=== PATIENT | female | born 1935 | race Caucasian/White ===

== ENCOUNTER 2017-12-17 18:57 | Emergency (ER) | payer MEDICARE, OTHER ==
[2017-12-17] MEDS ORDERED: SODIUM CHLORIDE 0.9% 1,000 ML IV STA (19:18)
--- NOTE | 2017-12-17 19:20 | ED ---
General Adult HPI - General Chief complaint: Syncope Stated complaint: Syncope Time Seen by Provider: 12/17/17 19:09 Source: patient Mode of arrival: EMS Limitations: no limitations - History of Present Illness Initial comments: Delicia is an 82-year-old female is brought to the ED today via EMS for evaluation of syncopal episode. Delicia reports that she was in her usual state of health throughout the day today, this evening she was sitting on air-conditioned trailer for a while and then decided to go out to the picnic table eat dinner. She reports that she was sitting in the table in the shade and she ate her dinner, she then began to feel very lightheaded and her witnesses she passed out. She did not fall from her seat. She leaned forward onto the table. Witnesses report that she was passed out for approximately 1-2 minutes. 911 was called. Delicia woke up, she was awake alert oriented. She reports that she has had episodes of dizziness in the past but doesn't know that she has ever passed out. She denies any chest pain, palpitations, shortness of breath, nausea, vomiting. She reports a prior to this event she was feeling well and after being woken up by EMS she has been feeling fine. - Related Data Allergies Allergy/AdvReac Type Severity Reaction Status Date / Time No Known Allergies Allergy Verified 12/17/17 19:03 Review of Systems ROS Statement: Those systems with pertinent positive or pertinent negative responses have been documented in the HPI. ROS Other: All systems not noted in ROS Statement are negative. Past Medical History Past Medical History: Diabetes Mellitus, Hyperlipidemia, Hypertension Additional Past Medical History / Comment(s): malignant melanoma History of Any Multi-Drug Resistant Organisms: None Reported Past Surgical History: Breast Surgery Additional Past Surgical History / Comment(s): bilateral knee replacement Past Psychological History: No Psychological Hx Reported Smoking Status: Never smoker Past Alcohol Use History: None Reported Past Drug Use History: None Reported General Exam Limitations: no limitations Course Vital Signs 12/17/17 12/17/17 12/17/17 18:59 20:12 20:44 Temperature 98.4 F Pulse Rate 86 98 76 Respiratory 18 20 18 Rate Blood Pressure 218/85 204/79 161/69 O2 Sat by Pulse 98 99 100 Oximetry 12/17/17 21:47 Temperature 98.3 F Pulse Rate 80 Respiratory 20 Rate Blood Pressure 169/77 O2 Sat by Pulse 98 Oximetry Medical Decision Making - Medical Decision Making Patient was seen and evaluated, history was obtained from the patient and then further history obtained from her Had been sitting outside in the heat eating dinner, she a large dinner stood up and felt lightheaded sat back down and may have had syncope, reports that she leaned forward onto the table and seemed to be asleep but immediately woke and was arousable. EMS was called and patient was transferred to the ER for evaluation of syncope. Patient ever experience any chest pain, palpitations, nausea or vomiting. She had no seizure-like activity or postictal period. A cardiac workup was ordered Patient is noted to be hypertensive upon arrival, we'll monitor Current workup was negative for acute findings, CT of the head was negative for any acute findings, patient's hypertension improved after IV fluids and relaxation. Patient resting comfortably throughout her entire ER stay without any episodes of lightheadedness, palpitations or syncope Patient was reevaluated after fluids, lab and CT findings were discussed with the patient and her at bedside. Patient reports that she is feeling great and would like to be discharged home. All questions pertaining to care were answered best of my ability patient was advised to call 911 or return to Hospital immediately for any recurrence of symptoms or development of any new or concerning symptoms. Discussed with the patient as well as her . Questions pertaining care were answered the best my ability patient was discharged home in stable condition. - Lab Data Result diagrams: 12/17/17 19:12 12/17/17 19:12 Lab Results 12/17/17 12/17/17 12/17/17 Range/Units 19:12 19:12 19:12 WBC 9.7 (3.8-10.6) k/uL RBC 4.59 (3.80-5.40) m/uL Hgb 14.2 (11.4-16.0) gm/dL Hct 44.9 (34.0-46.0) % MCV 97.9 (80.0-100.0) fL MCH 30.9 (25.0-35.0) pg MCHC 31.6 (31.0-37.0) g/dL RDW 13.6 (11.5-15.5) % Plt Count 267 (150-450) k/uL Neutrophils % 64 % Lymphocytes % 18 % Monocytes % 6 % Eosinophils % 9 % Basophils % 1 % Neutrophils # 6.2 (1.3-7.7) k/uL Lymphocytes # 1.8 (1.0-4.8) k/uL Monocytes # 0.6 (0-1.0) k/uL Eosinophils # 0.8 H (0-0.7) k/uL Basophils # 0.1 (0-0.2) k/uL PT (9.0-12.0) sec INR (<1.2) APTT (22.0-30.0) sec Sodium 139 (137-145) mmol/L Potassium 4.9 (3.5-5.1) mmol/L Chloride 106 (98-107) mmol/L Carbon Dioxide 23 (22-30) mmol/L Anion Gap 10 mmol/L BUN 17 (7-17) mg/dL Creatinine 0.85 (0.52-1.04) mg/dL Est GFR (CKD-EPI)AfAm 74 (>60 ml/min/1.73 sqM) Est GFR (CKD-EPI)NonAf 64 (>60 ml/min/1.73 sqM) Glucose 109 H (74-99) mg/dL Calcium 9.8 (8.4-10.2) mg/dL Magnesium 1.8 (1.6-2.3) mg/dL Total Bilirubin 0.6 (0.2-1.3) mg/dL AST 30 (14-36) U/L ALT 26 (9-52) U/L Alkaline Phosphatase 39 (38-126) U/L Total Creatine Kinase 28 L (30-135) U/L CK-MB (CK-2) 0.6 (0.0-2.4) ng/mL CK-MB (CK-2) Rel Index 2.1 Troponin I <0.012 (0.000-0.034) ng/mL Total Protein 6.6 (6.3-8.2) g/dL Albumin 4.2 (3.5-5.0) g/dL Urine Color Urine Appearance (Clear) Urine pH (5.0-8.0) Ur Specific [place] (1.001-1.035) Urine Protein (Negative) Urine Glucose (UA) (Negative) Urine Ketones (Negative) Urine Blood (Negative) Urine Nitrite (Negative) Urine Bilirubin (Negative) Urine Urobilinogen (<2.0) mg/dL Ur Leukocyte Esterase (Negative) Urine RBC (0-5) /hpf Urine WBC (0-5) /hpf Urine WBC Clumps (None) /hpf Ur Squamous Epith Cells (0-4) /hpf Hyaline Casts (0-2) /lpf Urine Mucus (None) /hpf 12/17/17 12/17/17 Range/Units 19:12 20:00 WBC (3.8-10.6) k/uL RBC (3.80-5.40) m/uL Hgb (11.4-16.0) gm/dL Hct (34.0-46.0) % MCV (80.0-100.0) fL MCH (25.0-35.0) pg MCHC (31.0-37.0) g/dL RDW (11.5-15.5) % Plt Count (150-450) k/uL Neutrophils % % Lymphocytes % % Monocytes % % Eosinophils % % Basophils % % Neutrophils # (1.3-7.7) k/uL Lymphocytes # (1.0-4.8) k/uL Monocytes # (0-1.0) k/uL Eosinophils # (0-0.7) k/uL Basophils # (0-0.2) k/uL PT 10.4 (9.0-12.0) sec INR 1.1 (<1.2) APTT 23.7 (22.0-30.0) sec Sodium (137-145) mmol/L Potassium (3.5-5.1) mmol/L Chloride (98-107) mmol/L Carbon Dioxide (22-30) mmol/L Anion Gap mmol/L BUN (7-17) mg/dL Creatinine (0.52-1.04) mg/dL Est GFR (CKD-EPI)AfAm (>60 ml/min/1.73 sqM) Est GFR (CKD-EPI)NonAf (>60 ml/min/1.73 sqM) Glucose (74-99) mg/dL Calcium (8.4-10.2) mg/dL Magnesium (1.6-2.3) mg/dL Total Bilirubin (0.2-1.3) mg/dL AST (14-36) U/L ALT (9-52) U/L Alkaline Phosphatase (38-126) U/L Total Creatine Kinase (30-135) U/L CK-MB (CK-2) (0.0-2.4) ng/mL CK-MB (CK-2) Rel Index Troponin I (0.000-0.034) ng/mL Total Protein (6.3-8.2) g/dL Albumin (3.5-5.0) g/dL Urine Color Yellow Urine Appearance Cloudy H (Clear) Urine pH 6.0 (5.0-8.0) Ur Specific [place] 1.014 (1.001-1.035) Urine Protein Trace H (Negative) Urine Glucose (UA) Negative (Negative) Urine Ketones Negative (Negative) Urine Blood Negative (Negative) Urine Nitrite Negative (Negative) Urine Bilirubin Negative (Negative) Urine Urobilinogen <2.0 (<2.0) mg/dL Ur Leukocyte Esterase Large H (Negative) Urine RBC 1 (0-5) /hpf Urine WBC 83 H (0-5) /hpf Urine WBC Clumps Many H (None) /hpf Ur Squamous Epith Cells 1 (0-4) /hpf Hyaline Casts 15 H (0-2) /lpf Urine Mucus Rare H (None) /hpf Disposition Clinical Impression: Syncope Disposition: HOME SELF-CARE Condition: Stable Instructions: Syncope (ED) Is patient prescribed a controlled substance at d/c from ED?: No Referrals: Raul Diaz MD [Primary Care Provider] - 1-2 days Time of Disposition: 21:33
[2017-12-17 19:34] LABS: Basophils # (A) 0.1 k/uL (0-0.2); Basophils % (A) 1 %; Eosinophils # (A) 0.8 k/uL (0-0.7); Eosinophils % (A) 9 %; HCT 44.9 % (34.0-46.0); HGB 14.2 gm/dL (11.4-16.0); Lymphocytes # (A) 1.8 k/uL (1.0-4.8); Lymphocytes % (A) 18 %; MCH 30.9 pg (25.0-35.0); MCHC 31.6 g/dL (31.0-37.0); MCV 97.9 fL (80.0-100.0); Mean Platelet Volume 6.8; Monocytes # (A) 0.6 k/uL (0-1.0); Monocytes % (A) 6 %; Neutrophils # (A) 6.2 k/uL (1.3-7.7); Neutrophils % (A) 64 %; Platelet Count 267 k/uL (150-450); RBC 4.59 m/uL (3.80-5.40); RDW 13.6 % (11.5-15.5); WBC 9.7 k/uL (3.8-10.6)
[2017-12-17 19:44] LABS: Albumin 4.2 g/dL (3.5-5.0); Calcium 9.8 mg/dL (8.4-10.2); Magnesium 1.8 mg/dL (1.6-2.3); Potassium 4.9 mmol/L (3.5-5.1); Total Bilirubin 0.6 mg/dL (0.2-1.3); Total Protein 6.6 g/dL (6.3-8.2)
[2017-12-17 19:46] LABS: Creatine Kinase 28 U/L (30-135)
[2017-12-17 19:50] LABS: INR 1.1 (<1.2); Partial Thromboplastin Time 23.7 sec (22.0-30.0); Prothrombin Time 10.4 sec (9.0-12.0)
[2017-12-17 19:59] LABS: Troponin I <0.012 ng/mL (0.000-0.034)
[2017-12-17 20:04] LABS: Creatine Kinase MB 0.6 ng/mL (0.0-2.4)
--- NOTE | 2017-12-17 20:11 | CT ---
EXAMINATION TYPE: CT brain wo con DATE OF EXAM: 12/17/2017 COMPARISON: None HISTORY: Syncopal episode today. CT DLP: 1025.2 mGycm Automated exposure control for dose reduction was used. FINDINGS: There is some cerebral cortical atrophy. There is no mass effect nor midline shift. There is no sign of intracranial hemorrhage. The calvarium is intact. IMPRESSION: CEREBRAL ATROPHY. NO ACUTE INTRACRANIAL ABNORMALITY. There is pansinusitis noted.
--- NOTE | 2017-12-17 20:13 | XR ---
EXAMINATION TYPE: XR chest 2V DATE OF EXAM: 12/17/2017 COMPARISON: NONE HISTORY: Syncope TECHNIQUE: Frontal and lateral views of the chest are obtained. FINDINGS: Heart and mediastinum are normal. Lungs are clear. Diaphragm is normal. There are chest le ads. Bony thorax appears normal. IMPRESSION: Normal chest
[2017-12-17 20:44] LABS: Appearance,Urine Cloudy (Clear); Bilirubin,Urine Negative (Negative); Blood,Urine Negative (Negative); Color,Urine Yellow; Glucose,Urine (UA) Negative (Negative); Hyaline Casts,Urine 15 /lpf (0-2); Ketones,Urine Negative (Negative); Leukocyte Esterase,Urine Large (Negative); Mucus,Urine Rare /hpf; Nitrite,Urine Negative (Negative); Protein,Urine Trace (Negative); RBC,Urine 1 /hpf (0-5); Specific Gravity,Urine 1.014 (1.001-1.035); Squamous Epithelial Cell,Urine 1 /hpf (0-4); Urobilinogen,Urine <2.0 mg/dL (<2.0); WBC,Urine 83 /hpf (0-5)
[2017-12-17 21:48] VITALS: BP 169/77; PULSE 80; RESP 20; TEMP 98.3
== END 2017-12-17 21:48 | disposition home or self-care (01) ==
LOC: EC 18:57
DX: R55 Syncope and collapse (principal); R42 Dizziness and giddiness; E11.9 Type 2 diabetes mellitus without complications; I10 Essential (primary) hypertension; Z85.820 Personal history of malignant melanoma of skin; Z96.653 Presence of artificial knee joint, bilateral
CPT/HCPCS: 36415; 70450; 71046; 80053; 81001; 82550; 82553; 83735; 84484; 85025; 85610; 85730; 93005; 96360; 96361; 99285

== ENCOUNTER → 2019-09-10 | Outpatient (CLI) | payer MEDICARE, OTHER ==
[2019-09-10 13:04] LABS: Basophils % (A) 1 %; Eosinophils # (A) 0.2 k/uL (0-0.7); Eosinophils % (A) 4 %; HGB 14.1 gm/dL (11.4-16.0); Lymphocytes # (A) 1.7 k/uL (1.0-4.8); Lymphocytes % (A) 27 %; MCH 31.7 pg (25.0-35.0); MCHC 32.9 g/dL (31.0-37.0); MCV 96.4 fL (80.0-100.0); Mean Platelet Volume 7.3; Monocytes # (A) 0.3 k/uL (0-1.0); Monocytes % (A) 5 %; Neutrophils # (A) 3.7 k/uL (1.3-7.7); Neutrophils % (A) 61 %; Platelet Count 288 k/uL (150-450); RBC 4.46 m/uL (3.80-5.40); RDW 13.6 % (11.5-15.5); WBC 6.1 k/uL (3.8-10.6)
[2019-09-10 13:55] LABS: Erythrocyte Sedimentation Rate 8 mm/hr (0-20)
[2019-09-10 19:52] LABS: ALT 27 U/L (8-44); AST 37 U/L (13-35); African American GFR (CKD) 53.8 (60.0-200.0); Albumin/Globulin Ratio 2.39 (1.60-3.17); Alkaline Phosphatase 57 U/L (41-126); BUN/Creat Ratio 18.18 Ratio (12.00-20.00); Calcium 9.7 mg/dL (8.7-10.3); Carbon Dioxide 22.3 mmol/L (21.6-31.8); Chloride 105 mmol/L (96-109); Globulin 1.8 g/dL (1.6-3.3); Glucose 191 mg/dL (70-110); Non-African American GFR(CKD) 46.4 (60.0-200.0); Sodium 137 mmol/L (135-145); Total Bilirubin 0.6 mg/dL (0.3-1.2); Total Protein 6.1 g/dL (6.2-8.2)
[2019-09-10 20:08] LABS: Folate, Serum >24.0 ng/mL
[2019-09-14 08:33] LABS: Arsenic Whole Blood <3 mcg/L (< 23); Mercury Whole Blood <2 mcg/L (< 11)
== END | disposition home or self-care (01) ==
LOC: LABWHC1 11:41
PROVIDERS: ATTEND Internal Medicine
DX: G62.9 Polyneuropathy, unspecified (principal)
CPT/HCPCS: 36415; 80053; 82175; 82570; 82607; 82746; 83655; 83825; 85025; 85652

== ENCOUNTER → 2020-07-06 | Outpatient (CLI) | payer MEDICARE, OTHER ==
[~2020-07-06] MED LIST: SODIUM CHLORIDE 0.9% 500 ML 500 ML in EMPTY BAG 1 BAG IV PRN
[2020-07-06 08:01] VITALS: RESP 18
[2020-07-06 08:50] LABS: Basophils # (A) 0.1 k/uL (0-0.2); Basophils % (A) 1 %; Eosinophils # (A) 0.3 k/uL (0-0.7); Eosinophils % (A) 4 %; HCT 41.7 % (34.0-46.0); HGB 14.2 gm/dL (11.4-16.0); Lymphocytes # (A) 1.4 k/uL (1.0-4.8); Lymphocytes % (A) 23 %; MCH 32.9 pg (25.0-35.0); MCHC 34.1 g/dL (31.0-37.0); MCV 96.5 fL (80.0-100.0); Mean Platelet Volume 7.4; Monocytes # (A) 0.4 k/uL (0-1.0); Monocytes % (A) 7 %; Neutrophils # (A) 3.6 k/uL (1.3-7.7); Neutrophils % (A) 62 %; Platelet Count 309 k/uL (150-450); RBC 4.32 m/uL (3.80-5.40); WBC 5.9 k/uL (3.8-10.6)
[2020-07-06 09:06] LABS: Albumin 3.8 g/dL (3.5-5.0); Calcium 9.6 mg/dL (8.4-10.2); Potassium 4.9 mmol/L (3.5-5.1); Total Bilirubin 0.7 mg/dL (0.2-1.3); Total Protein 6.4 g/dL (6.3-8.2)
[2020-07-06] MEDS: SODIUM CHLORIDE 0.9% 1,000 ML IV NR ×2 (09:28→10:02)
[2020-07-07 00:26] LABS: Folate, Serum 19.5 ng/mL
== END ==
LOC: PROCWHC3 07:38
PROVIDERS: ATTEND Family Medicine
DX: R10.9 Unspecified abdominal pain (principal)
CPT/HCPCS: 36415; 80053; 82607; 82746; 83605; 83690; 84443; 85025; 96360; 96361

== ENCOUNTER 2023-09-13 08:12 | Inpatient (IN) | payer MEDICARE, OTHER ==
--- NOTE | 2023-09-13 08:26 | ED ---
General Adult HPI - General Stated complaint: AMS Time Seen by Provider: 09/13/23 08:13 Source: patient, EMS, RN notes reviewed Mode of arrival: EMS Limitations: altered mental status - History of Present Illness Initial comments: Patient is an 87-year-old female present to the emergency department with concerns for change in mental status. Onset of symptoms was today. Patient seems more confused. This was noticed by nursing staff at the halfway. Patient is unable to express any concerns. Patient is extremely hard of hearing - Related Data Home Medications Medication Instructions Recorded Confirmed Aspirin 81 mg PO W/SUPPER 07/06/20 09/13/23 Levothyroxine Sodium [Synthroid] 75 mg PO HS 07/06/20 09/13/23 Losartan [Cozaar] 50 mg PO BID-W/MEALS 07/06/20 09/13/23 Pantoprazole [Protonix] 40 mg PO AC-BRKFST 07/06/20 09/13/23 Pitavastatin Calcium [Livalo] 2 mg PO AC-BRKFST 07/06/20 09/13/23 Topiramate [Topamax] 25 mg PO W/SUPPER 07/06/20 09/13/23 B-Complex with Vitamin C [Vitamin 1 cap PO W/BRKFST 09/13/23 09/13/23 B-Complex with Vit C] Furosemide [Lasix] 20 mg PO W/SUPPER 09/13/23 09/13/23 Pioglitazone [Actos] 45 mg PO W/BRKFST 09/13/23 09/13/23 glipiZIDE XL [Glucotrol Xl] 10 mg PO W/BRKFST 09/13/23 09/13/23 metFORMIN HCL 500 mg PO BID-W/MEALS 09/13/23 09/13/23 Allergies Allergy/AdvReac Type Severity Reaction Status Date / Time No Known Allergies Allergy Verified 12/17/17 19:03 Review of Systems ROS Statement: Those systems with pertinent positive or pertinent negative responses have been documented in the HPI. ROS Other: All systems not noted in ROS Statement are negative. Limitations: ROS unobtainable due to patients medical condition Past Medical History Past Medical History: Diabetes Mellitus, Hyperlipidemia, Hypertension Additional Past Medical History / Comment(s): malignant melanoma History of Any Multi-Drug Resistant Organisms: None Reported Past Surgical History: Breast Surgery Additional Past Surgical History / Comment(s): bilateral knee replacement Past Psychological History: No Psychological Hx Reported Smoking Status: Never smoker Past Alcohol Use History: None Reported Past Drug Use History: None Reported General Exam Limitations: altered mental status General appearance: alert, in no apparent distress Head exam: Present: atraumatic Eye exam: Present: normal appearance ENT exam: Present: mucous membranes dry Neck exam: Present: normal inspection. Absent: tenderness, meningismus Respiratory exam: Present: normal lung sounds bilaterally Cardiovascular Exam: Present: tachycardia GI/Abdominal exam: Present: soft. Absent: tenderness Extremities exam: Present: normal inspection. Absent: pedal edema, calf tenderness Neurological exam: Present: alert, altered, other (Does not follow commands, difficult exam. No weakness noted.) Expanded Neurological exam: Present: protecting the airway Patient oriented to: Present: person. Absent: place, time Motor strength exam: RUE: 5, LUE: 5, RLE: 5, LLE: 5 Eye Response: (4) open spontaneously Motor Response: (4) withdraws to pain Verbal Response: (3) inappropriate words Psychiatric exam: Present: flat affect Skin exam: Present: normal color Course Vital Signs 09/13/23 09/13/23 09/13/23 08:15 10:04 11:06 Temperature 100.1 F H 101.2 F H Pulse Rate 106 H 96 Respiratory 18 20 19 Rate Blood Pressure 154/84 151/58 O2 Sat by Pulse 98 95 Oximetry EKG Findings - EKG Results: EKG: interpreted by ERMD (Bundle branch block), sinus rhythm, normal axis, normal ST/T Medical Decision Making - Medical Decision Making Was pt. sent in by a medical professional or institution (, PA, GAS TURBINE MECHANIC, urgent care, hospital, or halfway...) When possible be specific @ -Patient was sent from nursing facility Did you speak to anyone other than the patient for history (EMS, parent, family, police, friend...)? What history was obtained from this source @ -No Did you review nursing and triage notes (agree or disagree)? Why? @ -I reviewed and agree with nursing and triage notes Were old charts reviewed (outside hosp., previous admission, EMS record, old EKG, old radiological studies, urgent care reports/EKG's, halfway records)? Report findings @ -half-way chart reviewed Differential Diagnosis (chest pain, altered mental status, abdominal pain women, abdominal pain men, vaginal bleeding, weakness, fever, dyspnea, syncope, headache, dizziness, GI bleed, back pain, seizure, CVA, palpatations, mental health, musculoskeletal)? @ -MDM differential altered mental status differential Altered Mental Status: Hypoglycemia, DKA, hypercapnia, ETOH, overdose, CO poisoning, trauma, myxedema coma, HTN encephalopathy, infection, encephalitis, psychosis, intercranial hemorrhage, hepatic encephalopathy, meningitis, CVA, this is not meant to be an all-inclusive list EKG interpreted by me (3pts min.). @ -As above X-rays interpreted by me (1pt min.). @ -Chest x-ray shows no acute process CT interpreted by me (1pt min.). @ -CT scan of the brain without acute abnormality or atrophy. U/S interpreted by me (1pt. min.). @ -None done What testing was considered but not performed or refused? (CT, X-rays, U/S, labs)? Why? @ -None What meds were considered but not given or refused? Why? @ -None Did you discuss the management of the patient with other professionals (professionals i.e. DrClif, PA, G[employer] T[employer]INE MECHANIC, lab, RT, psych nurse, geriatric social worker, stallion manager, teacher, forest fire management officer, case management director)? Give summary @ -Case discussed with Dr. Cheung who will admit covering Dr. Aleman Was smoking cessation discussed for >3mins.? @ -No Was critical care preformed (if so, how long)? @ -31 minutes critical care Were there social determinants of health that impacted care today? How? (Homelessness, low income, unemployed, alcoholism, drug addiction, transportation, low edu. Level, literacy, decrease access to med. care, assisted, rehab)? @ -No Was there de-escalation of care discussed even if they declined (Discuss DNR or withdrawal of care, Hospice)? DNR status @ -No What co-morbidities impacted this encounter? (DM, HTN, Smoking, COPD, CAD, Cancer, CVA, ARF, Chemo, Hep., AIDS, mental health diagnosis, sleep apnea, morbid obesity)? @ -None Was patient admitted / discharged? Hospital course, mention meds given and route, prescriptions, significant lab abnormalities, going to OR and other pertinent info. @ -Patient presents with altered mental status. Patient is a poor historian. Patient has fever however no obvious infection. Viral studies have been ordered. Patient does have elevated troponin and will be admitted with heparin and cardiology consult and echo. Undiagnosed new problem with uncertain prognosis? @ -Etiology of altered mental status and fever uncertain. Uncertain prognosis. Drug Therapy requiring intensive monitoring for toxicity (Heparin, Nitro, Insulin, Cardizem)? @ -No Were any procedures done? @ -No Diagnosis/symptom? @ -Fever, altered mental status, non-ST elevation ID Acute, or Chronic, or Acute on Chronic? @ -Acute, acute, acute Uncomplicated (without systemic symptoms) or Complicated (systemic symptoms)? @ -Default Side effects of treatment? @ -No Exacerbation, Progression, or Severe Exacerbation? @ -No Poses a threat to life or bodily function? How? (Chest pain, USA, ID, pneumonia, PE, COPD, DKA, ARF, appy, cholecystitis, CVA, Diverticulitis, Homicidal, Suicidal, threat to staff... and all critical care pts) @ -Threat to organ and cardiac dysfunction - Lab Data Result diagrams: 09/13/23 08:31 09/13/23 08:31 Lab Results 09/13/23 09/13/23 09/13/23 Range/Units 08:31 08:31 08:31 WBC 9.8 (3.8-10.6) k/uL RBC 3.95 (3.80-5.40) m/uL Hgb 12.4 (11.4-16.0) gm/dL Hct 36.6 (34.0-46.0) % MCV 92.8 (80.0-100.0) fL MCH 31.5 (25.0-35.0) pg MCHC 33.9 (31.0-37.0) g/dL RDW 14.5 (11.5-15.5) % Plt Count 295 (150-450) k/uL MPV 7.4 Neutrophils % 84 % Lymphocytes % 8 % Monocytes % 6 % Eosinophils % 0 % Basophils % 0 % Neutrophils # 8.3 H (1.3-7.7) k/uL Lymphocytes # 0.8 L (1.0-4.8) k/uL Monocytes # 0.6 (0-1.0) k/uL Eosinophils # 0.0 (0-0.7) k/uL Basophils # 0.0 (0-0.2) k/uL PT 11.3 (10.0-12.5) sec INR 1.0 (<1.2) APTT 26.4 (22.0-30.0) sec Sodium (137-145) mmol/L Potassium (3.5-5.1) mmol/L Chloride (98-107) mmol/L Carbon Dioxide (22-30) mmol/L Anion Gap mmol/L BUN (7-17) mg/dL Creatinine (0.52-1.04) mg/dL Est GFR (CKD-EPI)AfAm (>60 ml/min/1.73 sqM) Est GFR (CKD-EPI)NonAf (>60 ml/min/1.73 sqM) Glucose (74-99) mg/dL Plasma Lactic Acid [place] (0.7-2.0) mmol/L Calcium (8.4-10.2) mg/dL Magnesium (1.6-2.3) mg/dL Total Bilirubin (0.2-1.3) mg/dL AST (14-36) U/L ALT (4-34) U/L Alkaline Phosphatase (38-126) U/L Troponin I (0.000-0.034) ng/mL Total Protein (6.3-8.2) g/dL Albumin (3.5-5.0) g/dL Urine Color Colorless Urine Appearance Cloudy H (Clear) Urine pH 7.5 (5.0-8.0) Ur Specific [place] 1.012 (1.001-1.035) Urine Protein 1+ H (Negative) Urine Glucose (UA) 2+ H (Negative) Urine Ketones 1+ H (Negative) Urine Blood Negative (Negative) Urine Nitrite Negative (Negative) Urine Bilirubin Negative (Negative) Urine Urobilinogen <2.0 (<2.0) mg/dL Ur Leukocyte Esterase Negative (Negative) Urine WBC 3 (0-5) /hpf Ur Squamous Epith Cells 2 (0-4) /hpf Urine Bacteria Few H (None) /hpf Hyaline Casts 3 H (0-2) /lpf Urine Mucus Rare H (None) /hpf 09/13/23 09/13/23 09/13/23 Range/Units 08:31 08:31 08:31 WBC (3.8-10.6) k/uL RBC (3.80-5.40) m/uL Hgb (11.4-16.0) gm/dL Hct (34.0-46.0) % MCV (80.0-100.0) fL MCH (25.0-35.0) pg MCHC (31.0-37.0) g/dL RDW (11.5-15.5) % Plt Count (150-450) k/uL MPV Neutrophils % % Lymphocytes % % Monocytes % % Eosinophils % % Basophils % % Neutrophils # (1.3-7.7) k/uL Lymphocytes # (1.0-4.8) k/uL Monocytes # (0-1.0) k/uL Eosinophils # (0-0.7) k/uL Basophils # (0-0.2) k/uL PT (10.0-12.5) sec INR (<1.2) APTT (22.0-30.0) sec Sodium 134 L (137-145) mmol/L Potassium 4.5 (3.5-5.1) mmol/L Chloride 103 (98-107) mmol/L Carbon Dioxide 25 (22-30) mmol/L Anion Gap 6 mmol/L BUN 16 (7-17) mg/dL Creatinine 0.98 (0.52-1.04) mg/dL Est GFR (CKD-EPI)AfAm 60 (>60 ml/min/1.73 sqM) Est GFR (CKD-EPI)NonAf 52 (>60 ml/min/1.73 sqM) Glucose 226 H (74-99) mg/dL Plasma Lactic Acid [place] 1.3 (0.7-2.0) mmol/L Calcium 9.0 (8.4-10.2) mg/dL Magnesium 1.5 L (1.6-2.3) mg/dL Total Bilirubin 0.9 (0.2-1.3) mg/dL AST 46 H (14-36) U/L ALT 26 (4-34) U/L Alkaline Phosphatase 132 H (38-126) U/L Troponin I 3.270 H* (0.000-0.034) ng/mL Total Protein 6.2 L (6.3-8.2) g/dL Albumin 3.7 (3.5-5.0) g/dL Urine Color Urine Appearance (Clear) Urine pH (5.0-8.0) Ur Specific [place] (1.001-1.035) Urine Protein (Negative) Urine Glucose (UA) (Negative) Urine Ketones (Negative) Urine Blood (Negative) Urine Nitrite (Negative) Urine Bilirubin (Negative) Urine Urobilinogen (<2.0) mg/dL Ur Leukocyte Esterase (Negative) Urine WBC (0-5) /hpf Ur Squamous Epith Cells (0-4) /hpf Urine Bacteria (None) /hpf Hyaline Casts (0-2) /lpf Urine Mucus (None) /hpf Disposition Clinical Impression: Altered mental status, Fever, NSTEMI (non-ST elevated myocardial infarction) Disposition: ADMITTED IP TO [facility] Condition: Serious Is patient prescribed a controlled substance at d/c from ED?: No Referrals: Son Nava DO [Primary Care Provider] - 1-2 days Time of Disposition: 12:14
[2023-09-13 08:56] LABS: Basophils % (A) 0 %; Eosinophils % (A) 0 %; HCT 36.6 % (34.0-46.0); HGB 12.4 gm/dL (11.4-16.0); Lymphocytes # (A) 0.8 k/uL (1.0-4.8); Lymphocytes % (A) 8 %; MCH 31.5 pg (25.0-35.0); MCHC 33.9 g/dL (31.0-37.0); MCV 92.8 fL (80.0-100.0); Mean Platelet Volume 7.4; Monocytes # (A) 0.6 k/uL (0-1.0); Monocytes % (A) 6 %; Neutrophils # (A) 8.3 k/uL (1.3-7.7); Neutrophils % (A) 84 %; Platelet Count 295 k/uL (150-450); RBC 3.95 m/uL (3.80-5.40); RDW 14.5 % (11.5-15.5); WBC 9.8 k/uL (3.8-10.6)
[2023-09-13 09:07] LABS: ALT 26 U/L (4-34); AST 46 U/L (14-36); African American GFR (CKD) 60 (>60 ml/min/1.73 sqM); Albumin 3.7 g/dL (3.5-5.0); Alkaline Phosphatase 132 U/L (38-126); Anion Gap 6 mmol/L; Blood Urea Nitrogen 16 mg/dL (7-17); Carbon Dioxide 25 mmol/L (22-30); Chloride 103 mmol/L (98-107); Glucose 226 mg/dL (74-99); Magnesium 1.5 mg/dL (1.6-2.3); Non-African American GFR(CKD) 52 (>60 ml/min/1.73 sqM); Potassium 4.5 mmol/L (3.5-5.1); Sodium 134 mmol/L (137-145); Total Bilirubin 0.9 mg/dL (0.2-1.3); Total Protein 6.2 g/dL (6.3-8.2)
[2023-09-13] MEDS: SODIUM CHLORIDE 0.9% 1,000 ML IV STA (09:08)
[2023-09-13] MEDS: ACETAMINOPHEN TAB 500 MG TAB PO STA (09:11)
[2023-09-13 09:13] LABS: Partial Thromboplastin Time 26.4 sec (22.0-30.0); Prothrombin Time 11.3 sec (10.0-12.5)
[2023-09-13 09:21] LABS: Appearance,Urine Cloudy (Clear); Bacteria,Urine Few /hpf; Bilirubin,Urine Negative (Negative); Blood,Urine Negative (Negative); Color,Urine Colorless; Glucose,Urine (UA) 2+ (Negative); Hyaline Casts,Urine 3 /lpf (0-2); Ketones,Urine 1+ (Negative); Leukocyte Esterase,Urine Negative (Negative); Mucus,Urine Rare /hpf; Nitrite,Urine Negative (Negative); PH, Urine 7.5 (5.0-8.0); Protein,Urine 1+ (Negative); Specific Gravity,Urine 1.012 (1.001-1.035); Squamous Epithelial Cell,Urine 2 /hpf (0-4); Urobilinogen,Urine <2.0 mg/dL (<2.0); WBC,Urine 3 /hpf (0-5)
[2023-09-13] MEDS: ACETAMINOPHEN IV (For NPO) 1,000 MG in EMPTY BAG 1 BAG IVPB STA (10:03)
--- NOTE | 2023-09-13 10:16 | CT ---
EXAMINATION TYPE: CT brain wo con DATE OF EXAM: 09/13/2023 COMPARISON: 12/17/2017 HISTORY: mental status change CT DLP: 1330.[address] of the brain was performed. The ventricles, basal cisterns and sulci overlying the cerebral convexities demonstrate mild enlargem ent. There is no evidence for intracranial hemorrhage or sulcal effacement. There is decreased attenuation about the periventricular white matter and deep white matter of both c erebral hemispheres, compatible with chronic small vessel ischemia. Differential diagnosis does inclu de demyelination. No mass effects are seen.No midline shift. Osseous calvarium is intact. If symptoms persist consider MRI. IMPRESSION: 1. Age related atrophic and chronic small vessel ischemic change without acute intracranial process s een at this time.
--- NOTE | 2023-09-13 11:16 | XR ---
EXAMINATION TYPE: XR chest 2V DATE OF EXAM: 09/13/2023 COMPARISON: 12/17/2017 TECHNIQUE: PA and lateral views submitted. HISTORY: Weakness FINDINGS: The lungs are clear and there is no pneumothorax, pleural effusion, or focal pneumonia. Heart size normal and no overt failure. Osseous structures demonstrate hypertrophic and degenerative changes of the spine. Correlate for diffuse neoplastic skeletal hyperostosis. Osteopenia with AC joint arthropat hy. IMPRESSION: 1. No acute process.
[2023-09-13] MEDS: LORazepam 1 MG TAB PO STA (13:16)
[2023-09-13] MEDS: ASPIRIN 81 MG PO STA (13:18)
[2023-09-13] MEDS: MAGNESIUM OXIDE 400 MG TAB PO STA (13:19)
[2023-09-13] MEDS: HEPARIN SODIUM 1,000 UN/ML (10ML VL) IV ONE (13:24)
[2023-09-13] MEDS ORDERED: DEXTROSE 50% SYRINGE 50 ML IVP PRN ×2 (13:24)
[2023-09-13] MEDS: HEPARIN SOD,PORK IN 0.45% NACL 25,000 UNIT in 0.45% NACL 1 250ML.BAG IV SCH (13:28)
--- NOTE | 2023-09-13 14:16 | P.CRDCN ---
History of Present Illness History of present illness: HISTORY OF PRESENT ILLNESS: This is a 87 year year female with a past medical history significant for hypertension, diabetes, and GERD. 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 We have been asked to see the patient in consultation for elevated troponins. Patient examined at the bedside in the ER. Patient is usually A/O x3. She lives in an independant living facility. She does have a nurse that comes in the morning to help get her dressed. The patient was noted to be very confused which is not her baseline. She was brought to the ER for further evaluation. Patient also was found to have a fever. WBC normal. Patient was also found to have elevated troponins and started on IV heparin. Patient has had no complaints of chest pain or pressure. No complaints of shortness of breath. Vital signs are stable. Bedside telemetry reveals sinus mechanism. She is tachycardic at the time of examination with a heart rate in the 120s. DIAGNOSTICS: - EKG reveals sinus mechanism with no signs of acute ischemia. Right BBB. - Chest xray negative for acute process - Laboratory data: WBC 9.8. Hemoglobin 12.4. Platelet count 295. Sodium 134. Potassium 4.5. BUN 16. Creatinine 0.98. Lactic acid 1.3. Troponin 3.270. 8.280. - Current home cardiac medications include losartan 50 mg twice a day, Lasix 20 mg daily, aspirin 81 mg daily. REVIEW OF SYSTEMS: At the time of my exam: Unable to obtain thorough review of systems secondary to altered mental status PHYSICAL EXAM: VITAL SIGNS: Reviewed. GENERAL: Well-developed in no acute distress. HEENT: Head is normocephalic. Pupils are equal, round. Sclerae anicteric. Mucous membranes of the mouth are moist. Neck supple. No JVD or thyromegaly LUNGS: Respirations even and unlabored. Lungs essentially clear to auscultation bilaterally. HEART: Regular rate and rhythm. S1 and S2 heard. 4/6 systolic murmur ABDOMEN: Soft. Nondistended. Nontender. EXTREMITIES: Normal range of motion. No clubbing or cyanosis. Peripheral pulses intact. No lower extremity edema NEUROLOGIC: Confused. Agitated during examination. 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 Additionally she is tachycardic at the time of examination. Suspect elevated troponins are due to type II MT. Await findings of echocardiogram. Pending echocardiogram, more recommendations will be provided regarding need for cardiac catheterization We will continue with conservative management at this time. Patient's daughter at the bedside and updated on plan of care. All questions answered. Further recommendations pending patient course Nurse practitioner note has been reviewed by physician. Signing provider agrees with the documented findings, assessment, and plan of care documented by [facility] as a scribe. Past Medical History Past Medical History: Diabetes Mellitus, Hyperlipidemia, Hypertension Additional Past Medical History / Comment(s): malignant melanoma History of Any Multi-Drug Resistant Organisms: None Reported Past Surgical History: Breast Surgery Additional Past Surgical History / Comment(s): bilateral knee replacement Past Psychological History: No Psychological Hx Reported Smoking Status: Never smoker Past Alcohol Use History: None Reported Past Drug Use History: None Reported Medications and Allergies Home Medications Medication Instructions Recorded Confirmed Type Aspirin 81 mg PO W/SUPPER 07/06/20 09/13/23 History Levothyroxine Sodium [Synthroid] 75 mg PO HS 07/06/20 09/13/23 History Losartan [Cozaar] 50 mg PO BID-W/MEALS 07/06/20 09/13/23 History Pantoprazole [Protonix] 40 mg PO AC-BRKFST 07/06/20 09/13/23 History Pitavastatin Calcium [Livalo] 2 mg PO AC-BRKFST 07/06/20 09/13/23 History Topiramate [Topamax] 25 mg PO W/SUPPER 07/06/20 09/13/23 History B-Complex with Vitamin C [Vitamin 1 cap PO W/BRKFST 09/13/23 09/13/23 History B-Complex with Vit C] Furosemide [Lasix] 20 mg PO W/SUPPER 09/13/23 09/13/23 History Pioglitazone [Actos] 45 mg PO W/BRKFST 09/13/23 09/13/23 History glipiZIDE XL [Glucotrol Xl] 10 mg PO W/BRKFST 09/13/23 09/13/23 History metFORMIN HCL 500 mg PO BID-W/MEALS 09/13/23 09/13/23 History Allergies Allergy/AdvReac Type Severity Reaction Status Date / Time No Known Allergies Allergy Verified 12/17/17 19:03 Physical Exam Vitals: Vital Signs Temp Pulse Resp BP Pulse Ox 09/13/23 13:31 100.9 F H 112 H 20 98 09/13/23 11:06 101.2 F H 19 09/13/23 10:04 96 20 151/58 95 09/13/23 08:15 100.1 F H 106 H 18 154/84 98 Intake and Output 09/12/23 09/13/23 09/13/23 22:59 06:59 14:59 Other: Weight 99.79 kg Results 09/13/23 08:31 09/13/23 08:31 Cardiac Enzymes 09/13/23 09/13/23 09/13/23 Range/Units 08:31 08:31 12:25 AST 46 H (14-36) U/L Troponin I 3.270 H* 8.280 H* (0.000-0.034) ng/mL Coagulation 09/13/23 Range/Units 08:31 PT 11.3 (10.0-12.5) sec APTT 26.4 (22.0-30.0) sec CBC 09/13/23 Range/Units 08:31 WBC 9.8 (3.8-10.6) k/uL RBC 3.95 (3.80-5.40) m/uL Hgb 12.4 (11.4-16.0) gm/dL Hct 36.6 (34.0-46.0) % Plt Count 295 (150-450) k/uL Comprehensive Metabolic Panel 09/13/23 Range/Units 08:31 Sodium 134 L (137-145) mmol/L Potassium 4.5 (3.5-5.1) mmol/L Chloride 103 (98-107) mmol/L Carbon Dioxide 25 (22-30) mmol/L BUN 16 (7-17) mg/dL Creatinine 0.98 (0.52-1.04) mg/dL Glucose 226 H (74-99) mg/dL Calcium 9.0 (8.4-10.2) mg/dL AST 46 H (14-36) U/L ALT 26 (4-34) U/L Alkaline Phosphatase 132 H (38-126) U/L Total Protein 6.2 L (6.3-8.2) g/dL Albumin 3.7 (3.5-5.0) g/dL Current Medications Generic Name Dose Route Start Last Admin Trade Name Danish PRN Reason Stop Dose Admin Aspirin 325 mg 09/14/23 09:00 Aspirin 325 Mg Tab PO DAILY TY Dextrose/Water 25 ml 09/13/23 13:24 Dextrose 50% Syringe 50 Ml IVP PER PROTOCOL PRN Hypoglycemia Protocol Dextrose/Water 50 ml 09/13/23 13:24 Dextrose 50% Syringe 50 Ml IVP PER PROTOCOL PRN Hypoglycemia Protocol Sodium Chloride 1,000 mls @ 75 mls/hr 09/13/23 08:23 09/13/23 09:08 Saline 0.9% IV 09/13/23 21:42 75 mls/hr .[id number] STA Administration Heparin Sodium/Sodium Chloride 250 mls @ 10 mls/hr 09/13/23 12:15 09/13/23 13:28 25,000 unit/ Sodium Chloride IV 10.021 units/kg/hr .Q24H TY 10 mls/hr Administration Protocol 10.021 UNITS/KG/HR Magnesium Sulfate/Dextrose 1 100 mls @ 100 mls/hr 09/13/23 13:30 gm/ IV Solution IVPB 09/13/23 15:29 Q1H TY Insulin Aspart 0 unit 09/13/23 17:30 Insulin Aspart (Novolog) 100 Unit/Ml Vial SQ ACHS TY Protocol Levothyroxine Sodium 75 mcg 09/13/23 21:00 Levothyroxine 75 Mcg Tab PO HS TY Pantoprazole Sodium 40 mg 09/14/23 07:30 Pantoprazole 40 Mg Tablet PO AC-BRKFST TY Topiramate 25 mg 09/13/23 17:30 Topiramate 25 Mg Tab PO W/SUPPER TY Intake and Output 09/12/23 09/13/23 09/13/23 22:59 06:59 14:59 Other: Weight 99.79 kg Patient Weight 09/14/23 06:59 Weight 99.79 kg 09/13/23 08:31 09/13/23 08:31
[2023-09-13] MEDS: AZITHROMYCIN 500 MG TAB PO SCH (15:39)
[2023-09-13] MEDS: METOPROLOL SUCCINATE (ER) 25 MG TAB.ER.24H PO SCH (15:45)
[2023-09-13] MEDS: MAGNESIUM SULFATE-D5W PMX 1 GM in DEXTROSE/WATER 1 100ML.BAG IVPB SCH (15:51)
--- NOTE | 2023-09-13 16:31 | P.CONS ---
History of Present Illness - Reason for Consult Consult date: 09/13/23 Fever Requesting physician: Jeromy Urban - Chief Complaint Mental status changes and weakness x 1 day - History of Present Illness Patient is a 87-year-old female with a past medical history significant for diabetes mellitus hypertension hyperlipidemia malignant melanoma osteoarthritis status post bilateral knee replacement patient has been brought into the hospital concerning for mental status changes onset of symptom has been the day of presentation to the hospital the patient was noted to be more confused by the nursing staff at the [facility] history obtained mostly from the daughter at the bedside patient did have URI symptoms few days before presen tation to the hospital patient did have a cough mild to moderate intensity not bring up any sputum no nausea vomiting did have some diarrhea and no urinary symptoms on presentation to the hospital patient did have a fever of 101.2 F patient was tachycardic not hypotensive or hypoxic and no need for supplemental oxygen patient did have a white count of 9.8 creatinine 0.98 electrolytes are normal liver isms are normal troponins are elevated urine to be cloudy however negative for leukocyte Estrace and WBC and influenza RSV COVID testing was negative patient did have a CT of the brain that was negative for any bleed chest x-ray reported negative for acute process infectious disease was consulted because of the fever and need for antibiotic therapy Review of Systems Positive point and negatives has been mentioned in the HPI, complete review of systems was performed and all other systems are negative Past Medical History Past Medical History: Diabetes Mellitus, Hyperlipidemia, Hypertension Additional Past Medical History / Comment(s): malignant melanoma History of Any Multi-Drug Resistant Organisms: None Reported Past Surgical History: Breast Surgery Additional Past Surgical History / Comment(s): bilateral knee replacement Past Psychological History: No Psychological Hx Reported Smoking Status: Never smoker Past Alcohol Use History: None Reported Past Drug Use History: None Reported Medications and Allergies Home Medications Medication Instructions Recorded Confirmed Type Aspirin 81 mg PO W/SUPPER 07/06/20 09/13/23 History Levothyroxine Sodium [Synthroid] 75 mg PO HS 07/06/20 09/13/23 History Pantoprazole [Protonix] 40 mg PO AC-BRKFST 07/06/20 09/13/23 History Topiramate [Topamax] 25 mg PO W/SUPPER 07/06/20 09/13/23 History B-Complex with Vitamin C [Vitamin 1 cap PO W/BRKFST 09/13/23 09/13/23 History B-Complex with Vit C] metFORMIN HCL 500 mg PO BID-W/MEALS 09/13/23 09/13/23 History Acetaminophen Tab [Tylenol] 650 mg PO Q4HR PRN tab 09/18/23 Rx Atorvastatin [Lipitor] 40 mg PO HS tab 09/18/23 Rx INSULIN ASPART (NovoLOG) [NovoLOG 0 unit SQ ACHS each 09/18/23 Rx (formulary)] cefUROXime axetiL [Ceftin] 500 mg PO BID 7 Days #14 tab 09/18/23 Rx Apixaban [Eliquis] 5 mg PO BID tab 09/21/23 Rx Furosemide [Lasix] 20 mg PO BID@0900,1600 tab 09/21/23 Rx Insulin Detemir (Levemir) [Levemir] 20 unit SQ BID each 09/21/23 Rx Metoprolol Succinate (ER) [Toprol 50 mg PO BID tab 09/21/23 Rx XL] Allergies Allergy/AdvReac Type Severity Reaction Status Date / Time No Known Allergies Allergy Verified 12/17/17 19:03 Physical Exam Vitals: Vital Signs Temp Pulse Resp BP Pulse Ox 09/13/23 11:06 101.2 F H 19 09/13/23 10:04 96 20 151/58 95 09/13/23 08:15 100.1 F H 106 H 18 154/84 98 Intake and Output 09/12/23 09/13/23 09/13/23 22:59 06:59 14:59 Other: Weight 99.79 kg GENERAL DESCRIPTION: Elderly female lying in bed, no distress. No tachypnea or accessory muscle of respiration use. HEENT: Shows Pallor , no scleral icterus. Oral mucous membrane is dry. No pharyngeal erythema or thrush NECK: Trachea central, no thyromegaly. LUNGS: Unlabored breathing. Clear to auscultation anteriorly. No wheeze or crackle. HEART: S1, S2, regular rate and rhythm. No loud murmur ABDOMEN: Soft, no tenderness , guarding or rigidity, no organomegaly EXTREMITIES: No edema of feet. SKIN: No rash, no masses palpable. NEUROLOGICAL: The patient is awake,, mood and affect normal. Results CBC & Chem 7: 09/20/23 07:43 09/20/23 07:43 Labs: Abnormal Lab Results - Last 24 Hours (Table) 09/13/23 09/13/23 09/13/23 Range/Units 08:31 08:31 08:31 Neutrophils # 8.3 H (1.3-7.7) k/uL Lymphocytes # 0.8 L (1.0-4.8) k/uL Sodium 134 L (137-145) mmol/L Glucose 226 H (74-99) mg/dL Magnesium 1.5 L (1.6-2.3) mg/dL AST 46 H (14-36) U/L Alkaline Phosphatase 132 H (38-126) U/L Troponin I (0.000-0.034) ng/mL Total Protein 6.2 L (6.3-8.2) g/dL Urine Appearance Cloudy H (Clear) Urine Protein 1+ H (Negative) Urine Glucose (UA) 2+ H (Negative) Urine Ketones 1+ H (Negative) Urine Bacteria Few H (None) /hpf Hyaline Casts 3 H (0-2) /lpf Urine Mucus Rare H (None) /hpf 09/13/23 Range/Units 08:31 Neutrophils # (1.3-7.7) k/uL Lymphocytes # (1.0-4.8) k/uL Sodium (137-145) mmol/L Glucose (74-99) mg/dL Magnesium (1.6-2.3) mg/dL AST (14-36) U/L Alkaline Phosphatase (38-126) U/L Troponin I 3.270 H* (0.000-0.034) ng/mL Total Protein (6.3-8.2) g/dL Urine Appearance (Clear) Urine Protein (Negative) Urine Glucose (UA) (Negative) Urine Ketones (Negative) Urine Bacteria (None) /hpf Hyaline Casts (0-2) /lpf Urine Mucus (None) /hpf Assessment and Plan (1) Fever Status: Acute Code(s): R50.9 - FEVER, UNSPECIFIED SNOMED Code(s): 024731507 (2) Leukocytosis Status: Acute Code(s): D72.829 - ELEVATED WHITE BLOOD CELL COUNT, UNSPECIFIED SNOMED Code(s): 441739946 (3) SIRS (systemic inflammatory response syndrome) Status: Acute Code(s): R65.10 - SIRS OF NON-INFECTIOUS ORIGIN W/O ACUTE ORGAN DYSFUNCTION SNOMED Code(s): 967437441 (4) UTI (urinary tract infection) Status: Acute Code(s): N39.0 - URINARY TRACT INFECTION, SITE NOT SPECIFIED SNOMED Code(s): 90000495 Plan: 1patient presented to hospital with fever and this patient who do have symptoms of SIRS with fever elevated white count tachycardia source likely pneumonia in this patient who did have a URI symptoms prior to developing the symptoms concerning for possible post viral bacterial pneumonia that has not been shown upon initial chest x-ray, patient currently do not have any abdominal tenderness no evidence of any cellulitis or neck rigidity. 2we will obtain sputum for Gram stain culture check a CRP procalcitonin level and follow-up on the cultures 3will empirically add Rocephin and Zithromax while waiting for the workup to be completed We will follow on clinical condition and cultures to further adjust medication if needed Thank you for this consultation we will follow the patient along with you Dictation was produced using [employer] dictation software. please excuse any grammatical, word or spelling errors.
[2023-09-13 17:56] LABS: Glucose,Whole Blood 257 mg/dL (70-110)
[2023-09-13] MEDS: ACETAMINOPHEN TAB 325 MG TAB PO PRN (18:02)
[2023-09-13] MEDS: TOPIRAMATE 25 MG TAB PO SCH (18:02)
[2023-09-13] MEDS: INSULIN ASPART (NovoLOG) 100 UNIT/ML VIAL SQ SCH (18:03)
[2023-09-13 20:24] LABS: Glucose,Whole Blood 251 mg/dL (70-110)
[2023-09-13] MEDS: LEVOTHYROXINE 75 MCG TAB PO SCH (20:47)
[2023-09-13] MEDS: ATORVASTATIN 40 MG TAB PO SCH (20:47)
--- NOTE | 2023-09-13 22:18 | P.HPIM ---
History of Present Illness H&P Date: 09/13/23 Chief Complaint: Altered mental status Patient is a 87-year-old female with a past medical history of hypertension, hyperlipidemia, diabetes type 2 [id number], hypothyroidism, history of malignant melanoma and osteoarthritis who is currently living at [facility] was brought to the hospital due to altered mental status. According to her daughter patient has been her normal state yesterday evening. She was found to be confused this morning and has been hallucinating. Patient also developed a fever. She was for febrile with Tmax of 101.2 on admission. Otherwise patient cannot provide any history at this time. According to her daughter patient has been having cold-like symptoms last week. Patient is also tachycardic on admission. EKG showed sinus rhythm with sinus arrhythmia. CT head showed age-related atrophic and chronic small vessel ischemic changes without acute intracranial process seen at this time. Chest x-ray showed no acute process. Laboratory data showed WBC 9.8 hemoglobin 12.4 and platelets 295 lymphocytes 0.8 sodium 134 potassium 4.5 chloride 103 bicarb is 25 BUN 16 and creatinine 0.98 and blood sugar 226. A1c 7.1 lactic acid 1.3 magnesium 1.5 alk phos 132 total bili 0.9 Troponin 3.27, 8.28 and 11.5 Albumin 3.7 urinalysis showed cloudy with 1+ protein 2+ glucose 1+ ketones and nitrite negative and leukocyte esterase negative. WBCs 3 and squamous epithelial cells 2. Influenza A B RSV and COVID-19 PCR not detected. Review of Systems ROS unobtainable: due to mental status Past Medical History Past Medical History: Diabetes Mellitus, Hyperlipidemia, Hypertension Additional Past Medical History / Comment(s): malignant melanoma History of Any Multi-Drug Resistant Organisms: None Reported Past Surgical History: Breast Surgery Additional Past Surgical History / Comment(s): bilateral knee replacement Past Psychological History: No Psychological Hx Reported Smoking Status: Never smoker Past Alcohol Use History: None Reported Past Drug Use History: None Reported Medications and Allergies Home Medications Medication Instructions Recorded Confirmed Type Aspirin 81 mg PO W/SUPPER 07/06/20 09/13/23 History Levothyroxine Sodium [Synthroid] 75 mg PO HS 07/06/20 09/13/23 History Losartan [Cozaar] 50 mg PO BID-W/MEALS 07/06/20 09/13/23 History Pantoprazole [Protonix] 40 mg PO AC-BRKFST 07/06/20 09/13/23 History Pitavastatin Calcium [Livalo] 2 mg PO AC-BRKFST 07/06/20 09/13/23 History Topiramate [Topamax] 25 mg PO W/SUPPER 07/06/20 09/13/23 History B-Complex with Vitamin C [Vitamin 1 cap PO W/BRKFST 09/13/23 09/13/23 History B-Complex with Vit C] Furosemide [Lasix] 20 mg PO W/SUPPER 09/13/23 09/13/23 History Pioglitazone [Actos] 45 mg PO W/BRKFST 09/13/23 09/13/23 History glipiZIDE XL [Glucotrol Xl] 10 mg PO W/BRKFST 09/13/23 09/13/23 History metFORMIN HCL 500 mg PO BID-W/MEALS 09/13/23 09/13/23 History Allergies Allergy/AdvReac Type Severity Reaction Status Date / Time No Known Allergies Allergy Verified 12/17/17 19:03 Physical Exam Vitals: Vital Signs Temp Pulse Resp BP Pulse Ox 09/13/23 11:06 101.2 F H 19 09/13/23 10:04 96 20 151/58 95 09/13/23 08:15 100.1 F H 106 H 18 154/84 98 Intake and Output 09/12/23 09/13/23 09/13/23 22:59 06:59 14:59 Other: Weight 99.79 kg PHYSICAL EXAMINATION: Patient is lying in the bed. Mild acute distress, awake alert but not oriented. Trying to get out of bed.. HEENT: Normocephalic. Neck is supple. Pupils reactive. Nostrils clear. Oral cavity is moist. Neck reveals no JVD, carotid bruits, or thyromegaly. CHEST EXAMINATION: Trachea is central. Symmetrical expansion. No wheezing or rhonchi. Bibasilar diminished sounds.. CARDIAC: Normal S1, S2 with no gallops. Systolic murmur present ABDOMEN: Soft. Bowel sounds present. No organomegaly. No abdominal bruits. Extremities: reveal no edema. No clubbing or cyanosis Neurologically awake, alert but confused and disoriented. No gross focal deficits noted Skin: No rash or skin lesions. Psychiatric: Noncooperative. Musculoskeletal: No joint swelling or deformity. Results CBC & Chem 7: 09/13/23 08:31 09/13/23 08:31 Labs: Abnormal Lab Results - Last 24 Hours (Table) 09/13/23 09/13/23 09/13/23 Range/Units 08:31 08:31 08:31 Neutrophils # 8.3 H (1.3-7.7) k/uL Lymphocytes # 0.8 L (1.0-4.8) k/uL Sodium 134 L (137-145) mmol/L Glucose 226 H (74-99) mg/dL Magnesium 1.5 L (1.6-2.3) mg/dL AST 46 H (14-36) U/L Alkaline Phosphatase 132 H (38-126) U/L Troponin I (0.000-0.034) ng/mL Total Protein 6.2 L (6.3-8.2) g/dL Urine Appearance Cloudy H (Clear) Urine Protein 1+ H (Negative) Urine Glucose (UA) 2+ H (Negative) Urine Ketones 1+ H (Negative) Urine Bacteria Few H (None) /hpf Hyaline Casts 3 H (0-2) /lpf Urine Mucus Rare H (None) /hpf 09/13/23 Range/Units 08:31 Neutrophils # (1.3-7.7) k/uL Lymphocytes # (1.0-4.8) k/uL Sodium (137-145) mmol/L Glucose (74-99) mg/dL Magnesium (1.6-2.3) mg/dL AST (14-36) U/L Alkaline Phosphatase (38-126) U/L Troponin I 3.270 H* (0.000-0.034) ng/mL Total Protein (6.3-8.2) g/dL Urine Appearance (Clear) Urine Protein (Negative) Urine Glucose (UA) (Negative) Urine Ketones (Negative) Urine Bacteria (None) /hpf Hyaline Casts (0-2) /lpf Urine Mucus (None) /hpf Thrombosis Risk Factor Assmnt - DVT/VTE Prophylaxis DVT/VTE Prophylaxis: Pharmacologic Prophylaxis ordered Assessment and Plan Assessment: Altered mental status with metabolic encephalopathy due to infection Sepsis. Patient was febrile and tachycardic with possible pneumonia. Patient has recent cold-like symptoms. Elevated troponin level likely due to type II OH and possible myocarditis cannot be excluded. Hyperglycemia is uncontrolled diabetes type 2, A1c 7.1 Hypomagnesemia Diabetes type 2 [id number] Hypertension Hyperlipidemia History of malignant melanoma Osteoarthritis and prior history of bilateral knee replacement Obesity with a BMI 35.5 DVT prophylaxis patient is already on heparin drip Plan: Patient will be continued on telemonitoring. IV hydration with normal saline. Patient was started on heparin drip due to elevated troponin level. Started on antibiotics ceftriaxone and azithromycin as per ID recommendations. Follow-up blood cultures and urine culture. Procalcitonin level was ordered. Cardiology was consulted for evaluation. Current with home medications. Insulin sliding scale for better blood sugar control. Follow-up closely. Discussed with her daughter at bedside in detail. Prognosis is guarded. Time with Patient: Greater than 30
[2023-09-13] MEDS: SODIUM CHLORIDE 0.9% 1,000 ML IV SCH (23:11)
[2023-09-14 07:50] LABS: Glucose,Whole Blood 203 mg/dL (70-110)
--- NOTE | 2023-09-14 07:52 | US ---
EXAMINATION TYPE: US liver DATE OF EXAM: 09/14/2023 COMPARISON: NONE CLINICAL INDICATION: Female, 87 years old with history of eleveted LFts; LFTs TECHNIQUE: Multiple sonographic images of the right upper quadrant are obtained. FINDINGS: EXAM MEASUREMENTS: Liver Length: 16.5 cm Gallbladder Wall: Surgically absent CBD: obscured by bowel Right Kidney: width = 5.6 cm, height = 6.0 cm, unable to obtain accurate length due to inferior half of kidney being obscured by bowel gas PAYROLL REPRESENTATIVE NOTES: Pancreas: Tail obscured by overlying bowel gas Liver: enlarged, increased attenuation Gallbladder: Surgically absent Evidence for sonographic Jessica's sign: No CBD: Obscured by overlying bowel gas Right Kidney: cystic area superior pole: 1.8x2.4x2.7cm, inferior pole obscured by bowel gas exam limited by bowel gas, body habitus, and patient cooperation IMPRESSION: 1. Hepatomegaly with increased attenuation correlate for underlying hepatic steatosis or hepatocellul ar disease. 2. Indeterminate upper pole right renal lesion. Consider follow-up CT scan.
[2023-09-14] MEDS ORDERED: ASPIRIN 325 MG TAB PO SCH (09:00)
[2023-09-14 09:11] LABS: ALT 41 U/L (4-34); AST 70 U/L (14-36); African American GFR (CKD) 71 (>60 ml/min/1.73 sqM); Albumin 2.9 g/dL (3.5-5.0); Alkaline Phosphatase 111 U/L (38-126); Anion Gap 4 mmol/L; Blood Urea Nitrogen 16 mg/dL (7-17); Calcium 8.3 mg/dL (8.4-10.2); Carbon Dioxide 21 mmol/L (22-30); Chloride 106 mmol/L (98-107); Glucose 178 mg/dL (74-99); Non-African American GFR(CKD) 61 (>60 ml/min/1.73 sqM); Potassium 3.8 mmol/L (3.5-5.1); Sodium 131 mmol/L (137-145); Total Bilirubin 0.6 mg/dL (0.2-1.3); Total Protein 5.2 g/dL (6.3-8.2)
[2023-09-14 09:24] LABS: Basophils # (A) 0.1 k/uL (0-0.2); Basophils % (A) 1 %; Eosinophils # (A) 0.1 k/uL (0-0.7); Eosinophils % (A) 1 %; HCT 35.1 % (34.0-46.0); HGB 11.4 gm/dL (11.4-16.0); Lymphocytes # (A) 1.4 k/uL (1.0-4.8); Lymphocytes % (A) 14 %; MCH 31.6 pg (25.0-35.0); MCHC 32.5 g/dL (31.0-37.0); MCV 97.3 fL (80.0-100.0); Mean Platelet Volume 8.7; Monocytes # (A) 0.5 k/uL (0-1.0); Monocytes % (A) 6 %; Neutrophils # (A) 7.1 k/uL (1.3-7.7); Neutrophils % (A) 75 %; Platelet Count 275 k/uL (150-450); RBC 3.61 m/uL (3.80-5.40); RDW 14.2 % (11.5-15.5); WBC 9.5 k/uL (3.8-10.6)
[2023-09-14] MEDS: ASPIRIN 81 MG PO SCH (09:26)
[2023-09-14] MEDS: PANTOPRAZOLE 40 MG TABLET PO SCH (09:26)
[2023-09-14 12:47] LABS: Glucose,Whole Blood 148 mg/dL (70-110)
[2023-09-14 15:51] LABS: Chol/HDL Ratio 4.98 Ratio; LDL Cholesterol,Calculated 129.4 mg/dL (0.0-131.0)
--- NOTE | 2023-09-14 16:35 | CA ---
Transthoracic Echo Report Name: Delicia Dhillon Age: 87 Gender: F : 1935 Exam Date: 09/14/2023 13:37 Exam Location: [facility] Ht (in): 66 Wt (lb): 220 Ordering Physician: Jeromy Urban DO Attending/Referring Phys: [employer] Wheel Operator Audrey De RDCS Procedure CPT: Indications: nstemi Cardiac Hx: Technical Quality: Technically difficult study Contrast 1: Definity Total Dose (mL): 2 Contrast 2: Total Dose (mL): MEASUREMENTS (Male / Female) Normal Values 2D ECHO LV Diastolic Diameter PLAX 4.4 cm 4.2 - 5.9 / 3.9 - 5.3 cm LV Systolic Diameter PLAX 2.9 cm IVS Diastolic Thickness 1.0 cm 0.6 - 1.0 / 0.6 - 0.9 cm LVPW Diastolic Thickness 0.9 cm 0.6 - 1.0 / 0.6 - 0.9 cm LV Relative Wall Thickness 0.5 LVOT Diameter 2.0 cm LA Volume 54.0 cm??? 18 - 58 / 22 - 52 cm??? LA Volume Index 24.6 cm???/m??? 16 - 28 cm???/m??? M-MODE Aortic Root Diameter MM 1.9 cm LA Systolic Diameter MM 4.5 cm LA Ao Ratio MM 2.3 DOPPLER AV Peak Velocity 375.7 cm/s AV Peak Gradient 56.5 mmHg AV Mean Gradient 33.6 mmHg AV Velocity Time Integral 94.8 cm LVOT Peak Velocity 71.5 cm/s LVOT Peak Gradient 2.0 mmHg LVOT Velocity Time Integral 18.5 cm LVOT Stroke Volume 58.2 cm??? LVOT Stroke Volume Index 28.0 ml/m??? LVOT Cardiac Index 2014.4 cm???/min???m??? AV Area Cont Eq vti 0.6 cm??? AV Area Cont Eq pk 0.6 cm??? MV Peak Velocity 103.0 cm/s MV Peak Gradient 4.2 mmHg MV Mean Velocity 66.9 cm/s MV Mean Gradient 2.1 mmHg MV Velocity Time Integral 16.8 cm Mitral E Point Velocity 106.3 cm/s Mitral A Point Velocity 119.7 cm/s Mitral E to A Ratio 0.9 MV Deceleration Time 310.5 ms TR Peak Velocity 277.1 cm/s TR Peak Gradient 30.7 mmHg FINDINGS Left Ventricle Mildly increased left ventricular wall thickness. Left ventricular cavity size normal. Normal left ventricular systolic function with no obvious regional wall motion abnormalities. Left ventricular ejection fraction is estimated at 55-60 %. Grade 1 diastolic dysfunction. Right Ventricle Right ventricle not well visualized. Right Atrium Normal right atrial size. Left Atrium Mildly increased left atrial volume. Mitral Valve Structurally normal mitral valve. Mitral valve thickened. Moderate mitral annular calcification. Nemu-yx-trmjhnsc mitral regurgitation. Aortic Valve Rvdxohgg-tu-uubwjq aortic stenosis with a peak gradient of 57 mmHg and a mean gradient of 34 mmHg.no aortic regurgitation. Tricuspid Valve Structurally normal tricuspid valve. Nudl-wl-vzdwijkv tricuspid regurgitation. Pulmonic Valve Structurally normal pulmonic valve. Trace pulmonic regurgitation. Pericardium No pericardial effusion. Aorta Normal size aortic root and proximal ascending aorta. CONCLUSIONS Normal LV size and function Previewed by: Dr. Fortunato Nieto MD (Electronically Signed) Final Date: 14 September 2023 16:34
--- NOTE | 2023-09-14 16:46 | P.PN ---
Subjective Progress Note Date: 09/14/23 HISTORY OF PRESENT ILLNESS: This is a 87 year year female with a past medical history significant for hy pertension, diabetes, and GERD. 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 We have been asked to see the patient in consultation for elevated troponins. Patient examined at the bedside in the ER. Patient is usually A/O x3. She lives in an independant living facility. She does have a nurse that comes in the morning to help get her dressed. The patient was noted to be very confused which is not her baseline. She was brought to the ER for further evaluation. Patient also was found to have a fever. WBC normal. Patient was also found to have elevated troponins and started on IV heparin. Patient has had no complaints of chest pain or pressure. No complaints of shortness of breath. Vital signs are stable. Bedside telemetry reveals sinus mechanism. She is tachycardic at the time of examination with a heart rate in the 120s. DIAGNOSTICS: - EKG reveals sinus mechanism with no signs of acute ischemia. Right BBB. - Chest xray negative for acute process - Laboratory data: WBC 9.8. Hemoglobin 12.4. Platelet count 295. Sodium 134. Potassium 4.5. BUN 16. Creatinine 0.98. Lactic acid 1.3. Troponin 3.270. 8.280. - Current home cardiac medications include losartan 50 mg twice a day, Lasix 20 mg daily, aspirin 81 mg daily. Progress note September 14, 2023 Patient is much more alert and oriented today. She is able to follow commands and answer appropriately. Her echocardiogram did not show any significant wall motion abnormality with preserved LV systolic function with mild to moderate concentric LVH. She does have evidence of calcification of mitral and aortic valve with moderate mitral annular calcification. She also has moderate to severe aortic stenosis with mean gradient reaching up to 37 mmHg. PHYSICAL EXAM: VITAL SIGNS: Reviewed. GENERAL: Well-developed in no acute distress. HEENT: Head is normocephalic. Pupils are equal, round. Sclerae anicteric. Mucous membranes of the mouth are moist. Neck supple. No JVD or thyromegaly LUNGS: Respirations even and unlabored. Lungs essentially clear to auscultation bilaterally. HEART: Regular rate and rhythm. S1 and S2 heard. 4/6 systolic murmur ABDOMEN: Soft. Nondistended. Nontender. EXTREMITIES: Normal range of motion. No clubbing or cyanosis. Peripheral pulses intact. No lower extremity edema NEUROLOGIC: Confused. Agitated during examination. ASSESSMENT: Altered mental status Fever of unknown etiology; possible sepsis Elevated troponins: possible myocarditis; suspect type II [place] NSTEMI Systolic murmur suggestive of aortic stenosis Hypertension Diabetes GERD Her echocardiogram did not show any significant wall motion abnormality with preserved LV systolic function with mild to moderate concentric LVH. She does have evidence of calcification of mitral and aortic valve with moderate mitral annular calcification. She also has moderate to severe aortic stenosis with mean gradient reaching up to 37 mmHg. PLAN: Continue IV heparin for 24 more hours. Aspirin 81 mg daily, Lipitor 40 mg at night, and metoprolol succinate 25 mg daily Patient will eventually need ischemic evaluation and further evaluation for aortic stenosis. Will make a decision about heart catheterization during this admission or on outpatient basis after talking to the patient's daughter. Primary team to manage other comorbidities including possible UTI , fever and sepsis Objective - Vital Signs Vital signs: Vital Signs Temp 97.6 F 09/14/23 12:53 Pulse 67 09/14/23 15:20 Resp 16 09/14/23 15:20 BP 154/80 09/14/23 15:20 Pulse Ox 99 09/14/23 15:20 FiO2 Intake & Output 09/13/23 09/14/23 09/14/23 18:59 06:59 18:59 Intake Total 131 81.107 Output Total 450 200 Balance -319 -118.893 Weight 99.79 kg Intake: Intake, IV Titration 131 81.107 Amount Heparin Sod,Pork in 0.45% 131 81.107 NaCl 25,000 unit In 0.45 % NaCl 1 250ml.bag @ 10. 021 UNITS/KG/HR 10 mls/hr IV .Q24H [facility] Rx#: [id number] Output: Urine 450 200 Uretheral (Mckeon) 450 Other: Voiding Method Indwelling Catheter - Labs CBC & Chem 7: 09/14/23 08:04 09/14/23 08:04 Labs: Abnormal Lab Results - Last 24 Hours (Table) 09/13/23 09/13/23 09/13/23 Range/Units 08:31 15:58 15:58 RBC (3.80-5.40) m/uL APTT (22.0-30.0) sec Sodium (137-145) mmol/L Carbon Dioxide (22-30) mmol/L Glucose (74-99) mg/dL POC Glucose (mg/dL) (70-110) mg/dL Hemoglobin A1c 7.1 H (<=6.0) % Calcium (8.4-10.2) mg/dL AST (14-36) U/L ALT (4-34) U/L Troponin I 11.500 H* (0.000-0.034) ng/mL Total Protein (6.3-8.2) g/dL Albumin (3.5-5.0) g/dL Triglycerides (0.00-149.00) mg/dL Procalcitonin 0.11 H (0.02-0.09) ng/mL 09/13/23 09/13/23 09/13/23 Range/Units 17:54 19:21 20:22 RBC (3.80-5.40) m/uL APTT 70.2 H (22.0-30.0) sec Sodium (137-145) mmol/L Carbon Dioxide (22-30) mmol/L Glucose (74-99) mg/dL POC Glucose (mg/dL) 257 H 251 H (70-110) mg/dL Hemoglobin A1c (<=6.0) % Calcium (8.4-10.2) mg/dL AST (14-36) U/L ALT (4-34) U/L Troponin I (0.000-0.034) ng/mL Total Protein (6.3-8.2) g/dL Albumin (3.5-5.0) g/dL Triglycerides (0.00-149.00) mg/dL Procalcitonin (0.02-0.09) ng/mL 09/13/23 09/14/23 09/14/23 Range/Units 23:27 07:48 08:04 RBC 3.61 L (3.80-5.40) m/uL APTT 70.9 H (22.0-30.0) sec Sodium (137-145) mmol/L Carbon Dioxide (22-30) mmol/L Glucose (74-99) mg/dL POC Glucose (mg/dL) 203 H (70-110) mg/dL Hemoglobin A1c (<=6.0) % Calcium (8.4-10.2) mg/dL AST (14-36) U/L ALT (4-34) U/L Troponin I (0.000-0.034) ng/mL Total Protein (6.3-8.2) g/dL Albumin (3.5-5.0) g/dL Triglycerides (0.00-149.00) mg/dL Procalcitonin (0.02-0.09) ng/mL 09/14/23 09/14/23 09/14/23 Range/Units 08:04 08:04 12:46 RBC (3.80-5.40) m/uL APTT 47.8 H (22.0-30.0) sec Sodium 131 L (137-145) mmol/L Carbon Dioxide 21 L (22-30) mmol/L Glucose 178 H (74-99) mg/dL POC Glucose (mg/dL) 148 H (70-110) mg/dL Hemoglobin A1c (<=6.0) % Calcium 8.3 L (8.4-10.2) mg/dL AST 70 H (14-36) U/L ALT 41 H (4-34) U/L Troponin I (0.000-0.034) ng/mL Total Protein 5.2 L (6.3-8.2) g/dL Albumin 2.9 L (3.5-5.0) g/dL Triglycerides 152.00 H (0.00-149.00) mg/dL Procalcitonin (0.02-0.09) ng/mL
[2023-09-14 17:57] LABS: Glucose,Whole Blood 148 mg/dL (70-110)
[2023-09-14 20:28] LABS: Glucose,Whole Blood 233 mg/dL (70-110)
[2023-09-15 06:02] LABS: Glucose,Whole Blood 172 mg/dL (70-110)
[2023-09-15 10:40] LABS: African American GFR (CKD) 53 (>60 ml/min/1.73 sqM); Anion Gap 5 mmol/L; Blood Urea Nitrogen 17 mg/dL (7-17); Calcium 8.2 mg/dL (8.4-10.2); Carbon Dioxide 22 mmol/L (22-30); Chloride 104 mmol/L (98-107); Glucose 182 mg/dL (74-99); Non-African American GFR(CKD) 46 (>60 ml/min/1.73 sqM); Potassium 4.1 mmol/L (3.5-5.1); Sodium 131 mmol/L (137-145)
[2023-09-15 10:46] LABS: Basophils # (A) 0.1 k/uL (0-0.2); Basophils % (A) 1 %; Eosinophils # (A) 0.2 k/uL (0-0.7); Eosinophils % (A) 2 %; HCT 39.1 % (34.0-46.0); HGB 12.5 gm/dL (11.4-16.0); Lymphocytes # (A) 1.7 k/uL (1.0-4.8); Lymphocytes % (A) 16 %; MCH 30.6 pg (25.0-35.0); MCHC 31.8 g/dL (31.0-37.0); MCV 96.1 fL (80.0-100.0); Mean Platelet Volume 10.6; Monocytes # (A) 0.7 k/uL (0-1.0); Monocytes % (A) 6 %; Neutrophils # (A) 7.7 k/uL (1.3-7.7); Neutrophils % (A) 72 %; Platelet Count 279 k/uL (150-450); RBC 4.07 m/uL (3.80-5.40); RDW 14.5 % (11.5-15.5); WBC 10.7 k/uL (3.8-10.6)
[2023-09-15] MEDS: CLOPIDOGREL 75 MG TAB PO SCH (10:58)
[2023-09-15 11:54] LABS: Glucose,Whole Blood 205 mg/dL (70-110)
[2023-09-15 16:49] LABS: Glucose,Whole Blood 283 mg/dL (70-110)
--- NOTE | 2023-09-15 18:25 | P.PN ---
Subjective Progress Note Date: 09/15/23 HISTORY OF PRESENT ILLNESS: This is a 87 year year female with a past medical history significant for hy pertension, diabetes, and GERD. 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 We have been asked to see the patient in consultation for elevated troponins. Patient examined at the bedside in the ER. Patient is usually A/O x3. She lives in an independant living facility. She does have a nurse that comes in the morning to help get her dressed. The patient was noted to be very confused which is not her baseline. She was brought to the ER for further evaluation. Patient also was found to have a fever. WBC normal. Patient was also found to have elevated troponins and started on IV heparin. Patient has had no complaints of chest pain or pressure. No complaints of shortness of breath. Vital signs are stable. Bedside telemetry reveals sinus mechanism. She is tachycardic at the time of examination with a heart rate in the 120s. DIAGNOSTICS: - EKG reveals sinus mechanism with no signs of acute ischemia. Right BBB. - Chest xray negative for acute process - Laboratory data: WBC 9.8. Hemoglobin 12.4. Platelet count 295. Sodium 134. Potassium 4.5. BUN 16. Creatinine 0.98. Lactic acid 1.3. Troponin 3.270. 8.280. - Current home cardiac medications include losartan 50 mg twice a day, Lasix 20 mg daily, aspirin 81 mg daily. Progress note September 14, 2023 Patient is much more alert and oriented today. She is able to follow commands and answer appropriately. Her echocardiogram did not show any significant wall motion abnormality with preserved LV systolic function with mild to moderate concentric LVH. She does have evidence of calcification of mitral and aortic valve with moderate mitral annular calcification. She also has moderate to severe aortic stenosis with mean gradient reaching up to 37 mmHg. PHYSICAL EXAM: VITAL SIGNS: Reviewed. GENERAL: Well-developed in no acute distress. HEENT: Head is normocephalic. Pupils are equal, round. Sclerae anicteric. Mucous membranes of the mouth are moist. Neck supple. No JVD or thyromegaly LUNGS: Respirations even and unlabored. Lungs essentially clear to auscultation bilaterally. HEART: Regular rate and rhythm. S1 and S2 heard. 4/6 systolic murmur ABDOMEN: Soft. Nondistended. Nontender. EXTREMITIES: Normal range of motion. No clubbing or cyanosis. Peripheral pulses intact. No lower extremity edema NEUROLOGIC: Confused. Agitated during examination. ASSESSMENT: Altered mental status Fever of unknown etiology; possible sepsis Type II NSTEMI Moderate to severe aortic stenosis Hypertension Diabetes GERD Her echocardiogram did not show any significant wall motion abnormality with preserved LV systolic function with mild to moderate concentric LVH. She does have evidence of calcification of mitral and aortic valve with moderate mitral annular calcification. She also has moderate to severe aortic stenosis with mean gradient reaching up to 37 mmHg. PLAN: Discontinue IV heparin drip Start Plavix 75 mg daily. Aspirin 81 mg daily, Lipitor 40 mg at night, and metoprolol succinate 25 mg daily. Will continue dual antiplatelet therapy with aspirin and Plavix for neck 6 months for recent NSTEMI. I had a detailed discussion with patient and patient's daughter about moderate to severe aortic stenosis. We talked about TAVR, procedural steps involved and pre-TAVR plan including cardiac catheterization and CTA. At this time patient is DO NOT RESUSCITATE. Patient would like to follow-up in cardiology clinic to evaluate if they would be open to the idea of TAVR or not. I have explained that if not performed and if patient's aortic valve is severe, that she would have hide modality in next 3 to 5 years. Primary team to manage other comorbidities including possible UTI , fever and sepsis Outpatient follow-up with Dr. Carreno Cardiology team will sign off at this time. Objective - Vital Signs Vital signs: Vital Signs Temp 98.1 F 09/15/23 15:43 Pulse 65 09/15/23 15:43 Resp 17 09/15/23 15:43 BP 120/70 09/15/23 15:43 Pulse Ox 97 09/15/23 15:43 FiO2 Intake & Output 09/14/23 09/15/23 09/15/23 18:59 06:59 18:59 Intake Total 81.107 1580 594 Output Total 200 400 225 Balance -602.969 8723 369 Weight 112 kg Intake: Intake, IV Titration 81.107 1100 Amount Heparin Sod,Pork in 0.45% 81.107 NaCl 25,000 unit In 0.45 % NaCl 1 250ml.bag @ 10. 021 UNITS/KG/HR 10 mls/hr IV .Q24H [facility] Rx#: [id number] Sodium Chloride 0.9% 1, 1000 000 ml @ 75 mls/hr IV . [id number] Rx#:[id number] cefTRIAXone 1 gm In 100 Sodium Chloride 0.9% 50 ml @ 100 mls/hr IVPB Q24HR [facility] Rx#:[id number] Oral 480 594 Output: Urine 200 400 225 Other: Voiding Method Indwelling Catheter Indwelling Catheter Indwelling Catheter - Labs CBC & Chem 7: 09/15/23 09:12 09/15/23 09:12 Labs: Abnormal Lab Results - Last 24 Hours (Table) 09/14/23 09/15/23 09/15/23 Range/Units 20:27 05:57 09:12 WBC 10.7 H (3.8-10.6) k/uL Sodium (137-145) mmol/L Creatinine (0.52-1.04) mg/dL Glucose (74-99) mg/dL POC Glucose (mg/dL) 233 H 172 H (70-110) mg/dL Calcium (8.4-10.2) mg/dL 09/15/23 09/15/23 09/15/23 Range/Units 09:12 11:53 16:46 WBC (3.8-10.6) k/uL Sodium 131 L (137-145) mmol/L Creatinine 1.09 H (0.52-1.04) mg/dL Glucose 182 H (74-99) mg/dL POC Glucose (mg/dL) 205 H 283 H (70-110) mg/dL Calcium 8.2 L (8.4-10.2) mg/dL Microbiology - Last 24 Hours (Table) 09/13/23 08:31 Urine Culture - Preliminary Urine,Voided Gram Neg Bacilli 09/13/23 08:45 Blood Culture - Preliminary Blood 09/13/23 08:31 Blood Culture - Preliminary Blood
[2023-09-15 20:58] LABS: Glucose,Whole Blood 269 mg/dL (70-110)
[2023-09-15] MEDS: INSULIN DETEMIR (LEVEMIR) 100 UNIT/ML SYR SQ SCH (22:59)
[2023-09-16 06:18] LABS: Glucose,Whole Blood 208 mg/dL (70-110)
--- NOTE | 2023-09-16 11:13 | P.PN ---
Subjective Progress Note Date: 09/14/23 Patient is a 87-year-old female with a past medical history of hypertension, hyperlipidemia, diabetes type 2 udw-zozbpes-ewjftnxpv, hypothyroidism, history of malignant melanoma and osteoarthritis who is currently living at long-term facility was brought to the hospital due to altered mental status. According to her daughter patient has been her normal state yesterday evening. She was found to be confused this morning and has been hallucinating. Patient also developed a fever. She was for febrile with Tmax of 101.2 on admission. Otherwise patient cannot provide any history at this time. According to her daughter patient has been having cold-like symptoms last week. Patient is also tachycardic on admission. EKG showed sinus rhythm with sinus arrhythmia. CT head showed age-related atrophic and chronic small vessel ischemic changes without acute intracranial process seen at this time. Chest x-ray showed no acute process. Laboratory data showed WBC 9.8 hemoglobin 12.4 and platelets 295 lymphocytes 0.8 sodium 134 potassium 4.5 chloride 103 bicarb is 25 BUN 16 and creatinine 0.98 and blood sugar 226. A1c 7.1 lactic acid 1.3 magnesium 1.5 alk phos 132 total bili 0.9 Troponin 3.27, 8.28 and 11.5 Albumin 3.7 urinalysis showed cloudy with 1+ protein 2+ glucose 1+ ketones and nitrite negative and leukocyte esterase negative. WBCs 3 and squamous epithelial cells 2. Influenza A B RSV and COVID-19 PCR not detected. 09/14/2023 Patient is awake alert oriented x 3. Mental status is much improved. No complaints of chest pain or shortness of breath. No nausea or vomiting. Tolerating oral diet. Blood sugar slightly elevated. Patient is maintained on heparin drip due to NSTEMI. 2D echocardiogram showed preserved EF and mild to moderate concentric left ventricular hypertrophy and aortic valve moderate to severe stenosis with mean gradient raising up to 37 history. Patient remains on antibiotics from ceftriaxone and azithromycin for pneumonia Patient is maintained on aspirin statins and metoprolol. Cardiology is on board. Current medications reviewed. Objective - Vital Signs Vital signs: Vital Signs Temp 98.2 F 09/14/23 08:00 Pulse 73 09/14/23 08:00 Resp 17 09/14/23 08:00 BP 146/71 09/14/23 08:00 Pulse Ox 99 09/14/23 08:00 FiO2 Intake & Output 09/13/23 09/14/23 09/14/23 18:59 06:59 18:59 Intake Total 131 Output Total 450 Balance -319 Weight 99.79 kg Intake: Intake, IV Titration 131 Amount Heparin Sod,Pork in 0.45% 131 NaCl 25,000 unit In 0.45 % NaCl 1 250ml.bag @ 10. 021 UNITS/KG/HR 10 mls/hr IV .Q24H [facility] Rx#: [id number] Output: Urine 450 Uretheral (Mckeon) 450 Other: Voiding Method Indwelling Catheter - Exam PHYSICAL EXAMINATION: Patient is lying in the bed comfortably, no acute distress, awake alert and kamar ented.. HEENT: Normocephalic. Neck is supple. Pupils reactive. Nostrils clear. Oral cavity is moist. Neck reveals no JVD, carotid bruits, or thyromegaly. CHEST EXAMINATION: Trachea is central. Symmetrical expansion. Lung reich clear to auscultation and percussion. CARDIAC: Normal S1, S2 with no gallops. No murmurs ABDOMEN: Soft. Bowel sounds normal. No organomegaly. No abdominal bruits. Extremities: reveal no edema. No clubbing or cyanosis Neurologically awake, alert, oriented x3 with well-coordinated movements. No focal deficits noted Skin: No rash or skin lesions. Psychiatric: Coperative. Nonsuicidal Musculoskeletal: No joint swelling or deformity. Normal range of motion. - Labs CBC & Chem 7: 09/15/23 09:12 09/15/23 09:12 Labs: Abnormal Lab Results - Last 24 Hours (Table) 09/13/23 09/13/23 09/13/23 Range/Units 08:31 12:25 15:58 RBC (3.80-5.40) m/uL APTT (22.0-30.0) sec Sodium (137-145) mmol/L Carbon Dioxide (22-30) mmol/L Glucose (74-99) mg/dL POC Glucose (mg/dL) (70-110) mg/dL Hemoglobin A1c 7.1 H (<=6.0) % Calcium (8.4-10.2) mg/dL AST (14-36) U/L ALT (4-34) U/L Troponin I 8.280 H* 11.500 H* (0.000-0.034) ng/mL Total Protein (6.3-8.2) g/dL Albumin (3.5-5.0) g/dL Procalcitonin (0.02-0.09) ng/mL 09/13/23 09/13/23 09/13/23 Range/Units 15:58 17:54 19:21 RBC (3.80-5.40) m/uL APTT 70.2 H (22.0-30.0) sec Sodium (137-145) mmol/L Carbon Dioxide (22-30) mmol/L Glucose (74-99) mg/dL POC Glucose (mg/dL) 257 H (70-110) mg/dL Hemoglobin A1c (<=6.0) % Calcium (8.4-10.2) mg/dL AST (14-36) U/L ALT (4-34) U/L Troponin I (0.000-0.034) ng/mL Total Protein (6.3-8.2) g/dL Albumin (3.5-5.0) g/dL Procalcitonin 0.11 H (0.02-0.09) ng/mL 09/13/23 09/13/23 09/14/23 Range/Units 20:22 23:27 07:48 RBC (3.80-5.40) m/uL APTT 70.9 H (22.0-30.0) sec Sodium (137-145) mmol/L Carbon Dioxide (22-30) mmol/L Glucose (74-99) mg/dL POC Glucose (mg/dL) 251 H 203 H (70-110) mg/dL Hemoglobin A1c (<=6.0) % Calcium (8.4-10.2) mg/dL AST (14-36) U/L ALT (4-34) U/L Troponin I (0.000-0.034) ng/mL Total Protein (6.3-8.2) g/dL Albumin (3.5-5.0) g/dL Procalcitonin (0.02-0.09) ng/mL 09/14/23 09/14/23 09/14/23 Range/Units 08:04 08:04 08:04 RBC 3.61 L (3.80-5.40) m/uL APTT 47.8 H (22.0-30.0) sec Sodium 131 L (137-145) mmol/L Carbon Dioxide 21 L (22-30) mmol/L Glucose 178 H (74-99) mg/dL POC Glucose (mg/dL) (70-110) mg/dL Hemoglobin A1c (<=6.0) % Calcium 8.3 L (8.4-10.2) mg/dL AST 70 H (14-36) U/L ALT 41 H (4-34) U/L Troponin I (0.000-0.034) ng/mL Total Protein 5.2 L (6.3-8.2) g/dL Albumin 2.9 L (3.5-5.0) g/dL Procalcitonin (0.02-0.09) ng/mL Assessment and Plan Assessment: Altered mental status with metabolic encephalopathy due to infection Sepsis. Patient was febrile and tachycardic with possible pneumonia. Patient has recent cold-like symptoms. Elevated troponin level likely due to type II SD Moderate to severe aortic stenosis Hyperglycemia is uncontrolled diabetes type 2, A1c 7.1 Hypomagnesemia Diabetes type 2 yil-indnpxz-ibpjqmycb Hypertension Hyperlipidemia History of malignant melanoma Osteoarthritis and prior history of bilateral knee replacement Obesity with a BMI 35.5 DVT prophylaxis patient is already on heparin drip Plan: Patient will be continued on telemonitoring. Patient is being continued on IV heparin. Continue with aspirin and statins and metoprolol. Started on antibiotics ceftriaxone and azithromycin as per ID recommendations. Follow-up blood cultures and urine culture. Procalcitonin level 0.11. Cardiology and ID is on board. Current with home medications. Insulin sliding scale for better blood sugar con trol. Follow-up closely. Discussed with her daughter at bedside in detail. Prognosis is guarded. Time with Patient: Greater than 30
--- NOTE | 2023-09-16 11:17 | P.PN ---
Subjective Progress Note Date: 09/15/23 Patient is a 87-year-old female with a past medical history of hypertension, hyperlipidemia, diabetes type 2 tax-fumqeaz-mdwpkadmf, hypothyroidism, history of malignant melanoma and osteoarthritis who is currently living at custodial facility was brought to the hospital due to altered mental status. According to her daughter patient has been her normal state yesterday evening. She was found to be confused this morning and has been hallucinating. Patient also developed a fever. She was for febrile with Tmax of 101.2 on admission. Otherwise patient cannot provide any history at this time. According to her daughter patient has been having cold-like symptoms last week. Patient is also tachycardic on admission. EKG showed sinus rhythm with sinus arrhythmia. CT head showed age-related atrophic and chronic small vessel ischemic changes without acute intracranial process seen at this time. Chest x-ray showed no acute process. Laboratory data showed WBC 9.8 hemoglobin 12.4 and platelets 295 lymphocytes 0.8 sodium 134 potassium 4.5 chloride 103 bicarb is 25 BUN 16 and creatinine 0.98 and blood sugar 226. A1c 7.1 lactic acid 1.3 magnesium 1.5 alk phos 132 total bili 0.9 Troponin 3.27, 8.28 and 11.5 Albumin 3.7 urinalysis showed cloudy with 1+ protein 2+ glucose 1+ ketones and nitrite negative and leukocyte esterase negative. WBCs 3 and squamous epithelial cells 2. Influenza A B RSV and COVID-19 PCR not detected. 09/14/2023 Patient is awake alert oriented x 3. Mental status is much improved. No complaints of chest pain or shortness of breath. No nausea or vomiting. Tolerating oral diet. Blood sugar slightly elevated. Patient is maintained on heparin drip due to NSTEMI. 2D echocardiogram showed preserved EF and mild to moderate concentric left ventricular hypertrophy and aortic valve moderate to severe stenosis with mean gradient raising up to 37 history. Patient remains on antibiotics from ceftriaxone and azithromycin for pneumonia Patient is maintained on aspirin statins and metoprolol. Cardiology is on board. 09/15/2023 Patient is currently lying in the bed. Awake alert and oriented x 3. No complaints of chest pain or shortness of breath. Mentation is at baseline. No headache or dizziness or lightheadedness. Denies any cough or sputum production. Patient is able to tolerate oral diet Patient is on IV antibiotics ceftriaxone and azithromycin. Heparin drip has been discontinued with cardiology recommends aspirin and Plavix for 6 months. Outpatient follow-up with cardiology regarding aortic stenosis and possible TAVR. Laboratory data WBC 10.7 hemoglobin 12.5 and platelets 279 sodium 131 potassium 4.1 chloride 104 bicarb is 22 BUN 17 and creatinine 1.09 blood sugar 182 and calcium 8.2 Current medications reviewed. Objective - Vital Signs Vital signs: Vital Signs Temp 98.8 F 09/15/23 19:29 Pulse 69 09/15/23 19:29 Resp 16 09/15/23 19:29 BP 122/62 09/15/23 19:29 Pulse Ox 97 09/15/23 19:29 FiO2 Intake & Output 09/15/23 09/15/23 09/16/23 06:59 18:59 06:59 Intake Total 1580 594 Output Total 400 225 Balance 1180 369 Weight 112 kg Intake: Intake, IV Titration 1100 Amount Sodium Chloride 0.9% 1, 1000 000 ml @ 75 mls/hr IV . [id number] [facility] Rx#:[id number] cefTRIAXone 1 gm In 100 Sodium Chloride 0.9% 50 ml @ 100 mls/hr IVPB Q24HR [facility] Rx#:[id number] Oral 480 594 Output: Urine 400 225 Other: Voiding Method Indwelling Catheter Indwelling Catheter - Exam PHYSICAL EXAMINATION: Patient is lying in the bed comfortably, no acute distress, awake alert and oriented.. HEENT: Normocephalic. Neck is supple. Pupils reactive. Nostrils clear. Oral cavity is moist. Neck reveals no JVD, carotid bruits, or thyromegaly. CHEST EXAMINATION: Trachea is central. Symmetrical expansion. Lung reich clear to auscultation and percussion. CARDIAC: Normal S1, S2 with no gallops. No murmurs ABDOMEN: Soft. Bowel sounds normal. No organomegaly. No abdominal bruits. Extremities: reveal no edema. No clubbing or cyanosis Neurologically awake, alert, oriented x3 with well-coordinated movements. No focal deficits noted Skin: No rash or skin lesions. Psychiatric: Coperative. Nonsuicidal Musculoskeletal: No joint swelling or deformity. Normal range of motion. - Labs CBC & Chem 7: 09/15/23 09:12 09/15/23 09:12 Labs: Abnormal Lab Results - Last 24 Hours (Table) 09/15/23 09/15/2324 Range/Units 05:57 09:12 09:12 WBC 10.7 H (3.8-10.6) k/uL Sodium 131 L (137-145) mmol/L Creatinine 1.09 H (0.52-1.04) mg/dL Glucose 182 H (74-99) mg/dL POC Glucose (mg/dL) 172 H (70-110) mg/dL Calcium 8.2 L (8.4-10.2) mg/dL 09/15/23 09/15/23 09/15/23 Range/Units 11:53 16:46 20:57 WBC (3.8-10.6) k/uL Sodium (137-145) mmol/L Creatinine (0.52-1.04) mg/dL Glucose (74-99) mg/dL POC Glucose (mg/dL) 205 H 283 H 269 H (70-110) mg/dL Calcium (8.4-10.2) mg/dL Microbiology - Last 24 Hours (Table) 09/13/23 08:45 Blood Culture - Preliminary Blood 09/13/23 08:31 Blood Culture - Preliminary Blood 09/13/23 08:31 Urine Culture - Preliminary Urine,Voided Gram Neg Bacilli Assessment and Plan Assessment: Altered mental status with metabolic encephalopathy due to infection Sepsis. Patient was febrile and tachycardic with possible pneumonia. Patient has recent cold-like symptoms E. coli urinary tract infection Elevated troponin level likely due to type II IA Moderate to severe aortic stenosis Hyperglycemia is uncontrolled diabetes type 2, A1c 7.1 Hypomagnesemia Diabetes type 2 [id number]-huvtcnpwy Hypertension Hyperlipidemia History of malignant melanoma Osteoarthritis and prior history of bilateral knee replacement Obesity with a BMI 35.5 DVT prophylaxis patient is already on heparin drip Plan: Patient will be continued on telemonitoring. Heparin drip has been discontinued. Plavix was added.Continue with aspirin and statins and metoprolol. Continue with dual anticoagulation for 6 months. Outpatient follow-up with cardiology for further workup regarding aortic stenosis and possible TAVR. Started on antibiotics ceftriaxone and azithromycin as per ID recommendations. Urine culture showed E. coli. Procalcitonin level 0.11. Cardiology and ID is on board. Current with home medications. Insulin sliding scale for better blood sugar control. Lantus 10 units was added due to elevated blood sugars. Follow-up closely. Anticipate discharge in the next 24 hours. Time with Patient: Greater than 30
[2023-09-16 11:38] LABS: Basophils % (A) 0 %; Eosinophils % (A) 0 %; HCT 35.6 % (34.0-46.0); HGB 11.5 gm/dL (11.4-16.0); Lymphocytes # (A) 0.9 k/uL (1.0-4.8); Lymphocytes % (A) 6 %; MCH 31.2 pg (25.0-35.0); MCHC 32.4 g/dL (31.0-37.0); MCV 96.2 fL (80.0-100.0); Mean Platelet Volume 9.5; Monocytes # (A) 1.4 k/uL (0-1.0); Monocytes % (A) 10 %; Neutrophils # (A) 10.9 k/uL (1.3-7.7); Neutrophils % (A) 81 %; Platelet Count 273 k/uL (150-450); RBC 3.71 m/uL (3.80-5.40); RDW 14.5 % (11.5-15.5); WBC 13.6 k/uL (3.8-10.6)
[2023-09-16 11:42] LABS: Glucose,Whole Blood 285 mg/dL (70-110)
[2023-09-16 11:51] LABS: African American GFR (CKD) 57 (>60 ml/min/1.73 sqM); Anion Gap 7 mmol/L; Blood Urea Nitrogen 20 mg/dL (7-17); Calcium 8.4 mg/dL (8.4-10.2); Carbon Dioxide 20 mmol/L (22-30); Chloride 104 mmol/L (98-107); Glucose 293 mg/dL (74-99); Non-African American GFR(CKD) 50 (>60 ml/min/1.73 sqM); Potassium 4.5 mmol/L (3.5-5.1); Sodium 131 mmol/L (137-145)
--- NOTE | 2023-09-16 14:17 | US ---
EXAMINATION TYPE: US venous doppler duplex LE RT DATE OF EXAM: 09/16/2023 2:03 PM COMPARISON: NONE CLINICAL INDICATION: Female, 87 years old with history of right foot numbness; Pain SIDE PERFORMED: Right TECHNIQUE: The lower extremity deep venous system is examined utilizing real time linear array sonog jose with graded compression, doppler sonography and color-flow sonography. VESSELS IMAGED: Common Femoral Vein Deep Femoral Vein Greater Saphenous Vein * Femoral Vein Popliteal Vein Small Saphenous Vein * Proximal Calf Veins (* superficial vessels) Right Leg: Negative for DVT IMPRESSION: 1. No diagnostic evidence of DVT
--- NOTE | 2023-09-16 14:31 | P.PN ---
Subjective Progress Note Date: 09/15/23 Principal diagnosis: Reason for follow-up is UTI and question of pneumonia Patient is a 87-year-old female with a past medical history significant for diabetes mellitus hypertension hyperlipidemia malignant melanoma osteoarthritis status post bilateral knee replacement patient has been brought into the hospital concerning for mental status changes, patient did have some URI symptoms and cough with initial concern for possible pneumonia however also have a cloudy urine concerning for UTI as well. On today's evaluation that is 09/15/2023, Patient is afebrile this morning and denies any chills, patient mention breathing comfortably and is currently on room air, patient denies any chest pain occasional cough patient denies any abdominal pain no diarrhea no nausea no vomiting Patient white count is 10.7, creatinine 1.09 Objective - Vital Signs Vital signs: Vital Signs Temp 98.8 F 09/15/23 19:29 Pulse 69 09/15/23 19:29 Resp 16 09/15/23 19:29 BP 122/62 09/15/23 19:29 Pulse Ox 97 09/15/23 19:29 FiO2 Intake & Output 09/15/23 09/15/23 09/16/23 06:59 18:59 06:59 Intake Total 1580 594 Output Total 400 225 Balance 1180 369 Weight 112 kg Intake: Intake, IV Titration 1100 Amount Sodium Chloride 0.9% 1, 1000 000 ml @ 75 mls/hr IV . [id number] [facility] Rx#:[id number] cefTRIAXone 1 gm In 100 Sodium Chloride 0.9% 50 ml @ 100 mls/hr IVPB Q24HR [facility] Rx#:[id number] Oral 480 594 Output: Urine 400 225 Other: Voiding Method Indwelling Catheter Indwelling Catheter - Labs CBC & Chem 7: 09/16/23 10:40 09/16/23 10:40 Labs: Abnormal Lab Results - Last 24 Hours (Table) 09/15/23 09/15/23 09/15/23 Range/Units 05:57 09:12 09:12 WBC 10.7 H (3.8-10.6) k/uL Sodium 131 L (137-145) mmol/L Creatinine 1.09 H (0.52-1.04) mg/dL Glucose 182 H (74-99) mg/dL POC Glucose (mg/dL) 172 H (70-110) mg/dL Calcium 8.2 L (8.4-10.2) mg/dL 09/15/23 09/15/23 09/15/23 Range/Units 11:53 16:46 20:57 WBC (3.8-10.6) k/uL Sodium (137-145) mmol/L Creatinine (0.52-1.04) mg/dL Glucose (74-99) mg/dL POC Glucose (mg/dL) 205 H 283 H 269 H (70-110) mg/dL Calcium (8.4-10.2) mg/dL Microbiology - Last 24 Hours (Table) 09/13/23 08:45 Blood Culture - Preliminary Blood 09/13/23 08:31 Blood Culture - Preliminary Blood 09/13/23 08:31 Urine Culture - Preliminary Urine,Voided Gram Neg Bacilli Assessment and Plan (1) SIRS (systemic inflammatory response syndrome) Current Visit: Yes Status: Acute Code(s): R65.10 - SIRS OF NON-INFECTIOUS ORIGIN W/O ACUTE ORGAN DYSFUNCTION SNOMED Code(s): 645883124 (2) UTI (urinary tract infection) Current Visit: Yes Status: Acute Code(s): N39.0 - URINARY TRACT INFECTION, SITE NOT SPECIFIED SNOMED Code(s): 72033126 Plan: This is a telehealth visit 1patient presented to hospital with fever and this patient who do have symptoms of SIRS with fever elevated white count tachycardia source likely pneumonia in this patient who did have a URI symptoms prior to developing the symptoms concerning for possible post viral bacterial pneumonia that has not been shown upon initial chest x-ray, patient currently do not have any abdominal tenderness no evidence of any cellulitis or neck rigidity. 2patient did have a procalcitonin 0.11 urine is cloudy possibly concerning for urinary tract infection 3patient did have some clinical improvement continue with Rocephin while waiting for the culture to finalize Dictation was produced using [employer] dictation software. please excuse any grammatical, word or spelling errors. Time with Patient: Less than 30
--- NOTE | 2023-09-16 14:31 | P.PN ---
Subjective Progress Note Date: 09/14/23 Principal diagnosis: Reason for follow-up is UTI and question of pneumonia Patient is a 87-year-old female with a past medical history significant for diabetes mellitus hypertension hyperlipidemia malignant melanoma osteoarthritis status post bilateral knee replacement patient has been brought into the hospital concerning for mental status changes, patient did have some URI symptoms and cough with initial concern for possible pneumonia however also have a cloudy urine concerning for UTI as well. On today's evaluation that is 09/14/2023, patient did have resolution of her fever and has been afebrile, patient is breathing comfortably and is currently on room air, patient is more awake alert denies any chest pain or worsening cough vomiting or diarrhea has been reported Patient white count is 9.5, creatinine 0.86 Objective - Vital Signs Vital signs: Vital Signs Temp 98.9 F 09/13/23 23:12 Pulse 81 09/14/23 06:16 Resp 18 09/14/23 06:16 BP 143/65 09/14/23 06:16 Pulse Ox 96 09/14/23 06:16 FiO2 Intake & Output 09/13/23 09/14/23 09/14/23 18:59 06:59 18:59 Intake Total 131 Output Total 450 Balance -319 Weight 99.79 kg Intake: Intake, IV Titration 131 Amount Heparin Sod,Pork in 0.45% 131 NaCl 25,000 unit In 0.45 % NaCl 1 250ml.bag @ 10. 021 UNITS/KG/HR 10 mls/hr IV .Q24H [facility] Rx#: [id number] Output: Urine 450 Uretheral (Mckeon) 450 - Exam GENERAL DESCRIPTION: An elderly female lying in bed in no distress RESPIRATORY SYSTEM: Unlabored breathing , decreased breath sounds at bases HEART: S1 S2 regular rate and rhythm , ABDOMEN: Soft , no tenderness EXTREMITIES: No edema feet exam completed with help of ENDO TECH - Labs CBC & Chem 7: 09/16/23 10:40 09/16/23 10:40 Labs: Abnormal Lab Results - Last 24 Hours (Table) 09/13/23 09/13/23 09/13/23 Range/Units 08:31 08:31 08:31 APTT (22.0-30.0) sec Sodium 134 L (137-145) mmol/L Glucose 226 H (74-99) mg/dL POC Glucose (mg/dL) (70-110) mg/dL Hemoglobin A1c (<=6.0) % Magnesium 1.5 L (1.6-2.3) mg/dL AST 46 H (14-36) U/L Alkaline Phosphatase 132 H (38-126) U/L Troponin I 3.270 H* (0.000-0.034) ng/mL Total Protein 6.2 L (6.3-8.2) g/dL Procalcitonin (0.02-0.09) ng/mL Urine Appearance Cloudy H (Clear) Urine Protein 1+ H (Negative) Urine Glucose (UA) 2+ H (Negative) Urine Ketones 1+ H (Negative) Urine Bacteria Few H (None) /hpf Hyaline Casts 3 H (0-2) /lpf Urine Mucus Rare H (None) /hpf 09/13/23 09/13/23 09/13/23 Range/Units 08:31 12:25 15:58 APTT (22.0-30.0) sec Sodium (137-145) mmol/L Glucose (74-99) mg/dL POC Glucose (mg/dL) (70-110) mg/dL Hemoglobin A1c 7.1 H (<=6.0) % Magnesium (1.6-2.3) mg/dL AST (14-36) U/L Alkaline Phosphatase (38-126) U/L Troponin I 8.280 H* 11.500 H* (0.000-0.034) ng/mL Total Protein (6.3-8.2) g/dL Procalcitonin (0.02-0.09) ng/mL Urine Appearance (Clear) Urine Protein (Negative) Urine Glucose (UA) (Negative) Urine Ketones (Negative) Urine Bacteria (None) /hpf Hyaline Casts (0-2) /lpf Urine Mucus (None) /hpf 09/13/23 09/13/23 09/13/23 Range/Units 15:58 17:54 19:21 APTT 70.2 H (22.0-30.0) sec Sodium (137-145) mmol/L Glucose (74-99) mg/dL POC Glucose (mg/dL) 257 H (70-110) mg/dL Hemoglobin A1c (<=6.0) % Magnesium (1.6-2.3) mg/dL AST (14-36) U/L Alkaline Phosphatase (38-126) U/L Troponin I (0.000-0.034) ng/mL Total Protein (6.3-8.2) g/dL Procalcitonin 0.11 H (0.02-0.09) ng/mL Urine Appearance (Clear) Urine Protein (Negative) Urine Glucose (UA) (Negative) Urine Ketones (Negative) Urine Bacteria (None) /hpf Hyaline Casts (0-2) /lpf Urine Mucus (None) /hpf 09/13/23 09/13/23 09/14/23 Range/Units 20:22 23:27 07:48 APTT 70.9 H (22.0-30.0) sec Sodium (137-145) mmol/L Glucose (74-99) mg/dL POC Glucose (mg/dL) 251 H 203 H (70-110) mg/dL Hemoglobin A1c (<=6.0) % Magnesium (1.6-2.3) mg/dL AST (14-36) U/L Alkaline Phosphatase (38-126) U/L Troponin I (0.000-0.034) ng/mL Total Protein (6.3-8.2) g/dL Procalcitonin (0.02-0.09) ng/mL Urine Appearance (Clear) Urine Protein (Negative) Urine Glucose (UA) (Negative) Urine Ketones (Negative) Urine Bacteria (None) /hpf Hyaline Casts (0-2) /lpf Urine Mucus (None) /hpf 09/14/23 Range/Units 08:04 APTT 47.8 H (22.0-30.0) sec Sodium (137-145) mmol/L Glucose (74-99) mg/dL POC Glucose (mg/dL) (70-110) mg/dL Hemoglobin A1c (<=6.0) % Magnesium (1.6-2.3) mg/dL AST (14-36) U/L Alkaline Phosphatase (38-126) U/L Troponin I (0.000-0.034) ng/mL Total Protein (6.3-8.2) g/dL Procalcitonin (0.02-0.09) ng/mL Urine Appearance (Clear) Urine Protein (Negative) Urine Glucose (UA) (Negative) Urine Ketones (Negative) Urine Bacteria (None) /hpf Hyaline Casts (0-2) /lpf Urine Mucus (None) /hpf Assessment and Plan (1) UTI (urinary tract infection) Current Visit: Yes Status: Acute Code(s): N39.0 - URINARY TRACT INFECTION, SITE NOT SPECIFIED SNOMED Code(s): 42743069 (2) Altered mental status Current Visit: Yes Status: Acute Code(s): R41.82 - ALTERED MENTAL STATUS, UNSPECIFIED SNOMED Code(s): 596741471 Plan: This is a telehealth visit 1patient presented to hospital with fever and this patient who do have symptoms of SIRS with fever elevated white count tachycardia source likely pneumonia in this patient who did have a URI symptoms prior to developing the symptoms concerning for possible post viral bacterial pneumonia that has not been shown upon initial chest x-ray, patient currently do not have any abdominal tenderness no evidence of any cellulitis or neck rigidity. 2patient did have a procalcitonin 0.11 urine is cloudy possibly concerning for ureteric infection 3patient to continue with Rocephin while waiting for the culture to finalize Dictation was produced using [facility] dictation software. please excuse any grammatical, word or spelling errors. Time with Patient: Less than 30
--- NOTE | 2023-09-16 14:33 | P.PN ---
Subjective Progress Note Date: 09/16/23 Principal diagnosis: Reason for follow-up is UTI and question of pneumonia Patient is a 87-year-old female with a past medical history significant for diabetes mellitus hypertension hyperlipidemia malignant melanoma osteoarthritis status post bilateral knee replacement patient has been brought into the hospital concerning for mental status changes, patient did have some URI symptoms and cough with initial concern for possible pneumonia however also have a cloudy urine concerning for UTI as well. On today's evaluation that is 09/16/2023,the patient denies any fever or any chills, patient is breathing comfortably on room air, the patient denies chest pain shortness of breath and no significant cough, patient denies abdominal pain, no nausea vomiting or diarrhea. Patient mention feeling better. Patient white count is up to 13.6, creatinine 1.02 urine is growing E. coli that is a sensitive pathogen Objective - Vital Signs Vital signs: Vital Signs Temp 98.0 F 09/16/23 08:45 Pulse 79 09/16/23 11:03 Resp 16 09/16/23 11:03 BP 142/78 09/16/23 11:03 Pulse Ox 97 09/16/23 11:03 FiO2 Intake & Output 09/15/23 09/16/23 09/16/23 18:59 06:59 18:59 Intake Total 594 118 Output Total 225 400 Balance 369 -282 Weight 110.5 kg Intake: Oral 594 118 Output: Urine 225 400 Other: Voiding Method Indwelling Catheter Indwelling Catheter Indwelling Catheter - Exam GENERAL DESCRIPTION: An elderly female lying in bed in no distress RESPIRATORY SYSTEM: Unlabored breathing , decreased breath sounds at bases HEART: S1 S2 regular rate and rhythm , ABDOMEN: Soft , no tenderness EXTREMITIES: No edema feet - Labs CBC & Chem 7: 09/16/23 10:40 09/16/23 10:40 Labs: Abnormal Lab Results - Last 24 Hours (Table) 09/15/23 09/15/23 09/16/23 Range/Units 16:46 20:57 06:17 WBC (3.8-10.6) k/uL RBC (3.80-5.40) m/uL Neutrophils # (1.3-7.7) k/uL Lymphocytes # (1.0-4.8) k/uL Monocytes # (0-1.0) k/uL Sodium (137-145) mmol/L Carbon Dioxide (22-30) mmol/L BUN (7-17) mg/dL Glucose (74-99) mg/dL POC Glucose (mg/dL) 283 H 269 H 208 H (70-110) mg/dL 09/16/23 09/16/23 09/16/23 Range/Units 10:40 10:40 11:38 WBC 13.6 H (3.8-10.6) k/uL RBC 3.71 L (3.80-5.40) m/uL Neutrophils # 10.9 H (1.3-7.7) k/uL Lymphocytes # 0.9 L (1.0-4.8) k/uL Monocytes # 1.4 H (0-1.0) k/uL Sodium 131 L (137-145) mmol/L Carbon Dioxide 20 L (22-30) mmol/L BUN 20 H (7-17) mg/dL Glucose 293 H (74-99) mg/dL POC Glucose (mg/dL) 285 H (70-110) mg/dL Microbiology - Last 24 Hours (Table) 09/13/23 08:31 Urine Culture - Final Urine,Voided Escherichia coli 09/13/23 08:45 Blood Culture - Preliminary Blood 09/13/23 08:31 Blood Culture - Preliminary Blood Assessment and Plan (1) Leukocytosis Current Visit: Yes Status: Acute Code(s): D72.829 - ELEVATED WHITE BLOOD CELL COUNT, UNSPECIFIED SNOMED Code(s): 368403011 (2) UTI (urinary tract infection) Current Visit: Yes Status: Acute Code(s): N39.0 - URINARY TRACT INFECTION, SITE NOT SPECIFIED SNOMED Code(s): 93790783 Plan: 1patient presented to hospital with fever and this patient who do have symptoms of SIRS with fever elevated white count tachycardia source likely pneumonia in this patient who did have a URI symptoms prior to developing the symptoms concerning for possible post viral bacterial pneumonia that has not been shown upon initial chest x-ray, patient currently do not have any abdominal tenderness no evidence of any cellulitis or neck rigidity. 2patient did have a procalcitonin 0.11 urine is cloudy possibly concerning for urinary tract infection with urine culture have been finalized with E. coli there is a sensitive pathogen 3patient did have some clinical improvement and covered with Rocephin to which the organism is sensitive however noticed to have slight worsening of the white count that we will monitored closely repeat CBC with a.m. lab Daughter at the bedside questions were answered Dictation was produced using [employer] software. please excuse any grammatical, word or spelling errors. Time with Patient: Less than 30
[2023-09-16] MEDS: HEPARIN SODIUM,PORCINE 5,000 UNIT/ML 1 ML VIAL SQ SCH (15:16)
[2023-09-16 16:52] LABS: Glucose,Whole Blood 360 mg/dL (70-110)
[2023-09-16 20:10] LABS: Glucose,Whole Blood 361 mg/dL (70-110)
[2023-09-17 06:12] LABS: Glucose,Whole Blood 206 mg/dL (70-110)
[2023-09-17 06:58] LABS: Basophils % (A) 0 %; Eosinophils # (A) 0.2 k/uL (0-0.7); Eosinophils % (A) 1 %; HCT 34.5 % (34.0-46.0); Lymphocytes # (A) 1.6 k/uL (1.0-4.8); Lymphocytes % (A) 14 %; MCH 30.7 pg (25.0-35.0); MCHC 32.1 g/dL (31.0-37.0); MCV 95.7 fL (80.0-100.0); Mean Platelet Volume 8.7; Monocytes # (A) 1.1 k/uL (0-1.0); Monocytes % (A) 10 %; Neutrophils # (A) 8.3 k/uL (1.3-7.7); Neutrophils % (A) 71 %; Platelet Count 264 k/uL (150-450); RDW 14.6 % (11.5-15.5); WBC 11.6 k/uL (3.8-10.6)
[2023-09-17 07:23] LABS: African American GFR (CKD) 57 (>60 ml/min/1.73 sqM); Anion Gap 4 mmol/L; Blood Urea Nitrogen 18 mg/dL (7-17); Calcium 8.3 mg/dL (8.4-10.2); Carbon Dioxide 22 mmol/L (22-30); Chloride 103 mmol/L (98-107); Glucose 192 mg/dL (74-99); Non-African American GFR(CKD) 50 (>60 ml/min/1.73 sqM); Potassium 4.2 mmol/L (3.5-5.1); Sodium 129 mmol/L (137-145)
[2023-09-17 11:40] LABS: Glucose,Whole Blood 280 mg/dL (70-110)
--- NOTE | 2023-09-17 13:26 | P.PN ---
Subjective Progress Note Date: 09/17/23 Principal diagnosis: Reason for follow-up is UTI and question of pneumonia Patient is a 87-year-old female with a past medical history significant for diabetes mellitus hypertension hyperlipidemia malignant melanoma osteoarthritis status post bilateral knee replacement patient has been brought into the hospital concerning for mental status changes, patient did have some URI symptoms and cough with initial concern for possible pneumonia however also have a cloudy urine concerning for UTI as well. On today's evaluation that is 09/17/2023,the patient remains to be afebrile, patient is on room air not requiring supplemental oxygen and denies any shortness of breath no chest pain or cough.Patient denies having any nausea or vomiting, no abdominal pain and no diarrhea has been reported, mention feeling better. Patient white count is down to 11.6 creatinine 1.02 urine culture E. coli sensitive pathogen blood culture negative Objective - Vital Signs Vital signs: Vital Signs Temp 98.1 F 09/17/23 08:00 Pulse 68 09/17/23 12:00 Resp 16 09/17/23 12:00 BP 148/58 09/17/23 12:00 Pulse Ox 99 09/17/23 12:00 FiO2 Intake & Output 09/16/23 09/17/23 09/17/23 18:59 06:59 18:59 Intake Total 591 354 Output Total 700 400 Balance -109 -400 354 Weight 110.5 kg Intake: Oral 591 354 Output: Urine 700 400 Other: Voiding Method Indwelling Catheter Indwelling Catheter Indwelling Catheter - Exam GENERAL DESCRIPTION: An elderly female lying in bed in no distress RESPIRATORY SYSTEM: Unlabored breathing , decreased breath sounds at bases HEART: S1 S2 regular rate and rhythm , ABDOMEN: Soft , no tenderness EXTREMITIES: No edema feet - Labs CBC & Chem 7: 09/17/23 06:28 09/17/23 06:28 Labs: Abnormal Lab Results - Last 24 Hours (Table) 09/16/23 09/16/23 09/17/23 Range/Units 16:51 20:09 06:08 WBC (3.8-10.6) k/uL RBC (3.80-5.40) m/uL Hgb (11.4-16.0) gm/dL Neutrophils # (1.3-7.7) k/uL Monocytes # (0-1.0) k/uL Sodium (137-145) mmol/L BUN (7-17) mg/dL Glucose (74-99) mg/dL POC Glucose (mg/dL) 360 H 361 H 206 H (70-110) mg/dL Calcium (8.4-10.2) mg/dL 09/17/23 09/17/23 09/17/23 Range/Units 06:28 06:28 11:38 WBC 11.6 H (3.8-10.6) k/uL RBC 3.60 L (3.80-5.40) m/uL Hgb 11.0 L (11.4-16.0) gm/dL Neutrophils # 8.3 H (1.3-7.7) k/uL Monocytes # 1.1 H (0-1.0) k/uL Sodium 129 L (137-145) mmol/L BUN 18 H (7-17) mg/dL Glucose 192 H (74-99) mg/dL POC Glucose (mg/dL) 280 H (70-110) mg/dL Calcium 8.3 L (8.4-10.2) mg/dL Microbiology - Last 24 Hours (Table) 09/13/23 08:45 Blood Culture - Preliminary Blood 09/13/23 08:31 Blood Culture - Preliminary Blood Assessment and Plan (1) Leukocytosis Current Visit: Yes Status: Acute Code(s): D72.829 - ELEVATED WHITE BLOOD CELL COUNT, UNSPECIFIED SNOMED Code(s): 241763192 (2) UTI (urinary tract infection) Current Visit: Yes Status: Acute Code(s): N39.0 - URINARY TRACT INFECTION, SITE NOT SPECIFIED SNOMED Code(s): 87006193 Plan: 1patient presented to hospital with fever and this patient who do have symptoms of SIRS with fever elevated white count tachycardia source likely pneumonia in this patient who did have a URI symptoms prior to developing the symptoms concerning for possible post viral bacterial pneumonia that has not been shown upon initial chest x-ray, patient currently do not have any abdominal tenderness no evidence of any cellulitis or neck rigidity. 2patient did have a procalcitonin 0.11 urine is cloudy possibly concerning for urinary tract infection with urine culture have been finalized with E. coli there is a sensitive pathogen 3patient did have some clinical improvement and white count is trending down we will continue with Rocephin inpatient finishing therapy with Ceftin Daughter at the bedside questions were answered Dictation was produced using [employer] dictation software. please excuse any grammatical, word or spelling errors. Time with Patient: Less than 30
[2023-09-17 16:22] LABS: Glucose,Whole Blood 250 mg/dL (70-110)
[2023-09-17 20:04] LABS: Glucose,Whole Blood 359 mg/dL (70-110)
--- NOTE | 2023-09-17 23:07 | P.PN ---
Subjective Progress Note Date: 09/16/23 Patient is a 87-year-old female with a past medical history of hypertension, hyperlipidemia, diabetes type 2 [id number], hypothyroidism, history of malignant melanoma and osteoarthritis who is currently living at [facility] facility was brought to the hospital due to altered mental status. According to her daughter patient has been her normal state yesterday evening. She was found to be confused this morning and has been hallucinating. Patient also developed a fever. She was for febrile with Tmax of 101.2 on admission. Otherwise patient cannot provide any history at this time. According to her daughter patient has been having cold-like symptoms last week. Patient is also tachycardic on admission. EKG showed sinus rhythm with sinus arrhythmia. CT head showed age-related atrophic and chronic small vessel ischemic changes without acute intracranial process seen at this time. Chest x-ray showed no acute process. Laboratory data showed WBC 9.8 hemoglobin 12.4 and platelets 295 lymphocytes 0.8 sodium 134 potassium 4.5 chloride 103 bicarb is 25 BUN 16 and creatinine 0.98 and blood sugar 226. A1c 7.1 lactic acid 1.3 magnesium 1.5 alk phos 132 total bili 0.9 Troponin 3.27, 8.28 and 11.5 Albumin 3.7 urinalysis showed cloudy with 1+ protein 2+ glucose 1+ ketones and nitrite negative and leukocyte esterase negative. WBCs 3 and squamous epithelial cells 2. Influenza A B RSV and COVID-19 PCR not detected. 09/14/2023 Patient is awake alert oriented x 3. Mental status is much improved. No complaints of chest pain or shortness of breath. No nausea or vomiting. Tolerating oral diet. Blood sugar slightly elevated. Patient is maintained on heparin drip due to NSTEMI. 2D echocardiogram showed preserved EF and mild to moderate concentric left ventricular hypertrophy and aortic valve moderate to severe stenosis with mean gradient raising up to 37 history. Patient remains on antibiotics from ceftriaxone and azithromycin for pneumonia Patient is maintained on aspirin statins and metoprolol. Cardiology is on board. 09/15/2023 Patient is currently lying in the bed. Awake alert and oriented x 3. No complaints of chest pain or shortness of breath. Mentation is at baseline. No headache or dizziness or lightheadedness. Denies any cough or sputum production. Patient is able to tolerate oral diet Patient is on IV antibiotics ceftriaxone and azithromycin. Heparin drip has been discontinued with cardiology recommends aspirin and Plavix for 6 months. Outpatient follow-up with cardiology regarding aortic stenosis and possible TAVR. Laboratory data WBC 10.7 hemoglobin 12.5 and platelets 279 sodium 131 potassium 4.1 chloride 104 bicarb is 22 BUN 17 and creatinine 1.09 blood sugar 182 and calcium 8.2 09/16/2023 Patient is resting in bed. Awake alert and oriented. Mentation is at baseline as per her daughter at bedside. No complaints of chest pain or shortness of breath. No nausea vomiting abdominal pain or diarrhea. Patient has been continued on ceftriaxone for E. coli urinary tract infection. Otherwise patient is being followed with PT OT and possible discharge to rehab on Monday. Laboratory data showed WBC 13.6 hemoglobin 11.5 and platelets 273 sodium 131 potassium 4.5 chloride 104 bicarb is 20 BUN 28 creatinine 1.02 and blood sugar 293. ID is on board. Current medications reviewed. Objective - Vital Signs Vital signs: Vital Signs Temp 99.2 F 09/16/23 19:24 Pulse 79 09/16/23 15:14 Resp 17 09/16/23 15:14 BP 163/81 09/16/23 15:14 Pulse Ox 99 09/16/23 15:14 FiO2 Intake & Output 09/16/23 09/16/23 09/17/23 06:59 18:59 06:59 Intake Total 591 Output Total 700 Balance -109 Weight 110.5 kg 110.5 kg Intake: Oral 591 Output: Urine 700 Other: Voiding Method Indwelling Catheter Indwelling Catheter - Exam PHYSICAL EXAMINATION: Patient is lying in the bed comfortably, no acute distress, awake alert and oriented.. HEENT: Normocephalic. Neck is supple. Pupils reactive. Nostrils clear. Oral cavity is moist. Neck reveals no JVD, carotid bruits, or thyromegaly. CHEST EXAMINATION: Trachea is central. Symmetrical expansion. Lung reich clear to auscultation and percussion. CARDIAC: Normal S1, S2 with no gallops. No murmurs ABDOMEN: Soft. Bowel sounds normal. No organomegaly. No abdominal bruits. Extremities: reveal no edema. No clubbing or cyanosis Neurologically awake, alert, oriented x3 with well-coordinated movements. No focal deficits noted Skin: No rash or skin lesions. Psychiatric: Coperative. Nonsuicidal Musculoskeletal: No joint swelling or deformity. Normal range of motion. - Labs CBC & Chem 7: 09/17/23 06:28 09/17/23 06:28 Labs: Abnormal Lab Results - Last 24 Hours (Table) 09/16/23 09/16/23 09/16/23 Range/Units 06:17 10:40 10:40 WBC 13.6 H (3.8-10.6) k/uL RBC 3.71 L (3.80-5.40) m/uL Neutrophils # 10.9 H (1.3-7.7) k/uL Lymphocytes # 0.9 L (1.0-4.8) k/uL Monocytes # 1.4 H (0-1.0) k/uL Sodium 131 L (137-145) mmol/L Carbon Dioxide 20 L (22-30) mmol/L BUN 20 H (7-17) mg/dL Glucose 293 H (74-99) mg/dL POC Glucose (mg/dL) 208 H (70-110) mg/dL 09/16/23 09/16/23 09/16/23 Range/Units 11:38 16:51 20:09 WBC (3.8-10.6) k/uL RBC (3.80-5.40) m/uL Neutrophils # (1.3-7.7) k/uL Lymphocytes # (1.0-4.8) k/uL Monocytes # (0-1.0) k/uL Sodium (137-145) mmol/L Carbon Dioxide (22-30) mmol/L BUN (7-17) mg/dL Glucose (74-99) mg/dL POC Glucose (mg/dL) 285 H 360 H 361 H (70-110) mg/dL Microbiology - Last 24 Hours (Table) 09/13/23 08:45 Blood Culture - Preliminary Blood 09/13/23 08:31 Blood Culture - Preliminary Blood 09/13/23 08:31 Urine Culture - Final Urine,Voided Escherichia coli Assessment and Plan Assessment: Altered mental status with metabolic encephalopathy due to infection Sepsis. Patient was febrile and tachycardic E. coli urinary tract infection possible pneumonia. Less likely. Pro-Harshad 0.11 Elevated troponin level likely due to type II NE Moderate to severe aortic stenosis Hyperglycemia is uncontrolled diabetes type 2, A1c 7.1 Hypomagnesemia Diabetes type 2 [id number] Hypertension Hyperlipidemia History of malignant melanoma Osteoarthritis and prior history of bilateral knee replacement Obesity with a BMI 35.5 DVT prophylaxis patient is already on heparin drip Plan: Patient will be continued on telemonitoring. Heparin drip has been discontinued. Plavix was added. Continue with aspirin and statins and metoprolol. Continue with dual anticoagulation for 6 months. Outpatient follow-up with cardiology for further workup regarding aortic stenosis and possible TAVR. Started on antibiotics ceftriaxone and azithromycin as per ID recommendations. Urine culture showed E. coli. Less likely pneumonia. Procalcitonin level 0.11. Continue with ceftriaxone. Cardiology and ID is on board. Current with home medications. Insulin sliding scale for better blood sugar control. Lantus 10 units was added due to elevated blood sugars. Titrate dose as needed. Will be started back on metformin. Follow-up closely. Anticipate discharge in the next 24 hours. Time with Patient: Greater than 30
--- NOTE | 2023-09-17 23:16 | P.PN ---
Subjective Progress Note Date: 09/17/23 Patient is a 87-year-old female with a past medical history of hypertension, hyperlipidemia, diabetes type 2 [id number], hypothyroidism, history of malignant melanoma and osteoarthritis who is currently living at [facility] facility was brought to the hospital due to altered mental status. According to her daughter patient has been her normal state yesterday evening. She was found to be confused this morning and has been hallucinating. Patient also developed a fever. She was for febrile with Tmax of 101.2 on admission. Otherwise patient cannot provide any history at this time. According to her daughter patient has been having cold-like symptoms last week. Patient is also tachycardic on admission. EKG showed sinus rhythm with sinus arrhythmia. CT head showed age-related atrophic and chronic small vessel ischemic changes without acute intracranial process seen at this time. Chest x-ray showed no acute process. Laboratory data showed WBC 9.8 hemoglobin 12.4 and platelets 295 lymphocytes 0.8 sodium 134 potassium 4.5 chloride 103 bicarb is 25 BUN 16 and creatinine 0.98 and blood sugar 226. A1c 7.1 lactic acid 1.3 magnesium 1.5 alk phos 132 total bili 0.9 Troponin 3.27, 8.28 and 11.5 Albumin 3.7 urinalysis showed cloudy with 1+ protein 2+ glucose 1+ ketones and nitrite negative and leukocyte esterase negative. WBCs 3 and squamous epithelial cells 2. Influenza A B RSV and COVID-19 PCR not detected. 09/14/2023 Patient is awake alert oriented x 3. Mental status is much improved. No complaints of chest pain or shortness of breath. No nausea or vomiting. Tolerating oral diet. Blood sugar slightly elevated. Patient is maintained on heparin drip due to NSTEMI. 2D echocardiogram showed preserved EF and mild to moderate concentric left ventricular hypertrophy and aortic valve moderate to severe stenosis with mean gradient raising up to 37 history. Patient remains on antibiotics from ceftriaxone and azithromycin for pneumonia Patient is maintained on aspirin statins and metoprolol. Cardiology is on board. 09/15/2023 Patient is currently lying in the bed. Awake alert and oriented x 3. No complaints of chest pain or shortness of breath. Mentation is at baseline. No headache or dizziness or lightheadedness. Denies any cough or sputum production. Patient is able to tolerate oral diet Patient is on IV antibiotics ceftriaxone and azithromycin. Heparin drip has been discontinued with cardiology recommends aspirin and Plavix for 6 months. Outpatient follow-up with cardiology regarding aortic stenosis and possible TAVR. Laboratory data WBC 10.7 hemoglobin 12.5 and platelets 279 sodium 131 potassium 4.1 chloride 104 bicarb is 22 BUN 17 and creatinine 1.09 blood sugar 182 and calcium 8.2 09/16/2023 Patient is resting in bed. Awake alert and oriented. Mentation is at baseline as per her daughter at bedside. No complaints of chest pain or shortness of breath. No nausea vomiting abdominal pain or diarrhea. Patient has been continued on ceftriaxone for E. coli urinary tract infection. Otherwise patient is being followed with PT OT and possible discharge to rehab on Monday. Laboratory data showed WBC 13.6 hemoglobin 11.5 and platelets 273 sodium 131 potassium 4.5 chloride 104 bicarb is 20 BUN 28 creatinine 1.02 and blood sugar 293. ID is on board. 09/17/2023 Patient is currently resting in the bed. Awake alert and mentation baseline. Currently on room air. No nausea or vomiting abdominal pain. Patient is tolerating oral diet. His blood sugar is elevated. Patient will be started on extra dose of insulin and start back on metformin. Laboratory data showed WBC trending down to 11.6 hemoglobin 11.0 and platelets 264, sodium 129 potassium 4.2 chloride 103 bicarb is 22 BUN 18 and creatinine 1.02 and blood sugar 192. Calcium 8.3. Patient has been current on ceftriaxone for E. coli urinary tract infection. Anticipate discharge to rehab tomorrow. Current medications reviewed. Objective - Vital Signs Vital signs: Vital Signs Temp 98.1 F 09/17/23 08:00 Pulse 74 09/17/23 08:00 Resp 16 09/17/23 08:00 BP 138/83 09/17/23 08:00 Pulse Ox 98 09/17/23 04:00 FiO2 Intake & Output 09/16/23 09/17/23 09/17/23 18:59 06:59 18:59 Intake Total 591 236 Output Total 700 400 Balance -109 -400 236 Weight 110.5 kg Intake: Oral 591 236 Output: Urine 700 400 Other: Voiding Method Indwelling Catheter Indwelling Catheter Indwelling Catheter - Exam PHYSICAL EXAMINATION: Patient is lying in the bed comfortably, no acute distress, awake alert and oriented.. HEENT: Normocephalic. Neck is supple. Pupils reactive. Nostrils clear. Oral cavity is moist. Neck reveals no JVD, carotid bruits, or thyromegaly. CHEST EXAMINATION: Trachea is central. Symmetrical expansion. Lung reich clear to auscultation and percussion. CARDIAC: Normal S1, S2 with no gallops. No murmurs ABDOMEN: Soft. Bowel sounds normal. No organomegaly. No abdominal bruits. Extremities: reveal no edema. No clubbing or cyanosis Neurologically awake, alert, oriented x3 with well-coordinated movements. No focal deficits noted Skin: No rash or skin lesions. Psychiatric: Coperative. Nonsuicidal Musculoskeletal: No joint swelling or deformity. Normal range of motion. - Labs CBC & Chem 7: 09/17/23 06:28 09/17/23 06:28 Labs: Abnormal Lab Results - Last 24 Hours (Table) 09/16/23 09/16/23 09/16/23 Range/Units 10:40 10:40 11:38 WBC 13.6 H (3.8-10.6) k/uL RBC 3.71 L (3.80-5.40) m/uL Hgb (11.4-16.0) gm/dL Neutrophils # 10.9 H (1.3-7.7) k/uL Lymphocytes # 0.9 L (1.0-4.8) k/uL Monocytes # 1.4 H (0-1.0) k/uL Sodium 131 L (137-145) mmol/L Carbon Dioxide 20 L (22-30) mmol/L BUN 20 H (7-17) mg/dL Glucose 293 H (74-99) mg/dL POC Glucose (mg/dL) 285 H (70-110) mg/dL Calcium (8.4-10.2) mg/dL 09/16/23 09/16/23 09/17/23 Range/Units 16:51 20:09 06:08 WBC (3.8-10.6) k/uL RBC (3.80-5.40) m/uL Hgb (11.4-16.0) gm/dL Neutrophils # (1.3-7.7) k/uL Lymphocytes # (1.0-4.8) k/uL Monocytes # (0-1.0) k/uL Sodium (137-145) mmol/L Carbon Dioxide (22-30) mmol/L BUN (7-17) mg/dL Glucose (74-99) mg/dL POC Glucose (mg/dL) 360 H 361 H 206 H (70-110) mg/dL Calcium (8.4-10.2) mg/dL 09/17/23 09/17/23 Range/Units 06:28 06:28 WBC 11.6 H (3.8-10.6) k/uL RBC 3.60 L (3.80-5.40) m/uL Hgb 11.0 L (11.4-16.0) gm/dL Neutrophils # 8.3 H (1.3-7.7) k/uL Lymphocytes # (1.0-4.8) k/uL Monocytes # 1.1 H (0-1.0) k/uL Sodium 129 L (137-145) mmol/L Carbon Dioxide (22-30) mmol/L BUN 18 H (7-17) mg/dL Glucose 192 H (74-99) mg/dL POC Glucose (mg/dL) (70-110) mg/dL Calcium 8.3 L (8.4-10.2) mg/dL Microbiology - Last 24 Hours (Table) 09/13/23 08:45 Blood Culture - Preliminary Blood 09/13/23 08:31 Blood Culture - Preliminary Blood Assessment and Plan Assessment: Altered mental status with metabolic encephalopathy due to infection Sepsis. Patient was febrile and tachycardic E. coli urinary tract infection possible pneumonia. Less likely. Pro-Harshad 0.11 Elevated troponin level likely due to type II [place] Moderate to severe aortic stenosis Hyperglycemia is uncontrolled diabetes type 2, A1c 7.1 Hypomagnesemia Diabetes type 2 [id number]-idzetqsbx Hypertension Hyperlipidemia History of malignant melanoma Osteoarthritis and prior history of bilateral knee replacement Obesity with a BMI 35.5 DVT prophylaxis patient is already on heparin drip Plan: Patient will be continued on telemonitoring. Heparin drip has been discontinued. Plavix was added. Continue with aspirin and statins and metoprolol. Continue with dual anticoagulation for 6 months. Outpatient follow-up with cardiology for further workup regarding aortic stenosis and possible TAVR. Started on antibiotics ceftriaxone and azithromycin as per ID recommendations. Urine culture showed E. coli. Less likely pneumonia. Procalcitonin level 0.11. Continue with ceftriaxone. Cardiology and ID is on board. Current with home medications. Insulin sliding scale for better blood sugar control. Lantus increased to 21 units at bedtime along with insulin sliding scale.. Titrate dose as needed. Started back on metformin. Patient also takes glipizide at home. Follow-up closely. Anticipate discharge in the next 24 hours. Time with Patient: Greater than 30
[2023-09-17 23:34] LABS: Glucose,Whole Blood 300 mg/dL (70-110)
[2023-09-17] MEDS: metFORMIN 500 MG TAB PO SCH (23:55)
[2023-09-18] MEDS: INSULIN DETEMIR (LEVEMIR) 100 UNIT/ML SYR SQ ONE (00:35)
[2023-09-18 06:12] LABS: Glucose,Whole Blood 281 mg/dL (70-110)
[2023-09-18 11:31] LABS: Glucose,Whole Blood 274 mg/dL (70-110)
[2023-09-18 13:39] LABS: African American GFR (CKD) 56 (>60 ml/min/1.73 sqM); Anion Gap 7 mmol/L; Blood Urea Nitrogen 26 mg/dL (7-17); Calcium 8.3 mg/dL (8.4-10.2); Carbon Dioxide 18 mmol/L (22-30); Chloride 102 mmol/L (98-107); Glucose 290 mg/dL (74-99); Non-African American GFR(CKD) 49 (>60 ml/min/1.73 sqM); Potassium 4.6 mmol/L (3.5-5.1); Sodium 127 mmol/L (137-145)
[2023-09-18 14:47] VITALS: BMI 39.3
--- NOTE | 2023-09-18 15:19 | P.PN ---
Subjective Progress Note Date: 09/18/23 Patient is a 87-year-old female with a past medical history of hypertension, hyperlipidemia, diabetes type 2 [id number], hypothyroidism, history of malignant melanoma and osteoarthritis who is currently living at [facility] facility was brought to the hospital due to altered mental status. According to her daughter patient has been her normal state yesterday evening. She was found to be confused this morning and has been hallucinating. Patient also developed a fever. She was for febrile with Tmax of 101.2 on admission. Otherwise patient cannot provide any history at this time. According to her daughter patient has been having cold-like symptoms last week. Patient is also tachycardic on admission. EKG showed sinus rhythm with sinus arrhythmia. CT head showed age-related atrophic and chronic small vessel ischemic changes without acute intracranial process seen at this time. Chest x-ray showed no acute process. Laboratory data showed WBC 9.8 hemoglobin 12.4 and platelets 295 lymphocytes 0.8 sodium 134 potassium 4.5 chloride 103 bicarb is 25 BUN 16 and creatinine 0.98 a nd blood sugar 226. A1c 7.1 lactic acid 1.3 magnesium 1.5 alk phos 132 total bili 0.9 Troponin 3.27, 8.28 and 11.5 Albumin 3.7 urinalysis showed cloudy with 1+ protein 2+ glucose 1+ ketones and nitrite negative and leukocyte esterase negative. WBCs 3 and squamous epithelial cells 2. Influenza A B RSV and COVID-19 PCR not detected. 09/14/2023 Patient is awake alert oriented x 3. Mental status is much improved. No complaints of chest pain or shortness of breath. No nausea or vomiting. Tolerating oral diet. Blood sugar slightly elevated. Patient is maintained on heparin drip due to NSTEMI. 2D echocardiogram showed preserved EF and mild to moderate concentric left ventricular hypertrophy and aortic valve moderate to severe stenosis with mean gradient raising up to 37 history. Patient remains on antibiotics from ceftriaxone and azithromycin for pneumonia Patient is maintained on aspirin statins and metoprolol. Cardiology is on board. 09/15/2023 Patient is currently lying in the bed. Awake alert and oriented x 3. No complaints of chest pain or shortness of breath. Mentation is at baseline. No headache or dizziness or lightheadedness. Denies any cough or sputum production. Patient is able to tolerate oral diet Patient is on IV antibiotics ceftriaxone and azithromycin. Heparin drip has been discontinued with cardiology recommends aspirin and Plavix for 6 months. Outpatient follow-up with cardiology regarding aortic stenosis and possible TAVR. Laboratory data WBC 10.7 hemoglobin 12.5 and platelets 279 sodium 131 potassium 4.1 chloride 104 bicarb is 22 BUN 17 and creatinine 1.09 blood sugar 182 and calcium 8.2 09/16/2023 Patient is resting in bed. Awake alert and oriented. Mentation is at baseline as per her daughter at bedside. No complaints of chest pain or shortness of breath. No nausea vomiting abdominal pain or diarrhea. Patient has been continued on ceftriaxone for E. coli urinary tract infection. Otherwise patient is being followed with PT OT and possible discharge to rehab on Monday. Laboratory data showed WBC 13.6 hemoglobin 11.5 and platelets 273 sodium 131 potassium 4.5 chloride 104 bicarb is 20 BUN 28 creatinine 1.02 and blood sugar 293. ID is on board. 09/17/2023 Patient is currently resting in the bed. Awake alert and mentation baseline. Currently on room air. No nausea or vomiting abdominal pain. Patient is tolerating oral diet. His blood sugar is elevated. Patient will be started on extra dose of insulin and start back on metformin. Laboratory data showed WBC trending down to 11.6 hemoglobin 11.0 and platelets 264, sodium 129 potassium 4.2 chloride 103 bicarb is 22 BUN 18 and creatinine 1.02 and blood sugar 192. Calcium 8.3. Patient has been current on ceftriaxone for E. coli urinary tract infection. Anticipate discharge to rehab tomorrow. Current medications reviewed. 09/18/2023 Patient is seen in follow-up today maintained on IV ceftriaxone with infectious disease following. Urine cultures finalized with E. coli with sensitivities and blood cultures remain negative. Patient does continue with indwelling Mckeon catheter for retention and will continue with possible trial void outpatient once more ambulatory. Patient sodium significantly dropping and will give a dose of Lasix and follow-up with repeat labs in the a.m. Patient with significant left upper extremity swelling noted with concerns of her left ring finger being significantly swollen and ring is still on. Family and patient report if it is a health issue okay to cut off. Nursing attempting to remove the ring at this time. Encouraged the patient to continue elevating left lower extremity on multiple pills and will give a dose of IV Lasix and follow-up with repeat labs tomorrow. Continue with fluid restrictions as well. Review of systems: Constitutional: No reports of fatigue, fever, or chills Cardiovascular: No reports of chest pain or palpitations Respiratory: No reports of shortness of breath or cough GI: No reports of nausea, vomiting, or diarrhea : No reports of dysuria or retention Neurovascular: reports of generalized weakness and difficulty with ambulating, reports lower extremity swelling and left upper extremity swelling All medications have been reviewed Physical exam: Patient is sitting up in the chair, no acute distress, awake alert and oriented.. Well-developed, elderly appearing, obese HEENT: Normocephalic. Neck is supple. Pupils reactive. Nostrils clear. Oral cavity is moist. Neck reveals no JVD, carotid bruits, or thyromegaly. CHEST EXAMINATION: Trachea is central. Symmetrical expansion. Lung reich clear to auscultation and percussion. CARDIAC: Normal S1, S2 with no gallops. No murmurs ABDOMEN: Soft. Bowel sounds normal. No organomegaly. No abdominal bruits. Extremities: reveal no edema. No clubbing or cyanosis significant left upper extremity swelling including hand with right ring finger ring still on and stuck due to swelling Neurologically awake, alert, oriented x3 with well-coordinated movements. No focal deficits noted Skin: No rash or skin lesions. Multiple bruises and significant swelling of the left upper extremity noted Psychiatric: Coperative. Nonsuicidal Musculoskeletal: No joint swelling or deformity. Normal range of motion. Assessment: Altered mental status with metabolic encephalopathy due to acute urinary tract infection, present on admission Sepsis. Patient was febrile and tachycardic, present on admission secondary to E. coli urinary tract infection E. coli urinary tract infection, present on admission possible pneumonia. Ruled out Pro-Harshad 0.11 Elevated troponin level likely due to type II LA Moderate to severe aortic stenosis Hyperglycemia is uncontrolled diabetes type 2, A1c 7.1 Hypomagnesemia, replaced Diabetes type 2 [id number] Hypertension Hyperlipidemia History of malignant melanoma Osteoarthritis and prior history of bilateral knee replacement Obesity with a BMI 35.5 DVT prophylaxis GI prophylaxis Full code Plan: Patient will be continued on Plavix along with aspirin and statin therapy. Patient with some overload including left upper extremity with significant hand swelling and right fourth digit ring is stuck. Discussed with nursing staff about removing and/or cutting off if necessary Will give a dose of Lasix as sodium has been steady going down and recommend fluid restrictions. Follow-up on repeat labs to monitor kidney functions and electrolytes and will give another dose of Lasix tomorrow Continue with IV antibiotics in the form of ceftriaxone for now and will transition to Ceftin on discharge with infectious disease following Continue with dual anticoagulation for 6 months. Outpatient follow-up with cardiology for further workup regarding aortic stenosis and possible TAVR. Cardiology following recommending outpatient follow-up Blood sugars are uncontrolled and hyperglycemic will adjust medications and recommend to monitor Accu-Cheks ACHS and titrate accordingly Encouraged oral intake and continue with fluid restrictions along with heart healthy diabetic diet Patient will be going to ECF on discharge, likely [facility] with case management following. Will monitor overnight with probable discharge planning in the next 24 hours The impression and plan of care has been dictated by Patricia Davila, Nurse Practitioner as directed. Dr. Kerry MD I have performed a history and examination and MDM of this patient, discussed the same with the dictator, and agree with the dictator's assessment and plan as written ,documented as a scribe. Based on total visit time, I have performed more than 50% of the visit. Objective - Vital Signs Vital signs: Vital Signs Temp 97.4 F L 09/18/23 12:00 Pulse 70 09/18/23 12:00 Resp 16 09/18/23 12:00 BP 155/67 09/18/23 12:00 Pulse Ox 98 09/18/23 12:00 FiO2 Intake & Output 09/17/23 09/18/23 09/18/23 18:59 06:59 18:59 Intake Total 472 236 Output Total 350 100 200 Balance 122 -100 36 Weight 110.5 kg Intake: Oral 472 236 Output: Urine 350 100 200 Other: Voiding Method Indwelling Catheter Indwelling Catheter Indwelling Catheter - Labs CBC & Chem 7: 09/17/23 06:28 09/18/23 13:15 Labs: Abnormal Lab Results - Last 24 Hours (Table) 09/17/23 09/17/23 09/17/23 Range/Units 16:18 20:02 23:31 Sodium (137-145) mmol/L Carbon Dioxide (22-30) mmol/L BUN (7-17) mg/dL Glucose (74-99) mg/dL POC Glucose (mg/dL) 250 H 359 H 300 H (70-110) mg/dL Calcium (8.4-10.2) mg/dL 09/18/23 09/18/23 09/18/23 Range/Units 06:10 11:29 13:15 Sodium 127 L (137-145) mmol/L Carbon Dioxide 18 L (22-30) mmol/L BUN 26 H (7-17) mg/dL Glucose 290 H (74-99) mg/dL POC Glucose (mg/dL) 281 H 274 H (70-110) mg/dL Calcium 8.3 L (8.4-10.2) mg/dL
[2023-09-18 16:39] LABS: Glucose,Whole Blood 293 mg/dL (70-110)
[2023-09-18] MEDS: FUROSEMIDE 10 MG/ML 4 ML VIAL IV STA (17:08)
[2023-09-18 20:09] LABS: Glucose,Whole Blood 390 mg/dL (70-110)
[2023-09-18] MEDS: INSULIN DETEMIR (LEVEMIR) 100 UNIT/ML SYR SQ SCH (20:19)
[2023-09-18] MEDS ORDERED: INSULIN DETEMIR (LEVEMIR) 100 UNIT/ML SYR SQ SCH (21:00)
[2023-09-19 05:57] LABS: Glucose,Whole Blood 278 mg/dL (70-110)
[2023-09-19] MEDS: METOPROLOL SUCCINATE (ER) 25 MG TAB.ER.24H PO STA (07:04)
[2023-09-19] MEDS: FUROSEMIDE 10 MG/ML 2 ML VIAL IV SCH ×2 (07:56→21:02)
--- NOTE | 2023-09-19 08:51 | P.PN ---
Subjective Progress Note Date: 09/18/23 Principal diagnosis: Reason for follow-up is UTI and question of pneumonia Patient is a 87-year-old female with a past medical history significant for diabetes mellitus hypertension hyperlipidemia malignant melanoma osteoarthritis status post bilateral knee replacement patient has been brought into the hospital concerning for mental status changes, patient did have some URI symptoms and cough with initial concern for possible pneumonia however also have a cloudy urine concerning for UTI as well. On today's evaluation that is 09/18/2023, the patient continues to be afebrile, the patient is on room air and breathing comfortably, the Pt denies having any chest pain or cough, the patient denies having any abdominal pain no vomiting or any diarrhea, mention feeling better. Patient did have a creatinine 1.04 blood culture has been negative Objective - Vital Signs Vital signs: Vital Signs Temp 97.4 F L 09/18/23 12:00 Pulse 70 09/18/23 12:00 Resp 16 09/18/23 12:00 BP 155/67 09/18/23 12:00 Pulse Ox 98 09/18/23 12:00 FiO2 Intake & Output 09/17/23 09/18/23 09/18/23 18:59 06:59 18:59 Intake Total 472 118 Output Total 350 100 200 Balance 122 -100 -82 Intake: Oral 472 118 Output: Urine 350 100 200 Other: Voiding Method Indwelling Catheter Indwelling Catheter Indwelling Catheter - Exam GENERAL DESCRIPTION: An elderly female lying in bed in no distress RESPIRATORY SYSTEM: Unlabored breathing , decreased breath sounds at bases HEART: S1 S2 regular rate and rhythm , ABDOMEN: Soft , no tenderness EXTREMITIES: No edema feet - Labs CBC & Chem 7: 09/17/23 06:28 09/18/23 13:15 Labs: Abnormal Lab Results - Last 24 Hours (Table) 09/17/23 09/17/23 09/17/23 Range/Units 16:18 20:02 23:31 POC Glucose (mg/dL) 250 H 359 H 300 H (70-110) mg/dL 09/18/23 09/18/23 Range/Units 06:10 11:29 POC Glucose (mg/dL) 281 H 274 H (70-110) mg/dL Assessment and Plan (1) Leukocytosis Current Visit: Yes Status: Acute Code(s): D72.829 - ELEVATED WHITE BLOOD CELL COUNT, UNSPECIFIED SNOMED Code(s): 013821066 (2) UTI (urinary tract infection) Current Visit: Yes Status: Acute Code(s): N39.0 - URINARY TRACT INFECTION, SITE NOT SPECIFIED SNOMED Code(s): 96956083 Plan: 1patient presented to hospital with fever and this patient who do have symptoms of SIRS with fever elevated white count tachycardia source likely pneumonia in this patient who did have a URI symptoms prior to developing the symptoms concerning for possible post viral bacterial pneumonia that has not been shown upon initial chest x-ray, patient currently do not have any abdominal tenderness no evidence of any cellulitis or neck rigidity. 2patient did have a procalcitonin 0.11 urine is cloudy possibly concerning for urinary tract infection with urine culture have been finalized with E. coli there is a sensitive pathogen 3patient slowly clinically improving blood culture has been negative continue with Rocephin while inpatient and monitor clinical course closely Dictation was produced using [employer] dictation software. please excuse any grammatical, word or spelling errors. Time with Patient: Less than 30
[2023-09-19 11:19] LABS: Glucose,Whole Blood 219 mg/dL (70-110)
[2023-09-19] MEDS: APIXABAN 5 MG TAB PO SCH (11:23)
[2023-09-19 11:59] LABS: Basophils # (A) 0.1 k/uL (0-0.2); Basophils % (A) 0 %; Eosinophils # (A) 0.2 k/uL (0-0.7); Eosinophils % (A) 1 %; HCT 35.7 % (34.0-46.0); HGB 11.6 gm/dL (11.4-16.0); Lymphocytes # (A) 1.6 k/uL (1.0-4.8); Lymphocytes % (A) 14 %; MCH 30.9 pg (25.0-35.0); MCHC 32.5 g/dL (31.0-37.0); MCV 95.1 fL (80.0-100.0); Monocytes % (A) 9 %; Neutrophils # (A) 8.2 k/uL (1.3-7.7); Neutrophils % (A) 72 %; Platelet Count 383 k/uL (150-450); RBC 3.75 m/uL (3.80-5.40); RDW 14.4 % (11.5-15.5); WBC 11.3 k/uL (3.8-10.6)
[2023-09-19 12:23] LABS: African American GFR (CKD) 56 (>60 ml/min/1.73 sqM); Anion Gap 7 mmol/L; Blood Urea Nitrogen 27 mg/dL (7-17); Calcium 8.1 mg/dL (8.4-10.2); Carbon Dioxide 21 mmol/L (22-30); Chloride 101 mmol/L (98-107); Glucose 221 mg/dL (74-99); Magnesium 1.6 mg/dL (1.6-2.3); Non-African American GFR(CKD) 49 (>60 ml/min/1.73 sqM); Potassium 4.2 mmol/L (3.5-5.1); Sodium 129 mmol/L (137-145)
--- NOTE | 2023-09-19 12:29 | P.PN ---
Subjective Progress Note Date: 09/19/23 HISTORY OF PRESENT ILLNESS: This is a 87 year year female with a past medical history significant for hy pertension, diabetes, and GERD. 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 We have been asked to see the patient in consultation for elevated troponins. Patient examined at the bedside in the ER. Patient is usually A/O x3. She lives in an independant living facility. She does have a nurse that comes in the morning to help get her dressed. The patient was noted to be very confused which is not her baseline. She was brought to the ER for further evaluation. Patient also was found to have a fever. WBC normal. Patient was also found to have elevated troponins and started on IV heparin. Patient has had no complaints of chest pain or pressure. No complaints of shortness of breath. Vital signs are stable. Bedside telemetry reveals sinus mechanism. She is tachycardic at the time of examination with a heart rate in the 120s. DIAGNOSTICS: - EKG reveals sinus mechanism with no signs of acute ischemia. Right BBB. - Chest xray negative for acute process - Laboratory data: WBC 9.8. Hemoglobin 12.4. Platelet count 295. Sodium 134. Potassium 4.5. BUN 16. Creatinine 0.98. Lactic acid 1.3. Troponin 3.270. 8.280. - Current home cardiac medications include losartan 50 mg twice a day, Lasix 20 mg daily, aspirin 81 mg daily. September 14, 2023 Patient is much more alert and oriented today. She is able to follow commands and answer appropriately. Her echocardiogram did not show any significant wall motion abnormality with preserved LV systolic function with mild to moderate concentric LVH. She does have evidence of calcification of mitral and aortic valve with moderate mitral annular calcification. She also has moderate to severe aortic stenosis with mean gradient reaching up to 37 mmHg. Her echocardiogram did not show any significant wall motion abnormality with preserved LV systolic function with mild to moderate concentric LVH. She does have evidence of calcification of mitral and aortic valve with moderate mitral annular calcification. She also has moderate to severe aortic stenosis with mean gradient reaching up to 37 mmHg. 09/18 Cardiology had previously signed off this case but we have been asked to see patient for new onset A fib with RVR. Patient denies having any chest pain or chest pressure. She denies having any palpitations. Patient noted to be a poor historian. She does state that she is feeling better since she presented to the hospital. Patient was on Toprol-XL 25 mg daily which was increased to 50 mg this morning by attending. Patient is also on IV Lasix 20 mg daily. PHYSICAL EXAM: VITAL SIGNS: Reviewed. GENERAL: Well-developed in no acute distress. HEENT: Head is normocephalic. Pupils are equal, round. Sclerae anicteric. Mucous membranes of the mouth are moist. Neck supple. No JVD or thyromegaly LUNGS: Respirations even and unlabored. Lungs essentially clear to auscultation bilaterally. HEART: Irregular rate and rhythm. S1 and S2 heard. 3/6 systolic murmur ABDOMEN: Soft. Nondistended. Nontender. EXTREMITIES: Peripheral pulses intact. 1+ lower extremity edema NEUROLOGIC: Confused, cooperative. ASSESSMENT: Metabolic encephalopathy Sepsis secondary to pneumonia, possible urinary tract infection, followed by ID Type II NSTEMI New onset paroxysmal atrial fibrillation with RVR, currently rate fairly well controlled Moderate to severe aortic stenosis Hypertension Diabetes GERD PLAN: Discontinue Plavix Start patient on Eliquis 5 mg twice daily Continue aspirin 81 mg daily, atorvastatin Increase frequency of Lasix 20 mg IV to twice daily Increase frequency of Toprol XL 50 mg to twice daily Monitor MARKELL, daily weights, electrolytes and renal function Obtain TSH Continue telemetry monitoring Further recommendations as patient progresses. Nurse practitioner note has been reviewed, I agree with documented findings and plan of care. Patient was seen and examined. Objective - Vital Signs Vital signs: Vital Signs Temp 98.4 F 09/19/23 07:49 Pulse 116 H 09/19/23 07:49 Resp 20 09/19/23 07:49 BP 137/77 09/19/23 07:49 Pulse Ox 97 09/19/23 07:49 FiO2 Intake & Output 09/18/23 09/19/23 09/19/23 18:59 06:59 18:59 Intake Total 576 118 Output Total 950 1800 Balance -374 -1800 118 Weight 110.5 kg 107 kg Intake: Oral 576 118 Output: Urine 950 1800 Other: Voiding Method Indwelling Catheter Indwelling Catheter Indwelling Catheter - Labs CBC & Chem 7: 09/19/23 11:13 09/18/23 13:15 Labs: Abnormal Lab Results - Last 24 Hours (Table) 09/18/23 09/18/23 09/18/23 Range/Units 11:29 13:15 16:37 Sodium 127 L (137-145) mmol/L Carbon Dioxide 18 L (22-30) mmol/L BUN 26 H (7-17) mg/dL Glucose 290 H (74-99) mg/dL POC Glucose (mg/dL) 274 H 293 H (70-110) mg/dL Calcium 8.3 L (8.4-10.2) mg/dL 09/18/23 09/19/23 Range/Units 20:05 05:55 Sodium (137-145) mmol/L Carbon Dioxide (22-30) mmol/L BUN (7-17) mg/dL Glucose (74-99) mg/dL POC Glucose (mg/dL) 390 H 278 H (70-110) mg/dL Calcium (8.4-10.2) mg/dL Microbiology - Last 24 Hours (Table) 09/13/23 08:45 Blood Culture - Final Blood 09/13/23 08:31 Blood Culture - Final Blood
[2023-09-19 16:28] LABS: Glucose,Whole Blood 219 mg/dL (70-110)
[2023-09-19 20:12] LABS: Glucose,Whole Blood 326 mg/dL (70-110)
[2023-09-19] MEDS: METOPROLOL SUCCINATE (ER) 50 MG TAB.ER.24H PO SCH (21:03)
--- NOTE | 2023-09-19 23:15 | P.PN ---
Subjective Progress Note Date: 09/19/23 Patient is a 87-year-old female with a past medical history of hypertension, hyperlipidemia, diabetes type 2 [id number], hypothyroidism, history of malignant melanoma and osteoarthritis who is [facility] was brought to the hospital due to altered mental status. According to her daughter patient has been her normal state yesterday evening. She was found to be confused this morning and has been hallucinating. Patient also developed a fever. She was for febrile with Tmax of 101.2 on admission. Otherwise patient cannot provide any history at this time. According to her daughter patient has been having cold-like symptoms last week. Patient is also tachycardic on admission. EKG showed sinus rhythm with sinus arrhythmia. CT head showed age-related atrophic and chronic small vessel ischemic changes without acute intracranial process seen at this time. Chest x-ray showed no acute process. Laboratory data showed WBC 9.8 hemoglobin 12.4 and platelets 295 lymphocytes 0.8 sodium 134 potassium 4.5 chloride 103 bicarb is 25 BUN 16 and creatinine 0.98 a nd blood sugar 226. A1c 7.1 lactic acid 1.3 magnesium 1.5 alk phos 132 total bili 0.9 Troponin 3.27, 8.28 and 11.5 Albumin 3.7 urinalysis showed cloudy with 1+ protein 2+ glucose 1+ ketones and nitrite negative and leukocyte esterase negative. WBCs 3 and squamous epithelial cells 2. Influenza A B RSV and COVID-19 PCR not detected. 09/14/2023 Patient is awake alert oriented x 3. Mental status is much improved. No complaints of chest pain or shortness of breath. No nausea or vomiting. Tolerating oral diet. Blood sugar slightly elevated. Patient is maintained on heparin drip due to NSTEMI. 2D echocardiogram showed preserved EF and mild to moderate concentric left ventricular hypertrophy and aortic valve moderate to severe stenosis with mean gradient raising up to 37 history. Patient remains on antibiotics from ceftriaxone and azithromycin for pneumonia Patient is maintained on aspirin statins and metoprolol. Cardiology is on board. 09/15/2023 Patient is currently lying in the bed. Awake alert and oriented x 3. No complaints of chest pain or shortness of breath. Mentation is at baseline. No headache or dizziness or lightheadedness. Denies any cough or sputum production. Patient is able to tolerate oral diet Patient is on IV antibiotics ceftriaxone and azithromycin. Heparin drip has been discontinued with cardiology recommends aspirin and Plavix for 6 months. Outpatient follow-up with cardiology regarding aortic stenosis and possible TAVR. Laboratory data WBC 10.7 hemoglobin 12.5 and platelets 279 sodium 131 potassium 4.1 chloride 104 bicarb is 22 BUN 17 and creatinine 1.09 blood sugar 182 and calcium 8.2 09/16/2023 Patient is resting in bed. Awake alert and oriented. Mentation is at baseline as per her daughter at bedside. No complaints of chest pain or shortness of breath. No nausea vomiting abdominal pain or diarrhea. Patient has been continued on ceftriaxone for E. coli urinary tract infection. Otherwise patient is being followed with PT OT and possible discharge to rehab on Monday. Laboratory data showed WBC 13.6 hemoglobin 11.5 and platelets 273 sodium 131 potassium 4.5 chloride 104 bicarb is 20 BUN 28 creatinine 1.02 and blood sugar 293. ID is on board. 09/17/2023 Patient is currently resting in the bed. Awake alert and mentation baseline. Currently on room air. No nausea or vomiting abdominal pain. Patient is tolerating oral diet. His blood sugar is elevated. Patient will be started on extra dose of insulin and start back on metformin. Laboratory data showed WBC trending down to 11.6 hemoglobin 11.0 and platelets 264, sodium 129 potassium 4.2 chloride 103 bicarb is 22 BUN 18 and creatinine 1.02 and blood sugar 192. Calcium 8.3. Patient has been current on ceftriaxone for E. coli urinary tract infection. Anticipate discharge to rehab tomorrow. Current medications reviewed. 09/18/2023 Patient is seen in follow-up today maintained on IV ceftriaxone with infectious disease following. Urine cultures finalized with E. coli with sensitivities and blood cultures remain negative. Patient does continue with indwelling Mckeon catheter for retention and will continue with possible trial void outpatient once more ambulatory. Patient sodium significantly dropping and will give a dose of Lasix and follow-up with repeat labs in the a.m. Patient with significant left upper extremity swelling noted with concerns of her left ring finger being significantly swollen and ring is still on. Family and patient report if it is a health issue okay to cut off. Nursing attempting to remove the ring at this time. Encouraged the patient to continue elevating left lower extremity on multiple pills and will give a dose of IV Lasix and follow-up with repeat labs tomorrow. Continue with fluid restrictions as well. 09/19/2023 Patient seen in follow-up today continues on IV antibiotics with urine cultures finalizing E. coli and sensitivities. Patient will continue oral Ceftin on discharge. Sodium was mildly low yesterday at 127 and given a dose of Lasix and improved at 129 today with some mild overload noted and will continue with IV Lasix twice daily. Apparently early this morning patient was noted to have heart rates into the 130s/140s with concerns for new onset atrial fibrillation with RVR. Cardiology had evaluated the patient initially on admission and signed off. Cardiology reevaluated with adjustments to medications and patient has been taken off Plavix and is being started on Eliquis. Will follow-up with repeat labs and continue on telemetry monitoring. Plan is for ECF on discharge. Patient does require insurance authorization which is pending. Review of systems: Constitutional: No reports of fatigue, fever, or chills Cardiovascular: No reports of chest pain or palpitations Respiratory: No reports of shortness of breath or cough GI: No reports of nausea, vomiting, or diarrhea, not much of an appetite but reports to tolerating diet : No reports of dysuria or retention Neurovascular: reports of generalized weakness and difficulty with ambulating, reports lower extremity swelling and left upper extremity swelling All medications have been reviewed Physical exam: Patient is sitting up in the bed, no acute distress, awake alert and oriented.. Well-developed, elderly appearing, obese HEENT: Normocephalic. Neck is supple. Pupils reactive. Nostrils clear. Oral cavity is moist. Neck reveals no JVD, carotid bruits, or thyromegaly. CHEST EXAMINATION: Trachea is central. Symmetrical expansion. Lung reich clear to auscultation and percussion. CARDIAC: Normal S1, S2 with no gallops. No murmurs ABDOMEN: Soft. Obese. Bowel sounds normal. No organomegaly. No abdominal bruits. Extremities: reveal no edema. No clubbing or cyanosis significant left upper extremity swelling including hand, slightly improving Neurologically awake, alert, oriented x3 with well-coordinated movements. No focal deficits noted, diffusely weak Skin: No rash or skin lesions. Multiple bruises and significant swelling of the left upper extremity noted Psychiatric: Cooperative. Non-suicidal Musculoskeletal: No joint swelling or deformity. Normal range of motion. Assessment: Altered mental status with metabolic encephalopathy due to acute urinary tract infection, present on admission Sepsis. Patient was febrile and tachycardic, present on admission secondary to E. coli urinary tract infection E. coli urinary tract infection, present on admission possible pneumonia. Ruled out Pro-Harshad 0.11 Elevated troponin level likely due to type II [place] New onset atrial fibrillation with RVR Moderate to severe aortic stenosis Hyperglycemia is uncontrolled diabetes type 2, A1c 7.1 Hypomagnesemia, replaced Diabetes type 2 [id number] Hypertension Hyperlipidemia History of malignant melanoma Osteoarthritis and prior history of bilateral knee replacement Obesity with a BMI 38.1 DVT prophylaxis GI prophylaxis Full code Plan: Patient will be continued on IV antibiotics in the form of ceftriaxone with infectious disease following. Urine cultures finalized showing E. coli with sensitivities and will transition to oral Ceftin on discharge Patient to continue with aspirin and statin therapy and was noted to have new onset atrial fibrillation with RVR. Cardiology reevaluating making adjustments to metoprolol and patient has been started on Eliquis and Plavix discontinued Patient also noted with volume overload in the upper and lower extremities and low sodium and will continue on IV Lasix low-dose twice daily with follow-up labs Patient continues to have some swelling noted in the left upper extremity although slightly improved and encouraged patient along with nursing staff to continue to elevate on pillows. Nursing staff did cut the ring off of the ring finger yesterday due to significant swelling Continue fluid restrictions Continue with dual anticoagulation for 6 months. Outpatient follow-up with cardiology for further workup regarding aortic stenosis and possible TAVR. Blood sugars are uncontrolled and hyperglycemic and will adjust medications again including increasing long-acting to twice daily and a higher dose. Recommend to monitor Accu-Cheks ACHS and titrate accordingly Encouraged oral intake and continue with fluid restrictions along with heart healthy diabetic diet [facility] with case management following. Patient will require insurance authorization which is pending at this time Will monitor overnight with probable discharge planning in the next 24-48 hours The impression and plan of care has been dictated by Patricia Davila, Nurse Practitioner as directed. Dr. Kerry MD I have performed a history and examination and MDM of this patient, discussed the same with the dictator, and agree with the dictator's assessment and plan as written ,documented as a scribe. Based on total visit time, I have performed more than 50% of the visit. Objective - Vital Signs Vital signs: Vital Signs Temp 98.4 F 09/19/23 07:49 Pulse 116 H 09/19/23 07:49 Resp 20 09/19/23 07:49 BP 137/77 09/19/23 07:49 Pulse Ox 97 09/19/23 07:49 FiO2 Intake & Output 09/18/23 09/19/23 09/19/23 18:59 06:59 18:59 Intake Total 576 Output Total 950 1800 Balance -374 -1800 Weight 110.5 kg 107 kg Intake: Oral 576 Output: Urine 950 1800 Other: Voiding Method Indwelling Catheter Indwelling Catheter Indwelling Catheter - Labs CBC & Chem 7: 09/19/23 11:13 09/19/23 11:13 Labs: Abnormal Lab Results - Last 24 Hours (Table) 09/18/23 09/18/23 09/18/23 Range/Units 11:29 13:15 16:37 Sodium 127 L (137-145) mmol/L Carbon Dioxide 18 L (22-30) mmol/L BUN 26 H (7-17) mg/dL Glucose 290 H (74-99) mg/dL POC Glucose (mg/dL) 274 H 293 H (70-110) mg/dL Calcium 8.3 L (8.4-10.2) mg/dL 09/18/23 09/19/23 Range/Units 20:05 05:55 Sodium (137-145) mmol/L Carbon Dioxide (22-30) mmol/L BUN (7-17) mg/dL Glucose (74-99) mg/dL POC Glucose (mg/dL) 390 H 278 H (70-110) mg/dL Calcium (8.4-10.2) mg/dL Microbiology - Last 24 Hours (Table) 09/13/23 08:45 Blood Culture - Final Blood 09/13/23 08:31 Blood Culture - Final Blood
[2023-09-19] MEDS: INSULIN DETEMIR (LEVEMIR) 100 UNIT/ML SYR SQ SCH (23:27)
[2023-09-20 06:10] LABS: Glucose,Whole Blood 200 mg/dL (70-110)
[2023-09-20 08:14] LABS: Basophils % (A) 0 %; Eosinophils # (A) 0.3 k/uL (0-0.7); Eosinophils % (A) 3 %; HGB 11.3 gm/dL (11.4-16.0); Lymphocytes # (A) 1.7 k/uL (1.0-4.8); Lymphocytes % (A) 17 %; MCH 30.8 pg (25.0-35.0); MCHC 32.3 g/dL (31.0-37.0); MCV 95.3 fL (80.0-100.0); Mean Platelet Volume 7.9; Monocytes # (A) 0.8 k/uL (0-1.0); Monocytes % (A) 8 %; Neutrophils % (A) 70 %; Platelet Count 420 k/uL (150-450); RBC 3.67 m/uL (3.80-5.40); RDW 14.1 % (11.5-15.5)
[2023-09-20 08:24] LABS: African American GFR (CKD) 56 (>60 ml/min/1.73 sqM); Anion Gap 5 mmol/L; Blood Urea Nitrogen 29 mg/dL (7-17); Calcium 8.4 mg/dL (8.4-10.2); Carbon Dioxide 23 mmol/L (22-30); Chloride 101 mmol/L (98-107); Glucose 180 mg/dL (74-99); Magnesium 1.7 mg/dL (1.6-2.3); Non-African American GFR(CKD) 49 (>60 ml/min/1.73 sqM); Potassium 4.2 mmol/L (3.5-5.1); Sodium 129 mmol/L (137-145)
[2023-09-20 08:31] LABS: NT-Pro-B-Type Natriuretic Pept 8610 pg/mL
[2023-09-20] MEDS ORDERED: METOPROLOL SUCCINATE (ER) 50 MG TAB.ER.24H PO SCH (09:00)
--- NOTE | 2023-09-20 11:17 | P.PN ---
Subjective Progress Note Date: 09/20/23 HISTORY OF PRESENT ILLNESS: This is a 87 year year female with a past medical history significant for hy pertension, diabetes, and GERD. 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 We have been asked to see the patient in consultation for elevated troponins. Patient examined at the bedside in the ER. Patient is usually A/O x3. She lives in an independant living facility. She does have a nurse that comes in the morning to help get her dressed. The patient was noted to be very confused which is not her baseline. She was brought to the ER for further evaluation. Patient also was found to have a fever. WBC normal. Patient was also found to have elevated troponins and started on IV heparin. Patient has had no complaints of chest pain or pressure. No complaints of shortness of breath. Vital signs are stable. Bedside telemetry reveals sinus mechanism. She is tachycardic at the time of examination with a heart rate in the 120s. DIAGNOSTICS: - EKG reveals sinus mechanism with no signs of acute ischemia. Right BBB. - Chest xray negative for acute process - Laboratory data: WBC 9.8. Hemoglobin 12.4. Platelet count 295. Sodium 134. Potassium 4.5. BUN 16. Creatinine 0.98. Lactic acid 1.3. Troponin 3.270. 8.280. - Current home cardiac medications include losartan 50 mg twice a day, Lasix 20 mg daily, aspirin 81 mg daily. September 14, 2023 Patient is much more alert and oriented today. She is able to follow commands and answer appropriately. Her echocardiogram did not show any significant wall motion abnormality with preserved LV systolic function with mild to moderate concentric LVH. She does have evidence of calcification of mitral and aortic valve with moderate mitral annular calcification. She also has moderate to severe aortic stenosis with mean gradient reaching up to 37 mmHg. Her echocardiogram did not show any significant wall motion abnormality with preserved LV systolic function with mild to moderate concentric LVH. She does have evidence of calcification of mitral and aortic valve with moderate mitral annular calcification. She also has moderate to severe aortic stenosis with mean gradient reaching up to 37 mmHg. 09/18 Cardiology had previously signed off this case but we have been asked to see patient for new onset A fib with RVR. Patient denies having any chest pain or chest pressure. She denies having any palpitations. Patient noted to be a poor historian. She does state that she is feeling better since she presented to the hospital. Patient was on Toprol-XL 25 mg daily which was increased to 50 mg this morning by attending. Patient is also on IV Lasix 20 mg daily. 09/19 Patient has converted to sinus rhythm, rate controlled. She has been on IV Lasix 20 mg twice daily. Patient has a negative fluid balance. Yesterday, Lopressor was increased in dose and increase frequency to twice daily. Blood pressure 150/70, heart rate 72, pulse ox 99% on room air. Repeat blood work reveals BUN 29 creatinine 1.05 and potassium 4.2. Sodium 129. TSH 4. PHYSICAL EXAM: VITAL SIGNS: Reviewed. GENERAL: Well-developed in no acute distress. HEENT: Head is normocephalic. Pupils are equal, round. Sclerae anicteric. Mucous membranes of the mouth are moist. Neck supple. No JVD or thyromegaly LUNGS: Respirations even and unlabored. Lungs essentially clear to auscultation bilaterally. HEART: Irregular rate and rhythm. S1 and S2 heard. 3/6 systolic murmur ABDOMEN: Soft. Nondistended. Nontender. EXTREMITIES: Peripheral pulses intact. 1+ lower extremity edema NEUROLOGIC: Confused, cooperative. ASSESSMENT: Metabolic encephalopathy Sepsis secondary to pneumonia, possible urinary tract infection, followed by ID Type II NSTEMI New onset paroxysmal atrial fibrillation with RVR, currently rate fairly well controlled Moderate to severe aortic stenosis Hypertension Diabetes GERD Hyponatremia PLAN: Continue patient on Eliquis 5 mg twice daily, aspirin 81 mg daily, atorvastatin Transition IV Lasix to oral 20 mg twice daily Continue Toprol XL 50 mg twice daily Monitor MARKELL, daily weights, electrolytes and renal function Further recommendations as patient progresses. Nurse practitioner note has been reviewed, I agree with documented findings and plan of care. Patient was seen and examined. Objective - Vital Signs Vital signs: Vital Signs Temp 98.1 F 09/20/23 08:00 Pulse 72 09/20/23 08:00 Resp 18 09/20/23 08:00 BP 150/70 09/20/23 08:00 Pulse Ox 99 09/20/23 08:00 FiO2 Intake & Output 09/19/23 09/20/23 09/20/23 18:59 06:59 18:59 Intake Total 358 118 Output Total 1050 700 0 Balance -692 -700 118 Weight 107 kg Intake: Oral 358 118 Output: Urine 1050 700 0 Other: Voiding Method Indwelling Catheter Indwelling Catheter - Labs CBC & Chem 7: 09/20/23 07:43 09/20/23 07:43 Labs: Abnormal Lab Results - Last 24 Hours (Table) 09/19/23 09/19/23 09/19/23 Range/Units 11:13 11:13 11:17 WBC 11.3 H (3.8-10.6) k/uL RBC 3.75 L (3.80-5.40) m/uL Hgb (11.4-16.0) gm/dL Neutrophils # 8.2 H (1.3-7.7) k/uL Sodium 129 L (137-145) mmol/L Carbon Dioxide 21 L (22-30) mmol/L BUN 27 H (7-17) mg/dL Glucose 221 H (74-99) mg/dL POC Glucose (mg/dL) 219 H (70-110) mg/dL Calcium 8.1 L (8.4-10.2) mg/dL 09/19/23 09/19/23 09/20/23 Range/Units 16:26 20:10 06:08 WBC (3.8-10.6) k/uL RBC (3.80-5.40) m/uL Hgb (11.4-16.0) gm/dL Neutrophils # (1.3-7.7) k/uL Sodium (137-145) mmol/L Carbon Dioxide (22-30) mmol/L BUN (7-17) mg/dL Glucose (74-99) mg/dL POC Glucose (mg/dL) 219 H 326 H 200 H (70-110) mg/dL Calcium (8.4-10.2) mg/dL 09/20/23 09/20/23 Range/Units 07:43 07:43 WBC (3.8-10.6) k/uL RBC 3.67 L (3.80-5.40) m/uL Hgb 11.3 L (11.4-16.0) gm/dL Neutrophils # (1.3-7.7) k/uL Sodium 129 L (137-145) mmol/L Carbon Dioxide (22-30) mmol/L BUN 29 H (7-17) mg/dL Glucose 180 H (74-99) mg/dL POC Glucose (mg/dL) (70-110) mg/dL Calcium (8.4-10.2) mg/dL
[2023-09-20 11:49] LABS: Glucose,Whole Blood 275 mg/dL (70-110)
--- NOTE | 2023-09-20 12:23 | P.PN ---
Subjective Progress Note Date: 09/19/23 Principal diagnosis: Reason for follow-up is UTI and question of pneumonia Patient is a 87-year-old female with a past medical history significant for diabetes mellitus hypertension hyperlipidemia malignant melanoma osteoarthritis status post bilateral knee replacement patient has been brought into the hospital concerning for mental status changes, patient did have some URI symptoms and cough with initial concern for possible pneumonia however also have a cloudy urine concerning for UTI as well. On today's evaluation that is 09/19/2023, Patient is afebrile patient is currently on room air and denies having any shortness of breath, the patient denies any chest pain or cough, the patient denies any nausea vomiting did not have any abdominal pain and no diarrhea, no new symptoms. Patient white count is down to 11.3 creatinine is 1.04 Objective - Vital Signs Vital signs: Vital Signs Temp 98.4 F 09/19/23 07:49 Pulse 77 09/19/23 13:23 Resp 20 09/19/23 11:19 BP 153/80 09/19/23 11:19 Pulse Ox 97 09/19/23 11:19 FiO2 Intake & Output 09/18/23 09/19/23 09/19/23 18:59 06:59 18:59 Intake Total 576 118 Output Total 950 1800 750 Balance -694 -5103 -528 Weight 110.5 kg 107 kg Intake: Oral 576 118 Output: Urine 950 1800 750 Other: Voiding Method Indwelling Catheter Indwelling Catheter Indwelling Catheter - Exam GENERAL DESCRIPTION: An elderly female lying in bed in no distress RESPIRATORY SYSTEM: Unlabored breathing , decreased breath sounds at bases HEART: S1 S2 regular rate and rhythm , ABDOMEN: Soft , no tenderness EXTREMITIES: No edema feet - Labs CBC & Chem 7: 09/20/23 07:43 09/20/23 07:43 Labs: Abnormal Lab Results - Last 24 Hours (Table) 09/18/23 09/18/23 09/18/23 Range/Units 13:15 16:37 20:05 WBC (3.8-10.6) k/uL RBC (3.80-5.40) m/uL Neutrophils # (1.3-7.7) k/uL Sodium 127 L (137-145) mmol/L Carbon Dioxide 18 L (22-30) mmol/L BUN 26 H (7-17) mg/dL Glucose 290 H (74-99) mg/dL POC Glucose (mg/dL) 293 H 390 H (70-110) mg/dL Calcium 8.3 L (8.4-10.2) mg/dL 09/19/23 09/19/23 09/19/23 Range/Units 05:55 11:13 11:13 WBC 11.3 H (3.8-10.6) k/uL RBC 3.75 L (3.80-5.40) m/uL Neutrophils # 8.2 H (1.3-7.7) k/uL Sodium 129 L (137-145) mmol/L Carbon Dioxide 21 L (22-30) mmol/L BUN 27 H (7-17) mg/dL Glucose 221 H (74-99) mg/dL POC Glucose (mg/dL) 278 H (70-110) mg/dL Calcium 8.1 L (8.4-10.2) mg/dL 09/19/23 Range/Units 11:17 WBC (3.8-10.6) k/uL RBC (3.80-5.40) m/uL Neutrophils # (1.3-7.7) k/uL Sodium (137-145) mmol/L Carbon Dioxide (22-30) mmol/L BUN (7-17) mg/dL Glucose (74-99) mg/dL POC Glucose (mg/dL) 219 H (70-110) mg/dL Calcium (8.4-10.2) mg/dL Microbiology - Last 24 Hours (Table) 09/13/23 08:45 Blood Culture - Final Blood 09/13/23 08:31 Blood Culture - Final Blood Assessment and Plan (1) Leukocytosis Current Visit: Yes Status: Acute Code(s): D72.829 - ELEVATED WHITE BLOOD CELL COUNT, UNSPECIFIED SNOMED Code(s): 853933268 (2) UTI (urinary tract infection) Current Visit: Yes Status: Acute Code(s): N39.0 - URINARY TRACT INFECTION, SITE NOT SPECIFIED SNOMED Code(s): 63943884 Plan: 1patient presented to hospital with fever and this patient who do have symptoms of SIRS with fever elevated white count tachycardia source likely pneumonia in this patient who did have a URI symptoms prior to developing the symptoms concerning for possible post viral bacterial pneumonia that has not been shown upon initial chest x-ray, patient currently do not have any abdominal tenderness no evidence of any cellulitis or neck rigidity. 2patient did have a procalcitonin 0.11 urine is cloudy possibly concerning for urinary tract infection with urine culture have been finalized with E. coli there is a sensitive pathogen 3patient slowly clinically improving blood culture has been negative white count still elevated though trending down to continue with Rocephin and monitor clinical course closely Dictation was produced using [employer] dictation software. please excuse any grammatical, word or spelling errors. Time with Patient: Less than 30
--- NOTE | 2023-09-20 12:24 | P.PN ---
Subjective Progress Note Date: 09/20/23 Principal diagnosis: Reason for follow-up is UTI and question of pneumonia Patient is a 87-year-old female with a past medical history significant for diabetes mellitus hypertension hyperlipidemia malignant melanoma osteoarthritis status post bilateral knee replacement patient has been brought into the hospital concerning for mental status changes, patient did have some URI symptoms and cough with initial concern for possible pneumonia however also have a cloudy urine concerning for UTI as well. On today's evaluation that is 09/20/2023, patient has been afebrile, patient is breathing comfortably and is currently on room air, patient denies having any significant cough no chest pain shortness of breath, patient denies nausea vomiting or diarrhea and no abdominal pain, patient mention feeling better. White normalized to 10.0 creatinine 1.04 Objective - Vital Signs Vital signs: Vital Signs Temp 98.1 F 09/20/23 08:00 Pulse 72 09/20/23 08:00 Resp 18 09/20/23 08:00 BP 150/70 09/20/23 08:00 Pulse Ox 99 09/20/23 08:00 FiO2 Intake & Output 09/19/23 09/20/23 09/20/23 18:59 06:59 18:59 Intake Total 358 118 Output Total 1050 700 0 Balance -692 -700 118 Weight 107 kg Intake: Oral 358 118 Output: Urine 1050 700 0 Other: Voiding Method Indwelling Catheter Indwelling Catheter - Exam GENERAL DESCRIPTION: An elderly female lying in bed in no distress RESPIRATORY SYSTEM: Unlabored breathing , decreased breath sounds at bases HEART: S1 S2 regular rate and rhythm , ABDOMEN: Soft , no tenderness EXTREMITIES: No edema feet - Labs CBC & Chem 7: 09/20/23 07:43 09/20/23 07:43 Labs: Abnormal Lab Results - Last 24 Hours (Table) 09/19/23 09/19/23 09/19/23 Range/Units 11:13 16:26 20:10 RBC (3.80-5.40) m/uL Hgb (11.4-16.0) gm/dL Sodium 129 L (137-145) mmol/L Carbon Dioxide 21 L (22-30) mmol/L BUN 27 H (7-17) mg/dL Glucose 221 H (74-99) mg/dL POC Glucose (mg/dL) 219 H 326 H (70-110) mg/dL Calcium 8.1 L (8.4-10.2) mg/dL 09/20/23 09/20/23 09/20/23 Range/Units 06:08 07:43 07:43 RBC 3.67 L (3.80-5.40) m/uL Hgb 11.3 L (11.4-16.0) gm/dL Sodium 129 L (137-145) mmol/L Carbon Dioxide (22-30) mmol/L BUN 29 H (7-17) mg/dL Glucose 180 H (74-99) mg/dL POC Glucose (mg/dL) 200 H (70-110) mg/dL Calcium (8.4-10.2) mg/dL 09/20/23 Range/Units 11:44 RBC (3.80-5.40) m/uL Hgb (11.4-16.0) gm/dL Sodium (137-145) mmol/L Carbon Dioxide (22-30) mmol/L BUN (7-17) mg/dL Glucose (74-99) mg/dL POC Glucose (mg/dL) 275 H (70-110) mg/dL Calcium (8.4-10.2) mg/dL Assessment and Plan (1) Leukocytosis Current Visit: Yes Status: Acute Code(s): D72.829 - ELEVATED WHITE BLOOD CELL COUNT, UNSPECIFIED SNOMED Code(s): 323310931 (2) UTI (urinary tract infection) Current Visit: Yes Status: Acute Code(s): N39.0 - URINARY TRACT INFECTION, SITE NOT SPECIFIED SNOMED Code(s): 62306710 Plan: 1patient presented to hospital with fever and this patient who do have symptoms of SIRS with fever elevated white count tachycardia source likely pneumonia in this patient who did have a URI symptoms prior to developing the symptoms concerning for possible post viral bacterial pneumonia that has not been shown upon initial chest x-ray, patient currently do not have any abdominal tenderness no evidence of any cellulitis or neck rigidity. 2patient did have a procalcitonin 0.11 urine is cloudy possibly concerning for urinary tract infection with urine culture have been finalized with E. coli there is a sensitive pathogen 3patient slowly clinically improving blood culture has been negative white count has normalized currently being treated with Rocephin which can be dis continued on discharge Daughter at the bedside question answered Dictation was produced using [employer]ation software. please excuse any grammatical, word or spelling errors. Time with Patient: Less than 30
--- NOTE | 2023-09-20 15:57 | P.PN ---
Subjective Progress Note Date: 09/20/23 Patient is a 87-year-old female with a past medical history of hypertension, hyperlipidemia, diabetes type 2 [id number], hypothyroidism, history of malignant melanoma and osteoarthritis who [facility] was brought to the hospital due to altered mental status. According to her daughter patient has been her normal state yesterday evening. She was found to be confused this morning and has been hallucinating. Patient also developed a fever. She was for febrile with Tmax of 101.2 on admission. Otherwise patient cannot provide any history at this time. According to her daughter patient has been having cold-like symptoms last week. Patient is also tachycardic on admission. EKG showed sinus rhythm with sinus arrhythmia. CT head showed age-related atrophic and chronic small vessel ischemic changes without acute intracranial process seen at this time. Chest x-ray showed no acute process. Laboratory data showed WBC 9.8 hemoglobin 12.4 and platelets 295 lymphocytes 0.8 sodium 134 potassium 4.5 chloride 103 bicarb is 25 BUN 16 and creatinine 0.98 a nd blood sugar 226. A1c 7.1 lactic acid 1.3 magnesium 1.5 alk phos 132 total bili 0.9 Troponin 3.27, 8.28 and 11.5 Albumin 3.7 urinalysis showed cloudy with 1+ protein 2+ glucose 1+ ketones and nitrite negative and leukocyte esterase negative. WBCs 3 and squamous epithelial cells 2. Influenza A B RSV and COVID-19 PCR not detected. 09/14/2023 Patient is awake alert oriented x 3. Mental status is much improved. No complaints of chest pain or shortness of breath. No nausea or vomiting. Tolerating oral diet. Blood sugar slightly elevated. Patient is maintained on heparin drip due to NSTEMI. 2D echocardiogram showed preserved EF and mild to moderate concentric left ventricular hypertrophy and aortic valve moderate to severe stenosis with mean gradient raising up to 37 history. Patient remains on antibiotics from ceftriaxone and azithromycin for pneumonia Patient is maintained on aspirin statins and metoprolol. Cardiology is on board. 09/15/2023 Patient is currently lying in the bed. Awake alert and oriented x 3. No complaints of chest pain or shortness of breath. Mentation is at baseline. No headache or dizziness or lightheadedness. Denies any cough or sputum production. Patient is able to tolerate oral diet Patient is on IV antibiotics ceftriaxone and azithromycin. Heparin drip has been discontinued with cardiology recommends aspirin and Plavix for 6 months. Outpatient follow-up with cardiology regarding aortic stenosis and possible TAVR. Laboratory data WBC 10.7 hemoglobin 12.5 and platelets 279 sodium 131 potassium 4.1 chloride 104 bicarb is 22 BUN 17 and creatinine 1.09 blood sugar 182 and calcium 8.2 09/16/2023 Patient is resting in bed. Awake alert and oriented. Mentation is at baseline as per her daughter at bedside. No complaints of chest pain or shortness of breath. No nausea vomiting abdominal pain or diarrhea. Patient has been continued on ceftriaxone for E. coli urinary tract infection. Otherwise patient is being followed with PT OT and possible discharge to rehab on Monday. Laboratory data showed WBC 13.6 hemoglobin 11.5 and platelets 273 sodium 131 potassium 4.5 chloride 104 bicarb is 20 BUN 28 creatinine 1.02 and blood sugar 293. ID is on board. 09/17/2023 Patient is currently resting in the bed. Awake alert and mentation baseline. Currently on room air. No nausea or vomiting abdominal pain. Patient is tolerating oral diet. His blood sugar is elevated. Patient will be started on extra dose of insulin and start back on metformin. Laboratory data showed WBC trending down to 11.6 hemoglobin 11.0 and platelets 264, sodium 129 potassium 4.2 chloride 103 bicarb is 22 BUN 18 and creatinine 1.02 and blood sugar 192. Calcium 8.3. Patient has been current on ceftriaxone for E. coli urinary tract infection. Anticipate discharge to rehab tomorrow. Current medications reviewed. 09/18/2023 Patient is seen in follow-up today maintained on IV ceftriaxone with infectious disease following. Urine cultures finalized with E. coli with sensitivities and blood cultures remain negative. Patient does continue with indwelling Mckeon catheter for retention and will continue with possible trial void outpatient once more ambulatory. Patient sodium significantly dropping and will give a dose of Lasix and follow-up with repeat labs in the a.m. Patient with significant left upper extremity swelling noted with concerns of her left ring finger being significantly swollen and ring is still on. Family and patient report if it is a health issue okay to cut off. Nursing attempting to remove the ring at this time. Encouraged the patient to continue elevating left lower extremity on multiple pills and will give a dose of IV Lasix and follow-up with repeat labs tomorrow. Continue with fluid restrictions as well. 09/19/2023 Patient seen in follow-up today continues on IV antibiotics with urine cultures finalizing E. coli and sensitivities. Patient will continue oral Ceftin on discharge. Sodium was mildly low yesterday at 127 and given a dose of Lasix and improved at 129 today with some mild overload noted and will continue with IV Lasix twice daily. Apparently early this morning patient was noted to have heart rates into the 130s/140s with concerns for new onset atrial fibrillation with RVR. Cardiology had evaluated the patient initially on admission and signed off. Cardiology reevaluated with adjustments to medications and patient has been taken off Plavix and is being started on Eliquis. Will follow-up with repeat labs and continue on telemetry monitoring. Plan is for ECF on discharge. Patient does require insurance authorization which is pending. 09/20/2023 Patient is seen in follow-up today being monitored by cardiology as patient was noted to have new onset atrial fibrillation. Patient has been transition to Eliquis and is continued on metoprolol with medications adjusted. Recommend tel emetry monitoring for another 24 hours with possible discharge planning to ECF. Patient requires insurance authorization and currently submitted and pending at this time. Patient will continue on IV antibiotics for E. coli UTI with infectious disease following and will transition to oral Ceftin for short course on discharge. Patient with overall generalized edema noted to upper and lower extremities recommend continuing low-dose Lasix and will transition to oral Lasix on discharge. Patient is afebrile with no reports of chest pain or shortness of breath. Patient's mentation is baseline. Patient continues with significant weakness and would benefit from ECF. Patient normally resides at a senior independent living facility. Daughter at the bedside with questions and concerns that were answered to the best of our ability. Review of systems: Constitutional: No reports of fatigue, fever, or chills Cardiovascular: No reports of chest pain or palpitations Respiratory: No reports of shortness of breath or cough GI: No reports of nausea, vomiting, or diarrhea, not much of an appetite but reports to tolerating diet : No reports of dysuria or retention Neurovascular: reports of generalized weakness and difficulty with ambulating, reports lower extremity swelling and left upper extremity swelling All medications have been reviewed Physical exam: Patient is sitting up in the bed, no acute distress, awake alert and oriented x 2, baseline.. Well-developed, elderly appearing, obese HEENT: Normocephalic. Neck is supple. Pupils reactive. Nostrils clear. Oral cavity is moist. Neck reveals no JVD, carotid bruits, or thyromegaly. CHEST EXAMINATION: Trachea is central. Symmetrical expansion. Lung reich clear to auscultation and percussion. CARDIAC: Normal S1, S2 with no gallops. No murmurs ABDOMEN: Soft. Obese. Bowel sounds normal. No organomegaly. No abdominal bruits. Extremities: reveal no edema. No clubbing or cyanosis significant left upper extremity swelling including hand, slightly improving Neurologically awake, alert, oriented x3 with well-coordinated movements. No focal deficits noted, diffusely weak Skin: No rash or skin lesions. Multiple bruises and significant swelling of the left upper extremity noted Psychiatric: Cooperative. Non-suicidal Musculoskeletal: No joint swelling or deformity. Normal range of motion. Assessment: Altered mental status with metabolic encephalopathy due to acute urinary tract infection, present on admission Sepsis. Patient was febrile and tachycardic, present on admission secondary to E. coli urinary tract infection E. coli urinary tract infection, present on admission possible pneumonia. Ruled out Pro-Harshad 0.11 Elevated troponin level likely due to type II [place] New onset atrial fibrillation with RVR, currently rate controlled Moderate to severe aortic stenosis Hyperglycemia is uncontrolled diabetes type 2, A1c 7.1 Hypomagnesemia, replaced Diabetes type 2 [id number] Hypertension Hyperlipidemia History of malignant melanoma Osteoarthritis and prior history of bilateral knee replacement Obesity with a BMI 38.1 DVT prophylaxis, maintained on Eliquis GI prophylaxis Full code Plan: Patient will be continued on IV antibiotics in the form of ceftriaxone with infectious disease following. Urine cultures finalized showing E. coli with sensitivities and will transition to oral Ceftin on discharge Patient to continue with aspirin and statin therapy and was noted to have new onset atrial fibrillation with RVR. Cardiology reevaluating making adjustments to metoprolol and patient has been started on Eliquis and Plavix discontinued. Cardiology recommends to continue on IV Lasix and close telemetry monitoring overnight with possible discharge planning to ECF in the next 24 hours. Patient also noted with volume overload in the upper and lower extremities and low sodium and will continue on IV Lasix low-dose twice daily with follow-up labs Patient continues to have some swelling noted in the left upper extremity although slightly improved and encouraged patient along with nursing staff to continue to elevate on pillows. Nursing staff did cut the ring off of the ring finger due to significant swelling Continue fluid restrictions Continue with dual anticoagulation for 6 months. Outpatient follow-up with cardiology for further workup regarding aortic stenosis and possible TAVR. Blood sugars are uncontrolled and hyperglycemic and will adjust medications again including increasing long-acting to twice daily and a higher dose. Recommend to monitor Accu-Cheks ACHS and titrate accordingly Encouraged oral intake and continue with fluid restrictions along with heart healthy diabetic diet Patient will be going to ECF on discharge, [facility] with case management following. Patient will require insurance authorization which is pending at this time Will monitor overnight with probable discharge planning in the next 24-48 hours The impression and plan of care has been dictated by Patricia Davila, Nurse Practitioner as directed. Dr. Kerry MD I have performed a history and examination and MDM of this patient, discussed the same with the dictator, and agree with the dictator's assessment and plan as written ,documented as a scribe. Based on total visit time, I have performed more than 50% of the visit. Objective - Vital Signs Vital signs: Vital Signs Temp 98.7 F 09/19/23 20:00 Pulse 75 09/19/23 20:00 Resp 18 09/19/23 20:00 BP 153/72 09/19/23 20:00 Pulse Ox 99 09/19/23 20:00 FiO2 Intake & Output 09/19/23 09/19/23 09/20/23 06:59 18:59 06:59 Intake Total 358 Output Total 1800 1050 Balance -1800 -692 Weight 107 kg Intake: Oral 358 Output: Urine 1800 1050 Other: Voiding Method Indwelling Catheter Indwelling Catheter - Labs CBC & Chem 7: 09/20/23 07:43 09/20/23 07:43 Labs: Abnormal Lab Results - Last 24 Hours (Table) 09/19/23 09/19/23 09/19/23 Range/Units 05:55 11:13 11:13 WBC 11.3 H (3.8-10.6) k/uL RBC 3.75 L (3.80-5.40) m/uL Neutrophils # 8.2 H (1.3-7.7) k/uL Sodium 129 L (137-145) mmol/L Carbon Dioxide 21 L (22-30) mmol/L BUN 27 H (7-17) mg/dL Glucose 221 H (74-99) mg/dL POC Glucose (mg/dL) 278 H (70-110) mg/dL Calcium 8.1 L (8.4-10.2) mg/dL 09/19/23 09/19/23 09/19/23 Range/Units 11:17 16:26 20:10 WBC (3.8-10.6) k/uL RBC (3.80-5.40) m/uL Neutrophils # (1.3-7.7) k/uL Sodium (137-145) mmol/L Carbon Dioxide (22-30) mmol/L BUN (7-17) mg/dL Glucose (74-99) mg/dL POC Glucose (mg/dL) 219 H 219 H 326 H (70-110) mg/dL Calcium (8.4-10.2) mg/dL Microbiology - Last 24 Hours (Table) 09/13/23 08:45 Blood Culture - Final Blood 09/13/23 08:31 Blood Culture - Final Blood
[2023-09-20 17:08] LABS: Glucose,Whole Blood 166 mg/dL (70-110)
[2023-09-20] MEDS: FUROSEMIDE 20 MG TAB PO SCH (17:44)
[2023-09-20 20:10] LABS: Glucose,Whole Blood 222 mg/dL (70-110)
[2023-09-21 02:47] VITALS: RESP 18
[2023-09-21 06:02] LABS: Glucose,Whole Blood 137 mg/dL (70-110)
[2023-09-21 07:18] VITALS: TEMP 97.3
--- NOTE | 2023-09-21 10:41 | P.PN ---
Subjective HISTORY OF PRESENT ILLNESS: Patient examined this morning at bedside. Patient currently denies chest pain or pressure. She denies shortness of breath. Vital signs are stable. She remains in sinus mechanism with heart rate around 60. PHYSICAL EXAM: VITAL SIGNS: Reviewed. GENERAL: Well-developed in no acute distress. NECK: Supple. No JVD or thyromegaly LUNGS: Respirations even and unlabored. Lungs essentially clear to auscultation bilaterally. HEART: Regular rate and rhythm. S1 and S2 heard. Systolic murmur EXTREMITIES: Normal range of motion. No clubbing or cyanosis. Peripheral pulses intact. No lower extremity edema ASSESSMENT: Sepsis secondary to urinary tract infection Elevated troponin secondary to type II ID secondary to oxygen supply and demand mismatch secondary to infectious process/urinary tract infection New onset paroxysmal atrial fibrillation with RVR, currently maintaining sinus mechanism Moderate to severe aortic stenosis Hypertension Diabetes GERD Hyponatremia PLAN: Continue current cardiac medications Patient is currently stable from a cardiac standpoint with no further inpatient recommendations We will sign off. Please reconsult if needed. Nurse practitioner note has been reviewed by physician. Signing provider agrees with the documented findings, assessment, and plan of care documented by PROOF TESTER as a scribe. Objective - Vital Signs Vital signs: Vital Signs Temp 97.3 F L 09/21/23 07:17 Pulse 66 09/21/23 07:17 Resp 18 09/21/23 07:17 BP 154/76 09/21/23 07:17 Pulse Ox 98 09/21/23 07:17 FiO2 Intake & Output 09/20/23 09/21/23 09/21/23 18:59 06:59 18:59 Intake Total 118 1020 Output Total 1200 850 Balance -1082 170 Weight 107.5 kg Intake: Oral 118 1020 Output: Urine 1200 850 Other: Voiding Method Indwelling Catheter Indwelling Catheter - Labs CBC & Chem 7: 09/20/23 07:43 09/20/23 07:43 Labs: Abnormal Lab Results - Last 24 Hours (Table) 09/20/23 09/20/23 09/20/23 Range/Units 11:44 17:06 20:08 POC Glucose (mg/dL) 275 H 166 H 222 H (70-110) mg/dL 09/21/23 Range/Units 06:00 POC Glucose (mg/dL) 137 H (70-110) mg/dL
[2023-09-21 10:44] LABS: Glucose,Whole Blood 198 mg/dL (70-110)
--- NOTE | 2023-09-21 14:04 | P.DS ---
Providers Date of admission: 09/13/23 12:16 Expected date of discharge: 09/21/23 Attending physician: Giuliano Cheung Consults: 09/13/23 12:14 Consult Physician Urgent Consulting Provider: Armando Biswas Consult Reason/Comments: fever Do you want consulting provider notified?: Yes 09/19/23 08:19 Consult Physician Urgent Consulting Provider: Jermaine Carreno Consult Reason/Comments: NOS Afib Do you want consulting provider notified?: Yes Primary care physician: Son Nava Hospital Course: Final diagnosis Altered mental status with metabolic encephalopathy due to acute urinary tract infection, present on admission Sepsis. Patient was febrile and tachycardic, present on admission secondary to E. coli urinary tract infection E. coli urinary tract infection, present on admission possible pneumonia. Ruled out Pro-Harshad 0.11 Elevated troponin level likely due to type II OR New onset atrial fibrillation with RVR, currently rate controlled Moderate to severe aortic stenosis Hyperglycemia is uncontrolled diabetes type 2, A1c 7.1 Hypomagnesemia, replaced Diabetes type 2 [id number]-toceiqgzi Hypertension Hyperlipidemia History of malignant melanoma Osteoarthritis and prior history of bilateral knee replacement Obesity with a BMI 38.1 DVT prophylaxis, maintained on Eliquis GI prophylaxis Full code Discharge disposition Patient is being discharged in a stable condition with guarded prognosis to [facility] . Patient will follow-up with Dr. Nava in the outpatient setting upon discharge. Patient is to continue with oral Ceftin twice daily for 1 week, close outpatient follow-up with cardiology as scheduled. Total time taken is greater than 35 minutes. Hospital course This is a 88-year-old female who was recently admitted with altered mental status with metabolic encephalopathy secondary to acute urinary tract infection with E. coli with sensitivities. Patient also with sepsis, present on admission secondary to the UTI. Patient did have an elevation in troponin likely type II per cardiology due to the UTI with sepsis. Patient also developed new onset atrial fibrillation with RVR while inpatient and initially started on heparin and Cardizem. Adjustments to medications for rate control per cardiology and also has been transition to oral Eliquis. Patient was continued on IV antibiotics with ID following and will transition to Ceftin on discharge. Patient with generalized weakness evaluated by physical therapy recommending rehab and patient and family are agreeable. Patient has been accepted at [facility] and will be discharged to [facility] today. Please refer to other consultation notes for further HPI. Currently no reports of chest pain, shortness of breath, or palpitations. Patient is afebrile. No reports of nausea or vomiting and patient is tolerating diet. Patient will be going to [facility] on the [place] today. Overall guarded prognosis given comorbidities Physical exam: Gen: This is a 88-year-old female who is awake, alert and oriented x 2-3, well- developed, elderly appearing, obese HEENT: Head is atraumatic, normocephalic. Pupils equal, round. Sclerae is anicteric. NECK: Supple. No JVD. No lymphadenopathy. No thyromegaly. LUNGS: Diminished breath sounds bilaterally otherwise clear to auscultation. No wheezes or rhonchi. No intercostal retractions. HEART: S1, S2 are muffled, irregular, rate controlled ABDOMEN: Soft. Obese bowel sounds are present. No masses. No tenderness. EXTREMITIES: No pedal edema. No calf tenderness. Mild lower extremity edema noted NEUROLOGICAL: Patient is awake, alert and oriented x 2-3. Cranial nerves 2 through 12 are grossly intact. Diffusely weak Please refer to medication reconciliation sheet for a list of medications. The impression and plan of care has been dictated by Patricia Davila, Nurse Practitioner as directed. Dr. Jonatan MD I have performed a history and examination and MDM of this patient, discussed the same with the dictator, and agree with the dictator's assessment and plan as written ,documented as a scribe. Based on total visit time, I have performed more than 50% of the visit. Patient Condition at Discharge: Stable Plan - Discharge Summary Discharge Rx Participant: Yes New Discharge Prescriptions: New cefUROXime axetiL [Ceftin] 500 mg PO BID 7 Days #14 tab Atorvastatin [Lipitor] 40 mg PO HS tab INSULIN ASPART (NovoLOG) [NovoLOG (formulary)] 0 unit SQ ACHS each Acetaminophen Tab [Tylenol] 650 mg PO Q4HR PRN tab PRN Reason: Fever and/ or Mild Pain Apixaban [Eliquis] 5 mg PO BID tab Furosemide [Lasix] 20 mg PO BID@0900,1600 tab Metoprolol Succinate (ER) [Toprol XL] 50 mg PO BID tab Insulin Detemir (Levemir) [Levemir] 20 unit SQ BID each Continue Aspirin 81 mg PO W/SUPPER Pantoprazole [Protonix] 40 mg PO AC-BRKFST B-Complex with Vitamin C [Vitamin B-Complex with Vit C] 1 cap PO W/BRKFST Levothyroxine Sodium [Synthroid] 75 mg PO HS Topiramate [Topamax] 25 mg PO W/SUPPER metFORMIN HCL 500 mg PO BID-W/MEALS Discontinued Losartan [Cozaar] 50 mg PO BID-W/MEALS Pioglitazone [Actos] 45 mg PO W/BRKFST Furosemide [Lasix] 20 mg PO W/SUPPER Pitavastatin Calcium [Livalo] 2 mg PO AC-BRKFST glipiZIDE XL [Glucotrol Xl] 10 mg PO W/BRKFST Discharge Medication List Aspirin 81 mg PO W/SUPPER 07/06/20 [History] Levothyroxine Sodium [Synthroid] 75 mg PO HS 07/06/20 [History] Pantoprazole [Protonix] 40 mg PO AC-BRKFST 07/06/20 [History] Topiramate [Topamax] 25 mg PO W/SUPPER 07/06/20 [History] B-Complex with Vitamin C [Vitamin B-Complex with Vit C] 1 cap PO W/BRKFST [History] metFORMIN HCL 500 mg PO BID-W/MEALS 09/13/23 [History] Acetaminophen Tab [Tylenol] 650 mg PO Q4HR PRN tab 09/18/23 [Rx] Atorvastatin [Lipitor] 40 mg PO HS tab 09/18/23 [Rx] INSULIN ASPART (NovoLOG) [NovoLOG (formulary)] 0 unit SQ ACHS each 09/18/23 [Rx] cefUROXime axetiL [Ceftin] 500 mg PO BID 7 Days #14 tab 09/18/23 [Rx] Apixaban [Eliquis] 5 mg PO BID tab 09/21/23 [Rx] Furosemide [Lasix] 20 mg PO BID@0900,1600 tab 09/21/23 [Rx] Insulin Detemir (Levemir) [Levemir] 20 unit SQ BID each 09/21/23 [Rx] Metoprolol Succinate (ER) [Toprol XL] 50 mg PO BID tab 09/21/23 [Rx] Follow up Appointment(s)/Referral(s): Jermaine Carreno MD [Medical Doctor] - 1 Week Son Nava DO [Primary Care Provider] - 1-2 days Onesimo ramesh the [place], [NON-STAFF] - As Needed Activity/Diet/Wound Care/Special Instructions: activity as tolerated patient is going to patient to continue ceftin twice daily for 7 days Discharge Disposition: TRANSFER TO SNF/ECF
[2023-09-21 14:30] VITALS: BP 145/76; PULSE 67
--- NOTE | 2023-09-21 16:50 | P.PN ---
Subjective Progress Note Date: 09/21/23 Principal diagnosis: Reason for follow-up is UTI and question of pneumonia Patient is a 87-year-old female with a past medical history significant for diabetes mellitus hypertension hyperlipidemia malignant melanoma osteoarthritis status post bilateral knee replacement patient has been brought into the hospital concerning for mental status changes, patient did have some URI symptoms and cough with initial concern for possible pneumonia however also have a cloudy urine concerning for UTI as well. On today's evaluation that is 09/21/2023, Patient is afebrile this morning and denies any chills, patient mention breathing comfortably and is currently on room air, patient denies any chest pain occasional cough patient denies any abdominal pain no diarrhea no nausea no vomiting, overall feeling better no new symptoms. No new labs has been repeated today Objective - Vital Signs Vital signs: Vital Signs Temp 97.3 F L 09/21/23 07:17 Pulse 66 09/21/23 07:17 Resp 18 09/21/23 07:17 BP 154/76 09/21/23 07:17 Pulse Ox 98 09/21/23 07:17 FiO2 Intake & Output 09/20/23 09/21/23 09/21/23 18:59 06:59 18:59 Intake Total 118 1020 Output Total 1200 850 Balance -1082 170 Weight 107.5 kg Intake: Oral 118 1020 Output: Urine 1200 850 Other: Voiding Method Indwelling Catheter Indwelling Catheter Indwelling Catheter - Exam GENERAL DESCRIPTION: An elderly female lying in bed in no distress RESPIRATORY SYSTEM: Unlabored breathing , decreased breath sounds at bases HEART: S1 S2 regular rate and rhythm , ABDOMEN: Soft , no tenderness EXTREMITIES: No edema feet - Labs CBC & Chem 7: 09/20/23 07:43 09/20/23 07:43 Labs: Abnormal Lab Results - Last 24 Hours (Table) 09/20/23 09/20/23 09/21/23 Range/Units 17:06 20:08 06:00 POC Glucose (mg/dL) 166 H 222 H 137 H (70-110) mg/dL 09/21/23 Range/Units 10:43 POC Glucose (mg/dL) 198 H (70-110) mg/dL Assessment and Plan (1) Leukocytosis Status: Acute Code(s): D72.829 - ELEVATED WHITE BLOOD CELL COUNT, UNSPECIFIED SNOMED Code(s): 237759686 (2) UTI (urinary tract infection) Status: Acute Code(s): N39.0 - URINARY TRACT INFECTION, SITE NOT SPECIFIED SNOMED Code(s): 58626704 Plan: 1patient presented to hospital with fever and this patient who do have symptoms of SIRS with fever elevated white count tachycardia source likely pneumonia in this patient who did have a URI symptoms prior to developing the symptoms concerning for possible post viral bacterial pneumonia that has not been shown upon initial chest x-ray, patient currently do not have any abdominal tenderness no evidence of any cellulitis or neck rigidity. 2patient did have a procalcitonin 0.11 urine is cloudy possibly concerning for urinary tract infection with urine culture have been finalized with E. coli there is a sensitive pathogen 3patient has shown clinical improvement and has received adequate IV Rocephin for her UTI will monitor the patient closely off antibiotic therapy Daughter at the bedside questions answered Dictation was produced using [employer] dictation software. please excuse any grammatical, word or spelling errors. Time with Patient: Less than 30
== END 2023-09-21 16:40 | DRG 871 ==
LOC: EC 08:12 → 3SCARD 12:16 → 4SSUR 09-20 15:41
PROVIDERS: ADMIT Internal Medicine; ATTEND Internal Medicine
DX: A41.51 Sepsis due to Escherichia coli [E. coli] (principal); G93.41 Metabolic encephalopathy; I21.A1 Myocardial infarction type 2; J18.9 Pneumonia, unspecified organism; E87.1 Hypo-osmolality and hyponatremia; N39.0 Urinary tract infection, site not specified; E11.65 Type 2 diabetes mellitus with hyperglycemia; I48.0 Paroxysmal atrial fibrillation; Z79.4 Long term (current) use of insulin; Z68.38 Body mass index [BMI] 38.0-38.9, adult; I08.0 Rheumatic disorders of both mitral and aortic valves; E03.9 Hypothyroidism, unspecified; I10 Essential (primary) hypertension; E66.9 Obesity, unspecified; B96.20 Unspecified Escherichia coli [E. coli] as the cause of diseases classified elsewhere; E78.5 Hyperlipidemia, unspecified; H91.90 Unspecified hearing loss, unspecified ear; K21.9 Gastro-esophageal reflux disease without esophagitis; I45.10 Unspecified right bundle-branch block; E83.42 Hypomagnesemia; Z96.653 Presence of artificial knee joint, bilateral; Z85.820 Personal history of malignant melanoma of skin; Z79.84 Long term (current) use of oral hypoglycemic drugs; Z79.82 Long term (current) use of aspirin; Z79.899 Other long term (current) drug therapy; Z11.52 Encounter for screening for COVID-19
CPT/HCPCS: 36415; 70450; 71046; 76705; 80048; 80053; 80061; 81001; 83036; 83605; 83735; 83880; 84145; 84443; 84484; 85025; 85610; 85730; 86140; 87040; 87077; 87086; 87186; 87636; 93005; 93306; 96361; 96365; 96366; 96367; 96375; 96376; 99291

== ENCOUNTER 2024-02-04 01:08 | Inpatient (IN) | payer MEDICARE, OTHER ==
--- NOTE | 2024-02-04 01:53 | ED ---
Fall HPI - General Source: patient, family, EMS, RN notes reviewed Mode of arrival: EMS <Niru Gonzalez - Last Filed: 02/04/24 17:37> <Hayde - Last Filed: 02/10/24 19:20> - General Chief Complaint: Fall Stated Complaint: Fall, weakness Time Seen by Provider: 02/04/24 01:30 EST - History of Present Illness Initial Comments: This is an 88-year-old female who is presenting to the emergency department via EMS like [facility] for chief complaint of multiple falls and weakness. She reports that yesterday she fell due to weakness in her legs and landed on her knees. Today while patient was ambulating she had a another "fall "when she was walking and was assisted onto the ground. Patient denies hitting her head or loss of consciousness at times of injuries. Currently she is denying chest pain, shortness of breath, difficulty breathing, abdominal pain, headaches, urinary or bowel symptoms. Patient's daughter is at bedside and further explains that patient has been been increasingly weak over the past week. Is on daily Eliquis. (Niru Gonzalez) - Related Data Home Medications Medication Instructions Recorded Confirmed Aspirin 81 mg PO W/SUPPER 07/06/20 02/04/24 Levothyroxine Sodium [Synthroid] 75 mg PO HS 07/06/20 02/04/24 Pantoprazole [Protonix] 40 mg PO AC-BRKFST 07/06/20 02/04/24 Topiramate [Topamax] 25 mg PO W/SUPPER 07/06/20 02/04/24 metFORMIN HCL 500 mg PO BID-W/MEALS 09/13/23 02/04/24 Apixaban [Eliquis] 5 mg PO BID-W/MEALS 02/04/24 02/04/24 Clobetasol Propionate [Temovate 1 applic TOPICAL BID 02/04/24 02/04/24 0.05% Cream] Furosemide [Lasix] 20 mg PO W/SUPPER 02/04/24 02/04/24 Losartan [Cozaar] 25 mg PO W/BRKFST 02/04/24 02/04/24 Metoprolol Succinate (ER) [Toprol 50 mg PO BID-W/MEALS 02/04/24 02/04/24 Xl] Pioglitazone [Actos] 45 mg PO W/BRKFST 02/04/24 02/04/24 Pitavastatin Calcium [Livalo] 2 mg PO DIRECTED 02/04/24 02/04/24 Vitamin B Complex 1 cap PO W/BRKFST 02/04/24 02/04/24 glipiZIDE [glipiZIDE ER] 10 mg PO W/BRKFST 02/04/24 02/04/24 Allergies Allergy/AdvReac Type Severity Reaction Status Date / Time No Known Allergies Allergy Verified 02/04/24 12:37 Review of Systems ROS Other: All systems not noted in ROS Statement are negative. <Niru Gonzalez - Last Filed: 02/04/24 17:37> ROS Other: All systems not noted in ROS Statement are negative. <Hayde Schwartz - Last Filed: 02/10/24 19:20> ROS Statement: Those systems with pertinent positive or pertinent negative responses have been documented in the HPI. Past Medical History Past Medical History: Diabetes Mellitus, Hyperlipidemia, Hypertension, Thyroid Disorder Additional Past Medical History / Comment(s): malignant melanoma History of Any Multi-Drug Resistant Organisms: None Reported Past Surgical History: Breast Surgery, Cholecystectomy Additional Past Surgical History / Comment(s): bilateral knee replacement Past Anesthesia/Blood Transfusion Reactions: No Reported Reaction Past Psychological History: No Psychological Hx Reported Smoking Status: Never smoker Past Alcohol Use History: None Reported Past Drug Use History: None Reported - Past Family History Father Family Medical History: Coronary Artery Disease (CAD) Mother Family Medical History: Cancer <Niru Gonzalez - Last Filed: 02/04/24 17:37> General Exam Limitations: no limitations General appearance: alert, in no apparent distress Eye exam: Present: normal appearance, PERRL, EOMI. Absent: scleral icterus, conjunctival injection, periorbital swelling Neck exam: Present: normal inspection. Absent: tenderness, meningismus, lymphadenopathy Respiratory exam: Present: normal lung sounds bilaterally. Absent: respiratory distress, wheezes, rales, rhonchi, stridor Cardiovascular Exam: Present: regular rate, normal rhythm, normal heart sounds. Absent: systolic murmur, diastolic murmur, rubs, gallop, clicks GI/Abdominal exam: Present: soft, normal bowel sounds. Absent: distended, tenderness, guarding, rebound, rigid Extremities exam: Present: other (bilateral knee edema, no overlying ecchymosis or abrasions or lacerations) Right Upper Arm exam: Present: tenderness, other (skin tear with ecchymosis over the lateral forearm, mild active bleeding) Back exam: Present: normal inspection Neurological exam: Present: alert, oriented X3, CN II-XII intact Skin exam: Present: warm, dry, intact, pallor. Absent: rash <Niru Gonzalez - Last Filed: 02/04/24 17:37> Course Vital Signs 02/04/24 02/04/24 02/04/24 01:13 EST 03:23 05:18 Temperature 97.6 F 98.4 F Pulse Rate 60 64 61 Respiratory 18 19 15 Rate Blood Pressure 135/55 138/72 131/57 O2 Sat by Pulse 98 100 96 Oximetry 02/04/24 02/04/24 02/04/24 06:03 06:55 08:26 Temperature 97.9 F Pulse Rate 55 L 68 59 L Respiratory 19 20 15 Rate Blood Pressure 101/54 148/65 155/64 O2 Sat by Pulse 97 98 99 Oximetry 02/04/24 12:04 Temperature Pulse Rate 57 L Respiratory 16 Rate Blood Pressure 131/66 O2 Sat by Pulse 100 Oximetry Medical Decision Making - Lab Data Result diagrams: 02/04/24 01:35 EST 02/04/24 01:35 EST <Niru Gonzalez - Last Filed: 02/04/24 17:37> - Lab Data Result diagrams: 02/10/24 03:50 02/10/24 03:50 <Hayde Schwartz - Last Filed: 02/10/24 19:20> - Medical Decision Making Was pt. sent in by a medical professional or institution (, PA, HOUSE OFFICER, urgent care, hospital, or assisted...) When possible be specific @ -Was sent in by nursing facility with concerns for frequent falls and weakness Did you speak to anyone other than the patient for history (EMS, parent, family, police, friend...)? What history was obtained from this source @ -Spoke to the patient's daughter at bedside who states that the patient has been having multiple falls over the past week and has been complaining of bilateral knee pain and back pain. Did you review nursing and triage notes (agree or disagree)? Why? @ -I reviewed and agree with nursing and triage notes Were old charts reviewed (outside hosp., previous admission, EMS record, old EKG, old radiological studies, urgent care reports/EKG's, assisted records)? Report findings @ -No old charts were reviewed Differential Diagnosis (chest pain, altered mental status, abdominal pain women, abdominal pain men, vaginal bleeding, weakness, fever, dyspnea, syncope, headache, dizziness, GI bleed, back pain, seizure, CVA, palpatations, mental health, musculoskeletal)? @ -Differential Weakness: Hypoglycemia, shock, sepsis, hyponatremia, anemia, infection, AZ, ETOH, adverse medicine reaction, overdose, stroke, this is not meant to be an all-inclusive list. EKG interpreted by me (3pts min.). @ -EKG completed at 126 sinus bradycardia with a ventricular rate of 58, OK interval 189, QRS 157, QTc 455. No acute signs of ischemia. X-rays interpreted by me (1pt min.). @ -XR bilateral knees reveals no acute fracture or dislocation of either knee with metallic hardware from arthroplasty present and position is satisfactory is moderate sided left joint effusion CT interpreted by me (1pt min.). @ -None done U/S interpreted by me (1pt. min.). @ -None done What testing was considered but not performed or refused? (CT, X-rays, U/S, labs)? Why? @ -None What meds were considered but not given or refused? Why? @ -None Did you discuss the management of the patient with other professionals (prof prado i.e. , PA, HOUSE OFFICER, lab, RT, psych nurse, manager social work, vacuum technician, teacher, infantry officer, assistant case manager)? Give summary @ -internal medicine for admission, accepted. Was smoking cessation discussed for >3mins.? @ -No Was critical care preformed (if so, how long)? @ -No Were there social determinants of health that impacted care today? How? (Homelessness, low income, unemployed, alcoholism, drug addiction, transportation, low edu. Level, literacy, decrease access to med. care, senior care, rehab)? @ -No Was there de-escalation of care discussed even if they declined (Discuss DNR or withdrawal of care, Hospice)? DNR status @ -No What co-morbidities impacted this encounter? (DM, HTN, Smoking, COPD, CAD, Cancer, CVA, ARF, Chemo, Hep., AIDS, mental health diagnosis, sleep apnea, morbid obesity)? @ -Hypertension, diabetes Was patient admitted / discharged? Hospital course, mention meds given and route, prescriptions, significant lab abnormalities, going to OR and other pertinent info. @ -Admitted. 88-year-old female with weakness and multiple falls. On my evaluation the patient she is noted to be resting comfortably no signs acute distress. Her vital signs are within acceptable limits. She is noted to have mild edema of bilateral knees, no evidence of lower extremity peripheral edema, pedal pulse 1+. Patient, patient has a moderate-sized skin tear to the right forearm. Patient is provided with the pain medication will be evaluated for weakness in addition to x-ray of bilateral knees. Patient and family agree with this plan. X-ray remarkable for moderate sided left knee joint effusion with no acute process or fracture or dislocation. Patient labs are remarkable for hyponatremia of 129, elevated creatinine 1.33 and hyperglycemia of 165. Patient is provided with 500 mL fluid bolus. Patient's urinalysis remarkable for infection including positive nitrates, small leukocyte esterase, white blood cells and white blood cell clumps. Patient is started on antibiotics and admitted to internal medicine for further evaluation of weakness and treatment for urinary tract infection. Concern for patient's weakness she will be admitted to internal medicine with physical therapy on consult for further evaluation. Case discussed my attending Dr. Schwartz Undiagnosed new problem with uncertain prognosis? @ -No Drug Therapy requiring intensive monitoring for toxicity (Heparin, Nitro, Insulin, Cardizem)? @ -No Were any procedures done? @ -No Diagnosis/symptom? @ -weakness, UTI Acute, or Chronic, or Acute on Chronic? @ -acute Uncomplicated (without systemic symptoms) or Complicated (systemic symptoms)? @ -complicated Side effects of treatment? @ -No Exacerbation, Progression, or Severe Exacerbation? @ -No Poses a threat to life or bodily function? How? (Chest pain, [place], AZ, pneumonia, PE, COPD, DKA, ARF, appy, cholecystitis, CVA, Diverticulitis, Homicidal, Suicidal, threat to staff... and all critical care pts) @ -No (Lisa,Niru) Signout received from outgoing PA. This is an 88-year-old female presenting for generalized weakness and multiple falls recently. No head trauma. Pending UA. anticipate admission. UA with signs of infection. Ordered Rocephin. Discussed case with [facility], who kindly accepted patient for admission. Patient admitted in stable condition. Home meds ordered. Undiagnosed new problem with uncertain prognosis? @ -No Drug Therapy requiring intensive monitoring for toxicity (Heparin, Nitro, Insulin, Cardizem)? @ -No Were any procedures done? @ -No Diagnosis/symptom? @ -Urinary tract infection, multiple falls, generalized weakness Acute, or Chronic, or Acute on Chronic? @Acute Uncomplicated (without systemic symptoms) or Complicated (systemic symptoms)? @Complicated Side effects of treatment? @ -No Exacerbation, Progression, or Severe Exacerbation? @ -No Poses a threat to life or bodily function? How? (Chest pain, USA, AZ, pneumonia, PE, COPD, DKA, ARF, appy, cholecystitis, CVA, Diverticulitis, Homicidal, Suicidal, threat to staff... and all critical care pts) @ -No (Hayde Schwartz) - Lab Data Lab Results 02/04/24 02/04/24 02/04/24 Range/Units 01:35 EST 01:35 EST 01:35 EST WBC 7.9 (3.8-10.6) k/uL RBC 3.63 L (3.80-5.40) m/uL Hgb 11.3 L (11.4-16.0) gm/dL Hct 34.2 (34.0-46.0) % MCV 94.0 (80.0-100.0) fL MCH 31.0 (25.0-35.0) pg MCHC 33.0 (31.0-37.0) g/dL RDW 14.1 (11.5-15.5) % Plt Count 360 (150-450) k/uL MPV 7.3 Immature Gran % (Auto) % Absolute Nucleated RBC % Neutrophils % 73 % Lymphocytes % 16 % Monocytes % 5 % Eosinophils % 2 % Basophils % 1 % Immature Gran # (0.00-0.04) X 10*3/uL Neutrophils # 5.8 (1.3-7.7) k/uL Lymphocytes # 1.2 (1.0-4.8) k/uL Monocytes # 0.4 (0-1.0) k/uL Eosinophils # 0.2 (0-0.7) k/uL Basophils # 0.0 (0-0.2) k/uL NRBC/100 WBC Diff (0.00-0.01) X 10*3/uL PT 12.3 (10.0-12.5) sec INR 1.2 H (<1.2) APTT 32.5 H (22.0-30.0) sec Sodium 129 L (137-145) mmol/L Potassium 4.5 (3.5-5.1) mmol/L Chloride 98 (98-107) mmol/L Carbon Dioxide 26 (22-30) mmol/L Anion Gap 5 mmol/L BUN 17 (7-17) mg/dL Creatinine 1.33 H (0.52-1.04) mg/dL Est GFR (CKD-EPI) (>=60) Est GFR (CKD-EPI)AfAm 41 (>60 ml/min/1.73 sqM) Est GFR (CKD-EPI)NonAf 36 (>60 ml/min/1.73 sqM) BUN/Creatinine Ratio (12.00-20.00) Ratio Glucose 165 H (74-99) mg/dL POC Glucose (mg/dL) (70-110) mg/dL POC Glu Postpartum Nurse ID Calcium 8.6 (8.4-10.2) mg/dL Magnesium 1.7 (1.6-2.3) mg/dL Total Bilirubin 0.5 (0.2-1.3) mg/dL AST 26 (14-36) U/L ALT 15 (4-34) U/L Alkaline Phosphatase 104 (38-126) U/L Troponin I (0.000-0.034) ng/mL Total Protein 5.7 L (6.3-8.2) g/dL Albumin 3.2 L (3.5-5.0) g/dL TSH (0.465-4.680) mIU/L Free T4 (0.78-2.19) ng/dL Free (T4) Reflex I Urine Color Urine Appearance (Clear) Urine pH (5.0-8.0) Ur Specific Tr[place]ble (1.001-1.035) Urine Protein (Negative) Urine Glucose (UA) (Negative) Urine Ketones (Negative) Urine Blood (Negative) Urine Nitrite (Negative) Urine Bilirubin (Negative) Urine Urobilinogen (<2.0) mg/dL Ur Leukocyte Esterase (Negative) Urine RBC (0-5) /hpf Urine WBC (0-5) /hpf Urine WBC Clumps (None) /hpf Urine Bacteria (None) /hpf Hyaline Casts (0-2) /lpf Urine Mucus (None) /hpf 02/04/24 02/04/24 02/04/24 Range/Units 01:35 EST 04:10 07:03 WBC (3.8-10.6) k/uL RBC (3.80-5.40) m/uL Hgb (11.4-16.0) gm/dL Hct (34.0-46.0) % MCV (80.0-100.0) fL MCH (25.0-35.0) pg MCHC (31.0-37.0) g/dL RDW (11.5-15.5) % Plt Count (150-450) k/uL MPV Immature Gran % (Auto) % Absolute Nucleated RBC % Neutrophils % % Lymphocytes % % Monocytes % % Eosinophils % % Basophils % % Immature Gran # (0.00-0.04) X 10*3/uL Neutrophils # (1.3-7.7) k/uL Lymphocytes # (1.0-4.8) k/uL Monocytes # (0-1.0) k/uL Eosinophils # (0-0.7) k/uL Basophils # (0-0.2) k/uL NRBC/100 WBC Diff (0.00-0.01) X 10*3/uL PT (10.0-12.5) sec INR (<1.2) APTT (22.0-30.0) sec Sodium (137-145) mmol/L Potassium (3.5-5.1) mmol/L Chloride (98-107) mmol/L Carbon Dioxide (22-30) mmol/L Anion Gap mmol/L BUN (7-17) mg/dL Creatinine (0.52-1.04) mg/dL Est GFR (CKD-EPI) (>=60) Est GFR (CKD-EPI)AfAm (>60 ml/min/1.73 sqM) Est GFR (CKD-EPI)NonAf (>60 ml/min/1.73 sqM) BUN/Creatinine Ratio (12.00-20.00) Ratio Glucose (74-99) mg/dL POC Glucose (mg/dL) 146 H (70-110) mg/dL POC Glu Postpartum Nurse ID Leila Ceja Calcium (8.4-10.2) mg/dL Magnesium (1.6-2.3) mg/dL Total Bilirubin (0.2-1.3) mg/dL AST (14-36) U/L ALT (4-34) U/L Alkaline Phosphatase (38-126) U/L Troponin I <0.012 (0.000-0.034) ng/mL Total Protein (6.3-8.2) g/dL Albumin (3.5-5.0) g/dL TSH (0.465-4.680) mIU/L Free T4 (0.78-2.19) ng/dL Free (T4) Reflex I Urine Color Light Yellow Urine Appearance Clear (Clear) Urine pH 5.5 (5.0-8.0) Ur Specific [place] 1.009 (1.001-1.035) Urine Protein Negative (Negative) Urine Glucose (UA) Negative (Negative) Urine Ketones Negative (Negative) Urine Blood Small H (Negative) Urine Nitrite Positive H (Negative) Urine Bilirubin Negative (Negative) Urine Urobilinogen <2.0 (<2.0) mg/dL Ur Leukocyte Esterase Small H (Negative) Urine RBC 26 H (0-5) /hpf Urine WBC 30 H (0-5) /hpf Urine WBC Clumps Rare H (None) /hpf Urine Bacteria Many H (None) /hpf Hyaline Casts 13 H (0-2) /lpf Urine Mucus Rare H (None) /hpf 02/04/24 02/04/24 02/04/24 Range/Units 08:25 11:48 16:45 WBC (3.8-10.6) k/uL RBC (3.80-5.40) m/uL Hgb (11.4-16.0) gm/dL Hct (34.0-46.0) % MCV (80.0-100.0) fL MCH (25.0-35.0) pg MCHC (31.0-37.0) g/dL RDW (11.5-15.5) % Plt Count (150-450) k/uL MPV Immature Gran % (Auto) % Absolute Nucleated RBC % Neutrophils % % Lymphocytes % % Monocytes % % Eosinophils % % Basophils % % Immature Gran # (0.00-0.04) X 10*3/uL Neutrophils # (1.3-7.7) k/uL Lymphocytes # (1.0-4.8) k/uL Monocytes # (0-1.0) k/uL Eosinophils # (0-0.7) k/uL Basophils # (0-0.2) k/uL NRBC/100 WBC Diff (0.00-0.01) X 10*3/uL PT (10.0-12.5) sec INR (<1.2) APTT (22.0-30.0) sec Sodium (137-145) mmol/L Potassium (3.5-5.1) mmol/L Chloride (98-107) mmol/L Carbon Dioxide (22-30) mmol/L Anion Gap mmol/L BUN (7-17) mg/dL Creatinine (0.52-1.04) mg/dL Est GFR (CKD-EPI) (>=60) Est GFR (CKD-EPI)AfAm (>60 ml/min/1.73 sqM) Est GFR (CKD-EPI)NonAf (>60 ml/min/1.73 sqM) BUN/Creatinine Ratio (12.00-20.00) Ratio Glucose (74-99) mg/dL POC Glucose (mg/dL) 135 H 121 H 77 (70-110) mg/dL POC Glu Postpartum Nurse ID Dez GUZMAN AELEXYS Calcium (8.4-10.2) mg/dL Magnesium (1.6-2.3) mg/dL Total Bilirubin (0.2-1.3) mg/dL AST (14-36) U/L ALT (4-34) U/L Alkaline Phosphatase (38-126) U/L Troponin I (0.000-0.034) ng/mL Total Protein (6.3-8.2) g/dL Albumin (3.5-5.0) g/dL TSH (0.465-4.680) mIU/L Free T4 (0.78-2.19) ng/dL Free (T4) Reflex I Urine Color Urine Appearance (Clear) Urine pH (5.0-8.0) Ur Specific [place] (1.001-1.035) Urine Protein (Negative) Urine Glucose (UA) (Negative) Urine Ketones (Negative) Urine Blood (Negative) Urine Nitrite (Negative) Urine Bilirubin (Negative) Urine Urobilinogen (<2.0) mg/dL Ur Leukocyte Esterase (Negative) Urine RBC (0-5) /hpf Urine WBC (0-5) /hpf Urine WBC Clumps (None) /hpf Urine Bacteria (None) /hpf Hyaline Casts (0-2) /lpf Urine Mucus (None) /hpf 02/04/24 02/05/24 02/05/24 Range/Units 20:49 03:16 06:49 WBC (3.8-10.6) k/uL RBC (3.80-5.40) m/uL Hgb (11.4-16.0) gm/dL Hct (34.0-46.0) % MCV (80.0-100.0) fL MCH (25.0-35.0) pg MCHC (31.0-37.0) g/dL RDW (11.5-15.5) % Plt Count (150-450) k/uL MPV Immature Gran % (Auto) % Absolute Nucleated RBC % Neutrophils % % Lymphocytes % % Monocytes % % Eosinophils % % Basophils % % Immature Gran # (0.00-0.04) X 10*3/uL Neutrophils # (1.3-7.7) k/uL Lymphocytes # (1.0-4.8) k/uL Monocytes # (0-1.0) k/uL Eosinophils # (0-0.7) k/uL Basophils # (0-0.2) k/uL NRBC/100 WBC Diff (0.00-0.01) X 10*3/uL PT (10.0-12.5) sec INR (<1.2) APTT (22.0-30.0) sec Sodium (137-145) mmol/L Potassium (3.5-5.1) mmol/L Chloride (98-107) mmol/L Carbon Dioxide (22-30) mmol/L Anion Gap mmol/L BUN (7-17) mg/dL Creatinine (0.52-1.04) mg/dL Est GFR (CKD-EPI) (>=60) Est GFR (CKD-EPI)AfAm (>60 ml/min/1.73 sqM) Est GFR (CKD-EPI)NonAf (>60 ml/min/1.73 sqM) BUN/Creatinine Ratio (12.00-20.00) Ratio Glucose (74-99) mg/dL POC Glucose (mg/dL) 99 88 (70-110) mg/dL POC Glu Postpartum Nurse ID Schwartz Columba Efren Waterman Calcium (8.4-10.2) mg/dL Magnesium (1.6-2.3) mg/dL Total Bilirubin (0.2-1.3) mg/dL AST (14-36) U/L ALT (4-34) U/L Alkaline Phosphatase (38-126) U/L Troponin I (0.000-0.034) ng/mL Total Protein (6.3-8.2) g/dL Albumin (3.5-5.0) g/dL TSH 16.800 H (0.465-4.680) mIU/L Free T4 1.39 (0.78-2.19) ng/dL Free (T4) Reflex I 1.39 Urine Color Urine Appearance (Clear) Urine pH (5.0-8.0) Ur Specific [place] (1.001-1.035) Urine Protein (Negative) Urine Glucose (UA) (Negative) Urine Ketones (Negative) Urine Blood (Negative) Urine Nitrite (Negative) Urine Bilirubin (Negative) Urine Urobilinogen (<2.0) mg/dL Ur Leukocyte Esterase (Negative) Urine RBC (0-5) /hpf Urine WBC (0-5) /hpf Urine WBC Clumps (None) /hpf Urine Bacteria (None) /hpf Hyaline Casts (0-2) /lpf Urine Mucus (None) /hpf 02/05/24 02/05/24 02/05/24 Range/Units 11:43 15:58 16:19 WBC (3.8-10.6) k/uL RBC (3.80-5.40) m/uL Hgb (11.4-16.0) gm/dL Hct (34.0-46.0) % MCV (80.0-100.0) fL MCH (25.0-35.0) pg MCHC (31.0-37.0) g/dL RDW (11.5-15.5) % Plt Count (150-450) k/uL MPV Immature Gran % (Auto) % Absolute Nucleated RBC % Neutrophils % % Lymphocytes % % Monocytes % % Eosinophils % % Basophils % % Immature Gran # (0.00-0.04) X 10*3/uL Neutrophils # (1.3-7.7) k/uL Lymphocytes # (1.0-4.8) k/uL Monocytes # (0-1.0) k/uL Eosinophils # (0-0.7) k/uL Basophils # (0-0.2) k/uL NRBC/100 WBC Diff (0.00-0.01) X 10*3/uL PT (10.0-12.5) sec INR (<1.2) APTT (22.0-30.0) sec Sodium 130 L (137-145) mmol/L Potassium 4.6 (3.5-5.1) mmol/L Chloride 103 (98-107) mmol/L Carbon Dioxide 24 (22-30) mmol/L Anion Gap 3 mmol/L BUN 16 (7-17) mg/dL Creatinine 1.16 H (0.52-1.04) mg/dL Est GFR (CKD-EPI) (>=60) Est GFR (CKD-EPI)AfAm 49 (>60 ml/min/1.73 sqM) Est GFR (CKD-EPI)NonAf 42 (>60 ml/min/1.73 sqM) BUN/Creatinine Ratio (12.00-20.00) Ratio Glucose 184 H (74-99) mg/dL POC Glucose (mg/dL) 190 H 206 H (70-110) mg/dL POC Glu Postpartum Nurse ID Frederick Cormier Calcium 8.1 L (8.4-10.2) mg/dL Magnesium (1.6-2.3) mg/dL Total Bilirubin (0.2-1.3) mg/dL AST (14-36) U/L ALT (4-34) U/L Alkaline Phosphatase (38-126) U/L Troponin I (0.000-0.034) ng/mL Total Protein (6.3-8.2) g/dL Albumin (3.5-5.0) g/dL TSH (0.465-4.680) mIU/L Free T4 (0.78-2.19) ng/dL Free (T4) Reflex I Urine Color Urine Appearance (Clear) Urine pH (5.0-8.0) Ur Specific [place] (1.001-1.035) Urine Protein (Negative) Urine Glucose (UA) (Negative) Urine Ketones (Negative) Urine Blood (Negative) Urine Nitrite (Negative) Urine Bilirubin (Negative) Urine Urobilinogen (<2.0) mg/dL Ur Leukocyte Esterase (Negative) Urine RBC (0-5) /hpf Urine WBC (0-5) /hpf Urine WBC Clumps (None) /hpf Urine Bacteria (None) /hpf Hyaline Casts (0-2) /lpf Urine Mucus (None) /hpf 02/05/24 02/06/24 02/06/24 Range/Units 20:41 04:03 04:03 WBC 8.89 (3.8-10.6) k/uL RBC 3.27 L (3.80-5.40) m/uL Hgb 10.2 L (11.4-16.0) gm/dL Hct 30.8 L (34.0-46.0) % MCV 94.2 (80.0-100.0) fL MCH 31.2 (25.0-35.0) pg MCHC 33.1 (31.0-37.0) g/dL RDW 14.8 H (11.5-15.5) % Plt Count 337 (150-450) k/uL MPV 9.6 Immature Gran % (Auto) 1.70 % Absolute Nucleated RBC 0 % Neutrophils % 71.7 % Lymphocytes % 14.3 % Monocytes % 8.2 % Eosinophils % 3.4 % Basophils % 0.7 % Immature Gran # 0.15 H (0.00-0.04) X 10*3/uL Neutrophils # 6.38 (1.3-7.7) k/uL Lymphocytes # 1.27 (1.0-4.8) k/uL Monocytes # 0.73 (0-1.0) k/uL Eosinophils # 0.30 (0-0.7) k/uL Basophils # 0.06 (0-0.2) k/uL NRBC/100 WBC Diff 0 (0.00-0.01) X 10*3/uL PT (10.0-12.5) sec INR (<1.2) APTT (22.0-30.0) sec Sodium 131 L (137-145) mmol/L Potassium 4.3 (3.5-5.1) mmol/L Chloride 100 (98-107) mmol/L Carbon Dioxide 20.9 L (22-30) mmol/L Anion Gap 10.10 mmol/L BUN 15.5 (7-17) mg/dL Creatinine 1.1 (0.52-1.04) mg/dL Est GFR (CKD-EPI) 48 L (>=60) Est GFR (CKD-EPI)AfAm (>60 ml/min/1.73 sqM) Est GFR (CKD-EPI)NonAf (>60 ml/min/1.73 sqM) BUN/Creatinine Ratio 14.09 (12.00-20.00) Ratio Glucose 169 H (74-99) mg/dL POC Glucose (mg/dL) 204 H (70-110) mg/dL POC Glu Postpartum Nurse ID Rl Perry Calcium 8.2 L (8.4-10.2) mg/dL Magnesium (1.6-2.3) mg/dL Total Bilirubin (0.2-1.3) mg/dL AST (14-36) U/L ALT (4-34) U/L Alkaline Phosphatase (38-126) U/L Troponin I (0.000-0.034) ng/mL Total Protein (6.3-8.2) g/dL Albumin (3.5-5.0) g/dL TSH (0.465-4.680) mIU/L Free T4 (0.78-2.19) ng/dL Free (T4) Reflex I Urine Color Urine Appearance (Clear) Urine pH (5.0-8.0) Ur Specific [place] (1.001-1.035) Urine Protein (Negative) Urine Glucose (UA) (Negative) Urine Ketones (Negative) Urine Blood (Negative) Urine Nitrite (Negative) Urine Bilirubin (Negative) Urine Urobilinogen (<2.0) mg/dL Ur Leukocyte Esterase (Negative) Urine RBC (0-5) /hpf Urine WBC (0-5) /hpf Urine WBC Clumps (None) /hpf Urine Bacteria (None) /hpf Hyaline Casts (0-2) /lpf Urine Mucus (None) /hpf 02/06/24 Range/Units 06:32 WBC (3.8-10.6) k/uL RBC (3.80-5.40) m/uL Hgb (11.4-16.0) gm/dL Hct (34.0-46.0) % MCV (80.0-100.0) fL MCH (25.0-35.0) pg MCHC (31.0-37.0) g/dL RDW (11.5-15.5) % Plt Count (150-450) k/uL MPV Immature Gran % (Auto) % Absolute Nucleated RBC % Neutrophils % % Lymphocytes % % Monocytes % % Eosinophils % % Basophils % % Immature Gran # (0.00-0.04) X 10*3/uL Neutrophils # (1.3-7.7) k/uL Lymphocytes # (1.0-4.8) k/uL Monocytes # (0-1.0) k/uL Eosinophils # (0-0.7) k/uL Basophils # (0-0.2) k/uL NRBC/100 WBC Diff (0.00-0.01) X 10*3/uL PT (10.0-12.5) sec INR (<1.2) APTT (22.0-30.0) sec Sodium (137-145) mmol/L Potassium (3.5-5.1) mmol/L Chloride (98-107) mmol/L Carbon Dioxide (22-30) mmol/L Anion Gap mmol/L BUN (7-17) mg/dL Creatinine (0.52-1.04) mg/dL Est GFR (CKD-EPI) (>=60) Est GFR (CKD-EPI)AfAm (>60 ml/min/1.73 sqM) Est GFR (CKD-EPI)NonAf (>60 ml/min/1.73 sqM) BUN/Creatinine Ratio (12.00-20.00) Ratio Glucose (74-99) mg/dL POC Glucose (mg/dL) 166 H (70-110) mg/dL POC Glu Postpartum Nurse ID Solgot Cindy Calcium (8.4-10.2) mg/dL Magnesium (1.6-2.3) mg/dL Total Bilirubin (0.2-1.3) mg/dL AST (14-36) U/L ALT (4-34) U/L Alkaline Phosphatase (38-126) U/L Troponin I (0.000-0.034) ng/mL Total Protein (6.3-8.2) g/dL Albumin (3.5-5.0) g/dL TSH (0.465-4.680) mIU/L Free T4 (0.78-2.19) ng/dL Free (T4) Reflex I Urine Color Urine Appearance (Clear) Urine pH (5.0-8.0) Ur Specific [place] (1.001-1.035) Urine Protein (Negative) Urine Glucose (UA) (Negative) Urine Ketones (Negative) Urine Blood (Negative) Urine Nitrite (Negative) Urine Bilirubin (Negative) Urine Urobilinogen (<2.0) mg/dL Ur Leukocyte Esterase (Negative) Urine RBC (0-5) /hpf Urine WBC (0-5) /hpf Urine WBC Clumps (None) /hpf Urine Bacteria (None) /hpf Hyaline Casts (0-2) /lpf Urine Mucus (None) /hpf Disposition <Niru Gonzalez - Last Filed: 02/04/24 17:37> <Hayde Schwartz - Last Filed: 02/10/24 19:20> Clinical Impression: Fall, Weakness, UTI (urinary tract infection) Disposition: ADMITTED IP TO THIS HOSP Condition: Good
[2024-02-04 02:13] LABS: Basophils % (A) 1 %; Eosinophils # (A) 0.2 k/uL (0-0.7); Eosinophils % (A) 2 %; HCT 34.2 % (34.0-46.0); HGB 11.3 gm/dL (11.4-16.0); Lymphocytes # (A) 1.2 k/uL (1.0-4.8); Lymphocytes % (A) 16 %; Mean Platelet Volume 7.3; Monocytes # (A) 0.4 k/uL (0-1.0); Monocytes % (A) 5 %; Neutrophils # (A) 5.8 k/uL (1.3-7.7); Neutrophils % (A) 73 %; Platelet Count 360 k/uL (150-450); RBC 3.63 m/uL (3.80-5.40); RDW 14.1 % (11.5-15.5); WBC 7.9 k/uL (3.8-10.6)
--- NOTE | 2024-02-04 02:15 | XR ---
EXAMINATION TYPE: XR knee complete bilateral DATE OF EXAM: 02/04/2024 CLINICAL HISTORY: Recent fall with pain TECHNIQUE: Three views of the bilateral knees are obtained. COMPARISON: None. FINDINGS: There is no acute fracture/dislocation evident in either knee. Metallic hardware from tota l knee arthroplasty is present bilaterally. Position is satisfactory in both knees. Mild diffuse subc utaneous edema is noted. There is possible moderate sized left-sided joint effusion. IMPRESSION: There is no acute fracture or dislocation in either knee. [facility], , 02/04/2024 2:13 AM
[2024-02-04 02:24] LABS: INR 1.2 (<1.2); Partial Thromboplastin Time 32.5 sec (22.0-30.0); Prothrombin Time 12.3 sec (10.0-12.5)
[2024-02-04 02:54] LABS: ALT 15 U/L (4-34); AST 26 U/L (14-36); African American GFR (CKD) 41 (>60 ml/min/1.73 sqM); Albumin 3.2 g/dL (3.5-5.0); Alkaline Phosphatase 104 U/L (38-126); Anion Gap 5 mmol/L; Blood Urea Nitrogen 17 mg/dL (7-17); Calcium 8.6 mg/dL (8.4-10.2); Carbon Dioxide 26 mmol/L (22-30); Chloride 98 mmol/L (98-107); Glucose 165 mg/dL (74-99); Magnesium 1.7 mg/dL (1.6-2.3); Non-African American GFR(CKD) 36 (>60 ml/min/1.73 sqM); Potassium 4.5 mmol/L (3.5-5.1); Sodium 129 mmol/L (137-145); Total Bilirubin 0.5 mg/dL (0.2-1.3); Total Protein 5.7 g/dL (6.3-8.2)
[2024-02-04] MEDS ORDERED: SODIUM CHLORIDE 0.9% 1,000 ML IV STA (03:00)
[2024-02-04] MEDS: SODIUM CHLORIDE 0.9% 500 ML 500 ML IV STA (03:22)
[2024-02-04] MEDS: MORPHINE SULFATE 4 MG/ML SYRINGE IVP STA (03:27)
[2024-02-04 04:43] LABS: Appearance,Urine Clear (Clear); Bacteria,Urine Many /hpf; Bilirubin,Urine Negative (Negative); Blood,Urine Small (Negative); Color,Urine Light Yellow; Glucose,Urine (UA) Negative (Negative); Hyaline Casts,Urine 13 /lpf (0-2); Ketones,Urine Negative (Negative); Leukocyte Esterase,Urine Small (Negative); Mucus,Urine Rare /hpf; Nitrite,Urine Positive (Negative); PH, Urine 5.5 (5.0-8.0); Protein,Urine Negative (Negative); RBC,Urine 26 /hpf (0-5); Specific Gravity,Urine 1.009 (1.001-1.035); Urobilinogen,Urine <2.0 mg/dL (<2.0); WBC,Urine 30 /hpf (0-5)
[2024-02-04] MEDS ORDERED: MAG HYDROX/AL HYDROX/SIMETH 30 ML CUP PO PRN (06:26)
[2024-02-04] MEDS ORDERED: CALCIUM CARBONATE 500 MG CHEWABLE PO PRN (06:26)
[2024-02-04] MEDS ORDERED: NALOXONE 0.4 MG/ML 1 ML VIAL IV PRN (06:26)
[2024-02-04] MEDS: cefTRIAXone IN SWFI 1,000 MG/10 ML SYRINGE IVP STA (06:30)
[2024-02-04 07:05] LABS: Glucose,Whole Blood 146 mg/dL (70-110)
[2024-02-04] MEDS ORDERED: B COMPLEX WITH VITAMIN C PO SCH (07:30)
[2024-02-04] MEDS ORDERED: [UNRECOGNIZED DRUG - OTHER] PO SCH (07:30)
[2024-02-04 08:27] LABS: Glucose,Whole Blood 135 mg/dL (70-110)
[2024-02-04] MEDS: INSULIN ASPART (NovoLOG) 100 UNIT/ML VIAL SQ SCH (08:28)
[2024-02-04] MEDS: PANTOPRAZOLE 40 MG TABLET PO SCH (08:28)
[2024-02-04] MEDS: metFORMIN 500 MG TAB PO SCH (08:28)
[2024-02-04] MEDS: APIXABAN 5 MG TAB PO SCH (08:28)
[2024-02-04] MEDS: FUROSEMIDE 20 MG TAB PO SCH (08:28)
[2024-02-04] MEDS ORDERED: FAMOTIDINE 20 MG TAB PO SCH (09:00)
[2024-02-04] MEDS: INSULIN DETEMIR (LEVEMIR) 100 UNIT/ML SYR SQ SCH (09:16)
[2024-02-04] MEDS: METOPROLOL SUCCINATE (ER) 50 MG TAB.ER.24H PO SCH (09:23)
[2024-02-04 11:50] LABS: Glucose,Whole Blood 121 mg/dL (70-110)
[2024-02-04] MEDS: ACETAMINOPHEN TAB 325 MG TAB PO PRN (12:09)
[2024-02-04 16:46] LABS: Glucose,Whole Blood 77 mg/dL (70-110)
[2024-02-04] MEDS: ASPIRIN 81 MG PO SCH (17:28)
[2024-02-04] MEDS: TOPIRAMATE 25 MG TAB PO SCH (17:29)
[2024-02-04 20:50] LABS: Glucose,Whole Blood 99 mg/dL (70-110)
[2024-02-04] MEDS: LEVOTHYROXINE 75 MCG TAB PO SCH (20:53)
[2024-02-04] MEDS: NYSTATIN 100,000 UNIT/GM POWD 15 GM TOPICAL SCH (20:54)
[2024-02-04] MEDS ORDERED: ATORVASTATIN 40 MG TAB PO SCH (21:00)
--- NOTE | 2024-02-04 21:32 | P.HPIM ---
History of Present Illness H&P Date: 02/04/24 Chief Complaint: Fall Patient is a 88-year-old female with a known history of hypertension, hyperlipidemia, diabetes type 2 insulin-dependent and hypothyroidism and also history of malignant melanoma presents to ER status post fall. Patient is currently at [facility]. Patient states that she felt very weak in her legs yesterday and landing on her knees. Again on the day of admission patient was ambulating she felt very weak and lean onto the ground. Denied any loss of consciousness. Denied hitting her head. No complaints of chest pain. No nausea vomiting abdominal pain or diarrhea. Denied any fever or chills. Patient is on anticoagulation with Eliquis for atrial fibrillation. Knee x-ray showed there is no acute fracture or dislocation in either knee. EKG showed sinus bradycardia with heart rate 58 Laboratory data showed WBC 7.9 hemoglobin 11.3 and platelets 360 Sodium 129 potassium 4.5 chloride 98, BUN 17 and creatinine 1.33 and blood sugar 165 magnesium 1.7 albumin 3.2 urinalysis showed small blood nitrite positive small leukocyte esterase, RBCs 26 WBCs 30 and hyaline casts. Review of Systems Constitutional: Patient denies any fever or chills . Generalized weakness. No weight loss. Abdomen: Patient denied nausea vomiting and diarrhea and abdominal pain. Cardiovascular: Patient denies any chest pain or short of breath no palpitations. Respiratory: patient denied any cough or sputum production. No shortness of breath Neurologic: Patient denied any numbness or tingling. no headache. Musculoskeletal: Patient denies any complaints of joint swelling or deformity. Skin: Negative Psychiatric: Negative Endocrine: No heat or cold intolerance. No recent weight gain. Genitourinary: No dysuria or hematuria. All other 14 point ROS negative except the above Past Medical History Past Medical History: Diabetes Mellitus, Hyperlipidemia, Hypertension, Thyroid Disorder Additional Past Medical History / Comment(s): malignant melanoma History of Any Multi-Drug Resistant Organisms: None Reported Past Surgical History: Breast Surgery, Cholecystectomy Additional Past Surgical History / Comment(s): bilateral knee replacement Past Anesthesia/Blood Transfusion Reactions: No Reported Reaction Past Psychological History: No Psychological Hx Reported Smoking Status: Never smoker Past Alcohol Use History: None Reported Past Drug Use History: None Reported - Past Family History Father Family Medical History: Coronary Artery Disease (CAD) Mother Family Medical History: Cancer Medications and Allergies Home Medications Medication Instructions Recorded Confirmed Type Aspirin 81 mg PO W/SUPPER 07/06/20 02/04/24 History Levothyroxine Sodium [Synthroid] 75 mg PO HS 07/06/20 02/04/24 History Pantoprazole [Protonix] 40 mg PO AC-BRKFST 07/06/20 02/04/24 History Topiramate [Topamax] 25 mg PO W/SUPPER 07/06/20 02/04/24 History metFORMIN HCL 500 mg PO BID-W/MEALS 09/13/23 02/04/24 History Apixaban [Eliquis] 5 mg PO BID-W/MEALS 02/04/24 02/04/24 History Clobetasol Propionate [Temovate 1 applic TOPICAL BID 02/04/24 02/04/24 History 0.05% Cream] Furosemide [Lasix] 20 mg PO W/SUPPER 02/04/24 02/04/24 History Losartan [Cozaar] 25 mg PO W/BRKFST 02/04/24 02/04/24 History Metoprolol Succinate (ER) [Toprol 50 mg PO BID-W/MEALS 02/04/24 02/04/24 History Xl] Pioglitazone [Actos] 45 mg PO W/BRKFST 02/04/24 02/04/24 History Pitavastatin Calcium [Livalo] 2 mg PO DIRECTED 02/04/24 02/04/24 History Vitamin B Complex 1 cap PO W/BRKFST 02/04/24 02/04/24 History glipiZIDE [glipiZIDE ER] 10 mg PO W/BRKFST 02/04/24 02/04/24 History Allergies Allergy/AdvReac Type Severity Reaction Status Date / Time No Known Allergies Allergy Verified 02/04/24 12:37 Physical Exam Vitals: Vital Signs Temp Pulse Resp BP Pulse Ox 02/04/24 08:26 59 L 15 155/64 99 02/04/24 06:55 97.9 F 68 20 148/65 98 02/04/24 06:03 55 L 19 101/54 97 02/04/24 05:18 61 15 131/57 96 02/04/24 03:23 98.4 F 64 19 138/72 100 02/04/24 01:13 EST 97.6 F 60 18 135/55 98 Intake and Output 02/03/24 02/04/24 02/04/24 23:59 06:59 14:59 Other: Weight PHYSICAL EXAMINATION: Patient is lying in the bed comfortably, no acute distress, awake alert and oriented.. HEENT: Normocephalic. Neck is supple. Bruising over the nose. Pupils reactive. Nostrils clear. Oral cavity is moist. Neck reveals no JVD, carotid bruits, or thyromegaly. CHEST EXAMINATION: Trachea is central. Symmetrical expansion. Lung reich clear to auscultation and percussion. CARDIAC: Normal S1, S2 with no gallops. Systolic murmur. ABDOMEN: Soft. Bowel sounds normal. No organomegaly. No abdominal bruits. Extremities: reveal no edema. No clubbing or cyanosis Neurologically awake, alert, oriented x3 able to move all extremities.. No gross focal deficits noted Skin: No rash or skin lesions. Psychiatric: Coperative. Nonsuicidal Musculoskeletal: No joint swelling or deformity. Results CBC & Chem 7: 02/04/24 01:35 EST 02/04/24 01:35 EST Labs: Abnormal Lab Results - Last 24 Hours (Table) 02/04/24 02/04/24 02/04/24 Range/Units 01:35 EST 01:35 EST 01:35 EST RBC 3.63 L (3.80-5.40) m/uL Hgb 11.3 L (11.4-16.0) gm/dL INR 1.2 H (<1.2) APTT 32.5 H (22.0-30.0) sec Sodium 129 L (137-145) mmol/L Creatinine 1.33 H (0.52-1.04) mg/dL Glucose 165 H (74-99) mg/dL POC Glucose (mg/dL) (70-110) mg/dL Total Protein 5.7 L (6.3-8.2) g/dL Albumin 3.2 L (3.5-5.0) g/dL Urine Blood (Negative) Urine Nitrite (Negative) Ur Leukocyte Esterase (Negative) Urine RBC (0-5) /hpf Urine WBC (0-5) /hpf Urine WBC Clumps (None) /hpf Urine Bacteria (None) /hpf Hyaline Casts (0-2) /lpf Urine Mucus (None) /hpf 02/04/24 02/04/24 02/04/24 Range/Units 04:10 07:03 08:25 RBC (3.80-5.40) m/uL Hgb (11.4-16.0) gm/dL INR (<1.2) APTT (22.0-30.0) sec Sodium (137-145) mmol/L Creatinine (0.52-1.04) mg/dL Glucose (74-99) mg/dL POC Glucose (mg/dL) 146 H 135 H (70-110) mg/dL Total Protein (6.3-8.2) g/dL Albumin (3.5-5.0) g/dL Urine Blood Small H (Negative) Urine Nitrite Positive H (Negative) Ur Leukocyte Esterase Small H (Negative) Urine RBC 26 H (0-5) /hpf Urine WBC 30 H (0-5) /hpf Urine WBC Clumps Rare H (None) /hpf Urine Bacteria Many H (None) /hpf Hyaline Casts 13 H (0-2) /lpf Urine Mucus Rare H (None) /hpf Thrombosis Risk Factor Assmnt - DVT/VTE Prophylaxis DVT/VTE Prophylaxis: Pharmacologic Prophylaxis ordered Assessment and Plan Assessment: Acute urinary tract infection Generalized weakness Hypovolemic hyponatremia sodium level 129 Paroxysmal atrial fibrillation on anticoagulation with Eliquis Sinus bradycardia Hypertension Diabetes type 2 insulin-dependent Hypothyroidism DVT prophylaxis patient is already on full anticoagulation Plan: Patient will be continued on antibiotics in the form of ceftriaxone. Was given IV fluid bolus in the ER. Continue gentle IV hydration. Lasix is on hold. Continue to monitor CBC and BMP. Follow-up urine culture report. Started back on home medications and PT OT consult. Continue to follow closely. Time with Patient: Greater than 30
[2024-02-05] MEDS: traMADol 50 MG TAB PO PRN (00:06)
[2024-02-05] MEDS: SODIUM CHLORIDE 0.9% 1,000 ML IV SCH (00:07)
[2024-02-05 06:51] LABS: Glucose,Whole Blood 88 mg/dL (70-110)
[2024-02-05 07:07] LABS: T4, Free (Free Thyroxine) 1.39 ng/dL (0.78-2.19)
[2024-02-05 11:45] LABS: Glucose,Whole Blood 190 mg/dL (70-110)
[2024-02-05 16:20] LABS: Glucose,Whole Blood 206 mg/dL (70-110)
[2024-02-05 16:39] LABS: African American GFR (CKD) 49 (>60 ml/min/1.73 sqM); Anion Gap 3 mmol/L; Blood Urea Nitrogen 16 mg/dL (7-17); Calcium 8.1 mg/dL (8.4-10.2); Carbon Dioxide 24 mmol/L (22-30); Chloride 103 mmol/L (98-107); Glucose 184 mg/dL (74-99); Non-African American GFR(CKD) 42 (>60 ml/min/1.73 sqM); Potassium 4.6 mmol/L (3.5-5.1); Sodium 130 mmol/L (137-145)
[2024-02-05 20:43] LABS: Glucose,Whole Blood 204 mg/dL (70-110)
[2024-02-06 06:35] LABS: Glucose,Whole Blood 166 mg/dL (70-110)
[2024-02-06 08:36] LABS: Basophils # (A) 0.06 X 10*3/uL (0.00-0.10); Basophils % (A) 0.7 %; Eosinophils % (A) 3.4 %; HCT 30.8 % (37.2-46.3); HGB 10.2 g/dL (12.0-15.0); Lymphocytes # (A) 1.27 X 10*3/uL (0.90-5.00); Lymphocytes % (A) 14.3 %; MCH 31.2 pg (27.0-32.0); MCHC 33.1 g/dL (32.0-37.0); MCV 94.2 FL (80.0-97.0); Mean Platelet Volume 9.6 FL (9.5-12.2); Monocytes # (A) 0.73 X 10*3/uL (0.20-1.00); Monocytes % (A) 8.2 %; NRBC Per 100 WBC 0 X 10*3/uL (0.00-0.01); Neutrophils # (A) 6.38 X 10*3/uL (1.80-7.70); Neutrophils % (A) 71.7 %; Platelet Count 337 X 10*3/uL (140-440); RBC 3.27 X 10*6/uL (4.10-5.20); RDW 14.8 % (11.5-14.5); WBC 8.89 X 10*3/uL (4.50-10.00)
[2024-02-06 09:13] LABS: BUN/Creat Ratio 14.09 Ratio (12.00-20.00); Blood Urea Nitrogen 15.5 mg/dL (9.0-27.0); Calcium 8.2 mg/dL (8.7-10.3); Carbon Dioxide 20.9 mmol/L (21.6-31.8); Chloride 100 mmol/L (96-109); Glucose 169 mg/dL (70-110); Potassium 4.3 mmol/L (3.5-5.5); Sodium 131 mmol/L (135-145)
[2024-02-06 11:29] LABS: Glucose,Whole Blood 185 mg/dL (70-110)
[2024-02-06 16:32] LABS: Glucose,Whole Blood 171 mg/dL (70-110)
[2024-02-06 20:29] LABS: Glucose,Whole Blood 181 mg/dL (70-110)
[2024-02-07] MEDS: KETOROLAC 15 MG/ML 1 ML VIAL IVP PRN (00:44)
[2024-02-07 06:21] LABS: Glucose,Whole Blood 164 mg/dL (70-110)
[2024-02-07 08:29] LABS: Basophils # (A) 0.08 X 10*3/uL (0.00-0.10); Basophils % (A) 0.8 %; Eosinophils # (A) 0.34 X 10*3/uL (0.04-0.35); Eosinophils % (A) 3.6 %; HCT 32.1 % (37.2-46.3); HGB 10.4 g/dL (12.0-15.0); Lymphocytes # (A) 1.66 X 10*3/uL (0.90-5.00); Lymphocytes % (A) 17.4 %; MCHC 32.4 g/dL (32.0-37.0); MCV 95.8 FL (80.0-97.0); Mean Platelet Volume 9.1 FL (9.5-12.2); Monocytes # (A) 0.76 X 10*3/uL (0.20-1.00); NRBC Per 100 WBC 0 X 10*3/uL (0.00-0.01); Neutrophils # (A) 6.47 X 10*3/uL (1.80-7.70); Platelet Count 356 X 10*3/uL (140-440); RBC 3.35 X 10*6/uL (4.10-5.20); RDW 14.9 % (11.5-14.5); WBC 9.52 X 10*3/uL (4.50-10.00)
[2024-02-07 08:40] LABS: BUN/Creat Ratio 14.64 Ratio (12.00-20.00); Blood Urea Nitrogen 16.1 mg/dL (9.0-27.0); Calcium 8.4 mg/dL (8.7-10.3); Chloride 100 mmol/L (96-109); Glucose 171 mg/dL (70-110); Potassium 4.6 mmol/L (3.5-5.5); Sodium 131 mmol/L (135-145)
[2024-02-07 11:40] LABS: Glucose,Whole Blood 188 mg/dL (70-110)
[2024-02-07] MEDS ORDERED: SENNOSIDES 8.6 MG TAB PO PRN (12:50)
[2024-02-07] MEDS: CYCLOBENZAPRINE 10 MG TAB PO PRN (14:51)
--- NOTE | 2024-02-07 15:24 | CT ---
EXAMINATION TYPE: CT lumbar spine wo con DATE OF EXAM: 02/07/2024 3:15 PM COMPARISON: None. CLINICAL INDICATION: Female, 88 years old with history of Fall, Back pain, slip in transport; salazar FLORES in TECHNIQUE: Multiple axial images were obtained from the midportion of T11 through the sacroiliac rena nts. Soft tissue and bone windows in coronal and sagittal planes were obtained and reviewed. Contrast used: mL of , (None, if empty). Oral contrast used: (None, if empty). CT DLP: 1720.6 mGycm, Automated exposure control for dose reduction was used. FINDINGS: Alignment: There are 5 lumbar type vertebral bodies with grade 1 anterolisthesis of L3 on L4 and L4 a nd L5. Bone: Diffuse osseous demineralization. Inferior endplate deformity with fracture line through the L4 vertebral body series 205 image 35 with less than 25% height loss. No evidence for significant retro pulsion. Discs: T12-L1: No spinal canal or neural foraminal stenosis is identified. L1-L2: No spinal canal or neural foraminal stenosis is identified. L2-L3: No spinal canal or neural foraminal stenosis is identified. L3-L4: Facet joint arthropathy and disc bulging result in mild to moderate spinal canal stenosis and mild bilateral neural foraminal stenosis. L4-L5: Facet joint arthropathy and disc bulging result in mild spinal canal stenosis and mild to mode rate bilateral neural foraminal stenosis. L5-S1: Facet joint arthropathy and disc bulging result in mild spinal canal stenosis and moderate to severe right and mild left neural foraminal stenosis. Other: None IMPRESSION: 1. Acute fracture through the L4 vertebral body with mild less than 25% height loss. No evidence for significant spinal canal stenosis 2. Multilevel degeneration changes of the spine with neural foraminal stenosis worse at L5-S1 with m oderate to severe right and mild left 3. Grade 1 anterolisthesis of L3 on L4 and L4 on L5. 4. Diffuse osseous demineralization. [facility], Workstation: [id number], 02/07/2024 3:22 PM
[2024-02-07 16:30] LABS: Glucose,Whole Blood 179 mg/dL (70-110)
[2024-02-07 20:15] LABS: Glucose,Whole Blood 208 mg/dL (70-110)
--- NOTE | 2024-02-07 23:53 | P.PN ---
Subjective Progress Note Date: 02/05/24 Patient is a 88-year-old female with a known history of hypertension, hyperlipidemia, diabetes type 2 insulin-dependent and hypothyroidism and also history of malignant melanoma presents to ER status post fall. Patient is currently at [facility]. Patient states that she felt very weak in her legs yesterday and landing on her knees. Again on the day of admission patient was ambulating she felt very weak and lean onto the ground. Denied any loss of consciousness. Denied hitting her head. No complaints of chest pain. No nausea vomiting abdominal pain or diarrhea. Denied any fever or chills. Patient is on anticoagulation with Eliquis for atrial fibrillation. Knee x-ray showed there is no acute fracture or dislocation in either knee. EKG showed sinus bradycardia with heart rate 58 Laboratory data showed WBC 7.9 hemoglobin 11.3 and platelets 360 Sodium 129 potassium 4.5 chloride 98, BUN 17 and creatinine 1.33 and blood sugar 165 magnesium 1.7 albumin 3.2 urinalysis showed small blood nitrite positive small leukocyte esterase, RBCs 26 WBCs 30 and hyaline casts. 02/05/2024 Patient is lying in the bed. Awake alert and oriented. No complaints of chest pain or shortness of breath. No cough or sputum production. Mentation is improved. Patient still having generalized weakness. Also complains of bilateral knee pain from fall. Patient is being continued on antibiotics ceftriaxone for urinary tract infection. Urine culture is growing gram-negative bacilli. Laboratory data showed a sodium 130, potassium 4.6 chloride 103 bicarb is 24 BUN 16 creatinine 1.16. TSH 16.8 and free T4 level is 1.39 Current medications reviewed. Objective - Vital Signs Vital signs: Vital Signs Temp 97.6 F 02/05/24 13:15 Pulse 57 L 02/05/24 13:15 Resp 17 02/05/24 13:15 BP 154/75 02/05/24 13:15 Pulse Ox 99 02/05/24 13:15 FiO2 Intake & Output 02/05/24 02/05/24 02/06/24 06:59 18:59 06:59 Output Total 400 300 Balance -400 -300 Output: Urine 400 300 Other: Voiding Method External Catheter External Catheter - Exam PHYSICAL EXAMINATION: Patient is lying in the bed comfortably, no acute distress, awake alert and oriented.. HEENT: Normocephalic. Neck is supple. Bruising over the nose. Pupils reactive. Nostrils clear. Oral cavity is moist. Neck reveals no JVD, carotid bruits, or thyromegaly. CHEST EXAMINATION: Trachea is central. Symmetrical expansion. Lung reich clear to auscultation and percussion. CARDIAC: Normal S1, S2 with no gallops. Systolic murmur. ABDOMEN: Soft. Bowel sounds normal. No organomegaly. No abdominal bruits. Extremities: reveal no edema. No clubbing or cyanosis Neurologically awake, alert, oriented x3 able to move all extremities.. No gross focal deficits noted Skin: No rash or skin lesions. Psychiatric: Coperative. Nonsuicidal Musculoskeletal: No joint swelling or deformity. - Labs CBC & Chem 7: 02/07/24 03:42 02/07/24 03:42 Labs: Abnormal Lab Results - Last 24 Hours (Table) 02/05/24 02/05/24 02/05/24 Range/Units 03:16 11:43 15:58 Sodium 130 L (137-145) mmol/L Creatinine 1.16 H (0.52-1.04) mg/dL Glucose 184 H (74-99) mg/dL POC Glucose (mg/dL) 190 H (70-110) mg/dL Calcium 8.1 L (8.4-10.2) mg/dL TSH 16.800 H (0.465-4.680) mIU/L 02/05/24 02/05/24 Range/Units 16:19 20:41 Sodium (137-145) mmol/L Creatinine (0.52-1.04) mg/dL Glucose (74-99) mg/dL POC Glucose (mg/dL) 206 H 204 H (70-110) mg/dL Calcium (8.4-10.2) mg/dL TSH (0.465-4.680) mIU/L Microbiology - Last 24 Hours (Table) 02/04/24 04:10 Urine Culture - Preliminary Urine,Catheterized Gram Neg Bacilli Assessment and Plan Assessment: Acute urinary tract infection Bilateral knee pain Generalized weakness Hypovolemic hyponatremia sodium level 129 Paroxysmal atrial fibrillation on anticoagulation with Eliquis Sinus bradycardia Hypertension Diabetes type 2 insulin-dependent Hypothyroidism DVT prophylaxis patient is already on full anticoagulation Plan: Patient will be continued on antibiotics in the form of ceftriaxone. Was given IV fluid bolus in the ER. Patient is able to tolerate oral diet. Lasix is on hold. Current with pain management with [place]. Continue to monitor CBC and BMP. Follow-up urine culture report. Started back on home medications and PT OT consult. Continue to follow closely.
--- NOTE | 2024-02-07 23:56 | P.PN ---
Subjective Progress Note Date: 02/06/24 Patient is a 88-year-old female with a known history of hypertension, hyperlipidemia, diabetes type 2 insulin-dependent and hypothyroidism and also history of malignant melanoma presents to ER status post fall. Patient is currently at [facility]. Patient states that she felt very weak in her legs yesterday and landing on her knees. Again on the day of admission patient was ambulating she felt very weak and lean onto the ground. Denied any loss of consciousness. Denied hitting her head. No complaints of chest pain. No nausea vomiting abdominal pain or diarrhea. Denied any fever or chills. Patient is on anticoagulation with Eliquis for atrial fibrillation. Knee x-ray showed there is no acute fracture or dislocation in either knee. EKG showed sinus bradycardia with heart rate 58 Laboratory data showed WBC 7.9 hemoglobin 11.3 and platelets 360 Sodium 129 potassium 4.5 chloride 98, BUN 17 and creatinine 1.33 and blood sugar 165 magnesium 1.7 albumin 3.2 urinalysis showed small blood nitrite positive small leukocyte esterase, RBCs 26 WBCs 30 and hyaline casts. 02/05/2024 Patient is lying in the bed. Awake alert and oriented. No complaints of chest pain or shortness of breath. No cough or sputum production. Mentation is improved. Patient still having generalized weakness. Also complains of bilateral knee pain from fall. Patient is being continued on antibiotics ceftriaxone for urinary tract infection. Urine culture is growing gram-negative bacilli. Laboratory data showed a sodium 130, potassium 4.6 chloride 103 bicarb is 24 BUN 16 creatinine 1.16. TSH 16.8 and free T4 level is 1.39 02/06/2024 Patient is resting in the bed. Awake alert and oriented x 3. No complaints of chest pain or shortness of breath. Able to tolerate oral diet. Patient still complaining of bilateral lower extremity pain. Currently on Tylenol and tramadol. IV Toradol will be added. PT OT has seen the patient but patient unable to get out of bed. Continued on antibiotics with ceftriaxone for gram-negative bacilli urinary tract infection. Laboratory data showed sodium 131 potassium 4.3 chloride 100 bicarb is 20.9 BUN 15.5 and creatinine 1.1 and blood sugar 169 and calcium 8.2. Current medications reviewed. Objective - Vital Signs Vital signs: Vital Signs Temp 97.7 F 02/06/24 19:23 Pulse 62 02/06/24 19:23 Resp 17 02/06/24 19:23 BP 154/73 02/06/24 19:23 Pulse Ox 96 02/06/24 19:23 FiO2 Intake & Output 02/06/24 02/06/24 02/07/24 06:59 18:59 06:59 Output Total 350 950 Balance -350 -950 Output: Urine 350 950 Other: Voiding Method External Catheter External Catheter - Exam PHYSICAL EXAMINATION: Patient is lying in the bed comfortably, no acute distress, awake alert and oriented.. HEENT: Normocephalic. Neck is supple. Bruising over the nose. Pupils reactive. Nostrils clear. Oral cavity is moist. Neck reveals no JVD, carotid bruits, or thyromegaly. CHEST EXAMINATION: Trachea is central. Symmetrical expansion. Lung reich clear to auscultation and percussion. CARDIAC: Normal S1, S2 with no gallops. Systolic murmur. ABDOMEN: Soft. Bowel sounds normal. No organomegaly. No abdominal bruits. Extremities: reveal no edema. No clubbing or cyanosis Neurologically awake, alert, oriented x3 able to move all extremities.. No gross focal deficits noted Skin: No rash or skin lesions. Psychiatric: Coperative. Nonsuicidal Musculoskeletal: No joint swelling or deformity. - Labs CBC & Chem 7: 02/07/24 03:42 02/07/24 03:42 Labs: Abnormal Lab Results - Last 24 Hours (Table) 02/06/24 02/06/24 02/06/24 Range/Units 04:03 04:03 06:32 RBC 3.27 L (4.10-5.20) X 10*6/uL Hgb 10.2 L (12.0-15.0) g/dL Hct 30.8 L (37.2-46.3) % RDW 14.8 H (11.5-14.5) % Immature Gran # 0.15 H (0.00-0.04) X 10*3/uL Sodium 131 L (135-145) mmol/L Carbon Dioxide 20.9 L (21.6-31.8) mmol/L Est GFR (CKD-EPI) 48 L (>=60) Glucose 169 H (70-110) mg/dL POC Glucose (mg/dL) 166 H (70-110) mg/dL Calcium 8.2 L (8.7-10.3) mg/dL 02/06/24 02/06/24 02/06/24 Range/Units 11:27 16:31 20:27 RBC (4.10-5.20) X 10*6/uL Hgb (12.0-15.0) g/dL Hct (37.2-46.3) % RDW (11.5-14.5) % Immature Gran # (0.00-0.04) X 10*3/uL Sodium (135-145) mmol/L Carbon Dioxide (21.6-31.8) mmol/L Est GFR (CKD-EPI) (>=60) Glucose (70-110) mg/dL POC Glucose (mg/dL) 185 H 171 H 181 H (70-110) mg/dL Calcium (8.7-10.3) mg/dL Microbiology - Last 24 Hours (Table) 02/04/24 04:10 Urine Culture - Final Urine,Catheterized Escherichia coli Morganella morganii Assessment and Plan Assessment: Acute urinary tract infection Bilateral knee pain Generalized weakness Hypovolemic hyponatremia sodium level 129 Paroxysmal atrial fibrillation on anticoagulation with Eliquis Sinus bradycardia Hypertension Diabetes type 2 insulin-dependent Hypothyroidism DVT prophylaxis patient is already on full anticoagulation Plan: Patient will be continued on antibiotics in the form of ceftriaxone. Patient is able to tolerate oral diet. Lasix is on hold. Current with pain management with tramadol. Stool softeners will be added. Continue to monitor CBC and BMP. Follow-up urine culture report. Started back on home medications and PT OT consult. Continue to follow closely. Time with Patient: Greater than 30
--- NOTE | 2024-02-08 00:02 | P.PN ---
Subjective Progress Note Date: 02/07/24 Patient is a 88-year-old female with a known history of hypertension, hyperlipidemia, diabetes type 2 insulin-dependent and hypothyroidism and also history of malignant melanoma presents to ER status post fall. Patient is currently at [facility]. Patient states that she felt very weak in her legs yesterday and landing on her knees. Again on the day of admission patient was ambulating she felt very weak and lean onto the ground. Denied any loss of consciousness. Denied hitting her head. No complaints of chest pain. No nausea vomiting abdominal pain or diarrhea. Denied any fever or chills. Patient is on anticoagulation with Eliquis for atrial fibrillation. Knee x-ray showed there is no acute fracture or dislocation in either knee. EKG showed sinus bradycardia with heart rate 58 Laboratory data showed WBC 7.9 hemoglobin 11.3 and platelets 360 Sodium 129 potassium 4.5 chloride 98, BUN 17 and creatinine 1.33 and blood sugar 165 magnesium 1.7 albumin 3.2 urinalysis showed small blood nitrite positive small leukocyte esterase, RBCs 26 WBCs 30 and hyaline casts. 02/05/2024 Patient is lying in the bed. Awake alert and oriented. No complaints of chest pain or shortness of breath. No cough or sputum production. Mentation is improved. Patient still having generalized weakness. Also complains of bilateral knee pain from fall. Patient is being continued on antibiotics ceftriaxone for urinary tract infection. Urine culture is growing gram-negative bacilli. Laboratory data showed a sodium 130, potassium 4.6 chloride 103 bicarb is 24 BUN 16 creatinine 1.16. TSH 16.8 and free T4 level is 1.39 02/06/2024 Patient is resting in the bed. Awake alert and oriented x 3. No complaints of chest pain or shortness of breath. Able to tolerate oral diet. Patient still complaining of bilateral lower extremity pain. Currently on Tylenol and tramadol. IV Toradol will be added. PT OT has seen the patient but patient unable to get out of bed. Continued on antibiotics with ceftriaxone for gram-negative bacilli urinary tract infection. Laboratory data showed sodium 131 potassium 4.3 chloride 100 bicarb is 20.9 BUN 15.5 and creatinine 1.1 and blood sugar 169 and calcium 8.2. 02/07/2024 Patient is resting in the bed. Awake alert and oriented. No complaints of chest pain or shortness of breath or otherwise still complains of bilateral knee pain and also back pain unable to get out of bed. Flexeril will be added along with tramadol and was also given IV Toradol. Patient otherwise denied any complaints of tingling sensation in the lower extremities. No fever no chills. No cough or sputum production. Currently on ceftriaxone for E. coli urinary tract infection. Laboratory data reviewed. Current medications reviewed. Objective - Vital Signs Vital signs: Vital Signs Temp 97.7 F 02/07/24 19:20 Pulse 75 02/07/24 19:20 Resp 20 02/07/24 19:20 BP 157/75 02/07/24 19:20 Pulse Ox 98 02/07/24 19:20 FiO2 Intake & Output 02/07/24 02/07/24 02/08/24 06:59 18:59 06:59 Output Total 500 400 Balance -500 -400 Output: Urine 500 400 Other: Voiding Method External Catheter External Catheter - Exam PHYSICAL EXAMINATION: Patient is lying in the bed comfortably, no acute distress, awake alert and oriented.. HEENT: Normocephalic. Neck is supple. Bruising over the nose. Pupils reactive. Nostrils clear. Oral cavity is moist. Neck reveals no JVD, carotid bruits, or thyromegaly. CHEST EXAMINATION: Trachea is central. Symmetrical expansion. Lung reich clear to auscultation and percussion. CARDIAC: Normal S1, S2 with no gallops. Systolic murmur. ABDOMEN: Soft. Bowel sounds normal. No organomegaly. No abdominal bruits. Extremities: reveal no edema. No clubbing or cyanosis Neurologically awake, alert, oriented x3 able to move all extremities.. No gross focal deficits noted Skin: No rash or skin lesions. Psychiatric: Coperative. Nonsuicidal Musculoskeletal: No joint swelling or deformity. - Labs CBC & Chem 7: 02/07/24 03:42 02/07/24 03:42 Labs: Abnormal Lab Results - Last 24 Hours (Table) 02/07/24 02/07/24 02/07/24 Range/Units 03:42 03:42 06:20 RBC 3.35 L (4.10-5.20) X 10*6/uL Hgb 10.4 L (12.0-15.0) g/dL Hct 32.1 L (37.2-46.3) % RDW 14.9 H (11.5-14.5) % MPV 9.1 L (9.5-12.2) FL Immature Gran # 0.21 H (0.00-0.04) X 10*3/uL Sodium 131 L (135-145) mmol/L Carbon Dioxide 21.0 L (21.6-31.8) mmol/L Est GFR (CKD-EPI) 48 L (>=60) Glucose 171 H (70-110) mg/dL POC Glucose (mg/dL) 164 H (70-110) mg/dL Calcium 8.4 L (8.7-10.3) mg/dL 02/07/24 02/07/24 02/07/24 Range/Units 11:38 16:28 20:13 RBC (4.10-5.20) X 10*6/uL Hgb (12.0-15.0) g/dL Hct (37.2-46.3) % RDW (11.5-14.5) % MPV (9.5-12.2) FL Immature Gran # (0.00-0.04) X 10*3/uL Sodium (135-145) mmol/L Carbon Dioxide (21.6-31.8) mmol/L Est GFR (CKD-EPI) (>=60) Glucose (70-110) mg/dL POC Glucose (mg/dL) 188 H 179 H 208 H (70-110) mg/dL Calcium (8.7-10.3) mg/dL Assessment and Plan Assessment: Acute urinary tract infection. Urine culture showed E. coli and Morganella morganii. Bilateral knee pain and back pain Generalized weakness Hypovolemic hyponatremia sodium level 129 Paroxysmal atrial fibrillation on anticoagulation with Eliquis Sinus bradycardia Hypertension Diabetes type 2 insulin-dependent Hypothyroidism DVT prophylaxis patient is already on full anticoagulation Plan: Current with pain management with tramadol. Stool softeners will be added. CT lumbar spine was ordered. Patient will be continued on antibiotics in the form of ceftriaxone. Patient is able to tolerate oral diet. Lasix is on hold. Continue to monitor CBC and BMP. Urine culture showed E. coli and Morganella morganii.. Started back on home medications and PT OT consult. Continue to follow closely. Time with Patient: Greater than 30
[2024-02-08 06:34] LABS: Glucose,Whole Blood 177 mg/dL (70-110)
[2024-02-08] MEDS: polyethylene glycoL 3350 17 GM POWD.PACK PO SCH (11:12)
[2024-02-08 12:17] LABS: Glucose,Whole Blood 243 mg/dL (70-110)
--- NOTE | 2024-02-08 13:22 | P.CNOR ---
History of Present Illness - [facility] Consult date: 02/08/24 Requesting physician: Giuliano Cheung Consult reason: fracture (Acute L4 fracture status post fall), low back pain History of present illness: Patient is a very pleasant 88-year-old female who is seen examined the bedside for further evaluation of her lumbar spine. She is seen with her family present. Patient has been experiencing increased low back pain status post fall. Patient's family states patient did sustain a fall on 02/02/2024 and again on 02/04/2024. Patient had fallen on her knees as well. She does have some knee pain. She has a history of total knee arthroplasty performed bilaterally at least 12 years ago while residing in [place]. Patient is not currently complaining of lower extremity radicular type symptoms. She is a normal ambulator and lives in independent care. Currently patient is planning for discharge to a rehabilitation facility. She has been treated for urinary tract infection. She has an external catheter intact. She is admitted to medicine. She is being seen and examined for her multiple other medical diagnoses. Past Medical History Past Medical History: Diabetes Mellitus, Hyperlipidemia, Hypertension, Thyroid Disorder Additional Past Medical History / Comment(s): malignant melanoma History of Any Multi-Drug Resistant Organisms: None Reported Past Surgical History: Breast Surgery, Cholecystectomy Additional Past Surgical History / Comment(s): bilateral knee replacement Past Anesthesia/Blood Transfusion Reactions: No Reported Reaction Past Psychological History: No Psychological Hx Reported Smoking Status: Never smoker Past Alcohol Use History: None Reported Past Drug Use History: None Reported - Past Family History Father Family Medical History: Coronary Artery Disease (CAD) Mother Family Medical History: Cancer Medications and Allergies Home Medications Medication Instructions Recorded Confirmed Type Aspirin 81 mg PO W/SUPPER 07/06/20 02/04/24 History Levothyroxine Sodium [Synthroid] 75 mg PO HS 07/06/20 02/04/24 History Pantoprazole [Protonix] 40 mg PO AC-BRKFST 07/06/20 02/04/24 History Topiramate [Topamax] 25 mg PO W/SUPPER 07/06/20 02/04/24 History metFORMIN HCL 500 mg PO BID-W/MEALS 09/13/23 02/04/24 History Apixaban [Eliquis] 5 mg PO BID-W/MEALS 02/04/24 02/04/24 History Clobetasol Propionate [Temovate 1 applic TOPICAL BID 02/04/24 02/04/24 History 0.05% Cream] Furosemide [Lasix] 20 mg PO W/SUPPER 02/04/24 02/04/24 History Losartan [Cozaar] 25 mg PO W/BRKFST 02/04/24 02/04/24 History Metoprolol Succinate (ER) [Toprol 50 mg PO BID-W/MEALS 02/04/24 02/04/24 History Xl] Pioglitazone [Actos] 45 mg PO W/BRKFST 02/04/24 02/04/24 History Pitavastatin Calcium [Livalo] 2 mg PO DIRECTED 02/04/24 02/04/24 History Vitamin B Complex 1 cap PO W/BRKFST 02/04/24 02/04/24 History glipiZIDE [glipiZIDE ER] 10 mg PO W/BRKFST 02/04/24 02/04/24 History Allergies Allergy/AdvReac Type Severity Reaction Status Date / Time No Known Allergies Allergy Verified 02/04/24 12:37 Physical Examination Physical exam: Patient is awake, alert, and oriented 3 Vital signs stable Good chest excursion with deep inspiration and expiration Examination of lumbar spine reveals skin is intact with no abrasions, lacerations, or bruises; no erythema, purulence or signs of infection Pain with palpation along the midline of the lower lumbar spine Dorsiflexion, plantarflexion, and extensor hallucis longus positive sustained bilaterally Patient does have difficulty with performing hip flexion and knee flexion bilaterally No signs or symptoms of DVT; no calf pain No pain with internal and external rotation of the hips bilaterally Neurovascularly intact Evidence of well-healed incisions over the bilateral knees No significant bruising, erythema, or obvious sign of infection over the bilateral knees Chronic skin changes lower extremities Results Pertinent studies: CT of the lumbar spine taken on 02/07/2024: Acute L4 inferior endplate compression fracture deformity with approximately 25% height loss L3-4 facet spondylosis and disc bulge with mild to moderate central canal stenosis and mild bilateral neuroforaminal stenosis; L4-5 facet spondylosis and disc bulging with mild central canal stenosis and mild to moderate bilateral neuroforaminal stenosis; L5-S1 facet spondylosis and disc bulging with mild central canal stenosis and moderate to severe right and mild left neuroforaminal stenosis; L3- 4 spondylolisthesis X-ray of the bilateral knee taken on 02/04/2024: Evidence of total knee arthroplasty with cemented hardware in place bilaterally; no obvious fracture or dislocation evident at either knee - Labs Labs: Abnormal Lab Results - Last 24 Hours (Table) 02/07/24 02/07/24 02/08/24 Range/Units 16:28 20:13 06:32 POC Glucose (mg/dL) 179 H 208 H 177 H (70-110) mg/dL 02/08/24 Range/Units 12:16 POC Glucose (mg/dL) 243 H (70-110) mg/dL H & H 02/04/24 02/06/24 02/07/24 Range/Units 01:35 EST 04:03 03:42 Hgb 11.3 L 10.2 L 10.4 L (11.4-16.0) gm/dL Hct 34.2 30.8 L 32.1 L (34.0-46.0) % Coagulation 02/04/24 Range/Units 01:35 EST INR 1.2 H (<1.2) Result Diagrams: 02/07/24 03:42 02/07/24 03:42 Assessment and Plan Assessment: Assessment: Acute low back pain status post fall on 02/02/2024 and 02/04/2024 Acute L4 compression fracture L3-4 and L4-5 spondylolisthesis Lumbar spinal stenosis Lumbar facet spondylosis Lumbar disc bulging Generalized weakness Hypovolemic hyponatremia Paroxysmal atrial fibrillation on anticoagulation Hypertension Type 2 diabetes Hypothyroidism Urinary tract infection (1) L4 vertebral fracture Current Visit: Yes Status: Acute Code(s): S32.049A - UNSP FRACTURE OF FOURTH LUMBAR VERTEBRA, INIT FOR CLOS FX SNOMED Code(s): 737623361 (2) Status post fall Current Visit: Yes Status: Acute Code(s): Z91.81 - HISTORY OF FALLING SNOMED Code(s): 760534027 (3) Acute low back pain Current Visit: Yes Status: Acute Code(s): M54.50 - LOW BACK PAIN, UNSPECIFIED SNOMED Code(s): 843174788 (4) Lumbar facet arthropathy Current Visit: Yes Status: Acute Code(s): M47.816 - SPONDYLOSIS W/O MYELOPATHY OR RADICULOPATHY, LUMBAR REGION SNOMED Code(s): 975871372 (5) Lumbar stenosis Current Visit: Yes Status: Acute Code(s): M48.061 - SPINAL STENOSIS, LUMBAR REGION WITHOUT NEUROGENIC JAYY SNOMED Code(s): 75515803 (6) Bulging lumbar disc Current Visit: Yes Status: Acute Code(s): M51.369 - OTH INTVRT DISC DEGEN, LUM RGN W/O LUM BCK OR LW EXTRM PAIN SNOMED Code(s): 191485193 (7) Spondylolisthesis, lumbar region Current Visit: Yes Status: Acute Code(s): M43.16 - SPONDYLOLISTHESIS, LUMBAR REGION SNOMED Code(s): 431783696795738 (8) Generalized weakness Current Visit: Yes Status: Acute Code(s): R53.1 - WEAKNESS SNOMED Code(s): 03839764 (9) Atrial fibrillation Current Visit: Yes Status: Acute Code(s): I48.91 - UNSPECIFIED ATRIAL FIBRILLATION SNOMED Code(s): 57200650 (10) 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 Current Visit: Yes Status: Acute Code(s): Z79.01 - WEB PRODUCTION ASSISTANT (CURRENT) USE OF ANTICOAGULANTS SNOMED Code(s): 857049497 (11) Hypertension Current Visit: Yes Status: Acute Code(s): I10 - ESSENTIAL (PRIMARY) HYPERTENSION SNOMED Code(s): 34511989 (12) Diabetes mellitus Current Visit: Yes Status: Acute Code(s): E11.9 - TYPE 2 DIABETES MELLITUS WITHOUT COMPLICATIONS SNOMED Code(s): 82311292 (13) Hypothyroidism Current Visit: Yes Status: Acute Code(s): E03.9 - HYPOTHYROIDISM, UNSPECIF IED SNOMED Code(s): 99229074 (14) UTI (urinary tract infection) Current Visit: Yes Status: Acute Code(s): N39.0 - URINARY TRACT INFECTION, SITE NOT SPECIFIED SNOMED Code(s): 99740909 (15) Weakness Current Visit: Yes Status: Acute Code(s): R53.1 - WEAKNESS SNOMED Code(s): 58580101 Plan: Plan: 1. After reviewing of imaging, physical examination the patient, and further di scussion with the patient, will currently plan to continue start having the patient work through conservative treatment at this time. Imaging does show evidence of an acute L4 compression fracture deformity. Patient did sustain a fall on 02/02/2024 and 02/04/2024. She has had increased lumbar pain since that time. At this time we'll plan for bracing. A prescription has been written and provided to case management for an LSO brace. Once this brace is delivered and fitted appropriately, patient should wear this brace while sitting upright at greater than 45, during increase activities, during ambulation. Brace does not have to or while lying in bed or while bathing. Following fitting of this brace, patient is clear for discharge from an orthopedic spine standpoint. Following discharge, patient may follow-up with Paco Parish PA-C or Dr. Rj Kimble at [facility] in approximately 2 to 3 weeks for further evaluation. Patient may remain in bed until brace is fitted and delivered appropriately tomorrow. Once the brace is delivered and fitted appropriately, patient may work with physical therapy to increase her mobilization. 2. Patient will continue to be seen and examined by medicine for her multiple other medical diagnoses. They are currently planning for discharge to rehabilitation facility as early as tomorrow, 02/09/2024 Time with Patient: Greater than 30 (Including obtaining history, physical examination, reviewing of imaging, and dictation.)
[2024-02-08 16:58] LABS: Glucose,Whole Blood 222 mg/dL (70-110)
[2024-02-08 21:16] LABS: Glucose,Whole Blood 228 mg/dL (70-110)
[2024-02-09 06:24] LABS: Glucose,Whole Blood 199 mg/dL (70-110)
[2024-02-09] MEDS ORDERED: DEXTROSE 50% SYRINGE 50 ML IVP PRN ×2 (08:54)
[2024-02-09] MEDS: INSULIN ASPART (NovoLOG) 100 UNIT/ML VIAL SQ SCH (09:40)
[2024-02-09 11:40] LABS: Glucose,Whole Blood 205 mg/dL (70-110)
[2024-02-09] MEDS: HYDROcodone/APAP 5-325MG 1 EACH TAB PO PRN (12:17)
--- NOTE | 2024-02-09 12:53 | P.PN ---
Progress Note - Text Progress Note Date: 02/09/24 Orthopedic spine: History of present illness: Patient is a very pleasant 88-year-old female who is seen examined the bedside for follow-up evaluation of her lumbar spine. She is seen with her family present. Patient has been experiencing increased low back pain status post fall. Patient's family states patient did sustain a fall on 02/02/2024 and again on 02/04/2024. Patient had fallen on her knees as well. She does have some knee pain. She has a history of total knee arthroplasty performed bilaterally at least 12 years ago while residing in [place]. A prescription was written for an LSO brace yesterday for her L4 fracture. This was delivered and fitted appropriately. She currently has this brace intact. She feels her back pain is better controlled currently with the brace intact. She is comfortably sitting in a bedside chair. Patient is not currently complaining of lower extremity radicular type symptoms. She is a normal ambulator and lives in independent care. Currently patient is planning for discharge to a rehabilitation facility. She has been treated for urinary tract infection. She has an external catheter intact. She is admitted to medicine. She is being seen and examined for her multiple other medical diagnoses. Physical exam: Patient is awake, alert, and oriented 3 Vital signs stable Good chest excursion with deep inspiration and expiration Patient currently sitting in a bedside chair with LSO brace fitted appropriately Dorsiflexion, plantarflexion, and extensor hallucis longus positive sustained bilaterally No signs or symptoms of DVT; no calf pain Neurovascularly intact Evidence of well-healed incisions over the bilateral knees No significant bruising, erythema, or obvious sign of infection over the bilateral knees Chronic skin changes lower extremities Pertinent studies: CT of the lumbar spine taken on 02/07/2024: Acute L4 inferior endplate compression fracture deformity with approximately 25% height loss L3-4 facet spondylosis and disc bulge with mild to moderate central canal stenosis and mild bilateral neuroforaminal stenosis; L4-5 facet spondylosis and disc bulging with mild central canal stenosis and mild to moderate bilateral neuroforaminal stenosis; L5-S1 facet spondylosis and disc bulging with mild central canal stenosis and moderate to severe right and mild left neuroforaminal stenosis; L3- 4 spondylolisthesis X-ray of the bilateral knee taken on 02/04/2024: Evidence of total knee arthroplasty with cemented hardware in place bilaterally; no obvious fracture or dislocation evident at either knee Assessment: Acute low back pain status post fall on 02/02/2024 and 02/04/2024 Acute L4 compression fracture L3-4 and L4-5 spondylolisthesis Lumbar spinal stenosis Lumbar facet spondylosis Lumbar disc bulging Generalized weakness Hypovolemic hyponatremia Paroxysmal atrial fibrillation on anticoagulation Hypertension Type 2 diabetes Hypothyroidism Urinary tract infection Plan: We will continue with our plan as set forth yesterday. 1. After reviewing of imaging, physical examination the patient, and further discussion with the patient, will currently plan to continue start having the patient work through conservative treatment at this time. Imaging does show evidence of an acute L4 compression fracture deformity. Patient did sustain a fall on 02/02/2024 and 02/04/2024. She has had increased lumbar pain since that time. At this time we'll plan for bracing. A prescription has been written and provided to case management for an LSO brace. This brace has been delivered and fitted appropriately. Patient should wear this brace while sitting upright at greater than 45, during increase activities, during ambulation. Brace does not have to or while lying in bed or while bathing. Patient is clear for discharge from an orthopedic spine standpoint. Following discharge, patient may follow-up with Paco Parish PA-C or Dr. Rj Kimble at [facility] in approximately 2 to 3 weeks for further evaluation. Ptient may work with physical therapy to increase her mobilization. 2. Patient will continue to be seen and examined by medicine for her multiple other medical diagnoses. They are currently planning for discharge to rehabilitation facility as early as tomorrow, 02/09/2024
[2024-02-09 16:43] LABS: Glucose,Whole Blood 226 mg/dL (70-110)
[2024-02-09 20:26] LABS: Glucose,Whole Blood 174 mg/dL (70-110)
--- NOTE | 2024-02-10 03:01 | P.PN ---
Subjective Progress Note Date: 02/08/24 Patient is a 88-year-old female with a known history of hypertension, hyperlipidemia, diabetes type 2 insulin-dependent and hypothyroidism and also history of malignant melanoma presents to ER status post fall. Patient is currently at [facility]. Patient states that she felt very weak in her legs yesterday and landing on her knees. Again on the day of admission patient was ambulating she felt very weak and lean onto the ground. Denied any loss of consciousness. Denied hitting her head. No complaints of chest pain. No nausea vomiting abdominal pain or diarrhea. Denied any fever or chills. Patient is on anticoagulation with Eliquis for atrial fibrillation. Knee x-ray showed there is no acute fracture or dislocation in either knee. EKG showed sinus bradycardia with heart rate 58 Laboratory data showed WBC 7.9 hemoglobin 11.3 and platelets 360 Sodium 129 potassium 4.5 chloride 98, BUN 17 and creatinine 1.33 and blood sugar 165 magnesium 1.7 albumin 3.2 urinalysis showed small blood nitrite positive small leukocyte esterase, RBCs 26 WBCs 30 and hyaline casts. 02/05/2024 Patient is lying in the bed. Awake alert and oriented. No complaints of chest pain or shortness of breath. No cough or sputum production. Mentation is improved. Patient still having generalized weakness. Also complains of bilateral knee pain from fall. Patient is being continued on antibiotics ceftriaxone for urinary tract infection. Urine culture is growing gram-negative bacilli. Laboratory data showed a sodium 130, potassium 4.6 chloride 103 bicarb is 24 BUN 16 creatinine 1.16. TSH 16.8 and free T4 level is 1.39 02/06/2024 Patient is resting in the bed. Awake alert and oriented x 3. No complaints of chest pain or shortness of breath. Able to tolerate oral diet. Patient still complaining of bilateral lower extremity pain. Currently on Tylenol and tramadol. IV Toradol will be added. PT OT has seen the patient but patient unable to get out of bed. Continued on antibiotics with ceftriaxone for gram-negative bacilli urinary tract infection. Laboratory data showed sodium 131 potassium 4.3 chloride 100 bicarb is 20.9 BUN 15.5 and creatinine 1.1 and blood sugar 169 and calcium 8.2. 02/07/2024 Patient is resting in the bed. Awake alert and oriented. No complaints of chest pain or shortness of breath or otherwise still complains of bilateral knee pain and also back pain unable to get out of bed. Flexeril will be added along with tramadol and was also given IV Toradol. Patient otherwise denied any complaints of tingling sensation in the lower extremities. No fever no chills. No cough or sputum production. Currently on ceftriaxone for E. coli urinary tract infection. Laboratory data reviewed. 02/08/2024 Patient is currently lying in the bed. Awake alert and oriented x 3. Patient is unable to get out of bed due to severe back pain and also knee pain. Knee pain is slightly better. CT of abdominal pelvis was done which showed acute fracture through the L4 vertebral body with mild less than 25% height loss. No evidence of spinal canal stenosis. Orthopedic surgery recommends LSO brace. Which is being treated today. Otherwise patient has been afebrile. Continued on antibiotics in the home of ceftriaxone day 5.. Her blood sugar is well- controlled. Current medications reviewed. Objective - Vital Signs Vital signs: Vital Signs Temp 97.9 F 02/09/24 07:03 Pulse 59 L 02/09/24 07:03 Resp 16 02/09/24 07:03 BP 168/76 02/09/24 07:03 Pulse Ox 99 02/09/24 07:03 FiO2 Intake & Output 02/08/24 02/09/24 02/09/24 18:59 06:59 18:59 Intake Total 1620 Output Total 350 300 Balance -350 1320 Intake: Oral 1620 Output: Urine 350 300 Other: Voiding Method External Catheter External Catheter External Catheter # Voids 1 1 - Exam PHYSICAL EXAMINATION: Patient is lying in the bed comfortably, no acute distress, awake alert and oriented.. HEENT: Normocephalic. Neck is supple. Bruising over the nose. Pupils reactive. Nostrils clear. Oral cavity is moist. Neck reveals no JVD, carotid bruits, or thyromegaly. CHEST EXAMINATION: Trachea is central. Symmetrical expansion. Lung reich clear to auscultation and percussion. CARDIAC: Normal S1, S2 with no gallops. Systolic murmur. ABDOMEN: Soft. Bowel sounds normal. No organomegaly. No abdominal bruits. Extremities: reveal no edema. No clubbing or cyanosis Neurologically awake, alert, oriented x3 able to move all extremities.. No gross focal deficits noted Skin: No rash or skin lesions. Psychiatric: Coperative. Nonsuicidal Musculoskeletal: No joint swelling or deformity. - Labs CBC & Chem 7: 02/07/24 03:42 02/07/24 03:42 Labs: Abnormal Lab Results - Last 24 Hours (Table) 02/08/24 02/08/24 02/08/24 Range/Units 12:16 16:57 21:14 POC Glucose (mg/dL) 243 H 222 H 228 H (70-110) mg/dL 02/09/24 Range/Units 06:22 POC Glucose (mg/dL) 199 H (70-110) mg/dL Assessment and Plan Assessment: Acute urinary tract infection. Urine culture showed E. coli and Morganella morganii. Status post fall with acute fracture through the L4 vertebral body with mild less than 25% height loss. Bilateral knee pain and back pain Generalized weakness Hypovolemic hyponatremia sodium level 129 Paroxysmal atrial fibrillation on anticoagulation with Eliquis Sinus bradycardia Hypertension Diabetes type 2 insulin-dependent Hypothyroidism DVT prophylaxis patient is already on full anticoagulation Plan: Current with pain management with tramadol. Stool softeners will be added. CT lumbar spine was ordered. Patient will be continued on antibiotics in the form of ceftriaxone. Patient is able to tolerate oral diet. Lasix is on hold. Continue to monitor CBC and BMP. Urine culture showed E. coli and Morganella morganii.. Started back on home medications and PT OT consult. Orthopedic surgery recommends LSO brace. Continue to follow closely. Time with Patient: Greater than 30
--- NOTE | 2024-02-10 03:05 | P.PN ---
Subjective Progress Note Date: 02/09/24 Patient is a 88-year-old female with a known history of hypertension, hyperlipidemia, diabetes type 2 insulin-dependent and hypothyroidism and also history of malignant melanoma presents to ER status post fall. Patient is currently at [facility]. Patient states that she felt very weak in her legs yesterday and landing on her knees. Again on the day of admission patient was ambulating she felt very weak and lean onto the ground. Denied any loss of consciousness. Denied hitting her head. No complaints of chest pain. No nausea vomiting abdominal pain or diarrhea. Denied any fever or chills. Patient is on anticoagulation with Eliquis for atrial fibrillation. Knee x-ray showed there is no acute fracture or dislocation in either knee. EKG showed sinus bradycardia with heart rate 58 Laboratory data showed WBC 7.9 hemoglobin 11.3 and platelets 360 Sodium 129 potassium 4.5 chloride 98, BUN 17 and creatinine 1.33 and blood sugar 165 magnesium 1.7 albumin 3.2 urinalysis showed small blood nitrite positive small leukocyte esterase, RBCs 26 WBCs 30 and hyaline casts. 02/05/2024 Patient is lying in the bed. Awake alert and oriented. No complaints of chest pain or shortness of breath. No cough or sputum production. Mentation is improved. Patient still having generalized weakness. Also complains of bilateral knee pain from fall. Patient is being continued on antibiotics ceftriaxone for urinary tract infection. Urine culture is growing gram-negative bacilli. Laboratory data showed a sodium 130, potassium 4.6 chloride 103 bicarb is 24 BUN 16 creatinine 1.16. TSH 16.8 and free T4 level is 1.39 02/06/2024 Patient is resting in the bed. Awake alert and oriented x 3. No complaints of chest pain or shortness of breath. Able to tolerate oral diet. Patient still complaining of bilateral lower extremity pain. Currently on Tylenol and tramadol. IV Toradol will be added. PT OT has seen the patient but patient unable to get out of bed. Continued on antibiotics with ceftriaxone for gram-negative bacilli urinary tract infection. Laboratory data showed sodium 131 potassium 4.3 chloride 100 bicarb is 20.9 BUN 15.5 and creatinine 1.1 and blood sugar 169 and calcium 8.2. 02/07/2024 Patient is resting in the bed. Awake alert and oriented. No complaints of chest pain or shortness of breath or otherwise still complains of bilateral knee pain and also back pain unable to get out of bed. Flexeril will be added along with tramadol and was also given IV Toradol. Patient otherwise denied any complaints of tingling sensation in the lower extremities. No fever no chills. No cough or sputum production. Currently on ceftriaxone for E. coli urinary tract infection. Laboratory data reviewed. 02/08/2024 Patient is currently lying in the bed. Awake alert and oriented x 3. Patient is unable to get out of bed due to severe back pain and also knee pain. Knee pain is slightly better. CT of abdominal pelvis was done which showed acute fracture through the L4 vertebral body with mild less than 25% height loss. No evidence of spinal canal stenosis. Orthopedic surgery recommends LSO brace. Which is being treated today. Otherwise patient has been afebrile. Continued on antibiotics in the home of ceftriaxone day 5.. Her blood sugar is well- controlled. 02/09/2024 Patient is able to sit in the chair today. Back pain is better. Knee pain is also been controlled. LSO brace was applied as per orthopedic surgery. Otherwise patient still weak and unable to walk by herself. PT OT has seen her. Also complains of constipation with not having bowel movement for the last few days. MiraLAX was given yesterday and today and will try enema if needed. Anticipate discharge to rehab in the next 24 to 48 hours. Continue with pain management. Current medications reviewed. Objective - Vital Signs Vital signs: Vital Signs Temp 97.6 F 02/09/24 13:31 Pulse 96 02/09/24 17:27 Resp 16 02/09/24 13:31 BP 162/74 02/09/24 13:31 Pulse Ox 97 02/09/24 13:31 FiO2 Intake & Output 02/08/24 02/09/24 02/09/24 18:59 06:59 18:59 Intake Total 1620 Output Total 350 300 Balance -350 1320 Intake: Oral 1620 Output: Urine 350 300 Other: Voiding Method External Catheter External Catheter External Catheter # Voids 1 1 - Exam PHYSICAL EXAMINATION: Patient is lying in the bed comfortably, no acute distress, awake alert and oriented.. HEENT: Normocephalic. Neck is supple. Bruising over the nose. Pupils reactive. Nostrils clear. Oral cavity is moist. Neck reveals no JVD, carotid bruits, or thyromegaly. CHEST EXAMINATION: Trachea is central. Symmetrical expansion. Lung reich clear to auscultation and percussion. CARDIAC: Normal S1, S2 with no gallops. Systolic murmur. ABDOMEN: Soft. Bowel sounds normal. No organomegaly. No abdominal bruits. Extremities: reveal no edema. No clubbing or cyanosis Neurologically awake, alert, oriented x3 able to move all extremities.. No gross focal deficits noted Skin: No rash or skin lesions. Psychiatric: Coperative. Nonsuicidal Musculoskeletal: No joint swelling or deformity. - Labs CBC & Chem 7: 02/07/24 03:42 02/07/24 03:42 Labs: Abnormal Lab Results - Last 24 Hours (Table) 02/08/24 02/09/24 02/09/24 Range/Units 21:14 06:22 11:38 POC Glucose (mg/dL) 228 H 199 H 205 H (70-110) mg/dL 02/09/24 Range/Units 16:41 POC Glucose (mg/dL) 226 H (70-110) mg/dL Assessment and Plan Assessment: Acute urinary tract infection. Urine culture showed E. coli and Morganella morganii. Status post fall with acute fracture through the L4 vertebral body with mild less than 25% height loss. Completed antibiotic course for 5 days. Bilateral knee pain and back pain Generalized weakness Hypovolemic hyponatremia sodium level 129 Paroxysmal atrial fibrillation on anticoagulation with Eliquis Sinus bradycardia Hypertension Diabetes type 2 insulin-dependent Hypothyroidism DVT prophylaxis patient is already on full anticoagulation Plan: Current with pain management with tramadol. Stool softeners will be added. CT lumbar spine was ordered. Ceftriaxone has been discontinued today. Patient is able to tolerate oral diet. Lasix is on hold. Continue to monitor CBC and BMP. Urine culture showed E. coli and Morganella morganii.. Started back on home medications and PT OT consult. Orthopedic surgery recommends LSO brace. Stool softeners/laxatives for constipation. Continue to follow closely. Anticipate discharge to rehab in the next 24 hours. Time with Patient: Greater than 30
[2024-02-10 04:54] LABS: African American GFR (CKD) 61 (>60 ml/min/1.73 sqM); Anion Gap 4 mmol/L; Blood Urea Nitrogen 19 mg/dL (7-17); Calcium 8.4 mg/dL (8.4-10.2); Carbon Dioxide 22 mmol/L (22-30); Chloride 100 mmol/L (98-107); Glucose 170 mg/dL (74-99); Non-African American GFR(CKD) 53 (>60 ml/min/1.73 sqM); Potassium 5.2 mmol/L (3.5-5.1); Sodium 126 mmol/L (137-145)
[2024-02-10 06:44] LABS: Glucose,Whole Blood 198 mg/dL (70-110)
[2024-02-10 10:22] LABS: Basophils # (A) 0.08 X 10*3/uL (0.00-0.10); Basophils % (A) 0.8 %; Eosinophils # (A) 0.26 X 10*3/uL (0.04-0.35); Eosinophils % (A) 2.7 %; HCT 29.6 % (37.2-46.3); HGB 9.5 g/dL (12.0-15.0); Lymphocytes # (A) 1.82 X 10*3/uL (0.90-5.00); Lymphocytes % (A) 19.1 %; MCH 30.3 pg (27.0-32.0); MCHC 32.1 g/dL (32.0-37.0); MCV 94.3 FL (80.0-97.0); Mean Platelet Volume 9.5 FL (9.5-12.2); Monocytes % (A) 9.5 %; NRBC Per 100 WBC 0.02 X 10*3/uL (0.00-0.01); Neutrophils # (A) 6.13 X 10*3/uL (1.80-7.70); Neutrophils % (A) 64.5 %; Platelet Count 386 X 10*3/uL (140-440); RBC 3.14 X 10*6/uL (4.10-5.20); WBC 9.51 X 10*3/uL (4.50-10.00)
[2024-02-10 11:29] LABS: Glucose,Whole Blood 181 mg/dL (70-110)
--- NOTE | 2024-02-10 13:55 | P.PN ---
Subjective Progress Note Date: 02/10/24 Patient is a 88-year-old female with a known history of hypertension, hyperlipidemia, diabetes type 2 insulin-dependent and hypothyroidism and also history of malignant melanoma presents to ER status post fall. Patient is currently at [facility]. Patient states that she felt very weak in her legs yesterday and landing on her knees. Again on the day of admission patient was ambulating she felt very weak and lean onto the ground. Denied any loss of consciousness. Denied hitting her head. No complaints of chest pain. No nausea vomiting abdominal pain or diarrhea. Denied any fever or chills. Patient is on anticoagulation with Eliquis for atrial fibrillation. Knee x-ray showed there is no acute fracture or dislocation in either knee. EKG showed sinus bradycardia with heart rate 58 Laboratory data showed WBC 7.9 hemoglobin 11.3 and platelets 360 Sodium 129 potassium 4.5 chloride 98, BUN 17 and creatinine 1.33 and blood sugar 165 magnesium 1.7 albumin 3.2 urinalysis showed small blood nitrite positive small leukocyte esterase, RBCs 26 WBCs 30 and hyaline casts. 02/05/2024 Patient is lying in the bed. Awake alert and oriented. No complaints of chest pain or shortness of breath. No cough or sputum production. Mentation is improved. Patient still having generalized weakness. Also complains of bilateral knee pain from fall. Patient is being continued on antibiotics ceftriaxone for urinary tract infection. Urine culture is growing gram-negative bacilli. Laboratory data showed a sodium 130, potassium 4.6 chloride 103 bicarb is 24 BUN 16 creatinine 1.16. TSH 16.8 and free T4 level is 1.39 02/06/2024 Patient is resting in the bed. Awake alert and oriented x 3. No complaints of chest pain or shortness of breath. Able to tolerate oral diet. Patient still complaining of bilateral lower extremity pain. Currently on Tylenol and tramadol. IV Toradol will be added. PT OT has seen the patient but patient unable to get out of bed. Continued on antibiotics with ceftriaxone for gram-negative bacilli urinary tract infection. Laboratory data showed sodium 131 potassium 4.3 chloride 100 bicarb is 20.9 BUN 15.5 and creatinine 1.1 and blood sugar 169 and calcium 8.2. 02/07/2024 Patient is resting in the bed. Awake alert and oriented. No complaints of chest pain or shortness of breath or otherwise still complains of bilateral knee pain and also back pain unable to get out of bed. Flexeril will be added along with tramadol and was also given IV Toradol. Patient otherwise denied any complaints of tingling sensation in the lower extremities. No fever no chills. No cough or sputum production. Currently on ceftriaxone for E. coli urinary tract infection. Laboratory data reviewed. 02/08/2024 Patient is currently lying in the bed. Awake alert and oriented x 3. Patient is unable to get out of bed due to severe back pain and also knee pain. Knee pain is slightly better. CT of abdominal pelvis was done which showed acute fracture through the L4 vertebral body with mild less than 25% height loss. No evidence of spinal canal stenosis. Orthopedic surgery recommends LSO brace. Which is being treated today. Otherwise patient has been afebrile. Continued on antibiotics in the home of ceftriaxone day 5.. Her blood sugar is well- controlled. 02/09/2024 Patient is able to sit in the chair today. Back pain is better. Knee pain is also been controlled. LSO brace was applied as per orthopedic surgery. Otherwise patient still weak and unable to walk by herself. PT OT has seen her. Also complains of constipation with not having bowel movement for the last few days. MiraLAX was given yesterday and today and will try enema if needed. Anticipate discharge to rehab in the next 24 to 48 hours. Continue with pain management. 02/09. Patient seen and examined. Sodium this morning is 126, potassium is 5.3.. Encourage patient to increase oral hydration. REVIEW OF SYSTEMS: CONSTITUTIONAL: No fever, no malaise,. CARDIOVASCULAR: No chest pain, no palpitations, no syncope. PULMONARY: No shortness of breath, no cough, GASTROINTESTINAL: No diarrhea, no nausea, no vomiting, no abdominal pain. NEUROLOGICAL: No headaches, no weakness, PHYSICAL EXAMINATION: GENERAL: The patient is alert and oriented x3, not in any acute distress. Well developed, well nourished. HEENT: Pupils are round and equally reacting to light. EOMI. No scleral icterus. No conjunctival pallor. Normocephalic, atraumatic. No pharyngeal erythema. No thyromegaly. CARDIOVASCULAR: S1 and S2 present. No murmurs, rubs, or gallops. PULMONARY: Chest is clear to auscultation, no wheezing or crackles. ABDOMEN: Soft, nontender, nondistended, normoactive bowel sounds. No palpable organomegaly. MUSCULOSKELETAL: No joint swelling or deformity. EXTREMITIES: No cyanosis, clubbing, or pedal edema. NEUROLOGICAL: Gross neurological examination did not reveal any focal deficits. SKIN: No rashes. Assessment and plan Acute urinary tract infection. Urine culture showed E. coli and Morganella morganii. Status post fall with acute fracture through the L4 vertebral body with mild less than 25% height loss. Completed antibiotic course for 5 days. Bilateral knee pain and back pain Generalized weakness Hyponatremia Hyperkalemia Hypovolemic hyponatremia sodium level 129 Paroxysmal atrial fibrillation on anticoagulation with Eliquis Sinus bradycardia Hypertension Diabetes type 2 insulin-dependent Hypothyroidism Monitor vital signs Monitor CBC Monitor CMP Encourage use of incentive spirometer Fall precaution Aggressive bowel regimen Continue pain management Continue Synthroid PT and OT following Labs and medication were reviewed.. Continue same treatment. Continue with symptomatic treatment. Resume home medication. Monitor labs and vitals. DVT and GI prophylaxis. Further recommendations as per clinical course of the patient Dictation was produced using [employer] dictation software. please excuse any gram matical, word or spelling errors. Objective - Vital Signs Vital signs: Vital Signs Temp 97.7 F 02/10/24 07:25 Pulse 70 02/10/24 07:25 Resp 18 02/10/24 07:25 BP 171/82 02/10/24 07:25 Pulse Ox 97 02/10/24 07:25 FiO2 Intake & Output 02/09/24 02/10/24 02/10/24 18:59 06:59 18:59 Output Total 800 Balance -800 Output: Urine 800 Other: Voiding Method External Catheter External Catheter # Voids 0 - Labs CBC & Chem 7: 02/10/24 03:50 02/10/24 03:50 Labs: Abnormal Lab Results - Last 24 Hours (Table) 02/09/24 02/09/24 02/09/24 Range/Units 11:38 16:41 20:24 Sodium (137-145) mmol/L Potassium (3.5-5.1) mmol/L BUN (7-17) mg/dL Glucose (74-99) mg/dL POC Glucose (mg/dL) 205 H 226 H 174 H (70-110) mg/dL 02/10/24 02/10/24 Range/Units 03:50 06:43 Sodium 126 L (137-145) mmol/L Potassium 5.2 H (3.5-5.1) mmol/L BUN 19 H (7-17) mg/dL Glucose 170 H (74-99) mg/dL POC Glucose (mg/dL) 198 H (70-110) mg/dL
[2024-02-10 16:51] LABS: Glucose,Whole Blood 193 mg/dL (70-110)
[2024-02-10] MEDS: ZINC OXIDE PASTE (Z-GUARD) 1 APPLIC TOPICAL PRN (16:57)
[2024-02-10 20:46] LABS: Glucose,Whole Blood 236 mg/dL (70-110)
[2024-02-11 06:24] LABS: Glucose,Whole Blood 221 mg/dL (70-110)
--- NOTE | 2024-02-11 10:52 | P.PN ---
Progress Note - Text Progress Note Date: 02/11/24 The patient is seen and examined at bedside. She has no new complaints. She says her back is sore but it is becoming more comfortable. She says that she has been having some improvement using the LSO brace for her low back pain when she ambulates. She denies any new changes bilateral lower extremities. She is afebrile stable vital signs At her lower extremities she has sustained dorsiflexion plantarflexion EHL intact. Calves thighs soft nontender. No pain with internal extra rotation of her hips. At her low back she has tenderness to palpation and still soreness with movement. Assessment and plan Acute L4 compression fracture status post fall, no acute neurologic deficit From a orthopedic spine standpoint the patient is making some progress with conservative treatment and LSO bracing. She should continue the LSO brace whenever she is up and out of bed. She does not need to use the brace while in bed. The fracture can heal well with conservative treatment and we discussed this with the patient. It is likely take several weeks for full healing but is okay for her to mobilize with the brace on during that time. If she is not having continued improvement or if she is having worsening or change she could be a candidate for surgical intervention but she would like to continue with conservative care for now. From an orthopedic spine standpoint is okay for her to discharge with the LSO brace when she is safe and stable from medical standpoint. I will plan to see h er back in 1 to 2 weeks for recheck evaluation and further treatment.
[2024-02-11 10:56] LABS: ALT 16 U/L (4-34); AST 27 U/L (14-36); African American GFR (CKD) 60 (>60 ml/min/1.73 sqM); Albumin 2.4 g/dL (3.5-5.0); Albumin/Globulin Ratio 0.9; Alkaline Phosphatase 105 U/L (38-126); Anion Gap 4 mmol/L; Basophils # (A) 0.1 k/uL (0-0.2); Basophils % (A) 1 %; Blood Urea Nitrogen 20 mg/dL (7-17); Calcium 8.1 mg/dL (8.4-10.2); Carbon Dioxide 22 mmol/L (22-30); Chloride 100 mmol/L (98-107); Eosinophils # (A) 0.3 k/uL (0-0.7); Eosinophils % (A) 3 %; Globulin 2.6 g/dL; Glucose 153 mg/dL (74-99); HCT 28.6 % (34.0-46.0); Lymphocytes # (A) 1.9 k/uL (1.0-4.8); Lymphocytes % (A) 21 %; MCH 29.9 pg (25.0-35.0); MCHC 32.2 g/dL (31.0-37.0); MCV 92.8 fL (80.0-100.0); Mean Platelet Volume 7.7; Monocytes # (A) 0.7 k/uL (0-1.0); Monocytes % (A) 8 %; Neutrophils # (A) 5.7 k/uL (1.3-7.7); Neutrophils % (A) 65 %; Non-African American GFR(CKD) 52 (>60 ml/min/1.73 sqM); Platelet Count 430 k/uL (150-450); RBC 3.08 m/uL (3.80-5.40); RDW 15.1 % (11.5-15.5); Sodium 126 mmol/L (137-145); Total Bilirubin 0.5 mg/dL (0.2-1.3); WBC 8.9 k/uL (3.8-10.6)
[2024-02-11 10:58] LABS: HGB 9.2 gm/dL (11.4-16.0)
[2024-02-11 12:06] LABS: Glucose,Whole Blood 210 mg/dL (70-110)
--- NOTE | 2024-02-11 12:09 | P.PN ---
Subjective Progress Note Date: 02/11/24 Patient is a 88-year-old female with a known history of hypertension, hyperlipidemia, diabetes type 2 insulin-dependent and hypothyroidism and also history of malignant melanoma presents to ER status post fall. Patient is currently at [facility]. Patient states that she felt very weak in her legs yesterday and landing on her knees. Again on the day of admission patient was ambulating she felt very weak and lean onto the ground. Denied any loss of consciousness. Denied hitting her head. No complaints of chest pain. No nausea vomiting abdominal pain or diarrhea. Denied any fever or chills. Patient is on anticoagulation with Eliquis for atrial fibrillation. Knee x-ray showed there is no acute fracture or dislocation in either knee. EKG showed sinus bradycardia with heart rate 58 Laboratory data showed WBC 7.9 hemoglobin 11.3 and platelets 360 Sodium 129 potassium 4.5 chloride 98, BUN 17 and creatinine 1.33 and blood sugar 165 magnesium 1.7 albumin 3.2 urinalysis showed small blood nitrite positive small leukocyte esterase, RBCs 26 WBCs 30 and hyaline casts. 02/05/2024 Patient is lying in the bed. Awake alert and oriented. No complaints of chest pain or shortness of breath. No cough or sputum production. Mentation is improved. Patient still having generalized weakness. Also complains of bilateral knee pain from fall. Patient is being continued on antibiotics ceftriaxone for urinary tract infection. Urine culture is growing gram-negative bacilli. Laboratory data showed a sodium 130, potassium 4.6 chloride 103 bicarb is 24 BUN 16 creatinine 1.16. TSH 16.8 and free T4 level is 1.39 02/06/2024 Patient is resting in the bed. Awake alert and oriented x 3. No complaints of chest pain or shortness of breath. Able to tolerate oral diet. Patient still complaining of bilateral lower extremity pain. Currently on Tylenol and tramadol. IV Toradol will be added. PT OT has seen the patient but patient unable to get out of bed. Continued on antibiotics with ceftriaxone for gram-negative bacilli urinary tract infection. Laboratory data showed sodium 131 potassium 4.3 chloride 100 bicarb is 20.9 BUN 15.5 and creatinine 1.1 and blood sugar 169 and calcium 8.2. 02/07/2024 Patient is resting in the bed. Awake alert and oriented. No complaints of chest pain or shortness of breath or otherwise still complains of bilateral knee pain and also back pain unable to get out of bed. Flexeril will be added along with tramadol and was also given IV Toradol. Patient otherwise denied any complaints of tingling sensation in the lower extremities. No fever no chills. No cough or sputum production. Currently on ceftriaxone for E. coli urinary tract infection. Laboratory data reviewed. 02/08/2024 Patient is currently lying in the bed. Awake alert and oriented x 3. Patient is unable to get out of bed due to severe back pain and also knee pain. Knee pain is slightly better. CT of abdominal pelvis was done which showed acute fracture through the L4 vertebral body with mild less than 25% height loss. No evidence of spinal canal stenosis. Orthopedic surgery recommends LSO brace. Which is being treated today. Otherwise patient has been afebrile. Continued on antibiotics in the home of ceftriaxone day 5.. Her blood sugar is well- controlled. 02/09/2024 Patient is able to sit in the chair today. Back pain is better. Knee pain is also been controlled. LSO brace was applied as per orthopedic surgery. Otherwise patient still weak and unable to walk by herself. PT OT has seen her. Also complains of constipation with not having bowel movement for the last few days. MiraLAX was given yesterday and today and will try enema if needed. Anticipate discharge to rehab in the next 24 to 48 hours. Continue with pain management. 02/09. Patient seen and examined. Sodium this morning is 126, potassium is 5.3.. Encourage patient to increase oral hydration. 02/10. Patient seen and examined. States she feels better. Back pain is improving REVIEW OF SYSTEMS: CONSTITUTIONAL: No fever, no malaise,. CARDIOVASCULAR: No chest pain, no palpitations, no syncope. PULMONARY: No shortness of breath, no cough, GASTROINTESTINAL: No diarrhea, no nausea, no vomiting, no abdominal pain. NEUROLOGICAL: No headaches, no weakness, PHYSICAL EXAMINATION: GENERAL: The patient is alert and oriented x3, not in any acute distress. Well developed, well nourished. HEENT: Pupils are round and equally reacting to light. EOMI. No scleral icterus. No conjunctival pallor. Normocephalic, atraumatic. No pharyngeal erythema. No thyromegaly. CARDIOVASCULAR: S1 and S2 present. No murmurs, rubs, or gallops. PULMONARY: Chest is clear to auscultation, no wheezing or crackles. ABDOMEN: Soft, nontender, nondistended, normoactive bowel sounds. No palpable organomegaly. MUSCULOSKELETAL: No joint swelling or deformity. EXTREMITIES: No cyanosis, clubbing, or pedal edema. NEUROLOGICAL: Gross neurological examination did not reveal any focal deficits. SKIN: No rashes. Assessment and plan Acute urinary tract infection. Urine culture showed E. coli and Morganella morganii. Status post fall with acute fracture through the L4 vertebral body with mild less than 25% height loss. Completed antibiotic course for 5 days. Bilateral knee pain and back pain Generalized weakness Hyponatremia Hyperkalemia Hypovolemic hyponatremia sodium level 129 Paroxysmal atrial fibrillation on anticoagulation with Eliquis Sinus bradycardia Hypertension Diabetes type 2 insulin-dependent Hypothyroidism Monitor vital signs Monitor CBC Monitor CMP Encourage use of incentive spirometer Fall precaution Aggressive bowel regimen Continue pain management with as needed [place] Continue Synthroid PT and OT following Labs and medication were reviewed.. Continue same treatment. Continue with symptomatic treatment. Resume home medication. Monitor labs and vitals. DVT and GI prophylaxis. Further recommendations as per clinical course of the patient Dictation was produced using [employer] dictation software. please excuse any grammatical, word or spelling errors. Objective - Vital Signs Vital signs: Vital Signs Temp 98.3 F 02/11/24 06:53 Pulse 58 L 02/11/24 06:53 Resp 17 02/11/24 06:53 BP 145/68 02/11/24 06:53 Pulse Ox 99 02/11/24 06:53 FiO2 Intake & Output 02/10/24 02/11/24 02/11/24 18:59 06:59 18:59 Intake Total 200 Output Total 850 400 Balance -650 -400 Intake: Oral 200 Output: Urine 850 400 Other: Voiding Method External Catheter External Catheter - Labs CBC & Chem 7: 02/11/24 10:16 02/11/24 10:16 Labs: Abnormal Lab Results - Last 24 Hours (Table) 02/10/24 02/10/24 02/10/24 Range/Units 03:50 03:50 11:28 RBC 3.14 L (4.10-5.20) X 10*6/uL Hgb 9.5 L (12.0-15.0) g/dL Hct 29.6 L (37.2-46.3) % RDW 15.0 H (11.5-14.5) % Immature Gran # 0.32 H (0.00-0.04) X 10*3/uL NRBC/100 WBC Diff 0.02 H (0.00-0.01) X 10*3/uL POC Glucose (mg/dL) 181 H (70-110) mg/dL Hemoglobin A1c 6.8 H (<=6.0) % 02/10/24 02/10/24 02/11/24 Range/Units 16:50 20:37 06:21 RBC (4.10-5.20) X 10*6/uL Hgb (12.0-15.0) g/dL Hct (37.2-46.3) % RDW (11.5-14.5) % Immature Gran # (0.00-0.04) X 10*3/uL NRBC/100 WBC Diff (0.00-0.01) X 10*3/uL POC Glucose (mg/dL) 193 H 236 H 221 H (70-110) mg/dL Hemoglobin A1c (<=6.0) %
[2024-02-11] MEDS: bisacodyL 10 MG SUPP RECTAL SCH (15:07)
[2024-02-11 16:31] LABS: Glucose,Whole Blood 221 mg/dL (70-110)
[2024-02-11 20:37] LABS: Glucose,Whole Blood 228 mg/dL (70-110)
[2024-02-11] MEDS: polyethylene glycoL 3350 17 GM POWD.PACK PO SCH (22:21)
[2024-02-12 06:23] LABS: Glucose,Whole Blood 207 mg/dL (70-110)
[2024-02-12 07:46] VITALS: RESP 16
[2024-02-12 08:28] LABS: Basophils # (A) 0.06 X 10*3/uL (0.00-0.10); Basophils % (A) 0.7 %; Eosinophils # (A) 0.25 X 10*3/uL (0.04-0.35); Eosinophils % (A) 2.7 %; HCT 28.7 % (37.2-46.3); HGB 9.3 g/dL (12.0-15.0); Lymphocytes # (A) 2.25 X 10*3/uL (0.90-5.00); Lymphocytes % (A) 24.6 %; MCH 30.3 pg (27.0-32.0); MCHC 32.4 g/dL (32.0-37.0); MCV 93.5 FL (80.0-97.0); Mean Platelet Volume 9.6 FL (9.5-12.2); Monocytes # (A) 0.79 X 10*3/uL (0.20-1.00); Monocytes % (A) 8.6 %; NRBC Per 100 WBC 0 X 10*3/uL (0.00-0.01); Platelet Count 419 X 10*3/uL (140-440); RBC 3.07 X 10*6/uL (4.10-5.20); RDW 15.1 % (11.5-14.5); WBC 9.16 X 10*3/uL (4.50-10.00)
[2024-02-12 11:40] LABS: Glucose,Whole Blood 242 mg/dL (70-110)
[2024-02-12 13:36] VITALS: BP 121/67; PULSE 65; TEMP 98.3
--- NOTE | 2024-02-12 15:02 | P.DS ---
Providers Date of admission: 02/06/24 08:45 Expected date of discharge: 02/12/24 Attending physician: Jamey Field Consults: 02/07/24 23:57 Consult Physician Routine Consulting Provider: Ernst Kimble Consult Reason/Comments: Acute fracture L4 Vertebral body Do you want consulting provider notified?: Yes Primary care physician: Son Nava [facility] Course: Final diagnosis Acute urinary tract infection. Urine culture showed E. coli and Morganella morganii. Patient has completed antibiotics course of 5 days Status post fall with acute fracture through the L4 vertebral body with mild less than 25% height loss. Bilateral knee pain and back pain Generalized weakness Hyponatremia, improved Hyperkalemia, improved Hypovolemic hyponatremia sodium level 129 Paroxysmal atrial fibrillation on anticoagulation with Eliquis Sinus bradycardia Hypertension Diabetes type 2 insulin-dependent Hypothyroidism Obesity with a BMI 33.5 GI prophylaxis DVT prophylaxis Full code Discharge disposition Patient is being discharged in a stable condition with guarded prognosis to [facility]. Patient will follow-up with Dr. Nava in the outpatient setting upon discharge. Patient is to continue with conservative management with an LSO brace and outpatient follow-up with orthopedics Shun Parish as scheduled. Total time taken is greater than 35 minutes. Hospital course This is a 88-year-old female who was recently admitted with fall with acute fracture noted of the L4 vertebral body along with acute urinary tract infection, present on admission. Patient urine cultures finalized with E. coli and Morganella and maintained on IV antibiotics. Antibiotics have been discontinued and will not required antibiotics on discharge. Patient also evaluated by orthopedics conservative management is being continued and will continue with LSO brace and recommending rehab. Patient is agreeable and will be going to [facility]. Patient with generalized weakness recommend continued pain management and aggressive physical therapy on discharge. Please refer to other consultation notes for further HPI. Currently no reports of chest pain, shortness of breath, or palpitations. Patient is afebrile. No reports of nausea or vomiting and patient is tolerating diet. Patient will be discharged to [facility] today. Guarded prognosis and high risk for readmissions given patient's significant comorbidities. Physical exam: Gen: This is a 88-year-old female who is awake, alert and oriented x 2-3, baseline, well-developed, elderly appearing, obese HEENT: Head is atraumatic, normocephalic. Pupils equal, round. Sclerae is anicteric. NECK: Supple. No JVD. No lymphadenopathy. No thyromegaly. LUNGS: Diminished breath sounds bilaterally otherwise clear to auscultation. No wheezes or rhonchi. No intercostal retractions. HEART: S1, S2 are muffled ABDOMEN: Soft. Obese bowel sounds are present. No masses. No tenderness. EXTREMITIES: No pedal edema. No calf tenderness. NEUROLOGICAL: Patient is awake, alert and oriented x2-3. Cranial nerves 2 through 12 are grossly intact. Diffusely weak Please refer to medication reconciliation sheet for a list of medications. The impression and plan of care has been dictated by Patricia Davila, Nurse Practitioner as directed. Dr. Emir MD I have performed a history and examination and MDM of this patient, discussed the same with the dictator, and agree with the dictator's assessment and plan as written ,documented as a scribe. Based on total visit time, I have performed more than 50% of the visit. Patient Condition at Discharge: Good Plan - Discharge Summary Discharge Rx Participant: No New Discharge Prescriptions: New Cyclobenzaprine [Flexeril] 10 mg PO BID PRN tab PRN Reason: Muscle Spasm Mag Hydrox/Al Hydrox/Simeth [Maalox] 15 ml PO Q6HR PRN ml PRN Reason: Indigestion polyethylene glycoL 3350 [Miralax] 17 gm PO BID packet Nystatin 100,000 Unit/gm Powd [Mycostatin Powder] 1 applic TOPICAL TID each HYDROcodone/APAP 5-325MG [[place] 5-325] 0.5 each PO Q6HR PRN #4 tab PRN Reason: Pain Calcium Carbonate [Tums] 1,000 mg PO Q4HR PRN tab PRN Reason: Dyspepsia Acetaminophen Tab [Tylenol] 650 mg PO Q6HR PRN tab PRN Reason: Mild Pain Or Fever > 100.5 bisacodyL [Dulcolax] 10 mg RECTAL DAILY suppositor INSULIN ASPART (NovoLOG) [NovoLOG (formulary)] 0 unit SQ ACHS each Sennosides [Senokot] 8.6 mg PO BID PRN tab PRN Reason: Constipation traMADol HCl [Ultram] 50 mg PO TID PRN #4 tab PRN Reason: Moderate Pain (Scale 4 To 6) Continue Aspirin 81 mg PO W/SUPPER Pantoprazole [Protonix] 40 mg PO AC-BRKFST Apixaban [Eliquis] 5 mg PO BID-W/MEALS Clobetasol Propionate [Temovate 0.05% Cream] 1 applic TOPICAL BID Furosemide [Lasix] 20 mg PO W/SUPPER Vitamin B Complex 1 cap PO W/BRKFST Pitavastatin Calcium [Livalo] 2 mg PO DIRECTED Levothyroxine Sodium [Synthroid] 75 mg PO HS Topiramate [Topamax] 25 mg PO W/SUPPER metFORMIN HCL 500 mg PO BID-W/MEALS glipiZIDE [glipiZIDE ER] 10 mg PO W/BRKFST Metoprolol Succinate (ER) [Toprol XL] 50 mg PO BID-W/MEALS Pioglitazone [Actos] 45 mg PO W/BRKFST Discontinued Losartan [Cozaar] 25 mg PO W/BRKFST Discharge Medication List Aspirin 81 mg PO W/SUPPER 07/06/20 [History] Levothyroxine Sodium [Synthroid] 75 mg PO HS 07/06/20 [History] Pantoprazole [Protonix] 40 mg PO AC-BRKFST 07/06/20 [History] Topiramate [Topamax] 25 mg PO W/SUPPER 07/06/20 [History] metFORMIN HCL 500 mg PO BID-W/MEALS 09/13/23 [History] Apixaban [Eliquis] 5 mg PO BID-W/MEALS 02/04/24 [History] Clobetasol Propionate [Temovate 0.05% Cream] 1 applic TOPICAL BID 02/04/24 [History] Furosemide [Lasix] 20 mg PO W/SUPPER 02/04/24 [History] Metoprolol Succinate (ER) [Toprol XL] 50 mg PO BID-W/MEALS 02/04/24 [History] Pioglitazone [Actos] 45 mg PO W/BRKFST 02/04/24 [History] Pitavastatin Calcium [Livalo] 2 mg PO DIRECTED 02/04/24 [History] Vitamin B Complex 1 cap PO W/BRKFST 02/04/24 [History] glipiZIDE [glipiZIDE ER] 10 mg PO W/BRKFST 02/04/24 [History] Acetaminophen Tab [Tylenol] 650 mg PO Q6HR PRN tab 02/12/24 [Rx] Calcium Carbonate [Tums] 1,000 mg PO Q4HR PRN tab 02/12/24 [Rx] Cyclobenzaprine [Flexeril] 10 mg PO BID PRN tab 02/12/24 [Rx] HYDROcodone/APAP 5-325MG [[place] 5-325] 0.5 each PO Q6HR PRN #4 tab 02/12/24 [Rx] INSULIN ASPART (NovoLOG) [NovoLOG (formulary)] 0 unit SQ ACHS each 02/12/24 [Rx] Mag Hydrox/Al Hydrox/Simeth [Maalox] 15 ml PO Q6HR PRN ml 02/12/24 [Rx] Nystatin 100,000 Unit/gm Powd [Mycostatin Powder] 1 applic TOPICAL TID each 02/12/24 [Rx] Sennosides [Senokot] 8.6 mg PO BID PRN tab 02/12/24 [Rx] bisacodyL [Dulcolax] 10 mg RECTAL DAILY suppositor 02/12/24 [Rx] polyethylene glycoL 3350 [Miralax] 17 gm PO BID packet 02/12/24 [Rx] traMADol HCl [Ultram] 50 mg PO TID PRN #4 tab 02/12/24 [Rx] Follow up Appointment(s)/Referral(s): Paco Parish PAC [PHYSICIAN ONCOLOGY ADMIN] - 2 Weeks (Patient may follow-up with Paco Parish PA-C or Dr. Rj Kimble at [facility] in 2-3 weeks following discharge. ) Son Nava DO [Primary Care Provider] - 1-2 days Activity/Diet/Wound Care/Special Instructions: Patient is going to [facility] Activity as tolerated per orthopedics Continue diabetic heart healthy diet Continue monitoring Accu-Cheks before meals and at bedtime NovoLog sliding scale 0-150 equals 0 units 151-200 equals 2 units 201-250 equals 4 units 251-300 equals 6 units 301-350 equals 8 units 351-400 equals 10 units Please notify provider if blood sugar is 400 or above Follow-up with orthopedics outpatient 1. Patient may wear LSO brace for comfort and support while sitting upright at greater than 45, while working with therapy, and while ambulating; patient does not have to wear the brace while lying in bed or bathing 2. Patient should avoid excessive bending, twisting, and lifting; no lifting greater than 10 pounds Discharge Disposition: TRANSFER TO SNF/ECF
[2024-02-12 16:09] LABS: Glucose,Whole Blood 185 mg/dL (70-110)
[2024-02-12 22:44] LABS: ALT 14 U/L (8-44); AST 26 U/L (13-35); Albumin 2.8 g/dL (3.8-4.9); Albumin/Globulin Ratio 1.17 Ratio (1.60-3.17); Alkaline Phosphatase 139 U/L (41-126); BUN/Creat Ratio 17.75 Ratio (12.00-20.00); Blood Urea Nitrogen 21.3 mg/dL (9.0-27.0); Calcium 8.3 mg/dL (8.7-10.3); Carbon Dioxide 18.5 mmol/L (21.6-31.8); Chloride 98 mmol/L (96-109); Globulin 2.4 g/dL (1.6-3.3); Glucose 194 mg/dL (70-110); Potassium 5.2 mmol/L (3.5-5.5); Sodium 128 mmol/L (135-145); Total Bilirubin <0.2 mg/dL (0.3-1.2); Total Protein 5.2 g/dL (6.2-8.2)
== END 2024-02-12 17:31 | DRG 690 ==
LOC: EC 01:08 → 4SSUR 06:28 → OBSVTOIN 02-06 08:45
PROVIDERS: ADMIT Hospitalist; ATTEND Hospitalist
DX: N39.0 Urinary tract infection, site not specified (principal); S32.049A Unspecified fracture of fourth lumbar vertebra, initial encounter for closed fracture; E87.1 Hypo-osmolality and hyponatremia; M47.16 Other spondylosis with myelopathy, lumbar region; M51.06 Intervertebral disc disorders with myelopathy, lumbar region; B96.20 Unspecified Escherichia coli [E. coli] as the cause of diseases classified elsewhere; M43.16 Spondylolisthesis, lumbar region; M47.26 Other spondylosis with radiculopathy, lumbar region; M48.061 Spinal stenosis, lumbar region without neurogenic claudication; E11.9 Type 2 diabetes mellitus without complications; E86.1 Hypovolemia; I10 Essential (primary) hypertension; I48.0 Paroxysmal atrial fibrillation; R29.6 Repeated falls; R00.1 Bradycardia, unspecified; B96.4 Proteus (mirabilis) (morganii) as the cause of diseases classified elsewhere; Z91.81 History of falling; E87.5 Hyperkalemia; K59.00 Constipation, unspecified; M51.16 Intervertebral disc disorders with radiculopathy, lumbar region; W19.XXXA Unspecified fall, initial encounter; Z68.33 Body mass index [BMI] 33.0-33.9, adult; Z79.01 Long term (current) use of anticoagulants; E78.5 Hyperlipidemia, unspecified; E66.9 Obesity, unspecified; M25.562 Pain in left knee; M25.561 Pain in right knee; M54.9 Dorsalgia, unspecified; E87.70 Fluid overload, unspecified; E03.9 Hypothyroidism, unspecified; Z79.4 Long term (current) use of insulin; Z79.84 Long term (current) use of oral hypoglycemic drugs; Z82.49 Family history of ischemic heart disease and other diseases of the circulatory system; Z96.653 Presence of artificial knee joint, bilateral; Z79.890 Hormone replacement therapy; Z90.49 Acquired absence of other specified parts of digestive tract
CPT/HCPCS: 36415; 51701; 72131; 80048; 80053; 81001; 83036; 83735; 84439; 84443; 84484; 85025; 85610; 85730; 87077; 87086; 87186; 93005; 96361; 96374; 96375; 99285

== ENCOUNTER 2024-04-26 01:23 | Emergency (ER) | payer MEDICARE, OTHER ==
[2024-04-26] MEDS: OXYMETAZOLINE 0.05% NASL SPRAY 1 SPRAY BOTTLE NASAL STA (01:45)
--- NOTE | 2024-04-26 01:56 | ED ---
ENT HPI - General Chief complaint: ENT Stated complaint: Nose Bleed Time Seen by Provider: 04/26/24 01:24 Source: patient, EMS, RN notes reviewed Mode of arrival: EMS Limitations: no limitations - History of Present Illness Initial comments: This is an 88-year-old female who presents to the emergency department for a nosebleed. Patient presents from [facility]. She is on Eliquis and has had a nosebleed on and off throughout the day. However, when they could not get it to stop they called EMS to bring her here for evaluation. En route with EMS her bleeding stopped on its own. Patient denies any complaints and is not sure why she is here. MD complaint: epistaxis - Related Data Home Medications Medication Instructions Recorded Confirmed RX: Aspirin 81 mg PO W/SUPPER 07/06/20 02/04/24 RX: Levothyroxine Sodium 75 mg PO HS 07/06/20 02/04/24 [Synthroid] RX: Pantoprazole [Protonix] 40 mg PO AC-BRKFST 07/06/20 02/04/24 RX: Topiramate [Topamax] 25 mg PO W/SUPPER 07/06/20 02/04/24 RX: metFORMIN HCL 500 mg PO BID-W/MEALS 09/13/23 02/04/24 RX: Apixaban [Eliquis] 5 mg PO BID-W/MEALS 02/04/24 02/04/24 RX: Clobetasol Propionate 1 applic TOPICAL BID 02/04/24 02/04/24 [Temovate 0.05% Cream] RX: Furosemide [Lasix] 20 mg PO W/SUPPER 02/04/24 02/04/24 RX: Metoprolol Succinate (ER) 50 mg PO BID-W/MEALS 02/04/24 02/04/24 [Toprol XL] RX: Pioglitazone [Actos] 45 mg PO W/BRKFST 02/04/24 02/04/24 RX: Pitavastatin Calcium [Livalo] 2 mg PO DIRECTED 02/04/24 02/04/24 RX: Vitamin B Complex 1 cap PO W/BRKFST 02/04/24 02/04/24 RX: glipiZIDE [glipiZIDE ER] 10 mg PO W/BRKFST 02/04/24 02/04/24 Previous Rx's Medication Instructions Recorded RX: Acetaminophen Tab [Tylenol] 650 mg PO Q6HR PRN tab 02/12/24 RX: Calcium Carbonate [Tums] 1,000 mg PO Q4HR PRN tab 02/12/24 RX: Cyclobenzaprine [Flexeril] 10 mg PO BID PRN tab 02/12/24 RX: HYDROcodone/APAP 5-325MG 0.5 each PO Q6HR PRN #4 tab 02/12/24 [[place] 5-325] RX: INSULIN ASPART (NovoLOG) 0 unit SQ ACHS each 02/12/24 [NovoLOG (formulary)] RX: Mag Hydrox/Al Hydrox/Simeth 15 ml PO Q6HR PRN ml 02/12/24 [Maalox] RX: Nystatin 100,000 Unit/gm Powd 1 applic TOPICAL TID each 02/12/24 [Mycostatin Powder] RX: Sennosides [Senokot] 8.6 mg PO BID PRN tab 02/12/24 RX: bisacodyL [Dulcolax] 10 mg RECTAL DAILY suppositor 02/12/24 RX: polyethylene glycoL 3350 17 gm PO BID packet 02/12/24 [Miralax] RX: traMADol HCl [Ultram] 50 mg PO TID PRN #4 tab 02/12/24 Allergies Allergy/AdvReac Type Severity Reaction Status Date / Time No Known Allergies Allergy Verified 02/04/24 12:37 Review of Systems ROS Statement: Those systems with pertinent positive or pertinent negative responses have been documented in the HPI. ROS Other: All systems not noted in ROS Statement are negative. Past Medical History Past Medical History: Diabetes Mellitus, Hyperlipidemia, Hypertension, Thyroid Disorder Additional Past Medical History / Comment(s): malignant melanoma History of Any Multi-Drug Resistant Organisms: None Reported Past Surgical History: Breast Surgery, Cholecystectomy Additional Past Surgical History / Comment(s): bilateral knee replacement Past Anesthesia/Blood Transfusion Reactions: No Reported Reaction Past Psychological History: No Psychological Hx Reported Smoking Status: Never smoker Past Alcohol Use History: None Reported Past Drug Use History: None Reported - Past Family History Father Family Medical History: Coronary Artery Disease (CAD) Mother Family Medical History: Cancer General Exam Limitations: no limitations General appearance: alert, in no apparent distress Head exam: Present: atraumatic, normocephalic, normal inspection ENT exam: Present: other (Dried blood in the bilateral nares) Respiratory exam: Present: normal lung sounds bilaterally. Absent: respiratory distress, wheezes, rales, rhonchi, stridor Cardiovascular Exam: Present: regular rate, normal rhythm Neurological exam: Present: alert Skin exam: Present: warm, dry, intact, normal color. Absent: rash Course Vital Signs 04/26/24 01:33 Temperature 98.4 F Pulse Rate 63 Respiratory 16 Rate Blood Pressure 150/74 O2 Sat by Pulse 97 Oximetry Medical Decision Making - Medical Decision Making This is an 88-year-old female who presents to the emergency department for a nosebleed. Was pt. sent in by a medical professional or institution? @ -No Did you speak to anyone other than the patient for history? @ -Grove Celis provided all of the history. Did you review nursing and triage notes? @ -Yes, and I agree, it is accurate with regards to the patient's symptoms. Were old charts reviewed? @ -No Differential Diagnosis? @ -Coagulopathy, injury, tumor, dryness, this is not meant to be an all- inclusive list. EKG interpreted by me (3pts min.)? @ -Not obtained X-rays interpreted by me (1pt min.)? @ -Not obtained CT interpreted by me (1pt min.)? @ -Not obtained U/S interpreted by me (1pt. min.)? @ -Not obtained What testing was considered but not performed? (CT, X-rays, U/S, labs)? Why? @ -None What meds were considered but not given? Why? @ -None Did you discuss the management of the patient with other professionals? @ -No Did you reconcile home meds? @ -No Was smoking cessation discussed for >3mins.? @ -No Was critical care preformed (if so, how long)? @ -No Were there social determinants of health that impacted care today? How? (Homelessness, low income, unemployed, alcoholism, drug addiction, transportation, low edu. Level, literacy, decrease access to med. care, nursing home, rehab)? @ -No Was there de-escalation of care discussed even if they declined? (Discuss DNR or withdrawal of care, Hospice)? @ -No What co-morbidities impacted this encounter? (DM, HTN, Smoking, COPD, CAD, Cancer, CVA, Hep., AIDS, mental health diagnosis, sleep apnea, morbid obesity)? @ -None Was patient admitted / discharged? @ -Discharged. When the patient arrived in the emergency department she had no active bleeding. However, she did have fresh blood in the right nare and there was concern that the bleeding could restart. Afrin nasal spray was subsequently administered. Patient was monitored for an hour afterwards and had no additional bleeding. Patient discharged back to [facility] via EMS in stable condition. Case discussed with ED attending Dr. Martin. Return precautions reviewed in depth, the patient is instructed to return to the emergency department with any new, worsening, or concerning symptoms. Patient verbalized understanding. Undiagnosed new problem with uncertain prognosis? @ -None Drug Therapy requiring intensive monitoring for toxicity (Heparin, Nitro, Insulin, Cardizem)? @ -None Were any procedures done? @ -None Diagnosis/symptom? @ -Epistaxis Acute, or Chronic, or Acute on Chronic? @ -Acute Uncomplicated (without systemic symptoms) or Complicated (systemic symptoms)? @ -Uncomplicated Side effects of treatment? @ -None Exacerbation, Progression, or Severe Exacerbation] @ -Not applicable Poses a threat to life or bodily function? @ -No Disposition Clinical Impression: Epistaxis Disposition: HOME SELF-CARE Instructions (If sedation given, give patient instructions): Nosebleed (ED) Additional Instructions: Return to the emergency department with any new, worsening, or concerning symptoms. Follow up with your primary care provider in 1-2 days. Is patient prescribed a controlled substance at d/c from ED?: No Referrals: Son Nava DO [Primary Care Provider] - 1-2 days Time of Disposition: 02:46
[2024-04-26 04:07] VITALS: BP 148/75; PULSE 67; RESP 18; TEMP 98.2
== END 2024-04-26 04:08 | disposition home or self-care (01) ==
LOC: EC 01:23
DX: R04.0 Epistaxis (principal)
CPT/HCPCS: 99283

== ENCOUNTER 2024-07-06 17:10 | Inpatient (IN) | payer MEDICARE, OTHER ==
[2024-07-06 17:28] LABS: Glucose,Whole Blood 146 mg/dL (70-110)
--- NOTE | 2024-07-06 17:38 | ED ---
SOB HPI - General Chief Complaint: Shortness of Breath Stated Complaint: SOB Time Seen by Provider: 07/06/24 17:13 Source: patient, RN notes reviewed, old records reviewed Mode of arrival: EMS Limitations: no limitations - History of Present Illness Initial Comments: This is an [age]-year-old female to the ER for evaluation of severe shortness of breath history of recent diagnosis of pneumonia but breathing has gotten progressively worse history of COPD and heart failure poor historian secondary to clinical condition significant work of breathing and wheezing patient states she feels weak without chest pain but cannot catch her breath MD Complaint: shortness of breath, cough -: days(s) Severity: severe Severity scale (1-10): 10 Consistency: constant Improves With: nothing Worsens With: nothing Known History Of: COPD, asthma, congestive heart failure Context: recent URI, anxiety, recent illness Associated Symptoms: cough, sputum production Treatments Prior to Arrival: none - Related Data Home Oxygen Therapy: No Home Medications Medication Instructions Recorded Confirmed Aspirin 81 mg PO DAILY@79907/06/20 07/06/24 Topiramate [Topamax] 25 mg PO DAILY@79907/06/20 07/06/24 Apixaban [Eliquis] 5 mg PO BID@799,199902/04/24 07/06/24 Furosemide [Lasix] 20 mg PO DAILY@79902/04/24 07/06/24 Metoprolol Succinate (ER) [Toprol 50 mg PO BID@08,199902/04/24 07/06/24 XL] Pioglitazone [Actos] 45 mg PO DAILY@79902/04/24 07/06/24 Vitamin B Complex 1 cap PO DAILY@79902/04/24 07/06/24 glipiZIDE [glipiZIDE ER] 10 mg PO DAILY@79902/04/24 07/06/24 Acetaminophen Tab [Tylenol] 650 mg PO Q8H PRN 07/06/24 07/06/24 Atorvastatin [Lipitor] 10 mg PO HS@199907/06/24 07/06/24 Calcium Carbonate [Tums] 1,000 mg PO Q4HR PRN 07/06/24 07/06/24 Ferrous Sulfate [Iron] 325 mg PO DAILY@79907/06/24 07/06/24 HYDROcodone/APAP 5-325MG [Simpson 0.5 tab PO Q6HR PRN 07/06/24 07/06/24 5-325] Insulin Lispro [humaLOG Kwikpen] See Protocol SQ AC-TID 07/06/24 07/06/24 Levothyroxine Sodium [Synthroid] 100 mcg PO HS@199907/06/24 07/06/24 Menthol-Zinc Oxide Oint 1 applic TOPICAL BID PRN 07/06/24 07/06/24 [Calmoseptine Ointment] Nystatin 100,000 Unit/gm Powd 1 applic TOPICAL BID@799,199907/06/24 07/06/24 [Mycostatin Powder] Omeprazole 20 mg PO DAILY@79907/06/24 07/06/24 Sodium Chloride [Wound Wash Saline] 1 spray TOPICAL DIRECTED 07/06/24 07/06/24 bisacodyL [Dulcolax] 10 mg RECTAL DAILY@79907/06/24 07/06/24 polyethylene glycoL 3350 [Miralax] 17 gm PO BID@799,199907/06/24 07/06/24 traMADol HCl [Ultram] 50 mg PO Q8H PRN 07/06/24 07/06/24 Previous Rx's Medication Instructions Recorded Cyclobenzaprine [Flexeril] 10 mg PO BID PRN tab 02/12/24 Mag Hydrox/Al Hydrox/Simeth 15 ml PO Q6HR PRN ml 02/12/24 [Maalox] Sennosides [Senokot] 8.6 mg PO BID PRN tab 02/12/24 Allergies Allergy/AdvReac Type Severity Reaction Status Date / Time No Known Allergies Allergy Verified 07/06/24 19:14 Review of Systems ROS Statement: Those systems with pertinent positive or pertinent negative responses have been documented in the HPI. ROS Other: All systems not noted in ROS Statement are negative. Past Medical History Past Medical History: Diabetes Mellitus, Hyperlipidemia, Hypertension, Thyroid Disorder Additional Past Medical History / Comment(s): malignant melanoma History of Any Multi-Drug Resistant Organisms: None Reported Past Surgical History: Breast Surgery, Cholecystectomy Additional Past Surgical History / Comment(s): bilateral knee replacement Past Anesthesia/Blood Transfusion Reactions: No Reported Reaction Past Psychological History: No Psychological Hx Reported Smoking Status: Never smoker Past Alcohol Use History: None Reported Past Drug Use History: None Reported - Past Family History Father Family Medical History: Coronary Artery Disease (CAD) Mother Family Medical History: Cancer General Exam Limitations: altered mental status, physical limitation General appearance: alert, in no apparent distress, anxious, lethargic, in distress Head exam: Present: atraumatic, normocephalic, normal inspection Eye exam: Present: normal appearance, PERRL, EOMI. Absent: scleral icterus, conjunctival injection, periorbital swelling ENT exam: Present: normal exam, mucous membranes moist Neck exam: Present: normal inspection. Absent: tenderness, meningismus, lymphadenopathy Respiratory exam: Present: respiratory distress, wheezes, accessory muscle use, decreased breath sounds, prolonged expiratory. Absent: rales, rhonchi, stridor Cardiovascular Exam: Present: regular rate, normal rhythm, normal heart sounds. Absent: systolic murmur, diastolic murmur, rubs, gallop, clicks GI/Abdominal exam: Present: soft, normal bowel sounds. Absent: distended, tenderness, guarding, rebound, rigid Extremities exam: Present: normal inspection, full ROM, normal capillary refill. Absent: tenderness, pedal edema, joint swelling, calf tenderness Back exam: Present: normal inspection Neurological exam: Present: alert, oriented X3, CN II-XII intact Psychiatric exam: Present: normal affect, normal mood Skin exam: Present: warm, dry, intact, normal color. Absent: rash Course Vital Signs 07/06/24 07/06/24 07/06/24 17:16 17:20 17:26 Temperature 98.4 F Pulse Rate 85 102 H Respiratory 36 H 29 H 30 H Rate Blood Pressure 152/104 152/104 O2 Sat by Pulse 85 L 99 Oximetry 07/06/24 07/06/24 07/06/24 18:22 18:23 18:34 Temperature 98.8 F Pulse Rate 116 H 114 H 116 H Respiratory 16 Rate Blood Pressure 107/74 O2 Sat by Pulse 93 L Oximetry 07/06/24 07/06/24 21:06 22:49 Temperature 98.7 F Pulse Rate 75 67 Respiratory 18 20 Rate Blood Pressure 96/57 118/57 O2 Sat by Pulse 99 99 Oximetry - Reevaluation(s) Reevaluation #1: 07/06/24 19:45 Medical records reviewed Reevaluation #2: 04/05/25 19:45 Patient has no improvement after first breathing treatment Breathing is improved after second breathing treatment Reevaluation #3: 07/06/24 19:45 Patient informed of results questions answered Reevaluation #4: Was pt. sent in by a medical professional or institution (ANGELIKA Lam, [employer], urgent care, hospital, or fci...) When possible be specific @ -no Did you speak to anyone other than the patient for history (EMS, parent, family, police, friend...)? What history was obtained from this source @ -no Did you review nursing and triage notes (agree or disagree)? Why? @ -agree Are old charts reviewed (outside hosp., previous admission, EMS record, old EKG, old radiological studies, urgent care reports/EKG's, fci records)? Report findings @ -yes Differential Diagnosis (chest pain, altered mental status, abdominal pain women, abdominal pain men, vaginal bleeding, weakness, fever, dyspnea, syncope, headache, dizziness, GI bleed, back pain, seizure, CVA, palpatations, mental health, musculoskeletal)? @ -prior EKG interpreted by me (3pts min.). @ -yes X-rays interpreted by me (1pt min.). @ -yes negative for acute disease CT interpreted by me (1pt min.). @ -no U/S interpreted by me (1pt. min.). @ -no What testing was considered but not performed or refused? (CT, X-rays, U/S, labs)? Why? @ -none What meds were considered but not given or refused? Why? @ -none Did you discuss the management of the patient with other professionals (professionals i.e. ANGELIKA Lam, [employer] WORK[employer], lab, RT, psych nurse, manager social responsibility, motorcycle engine assembler, te acher, light armored reconnaissance officer, caser in)? Give summary @ -no Was smoking cessation discussed for >3mins.? @ -no Was critical care preformed (if so, how long)? @ -no Were there social determinants of health that impacted care today? How? (Homelessness, low income, unemployed, alcoholism, drug addiction, transportation, low edu. Level, literacy, decrease access to med. care, fci, rehab)? @ -none Was there de-escalation of care discussed even if they declined (Discuss DNR or withdrawal of care, Hospice)? DNR status @ -no What co-morbidities impacted this encounter? (DM, HTN, Smoking, COPD, CAD, Cancer, CVA, ARF, Chemo, Hep., AIDS, mental health diagnosis, sleep apnea, morbid obesity)? @ -none Was patient admitted / discharged? Hospital course, mention meds given and route, prescriptions, significant lab abnormalities, going to OR and other pertinent info. @ - Undiagnosed new problem with uncertain prognosis? @ -no Drug Therapy requiring intensive monitoring for toxicity (Heparin, Nitro, Insulin, Cardizem)? @ -no Were any procedures done? @ -no Diagnosis/symptom? @ - Acute, or Chronic, or Acute on Chronic? @ -Acute Uncomplicated (without systemic symptoms) or Complicated (systemic symptoms)? @ -Complicated Side effects of treatment? @ -no Exacerbation, Progression, or Severe Exacerbation? @ -exacerbation Poses a threat to life or bodily function? How? (Chest pain, [place], [place], pneumonia, PE, COPD, DKA, ARF, appy, cholecystitis, CVA, Diverticulitis, Homicidal, Suicidal, threat to staff... and all critical care pts) @ -yes Reevaluation #5: Differential Dyspnea: Coronary syndrome, arrhythmia, tamponade, asthma, COPD, pulmonary embolism, pneumonia, pneumothorax, pulmonary effusion, anaphylaxis, diabetic ketoacidosis, flailed chest, pulmonary contusion, diaphragmatic rupture, anemia, neuromuscular, this is not meant to be an all-inclusive list. - Consultations Consultation #1: Spoke with [facility] [place] who agrees to admit this patient Medical Decision Making - Medical Decision Making 88 female with multifactorial respiratory failure allegedly recent diagnosis of pneumonia but do not see evidence of pneumonia here in the ER no fever no elevated white blood cell count no evidence on x-ray, patient does have pulmonary edema heart failure with COPD exacerbation will admit for multifactorial hypoxic respiratory failure - Lab Data Result diagrams: 07/06/24 17:24 07/06/24 17:24 Lab Results 07/06/24 07/06/24 07/06/24 Range/Units 17:24 17:24 17:24 WBC 5.4 (3.8-10.6) k/uL RBC 4.25 (3.80-5.40) m/uL Hgb 12.5 (11.4-16.0) gm/dL Hct 39.8 (34.0-46.0) % MCV 93.7 (80.0-100.0) fL MCH 29.3 (25.0-35.0) pg MCHC 31.3 (31.0-37.0) g/dL RDW 17.4 H (11.5-15.5) % Plt Count 283 (150-450) k/uL MPV 9.5 Neutrophils % 65 % Lymphocytes % 20 % Monocytes % 8 % Eosinophils % 2 % Basophils % 2 % Neutrophils # 3.5 (1.3-7.7) k/uL Lymphocytes # 1.1 (1.0-4.8) k/uL Monocytes # 0.4 (0-1.0) k/uL Eosinophils # 0.1 (0-0.7) k/uL Basophils # 0.1 (0-0.2) k/uL Anisocytosis Slight PT 12.3 (10.0-12.5) sec INR 1.1 (<1.2) APTT 28.1 (22.0-30.0) sec Sodium 134 L (137-145) mmol/L Potassium 4.2 (3.5-5.1) mmol/L Chloride 99 (98-107) mmol/L Carbon Dioxide 30 (22-30) mmol/L Anion Gap 5 mmol/L BUN 25 H (7-17) mg/dL Creatinine 0.98 (0.52-1.04) mg/dL Est GFR (CKD-EPI)AfAm 60 (>60 ml/min/1.73 sqM) Est GFR (CKD-EPI)NonAf 52 (>60 ml/min/1.73 sqM) Glucose 158 H (74-99) mg/dL POC Glucose (mg/dL) (70-110) mg/dL POC Glu Tube Wrapper ID Plasma Lactic Acid Juanito (0.7-2.0) mmol/L Calcium 8.8 (8.4-10.2) mg/dL Magnesium 1.8 (1.6-2.3) mg/dL Total Bilirubin 0.6 (0.2-1.3) mg/dL AST 33 (14-36) U/L ALT 19 (4-34) U/L Alkaline Phosphatase 110 (38-126) U/L Troponin I (0.000-0.034) ng/mL NT-Pro-B Natriuret Pep 59901 pg/mL Total Protein 6.1 L (6.3-8.2) g/dL Albumin 3.2 L (3.5-5.0) g/dL 07/06/24 07/06/24 07/06/24 Range/Units 17:24 17:24 17:26 WBC (3.8-10.6) k/uL RBC (3.80-5.40) m/uL Hgb (11.4-16.0) gm/dL Hct (34.0-46.0) % MCV (80.0-100.0) fL MCH (25.0-35.0) pg MCHC (31.0-37.0) g/dL RDW (11.5-15.5) % Plt Count (150-450) k/uL MPV Neutrophils % % Lymphocytes % % Monocytes % % Eosinophils % % Basophils % % Neutrophils # (1.3-7.7) k/uL Lymphocytes # (1.0-4.8) k/uL Monocytes # (0-1.0) k/uL Eosinophils # (0-0.7) k/uL Basophils # (0-0.2) k/uL Anisocytosis PT (10.0-12.5) sec INR (<1.2) APTT (22.0-30.0) sec Sodium (137-145) mmol/L Potassium (3.5-5.1) mmol/L Chloride (98-107) mmol/L Carbon Dioxide (22-30) mmol/L Anion Gap mmol/L BUN (7-17) mg/dL Creatinine (0.52-1.04) mg/dL Est GFR (CKD-EPI)AfAm (>60 ml/min/1.73 sqM) Est GFR (CKD-EPI)NonAf (>60 ml/min/1.73 sqM) Glucose (74-99) mg/dL POC Glucose (mg/dL) 146 H (70-110) mg/dL POC Glu Tube Wrapper ID Thornton Jimi Plasma Lactic Acid Juanito 1.7 (0.7-2.0) mmol/L Calcium (8.4-10.2) mg/dL Magnesium (1.6-2.3) mg/dL Total Bilirubin (0.2-1.3) mg/dL AST (14-36) U/L ALT (4-34) U/L Alkaline Phosphatase (38-126) U/L Troponin I 0.013 (0.000-0.034) ng/mL NT-Pro-B Natriuret Pep pg/mL Total Protein (6.3-8.2) g/dL Albumin (3.5-5.0) g/dL - EKG Data -: EKG Interpreted by Me (EKG is sinus 74 SC 198 QRS 156 QTc 413) - Radiology Data Radiology results: report reviewed (Chest x-ray is positive for CHF), image reviewed Critical Care Time Critical Care Time: Yes Total Critical Care Time: 31 Disposition Clinical Impression: Acute exacerbation of chronic obstructive pulmonary disease, Acute pulmonary edema, Congestive heart failure, Weakness, Hypoxia, DNR (do not resuscitate) Disposition: ADMITTED IP TO THIS [facility] Condition: Serious Is patient prescribed a controlled substance at d/c from ED?: No Time of Disposition: 19:00
--- NOTE | 2024-07-06 18:05 | XR ---
EXAMINATION TYPE: XR chest 1V portable DATE OF EXAM: 07/06/2024 5:44 PM COMPARISON: Prior chest radiograph 09/13/2023. CLINICAL INDICATION: Female, 88 years old with history of sob; H TECHNIQUE: XR chest 1V portable Frontal view of the chest. FINDINGS: Cardiomegaly and pulmonary vascular congestive changes. Bilateral small pleural effusions and lower lobe opacities which could reflect compressive atelectasi s. No pneumothorax. No acute osseous abnormality. IMPRESSION: Cardiomegaly and pulmonary vascular congestion with small effusions. [facility], , 07/06/2024 6:02 PM
[2024-07-06 18:10] LABS: ALT 19 U/L (4-34); AST 33 U/L (14-36); African American GFR (CKD) 60 (>60 ml/min/1.73 sqM); Albumin 3.2 g/dL (3.5-5.0); Alkaline Phosphatase 110 U/L (38-126); Anion Gap 5 mmol/L; Blood Urea Nitrogen 25 mg/dL (7-17); Calcium 8.8 mg/dL (8.4-10.2); Carbon Dioxide 30 mmol/L (22-30); Chloride 99 mmol/L (98-107); Glucose 158 mg/dL (74-99); Magnesium 1.8 mg/dL (1.6-2.3); Non-African American GFR(CKD) 52 (>60 ml/min/1.73 sqM); Potassium 4.2 mmol/L (3.5-5.1); Sodium 134 mmol/L (137-145); Total Bilirubin 0.6 mg/dL (0.2-1.3); Total Protein 6.1 g/dL (6.3-8.2)
[2024-07-06 18:14] LABS: INR 1.1 (<1.2); Partial Thromboplastin Time 28.1 sec (22.0-30.0); Prothrombin Time 12.3 sec (10.0-12.5)
[2024-07-06 18:18] LABS: NT-Pro-B-Type Natriuretic Pept 11500 pg/mL
[2024-07-06 18:22] LABS: Anisocytosis Slight; Basophils # (A) 0.1 k/uL (0-0.2); Basophils % (A) 2 %; Eosinophils # (A) 0.1 k/uL (0-0.7); Eosinophils % (A) 2 %; HCT 39.8 % (34.0-46.0); HGB 12.5 gm/dL (11.4-16.0); Lymphocytes # (A) 1.1 k/uL (1.0-4.8); Lymphocytes % (A) 20 %; MCH 29.3 pg (25.0-35.0); MCHC 31.3 g/dL (31.0-37.0); MCV 93.7 fL (80.0-100.0); Mean Platelet Volume 9.5; Monocytes # (A) 0.4 k/uL (0-1.0); Monocytes % (A) 8 %; Neutrophils # (A) 3.5 k/uL (1.3-7.7); Neutrophils % (A) 65 %; Platelet Count 283 k/uL (150-450); RBC 4.25 m/uL (3.80-5.40); RDW 17.4 % (11.5-15.5); WBC 5.4 k/uL (3.8-10.6)
[2024-07-06] MEDS: IPRATROPIUM-ALBUTEROL 3 ML NEB INHALATION STA ×2 (18:22→21:48)
[2024-07-06] MEDS: AZITHROMYCIN 500 MG in SODIUM CHLORIDE 0.9% 250 ML IVPB STA (18:22)
[2024-07-06] MEDS ORDERED: ONDANSETRON 4 MG/2 ML VIAL IVP PRN (19:16)
[2024-07-06] MEDS ORDERED: NALOXONE 0.4 MG/ML 1 ML VIAL IVP PRN (19:16)
[2024-07-06] MEDS ORDERED: NALOXONE 0.4 MG/ML 1 ML VIAL IV PRN (19:16)
[2024-07-06] MEDS ORDERED: ALBUTEROL NEBULIZED 2.5 MG/3 ML INHALATION PRN (19:16)
[2024-07-06] MEDS ORDERED: MORPHINE SULFATE 4 MG/ML SYRINGE IV PRN (19:16)
[2024-07-06] MEDS: FUROSEMIDE 10 MG/ML 4 ML VIAL IV SCH (20:01)
[2024-07-06] MEDS: ASPIRIN 325 MG TAB PO STA (20:02)
[2024-07-06] MEDS ORDERED: ACETAMINOPHEN TAB 325 MG TAB PO PRN (22:54)
[2024-07-06] MEDS ORDERED: CALCIUM CARBONATE 500 MG CHEWABLE PO PRN (22:54)
[2024-07-06] MEDS ORDERED: HYDROcodone/APAP 5-325MG 1 EACH TAB PO PRN (22:54)
[2024-07-06] MEDS ORDERED: CYCLOBENZAPRINE 10 MG TAB PO PRN (22:54)
[2024-07-07 06:03] LABS: Glucose,Whole Blood 129 mg/dL (70-110)
[2024-07-07] MEDS: INSULIN LISPRO (HumaLOG) 100 UNIT/ML 10 mL VL SQ SCH (06:09)
--- NOTE | 2024-07-07 07:57 | XR ---
EXAMINATION TYPE: XR chest 1V portable DATE OF EXAM: 07/07/2024 5:04 AM COMPARISON: 07/06/2024 CLINICAL INDICATION: Female, 88 years old with history of sob, TECHNIQUE: XR chest 1V portable view(s) obtained. FINDINGS: The heart size is normal. The pulmonary vasculature is normal. Small bilateral pleural effusions are present increasing from comparison. Some bibasilar atelectasis likely developing. IMPRESSION: 1. Small developing pleural effusions with bibasilar atelectasis. Continued follow-up is recommended [facility], , 07/07/2024 7:55 AM
[2024-07-07 08:19] LABS: ALT 17 U/L (4-34); AST 33 U/L (14-36); African American GFR (CKD) 55 (>60 ml/min/1.73 sqM); Albumin 2.8 g/dL (3.5-5.0); Alkaline Phosphatase 104 U/L (38-126); Anion Gap 5 mmol/L; Blood Urea Nitrogen 26 mg/dL (7-17); Calcium 8.8 mg/dL (8.4-10.2); Carbon Dioxide 28 mmol/L (22-30); Chloride 100 mmol/L (98-107); Glucose 123 mg/dL (74-99); Magnesium 1.8 mg/dL (1.6-2.3); Non-African American GFR(CKD) 48 (>60 ml/min/1.73 sqM); Phosphorus 4.3 mg/dL (2.5-4.5); Potassium 4.1 mmol/L (3.5-5.1); Sodium 133 mmol/L (137-145); Total Bilirubin 0.6 mg/dL (0.2-1.3); Total Protein 5.4 g/dL (6.3-8.2)
[2024-07-07 08:36] LABS: Anisocytosis Slight; HCT 35.2 % (34.0-46.0); HGB 11.5 gm/dL (11.4-16.0); Hypochromasia Slight; MCH 30.1 pg (25.0-35.0); MCHC 32.6 g/dL (31.0-37.0); MCV 92.4 fL (80.0-100.0); Mean Platelet Volume 8.5; Platelet Count 242 k/uL (150-450); RBC 3.81 m/uL (3.80-5.40); WBC 4.2 k/uL (3.8-10.6)
[2024-07-07] MEDS: ASPIRIN 325 MG TAB PO SCH (08:43)
[2024-07-07] MEDS: APIXABAN 5 MG TAB PO SCH (09:17)
[2024-07-07] MEDS: glipiZIDE 5 MG TAB PO SCH (09:17)
[2024-07-07] MEDS: METOPROLOL SUCCINATE (ER) 50 MG TAB.ER.24H PO SCH (09:17)
[2024-07-07] MEDS: PANTOPRAZOLE 40 MG TABLET PO SCH (09:17)
[2024-07-07] MEDS: FERROUS SULFATE 325 MG TAB PO SCH (09:17)
[2024-07-07] MEDS: TOPIRAMATE 25 MG TAB PO SCH (09:17)
[2024-07-07] MEDS: bisacodyL 10 MG SUPP RECTAL SCH (09:17)
[2024-07-07] MEDS: FUROSEMIDE 20 MG TAB PO SCH (09:17)
[2024-07-07] MEDS: polyethylene glycoL 3350 17 GM POWD.PACK PO SCH (09:18)
[2024-07-07] MEDS: ASPIRIN 81 MG PO SCH (09:18)
[2024-07-07 10:01] LABS: Eosinophils # (M) 0.04 k/uL (0-0.7); Lymphocytes # (M) 1.26 k/uL (1.0-4.8); Monocytes # (M) 0.67 k/uL (0-1.0); Neutrophils # (M) 2.23 k/uL (1.3-7.7); Neutrophils % (M) 53 %; Nucleated Red Blood Cells 0 /100 WBC (0-0); Total Cells Counted 100
--- NOTE | 2024-07-07 11:22 | P.CNPUL ---
History of Present Illness Consult date: 07/07/24 Reason for consult: dyspnea History of present illness: This is a 73-year-old female patient, presented to the emergency department because of worsening shortness of breath. The patient is known to have valvular heart disease. She has moderate to severe aortic stenosis with a peak gradient of 57 and a preserved LV function with an ejection fraction of 55%. She has also history of paroxysmal atrial fibrillation. At the time of admission, the patient was having increased shortness of breath, in addition to atrial fibrillation with rapid ventricular response. The patient presented to the Emergency Department. No chest pain. No cough or sputum production. No aspiration. Chest x-ray is consistent with CHF and bilateral pleural effusions. The white cell count is at 4.2 with a hemoglobin of 11.5 and a platelet count of 242. Electrolytes are all within normal limits. K level is at 4.1. BUN is 26 with a creatinine of 1.05. LFTs are normal. proBNP level was 11,500. Troponin x 3 has been negative. The patient's lower extremity are also slightly swollen more than the usual. She is currently on Lasix 40 mg IV every 8 hours. She is producing adequate amount of urine output. She remains on anticoagulation with Eliquis. No antibiotic coverage for now. Rest of the home medication resumed. She is on Toprol 50 mg p.o. twice a day XL. Review of Systems Constitutional: Reports fatigue, Reports poor appetite, Reports weakness, Reports weight gain Eyes: denies as per HPI, denies blurred vision, denies bulging eye, denies decreased vision, denies diplopia, denies discharge, denies dry eye, denies irritation, denies itching, denies pain, denies photophobia, denies loss of peripheral vision, denies loss of vision, denies tunnel vision/blind spots Ears: deny: decreased hearing, ear discharge, earache, tinnitus Ears, nose, mouth and throat: Reports as per HPI Breasts: absent: as per HPI, change in shape, gynecomastia, masses, nipple discharge, pain, skin changes, swelling Cardiovascular: Reports decreased exercise tolerance, Reports dyspnea on exert ion, Reports edema, Reports irregular heart beat, Reports leg edema, Reports orthopnea, Reports rapid heart beat, Reports shortness of breath Respiratory: Reports cough, Reports dyspnea Gastrointestinal: Reports as per HPI Genitourinary: Reports as per HPI Menstruation: Reports as per HPI Musculoskeletal: Reports as per HPI, Reports hot joints, Reports muscle weakness Musculoskeletal: bilateral: ankle swelling, absent: ankle pain, ankle stiffness Integumentary: Reports as per HPI Neurological: Reports as per HPI, Reports gait dysfunction, Reports weakness Psychiatric: Reports as per HPI, Reports confusion Endocrine: Reports as per HPI, Reports fatigue Hematologic/Lymphatic: Reports as per HPI Allergic/Immunologic: Reports as per HPI Past Medical History Past Medical History: Diabetes Mellitus, Hyperlipidemia, Hypertension, Thyroid Disorder Additional Past Medical History / Comment(s): malignant melanoma History of Any Multi-Drug Resistant Organisms: None Reported Past Surgical History: Breast Surgery, Cholecystectomy Additional Past Surgical History / Comment(s): bilateral knee replacement Past Anesthesia/Blood Transfusion Reactions: No Reported Reaction Past Psychological History: No Psychological Hx Reported Smoking Status: Never smoker Past Alcohol Use History: None Reported Past Drug Use History: None Reported - Past Family History Father Family Medical History: Coronary Artery Disease (CAD) Mother Family Medical History: Cancer Medications and Allergies Home Medications Medication Instructions Recorded Confirmed Type Aspirin 81 mg PO DAILY@79907/06/20 07/06/24 History Topiramate [Topamax] 25 mg PO DAILY@79907/06/20 07/06/24 History Apixaban [Eliquis] 5 mg PO BID@02/04/24 07/06/24 History Furosemide [Lasix] 20 mg PO DAILY@79902/04/24 07/06/24 History Metoprolol Succinate (ER) [Toprol 50 mg PO BID@02/04/24 07/06/24 History XL] Pioglitazone [Actos] 45 mg PO DAILY@79902/04/24 07/06/24 History Vitamin B Complex 1 cap PO DAILY@79902/04/24 07/06/24 History glipiZIDE [glipiZIDE ER] 10 mg PO DAILY@79902/04/24 07/06/24 History Cyclobenzaprine [Flexeril] 10 mg PO BID PRN tab 02/12/24 07/06/24 Rx Mag Hydrox/Al Hydrox/Simeth 15 ml PO Q6HR PRN ml 02/12/24 07/06/24 Rx [Maalox] Sennosides [Senokot] 8.6 mg PO BID PRN tab 02/12/24 07/06/24 Rx Acetaminophen Tab [Tylenol] 650 mg PO Q8H PRN 07/06/24 07/06/24 History Atorvastatin [Lipitor] 10 mg PO HS@199907/06/24 07/06/24 History Calcium Carbonate [Tums] 1,000 mg PO Q4HR PRN 07/06/24 07/06/24 History Ferrous Sulfate [Iron] 325 mg PO DAILY@0800 07/06/24 07/06/24 History HYDROcodone/APAP 5-325MG [Bastian 0.5 tab PO Q6HR PRN 07/06/24 07/06/24 History 5-325] Insulin Lispro [humaLOG Kwikpen] See Protocol SQ AC-TID 07/06/24 07/06/24 Histor y Levothyroxine Sodium [Synthroid] 100 mcg PO HS@199907/06/24 07/06/24 History Menthol-Zinc Oxide Oint 1 applic TOPICAL BID PRN 07/06/24 07/06/24 History [Calmoseptine Ointment] Nystatin 100,000 Unit/gm Powd 1 applic TOPICAL BID@799,199907/06/24 07/06/24 History [Mycostatin Powder] Omeprazole 20 mg PO DAILY@0807/06/24 07/06/24 History Sodium Chloride [Wound Wash Saline] 1 spray TOPICAL DIRECTED 07/06/24 07/06/24 History bisacodyL [Dulcolax] 10 mg RECTAL DAILY@0807/06/24 07/06/24 History polyethylene glycoL 3350 [Miralax] 17 gm PO BID@799,199907/06/24 07/06/24 History traMADol HCl [Ultram] 50 mg PO Q8H PRN 07/06/24 07/06/24 History Allergies Allergy/AdvReac Type Severity Reaction Status Date / Time No Known Allergies Allergy Verified 07/06/24 19:14 Physical Exam Vitals: Vital Signs Temp Pulse Pulse Resp BP BP Pulse Ox 07/07/24 09:14 97.5 F L 106 H 18 136/84 100 07/07/24 04:00 76 16 140/73 100 07/07/24 00:00 98.2 F 89 19 114/68 95 07/06/24 22:49 98.7 F 67 20 118/57 99 07/06/24 21:06 75 18 96/57 99 07/06/24 18:34 116 H 07/06/24 18:23 98.8 F 114 H 16 107/74 93 L 07/06/24 18:22 116 H 07/06/24 17:26 30 H 07/06/24 17:20 102 H 29 H 152/104 99 07/06/24 17:16 98.4 F 85 36 H 152/104 85 L Intake and Output 07/06/24 07/07/24 07/07/24 22:59 06:59 14:59 Output Total 400 Balance -400 Output: Urine 400 Other: Voiding Method External Catheter Weight 99.79 kg 99.5 kg The patient appeared well nourished and normally developed. Vital signs as documented. Patient is currently on 2 L of oxygen by nasal cannula Head exam is unremarkable. No scleral icterus or corneal arcus noted. Neck is without jugular venous distension, thyromegaly, or carotid bruits. Carotid upstrokes are brisk bilaterally. Lungs are diminished breath sound bilaterally along with dullness to percussion consistent with pleural effusion. Cardiac exam reveals the PMI to be normally sized and situated. Irregular c onsistent with atrial fibrillation the patient is systolic ejection murmur grade 4/6 heard over along the apex and left lateral sternal border.. First and second heart sounds normal. Abdominal exam reveals normal bowel sounds, no masses, no organomegaly and no aortic enlargement. Extremities are nonedematous and both femoral and pedal pulses are normal. Examination of the skin revealed no evidence of significant rashes, suspicious appearing nevi or other concerning lesions. Neurologically, the patient is awake and alert and the patient does not have any focal neurological deficit. Cranial nerves are essentially intact. Results - Laboratory Findings CBC and BMP: 07/07/24 07:31 07/07/24 07:31 PT/INR, D-dimer PT 12.3 sec (10.0-12.5) 07/06/24 17:24 INR 1.1 (<1.2) 07/06/24 17:24 Abnormal lab findings: Abnormal Labs 07/06/24 07/06/24 07/06/24 17:24 17:24 17:26 RDW 17.4 H Sodium 134 L BUN 25 H Creatinine Glucose 158 H POC Glucose (mg/dL) 146 H Total Protein 6.1 L Albumin 3.2 L 07/07/24 07/07/24 07/07/24 06:01 07:31 07:31 RDW 17.0 H Sodium 133 L BUN 26 H Creatinine 1.05 H Glucose 123 H POC Glucose (mg/dL) 129 H Total Protein 5.4 L Albumin 2.8 L - Diagnostic Findings Chest x-ray: image reviewed Assessment and Plan Plan: Acute hypoxic respiratory failure and she is on 2 liters/min acute CHF with bilateral pleural pleural effusion. The patient has a moderate- sized bilateral pleural effusion probably due to CHF and valvular heart disease. Atrial fibrillation under better control and the patient is currently on IV Lasix. Moderate to severe aortic stenosis, peak gradient is 57, mean 34, LV EF 55%, based on previous echocardiogram Afib with RVR, rate is under better control and the patient is currently on Toprol-XL 50 mg p.o. twice a day and long-term anticoagulation with Eliquis. Previous history of fall and L4 vertebral body fracture and loss in height in the order of 25% of the L4 spine. 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 Recommend diuresis and reevaluation. Cardiology consult. Time with Patient: Greater than 30
[2024-07-07 11:26] LABS: Glucose,Whole Blood 141 mg/dL (70-110)
--- NOTE | 2024-07-07 13:07 | P.HPIM ---
History of Present Illness H&P Date: 07/07/24 History of present illness; patient is a 88-year-old lady with past medical he significant for hypertension, diabetes, GERD, moderate to severe aortic stenosis who presented the ER because of shortness of breath. Patient stated that she was recently diagnosed with pneumonia and has been having hard time breathing. Shortness of breath at rest as on exertion. Patient also complaining of wheezing. Denies any fever or chills. There is no complaint of chest pain. Patient denies any nausea or vomiting or abdominal pain. There is no complaint of orthopnea or PND. Because of her worsening shortness of breath, patient came to the ER Initial lab work done in the ER showed WBC 5.4, hemoglobin 12.5, platelet count 23, sodium 134, potassium 4.2, BUN 25, creatinine 0.98, glucose 158, magnesium 1 .8, bilirubin 0.6, AST 33, ALT 19, proBNP 11,500 EKG done in the ER showed heart rate of 74, no ST segment elevation or depression seen, no T-wave inversions seen. Chest x-ray done in the ER showed cardiomegaly and pulmonary vascular congestion, bilateral small pleural effusion and lower lobe opacities Patient admitted to internal medicine service REVIEW OF SYSTEMS: CONSTITUTIONAL: No fever, no malaise, no fatigue. HEENT: No recent visual problems or hearing problems. Denied any sore throat. CARDIOVASCULAR: As mentioned above. PULMONARY: As mentioned GASTROINTESTINAL: No diarrhea, no nausea, no vomiting, no abdominal pain. NEUROLOGICAL: No headaches, no weakness, no numbness. HEMATOLOGICAL: Denies any bleeding or petechiae. GENITOURINARY: Denies any burning micturition, frequency, or urgency. MUSCULOSKELETAL/RHEUMATOLOGICAL: Denies any joint pain, swelling, or any muscle pain. ENDOCRINE: Denies any polyuria or polydipsia. The rest of the 14-point review of systems is negative. PHYSICAL EXAMINATION: GENERAL: The patient is alert and oriented x3, not in any acute distress. Well developed, well nourished. HEENT: Pupils are round and equally reacting to light. EOMI. No scleral icterus. No conjunctival pallor. Normocephalic, atraumatic. No pharyngeal erythema. No thyromegaly. CARDIOVASCULAR: S1 and S2 present. No murmurs, rubs, or gallops. Systolic murmur audible PULMONARY: Chest is clear to auscultation, no wheezing or crackles. ABDOMEN: Soft, nontender, nondistended, normoactive bowel sounds. No palpable organomegaly. MUSCULOSKELETAL: No joint swelling or deformity. EXTREMITIES: No cyanosis, clubbing, or pedal edema. NEUROLOGICAL: Gross neurological examination did not reveal any focal deficits. SKIN: No rashes. Assessment and plan Acute hypoxic respiratory failure Acute COPD exacerbation Acute CHF Moderate to severe aortic stenosis Paroxysmal atrial fibrillation Diabetes type 2 [id number] Hypertension Hyperlipidemia History of malignant melanoma Osteoarthritis and prior history of bilateral knee replacement Obesity with a BMI of 36.5 Monitor vital signs Monitor CBC Monitor CMP Continue telemetry monitoring Trend troponin Ordered CRP, ESR Ordered Pro-Harshda Strict I's and O's, daily weights Start IV Lasix 40 mg Q8 Resume aspirin, Lipitor Resume Eliquis Ordered breathing treatments Ordered IV Solu-Medrol Consult pulmonary Consult cardiology Labs and medication were reviewed.. Continue same treatment. Continue with symptomatic treatment. Resume home medication. Monitor labs and vitals. DVT and GI prophylaxis. Further recommendations as per clinical course of the patient Dictation was produced using [employer] dictation software. please excuse any grammatical, word or spelling errors. Past Medical History Past Medical History: Diabetes Mellitus, Hyperlipidemia, Hypertension, Thyroid Disorder Additional Past Medical History / Comment(s): malignant melanoma History of Any Multi-Drug Resistant Organisms: None Reported Past Surgical History: Breast Surgery, Cholecystectomy Additional Past Surgical History / Comment(s): bilateral knee replacement Past Anesthesia/Blood Transfusion Reactions: No Reported Reaction Past Psychological History: No Psychological Hx Reported Smoking Status: Never smoker Past Alcohol Use History: None Reported Past Drug Use History: None Reported - Past Family History Father Family Medical History: Coronary Artery Disease (CAD) Mother Family Medical History: Cancer Medications and Allergies Home Medications Medication Instructions Recorded Confirmed Type Aspirin 81 mg PO DAILY@79907/06/20 07/06/24 History Topiramate [Topamax] 25 mg PO DAILY@79907/06/20 07/06/24 History Apixaban [Eliquis] 5 mg PO BID@0800,199902/04/24 07/06/24 History Furosemide [Lasix] 20 mg PO DAILY@0800 02/04/24 07/06/24 History Metoprolol Succinate (ER) [Toprol 50 mg PO BID@799,199902/04/24 07/06/24 History XL] Pioglitazone [Actos] 45 mg PO DAILY@79902/04/24 07/06/24 History Vitamin B Complex 1 cap PO DAILY@0802/04/24 07/06/24 History glipiZIDE [glipiZIDE ER] 10 mg PO DAILY@0802/04/24 07/06/24 History Cyclobenzaprine [Flexeril] 10 mg PO BID PRN tab 02/12/24 07/06/24 Rx Mag Hydrox/Al Hydrox/Simeth 15 ml PO Q6HR PRN ml 02/12/24 07/06/24 Rx [Maalox] Sennosides [Senokot] 8.6 mg PO BID PRN tab 02/12/24 07/06/24 Rx Acetaminophen Tab [Tylenol] 650 mg PO Q8H PRN 07/06/24 07/06/24 History Atorvastatin [Lipitor] 10 mg PO HS@199907/06/24 07/06/24 History Calcium Carbonate [Tums] 1,000 mg PO Q4HR PRN 07/06/24 07/06/24 History Ferrous Sulfate [Iron] 325 mg PO DAILY@79907/06/24 07/06/24 History HYDROcodone/APAP 5-325MG [Hanna 0.5 tab PO Q6HR PRN 07/06/24 07/06/24 History 5-325] Insulin Lispro [humaLOG Kwikpen] See Protocol SQ AC-TID 07/06/24 07/06/24 History Levothyroxine Sodium [Synthroid] 100 mcg PO HS@199907/06/24 07/06/24 History Menthol-Zinc Oxide Oint 1 applic TOPICAL BID PRN 07/06/24 07/06/24 History [Calmoseptine Ointment] Nystatin 100,000 Unit/gm Powd 1 applic TOPICAL BID@799,199907/06/24 07/06/24 History [Mycostatin Powder] Omeprazole 20 mg PO DAILY@79907/06/24 07/06/24 History Sodium Chloride [Wound Wash Saline] 1 spray TOPICAL DIRECTED 07/06/24 07/06/24 History bisacodyL [Dulcolax] 10 mg RECTAL DAILY@0800 07/06/24 07/06/24 History polyethylene glycoL 3350 [Miralax] 17 gm PO BID@0800,199907/06/24 07/06/24 History traMADol HCl [Ultram] 50 mg PO Q8H PRN 07/06/24 07/06/24 History Allergies Allergy/AdvReac Type Severity Reaction Status Date / Time No Known Allergies Allergy Verified 07/06/24 19:14 Physical Exam Vitals: Vital Signs Temp Pulse Pulse Resp BP BP Pulse Ox 07/07/24 09:14 97.5 F L 106 H 18 136/84 100 07/07/24 04:00 76 16 140/73 100 07/07/24 00:00 98.2 F 89 19 114/68 95 07/06/24 22:49 98.7 F 67 20 118/57 99 07/06/24 21:06 75 18 96/57 99 07/06/24 18:34 116 H 07/06/24 18:23 98.8 F 114 H 16 107/74 93 L 07/06/24 18:22 116 H 07/06/24 17:26 30 H 07/06/24 17:20 102 H 29 H 152/104 99 07/06/24 17:16 98.4 F 85 36 H 152/104 85 L Intake and Output 07/06/24 07/07/24 07/07/24 22:59 06:59 14:59 Output Total 400 Balance -400 Output: Urine 400 Other: Voiding Method External Catheter Weight 99.79 kg 99.5 kg Results CBC & Chem 7: 07/07/24 07:31 07/07/24 07:31 Labs: Abnormal Lab Results - Last 24 Hours (Table) 07/06/24 07/06/24 07/06/24 Range/Units 17:24 17:24 17:26 RDW 17.4 H (11.5-15.5) % Sodium 134 L (137-145) mmol/L BUN 25 H (7-17) mg/dL Creatinine (0.52-1.04) mg/dL Glucose 158 H (74-99) mg/dL POC Glucose (mg/dL) 146 H (70-110) mg/dL Total Protein 6.1 L (6.3-8.2) g/dL Albumin 3.2 L (3.5-5.0) g/dL 07/07/24 07/07/24 07/07/24 Range/Units 06:01 07:31 07:31 RDW 17.0 H (11.5-15.5) % Sodium 133 L (137-145) mmol/L BUN 26 H (7-17) mg/dL Creatinine 1.05 H (0.52-1.04) mg/dL Glucose 123 H (74-99) mg/dL POC Glucose (mg/dL) 129 H (70-110) mg/dL Total Protein 5.4 L (6.3-8.2) g/dL Albumin 2.8 L (3.5-5.0) g/dL
[2024-07-07 16:32] LABS: Glucose,Whole Blood 133 mg/dL (70-110)
[2024-07-07 17:08] LABS: Influenza A Not Detected (Not Detectd); Influenza B Not Detected (Not Detectd); RSV Not Detected (Not Detectd)
[2024-07-07 20:15] LABS: Glucose,Whole Blood 227 mg/dL (70-110)
[2024-07-07] MEDS: ATORVASTATIN 10 MG TAB PO SCH (20:25)
[2024-07-07] MEDS: LEVOTHYROXINE 100 MCG TAB PO SCH (20:25)
--- NOTE | 2024-07-07 20:27 | P.CRDCN ---
History of Present Illness Consult date: 07/07/24 History of present illness: HISTORY OF PRESENTING ILLNESS: Patient is a 88-year-old with past medical history of hypertension, type 2 diabetes, GERD, moderate to severe aortic stenosis, presented to the hospital because of increased worsening shortness of breath. Patient reports that recently on outpatient basis she was diagnosed with pneumonia. On admission she was complaining of some wheezing. She denies any chest pain palpitation nausea, lightheaded and dizziness or syncopal episodes. Admission ECG shows sinus rhythm heart rate 74 beats minute, right bundle branch block, nonspecific ST changes, Chest x-ray shows pulmonary vascular congestion with small bilateral pleural effusion Last echocardiogram from September 2023 shows EF of 55 to 60%, moderate to severe aortic stenosis with mean gradient of 34 mmHg, moderate mitral regurgitation REVIEW OF SYSTEMS: 14 point review of system is negative except what is mentioned above in HPI. PHYSICAL EXAMINATION: Neck: Brisk carotid upstroke, no jugular venous distention. Lungs: Clear to auscultation. Heart: Regular rate and rhythm, S1-S2, systolic murmur audible in the aortic area Abdomen: Soft nontender, positive bowel sounds. Extremities: No edema, intact distal pulses. Neuro: Alert, oritented, no focal deficits. Detailed neuro exam was not performed. ASSESSMENT: # Mild HFpEF exacerbation # Acute COPD exacerbation # Acute hypoxic respiratory failure, likely due to above # Moderate to severe aortic stenosis # Paroxysmal atrial fibrillation # Type 2 diabetes # Essential hypertension # Dyslipidemia # History of malignant melanoma # Obesity PLAN: Continue aspirin, Lipitor, Eliquis Continue IV diuretics Obtain office note tomorrow, if no recent echocardiogram, perform updated echo to follow-up on aortic stenosis severity Continue telemetry monitoring Further recommendations to follow Jermaine Carreno MD, FACC, RPVI Thank you for allowing [facility] to participate in this patient's care. Feel free to reach out in case of any followup questions. Past Medical History Past Medical History: Diabetes Mellitus, Hyperlipidemia, Hypertension, Thyroid Disorder Additional Past Medical History / Comment(s): malignant melanoma History of Any Multi-Drug Resistant Organisms: None Reported Past Surgical History: Breast Surgery, Cholecystectomy Additional Past Surgical History / Comment(s): bilateral knee replacement Past Anesthesia/Blood Transfusion Reactions: No Reported Reaction Past Psychological History: No Psychological Hx Reported Smoking Status: Never smoker Past Alcohol Use History: None Reported Past Drug Use History: None Reported - Past Family History Father Family Medical History: Coronary Artery Disease (CAD) Mother Family Medical History: Cancer Medications and Allergies Home Medications Medication Instructions Recorded Confirmed Type Aspirin 81 mg PO DAILY@79907/06/20 07/06/24 History Topiramate [Topamax] 25 mg PO DAILY@79907/06/20 07/06/24 History Apixaban [Eliquis] 5 mg PO BID@799,199902/04/24 07/06/24 History Furosemide [Lasix] 20 mg PO DAILY@79902/04/24 07/06/24 History Metoprolol Succinate (ER) [Toprol 50 mg PO BID@799,199902/04/24 07/06/24 History XL] Pioglitazone [Actos] 45 mg PO DAILY@79902/04/24 07/06/24 History Vitamin B Complex 1 cap PO DAILY@79902/04/24 07/06/24 History glipiZIDE [glipiZIDE ER] 10 mg PO DAILY@79902/04/24 07/06/24 History Cyclobenzaprine [Flexeril] 10 mg PO BID PRN tab 02/12/24 07/06/24 Rx Mag Hydrox/Al Hydrox/Simeth 15 ml PO Q6HR PRN ml 02/12/24 07/06/24 Rx [Maalox] Sennosides [Senokot] 8.6 mg PO BID PRN tab 02/12/24 07/06/24 Rx Acetaminophen Tab [Tylenol] 650 mg PO Q8H PRN 07/06/24 07/06/24 History Atorvastatin [Lipitor] 10 mg PO HS@199907/06/24 07/06/24 History Calcium Carbonate [Tums] 1,000 mg PO Q4HR PRN 07/06/24 07/06/24 History Ferrous Sulfate [Iron] 325 mg PO DAILY@79907/06/24 07/06/24 History HYDROcodone/APAP 5-325MG [Alma 0.5 tab PO Q6HR PRN 07/06/24 07/06/24 History 5-325] Insulin Lispro [humaLOG Kwikpen] See Protocol SQ AC-TID 07/06/24 07/06/24 History Levothyroxine Sodium [Synthroid] 100 mcg PO HS@199907/06/24 07/06/24 History Menthol-Zinc Oxide Oint 1 applic TOPICAL BID PRN 07/06/24 07/06/24 History [Calmoseptine Ointment] Nystatin 100,000 Unit/gm Powd 1 applic TOPICAL BID@07/06/24 07/06/24 History [Mycostatin Powder] Omeprazole 20 mg PO DAILY@79907/06/24 07/06/24 History Sodium Chloride [Wound Wash Saline] 1 spray TOPICAL DIRECTED 07/06/24 07/06/24 History bisacodyL [Dulcolax] 10 mg RECTAL DAILY@79907/06/24 07/06/24 History polyethylene glycoL 3350 [Miralax] 17 gm PO BID@07/06/24 07/06/24 History traMADol HCl [Ultram] 50 mg PO Q8H PRN 07/06/24 07/06/24 History Allergies Allergy/AdvReac Type Severity Reaction Status Date / Time No Known Allergies Allergy Verified 07/06/24 19:14 Physical Exam Vitals: Vital Signs Temp Pulse Pulse Resp BP BP Pulse Ox 07/07/24 19:58 98 F 86 18 143/62 95 07/07/24 16:20 97 07/07/24 16:19 84 18 107/60 97 07/07/24 11:44 99 18 134/67 100 07/07/24 09:14 97.5 F L 106 H 18 136/84 100 07/07/24 04:00 76 16 140/73 100 07/07/24 00:00 98.2 F 89 19 114/68 95 07/06/24 22:49 98.7 F 67 20 118/57 99 07/06/24 21:06 75 18 96/57 99 Intake and Output 07/07/24 07/07/24 07/07/24 06:59 14:59 22:59 Intake Total 20 250 Output Total 400 1000 1100 Balance -400 -023 -850 Intake: IV 20 10 Invasive Line 1 20 10 Oral 240 Output: Urine 400 1000 1100 Other: Voiding Method External Catheter External Catheter External Catheter Weight 99.5 kg Results 07/07/24 07:31 07/07/24 07:31 Cardiac Enzymes 07/06/24 07/07/24 07/07/24 Range/Units 21:31 00:43 07:31 AST 33 (14-36) U/L Troponin I 0.015 0.016 (0.000-0.034) ng/mL CBC 07/07/24 Range/Units 07:31 WBC 4.2 (3.8-10.6) k/uL RBC 3.81 (3.80-5.40) m/uL Hgb 11.5 (11.4-16.0) gm/dL Hct 35.2 (34.0-46.0) % Plt Count 242 (150-450) k/uL Comprehensive Metabolic Panel 07/07/24 Range/Units 07:31 Sodium 133 L (137-145) mmol/L Potassium 4.1 (3.5-5.1) mmol/L Chloride 100 (98-107) mmol/L Carbon Dioxide 28 (22-30) mmol/L BUN 26 H (7-17) mg/dL Creatinine 1.05 H (0.52-1.04) mg/dL Glucose 123 H (74-99) mg/dL Calcium 8.8 (8.4-10.2) mg/dL AST 33 (14-36) U/L ALT 17 (4-34) U/L Alkaline Phosphatase 104 (38-126) U/L Total Protein 5.4 L (6.3-8.2) g/dL Albumin 2.8 L (3.5-5.0) g/dL Current Medications Generic Name Dose Route Start Last Admin Trade Name Freq PRN Reason Stop Dose Admin Acetaminophen 650 mg 07/06/24 22:54 Acetaminophen Tab 325 Mg Tab PO Q8H PRN Pain Hydrocodone Bitart/Acetaminophen 0.5 each 07/06/24 22:54 Hydrocodone/Apap 5-325mg 1 Each Tab PO Q6HR PRN Pain Albuterol Sulfate 2.5 mg 07/06/24 19:16 Albuterol Nebulized 2.5 Mg/3 Ml INHALATION RT-Q4H PRN Difficulty Breathing Apixaban 5 mg 07/07/24 08:00 07/07/24 20:25 Apixaban 5 Mg Tab PO 5 mg BID@0800,2000 [facility] Administration Protocol Aspirin 325 mg 07/07/24 09:00 07/07/24 08:43 Aspirin 325 Mg Tab PO Not Given DAILY [facility] Aspirin 81 mg 07/07/24 08:00 07/07/24 09:18 Aspirin 81 Mg PO 81 mg DAILY@799 [facility] Administration Atorvastatin Calcium 10 mg 07/07/24 20:00 07/07/24 20:25 Atorvastatin 10 Mg Tab PO 10 mg HS@1999 [facility] Administration Bisacodyl 10 mg 07/07/24 08:00 07/07/24 09:17 Bisacodyl 10 Mg Supp RECTAL 10 mg DAILY@799 [facility] Administration Calcium Carbonate/Glycine 1,000 mg 07/06/24 22:54 Calcium Carbonate 500 Mg Chewable PO Q4HR PRN GI Upset Cyclobenzaprine HCl 10 mg 07/06/24 22:54 Cyclobenzaprine 10 Mg Tab PO BID PRN Muscle Spasm Ferrous Sulfate 325 mg 07/07/24 08:00 07/07/24 09:17 Ferrous Sulfate 325 Mg Tab PO 325 mg DAILY@799 [facility] Administration Furosemide 40 mg 07/06/24 20:00 07/07/24 20:25 Furosemide 10 Mg/Ml 4 Ml Vial IV 40 mg Q8H [facility] Administration Glipizide 5 mg 07/07/24 08:00 07/07/24 20:25 Glipizide 5 Mg Tab PO 5 mg DAILY@ [facility] Administration Insulin Human Lispro 0 unit 07/07/24 07:30 07/07/24 20:26 Insulin Lispro (Humalog) 100 Unit/Ml 10 Ml Vl SQ 2 unit AC-TID [facility] Administration Protocol Levothyroxine Sodium 100 mcg 07/07/24 20:00 07/07/24 20:25 Levothyroxine 100 Mcg Tab PO 100 mcg HS@1999 [facility] Administration Metoprolol Succinate 50 mg 07/07/24 08:00 07/07/24 20:25 Metoprolol Succinate (Er) 50 Mg Tab.Er.24h PO 50 mg BID@ [facility] Administration Morphine Sulfate 4 mg 07/06/24 19:16 Morphine Sulfate 4 Mg/Ml Syringe IV Q4HR PRN Severe Pain (Scale 7 to 10) Naloxone HCl 0.2 mg 07/06/24 19:16 Naloxone 0.4 Mg/Ml 1 Ml Vial IV Q2M PRN Opioid Reversal Naloxone HCl 0.2 mg 07/06/24 19:16 Naloxone 0.4 Mg/Ml 1 Ml Vial IVP Q2M PRN Opioid Reversal Ondansetron HCl 4 mg 07/06/24 19:16 Ondansetron 4 Mg/2 Ml Vial IVP Q8HR PRN Nausea And Vomiting Pantoprazole Sodium 40 mg 07/07/24 08:00 07/07/24 09:17 Pantoprazole 40 Mg Tablet PO 40 mg DAILY@0800 TY Administration Polyethylene Glycol 17 gm 07/07/24 08:00 07/07/24 20:25 Polyethylene Glycol 3350 17 Gm Powd.Pack PO 17 gm BID@08 T[facility] Administration Topiramate 25 mg 07/07/24 08:00 07/07/24 09:17 Topiramate 25 Mg Tab PO 25 mg DAILY@0800 TY Administration Intake and Output 07/07/24 07/07/24 07/07/24 06:59 14:59 22:59 Intake Total 20 250 Output Total 400 1000 1100 Balance -754 -808 -337 Intake: IV 20 10 Invasive Line 1 20 10 Oral 240 Output: Urine 400 1000 1100 Other: Voiding Method External Catheter External Catheter External Catheter Weight 99.5 kg 07/07/24 07:31 07/07/24 07:31
[2024-07-08 06:09] LABS: Glucose,Whole Blood 121 mg/dL (70-110)
[2024-07-08 06:31] LABS: Anisocytosis Slight; HCT 37.4 % (34.0-46.0); HGB 11.8 gm/dL (11.4-16.0); MCH 29.3 pg (25.0-35.0); MCHC 31.4 g/dL (31.0-37.0); MCV 93.2 fL (80.0-100.0); Mean Platelet Volume 8.6; Platelet Count 228 k/uL (150-450); RBC 4.01 m/uL (3.80-5.40); WBC 4.5 k/uL (3.8-10.6)
[2024-07-08 06:46] LABS: ALT 18 U/L (4-34); AST 36 U/L (14-36); African American GFR (CKD) 56 (>60 ml/min/1.73 sqM); Albumin 2.6 g/dL (3.5-5.0); Alkaline Phosphatase 103 U/L (38-126); Anion Gap 7 mmol/L; Blood Urea Nitrogen 29 mg/dL (7-17); Calcium 8.4 mg/dL (8.4-10.2); Carbon Dioxide 27 mmol/L (22-30); Chloride 97 mmol/L (98-107); Glucose 102 mg/dL (74-99); Non-African American GFR(CKD) 49 (>60 ml/min/1.73 sqM); Potassium 4.1 mmol/L (3.5-5.1); Sodium 131 mmol/L (137-145); Total Bilirubin 0.5 mg/dL (0.2-1.3); Total Protein 5.1 g/dL (6.3-8.2)
[2024-07-08 08:27] LABS: Eosinophils # (M) 0.09 k/uL (0-0.7); Lymphocytes # (M) 1.08 k/uL (1.0-4.8); Monocytes # (M) 0.63 k/uL (0-1.0); Neutrophils % (M) 60 %; Nucleated Red Blood Cells 0 /100 WBC (0-0); Total Cells Counted 100
[2024-07-08 11:44] LABS: Glucose,Whole Blood 194 mg/dL (70-110)
--- NOTE | 2024-07-08 12:37 | P.PN ---
Subjective Progress Note Date: 07/08/24 HISTORY OF PRESENTING ILLNESS: Patient is a 88-year-old with past medical history of hypertension, type 2 diabetes, GERD, moderate to severe aortic stenosis, presented to the hospital because of increased worsening shortness of breath. Patient reports that recently on outpatient basis she was diagnosed with pneumonia. On admission she was complaining of some wheezing. She denies any chest pain palpitation nausea, lightheaded and dizziness or syncopal episodes. Admission ECG shows sinus rhythm heart rate 74 beats minute, right bundle branch block, nonspecific ST changes, Chest x-ray shows pulmonary vascular congestion with small bilateral pleural effusion Last echocardiogram from September 2023 shows EF of 55 to 60%, moderate to severe aortic stenosis with mean gradient of 34 mmHg, moderate mitral regurgitation 4/ Patient seen and examined. She denies having chest pain. She states her breath ing is better today. She does have lower extremity edema. Blood pressure 99/56, heart rate 118, pulse ox 98% on 2 L nasal cannula. Repeat blood work reveals hemoglobin 1.8, BUN 29 creatinine 1.03, potassium 4.1. Patient has a negative fluid balance and weight is down 1.5 kg. Telemetry is atrial fibrillation with controlled ventricular rate. PHYSICAL EXAMINATION: Neck: Brisk carotid upstroke, no jugular venous distention. Lungs: Clear to auscultation. Heart: Regular rate and rhythm, S1-S2, 3/6 systolic murmur. Abdomen: Soft nontender, positive bowel sounds. Extremities: 2+ bilateral lower extremity edema, intact distal pulses. Neuro: Alert, oritented, no focal deficits. Detailed neuro exam was not performed. ASSESSMENT: # Mild HFpEF exacerbation # Acute COPD exacerbation # Acute hypoxic respiratory failure, likely due to above # Moderate to severe aortic stenosis # Paroxysmal atrial fibrillation # Type 2 diabetes # Essential hypertension # Dyslipidemia # History of malignant melanoma # Obesity PLAN: Discontinue aspirin Continue patient on Lipitor, Eliquis, metoprolol succinate 50 mg twice daily Continue IV Lasix 40 mg every 8 hours Monitor MARKELL, daily weights, electrolytes and renal function Obtain 2D echocardiogram. No recent echocardiogram available in the office. Obtain proBNP and BMP tomorrow Continue telemetry monitoring Further recommendations to follow Nurse practitioner note has been reviewed, I agree with documented findings and plan of care. Patient was seen and examined. Objective - Vital Signs Vital signs: Vital Signs Temp 98.3 F 07/07/24 23:43 Pulse 102 H 07/08/24 03:56 Resp 16 07/08/24 03:56 BP 112/69 07/08/24 03:56 Pulse Ox 99 07/08/24 03:56 FiO2 Intake & Output 07/07/24 07/08/24 07/08/24 18:59 06:59 18:59 Intake Total 260 20 240 Output Total 2100 1200 550 Balance -1840 -1180 -310 Weight 97 kg Intake: IV 20 20 Invasive Line 1 20 20 Oral 240 240 Output: Urine 2100 1200 550 Other: Voiding Method External Catheter External Catheter - Labs CBC & Chem 7: 07/08/24 05:37 07/08/24 05:37 Labs: Abnormal Lab Results - Last 24 Hours (Table) 07/07/24 07/07/24 07/07/24 Range/Units 11:09 11:24 16:31 RDW (11.5-15.5) % D-Dimer 1.15 H (<0.60) mg/L FEU Sodium (137-145) mmol/L Chloride (98-107) mmol/L BUN (7-17) mg/dL Glucose (74-99) mg/dL POC Glucose (mg/dL) 141 H 133 H (70-110) mg/dL Total Protein (6.3-8.2) g/dL Albumin (3.5-5.0) g/dL 07/07/24 07/08/24 07/08/24 Range/Units 20:13 05:37 05:37 RDW 17.0 H (11.5-15.5) % D-Dimer (<0.60) mg/L FEU Sodium 131 L (137-145) mmol/L Chloride 97 L (98-107) mmol/L BUN 29 H (7-17) mg/dL Glucose 102 H (74-99) mg/dL POC Glucose (mg/dL) 227 H (70-110) mg/dL Total Protein 5.1 L (6.3-8.2) g/dL Albumin 2.6 L (3.5-5.0) g/dL 07/08/24 Range/Units 06:06 RDW (11.5-15.5) % D-Dimer (<0.60) mg/L FEU Sodium (137-145) mmol/L Chloride (98-107) mmol/L BUN (7-17) mg/dL Glucose (74-99) mg/dL POC Glucose (mg/dL) 121 H (70-110) mg/dL Total Protein (6.3-8.2) g/dL Albumin (3.5-5.0) g/dL Microbiology - Last 24 Hours (Table) 07/06/24 17:31 Blood Culture - Preliminary Blood
--- NOTE | 2024-07-08 12:58 | P.PN ---
Subjective Progress Note Date: 07/08/24 patient is a 88-year-old lady with past medical he significant for hypertension, diabetes, GERD, moderate to severe aortic stenosis who presented the ER because of shortness of breath. Patient stated that she was recently diagnosed with pneumonia and has been having hard time breathing. Shortness of breath at rest as on exertion. Patient also complaining of wheezing. Denies any fever or chills. There is no complaint of chest pain. Patient denies any nausea or vomiting or abdominal pain. There is no complaint of orthopnea or PND. Because of her worsening shortness of breath, patient came to the ER Initial lab work done in the ER showed WBC 5.4, hemoglobin 12.5, platelet count 23, sodium 134, potassium 4.2, BUN 25, creatinine 0.98, glucose 158, magnesium 1.8, bilirubin 0.6, AST 33, ALT 19, proBNP 11,500 EKG done in the ER showed heart rate of 74, no ST segment elevation or depression seen, no T-wave inversions seen. Chest x-ray done in the ER showed cardiomegaly and pulmonary vascular c ongestion, bilateral small pleural effusion and lower lobe opacities Patient admitted to internal medicine service 07/08. Patient seen and examined. Blood work reviewed, WBC 4.5, hemoglobin 8, sodium 131, potassium 4.1, BUN 29, creatinine 1.03 continue 2 L of oxygen. States breathing is improved. Patient is extremely hard of hearing REVIEW OF SYSTEMS: CONSTITUTIONAL: No fever, no malaise,. CARDIOVASCULAR: No chest pain, no palpitations, no syncope. PULMONARY: No shortness of breath, no cough, GASTROINTESTINAL: No diarrhea, no nausea, no vomiting, no abdominal pain. NEUROLOGICAL: No headaches, no weakness, PHYSICAL EXAMINATION: GENERAL: The patient is alert and oriented x3, ill looking HEENT: Pupils are round and equally reacting to light. Extremely hard of hearing CARDIOVASCULAR: S1 and S2 present. Systolic murmur audible PULMONARY: Chest is clear to auscultation, no wheezing or crackles. ABDOMEN: Soft, nontender, nondistended, normoactive bowel sounds. No palpable organomegaly. MUSCULOSKELETAL: No joint swelling or deformity. EXTREMITIES: No cyanosis, clubbing, or pedal edema. NEUROLOGICAL: Gross neurological examination did not reveal any focal deficits. SKIN: No rashes. Assessment and plan Acute hypoxic respiratory failure Acute CHF with preserved EF Bilateral pleural effusions Moderate to severe aortic stenosis Paroxysmal atrial fibrillation Diabetes type 2 [id number] Hypertension Hyperlipidemia History of malignant melanoma Osteoarthritis and prior history of bilateral knee replacement Obesity with a BMI of 36.5 Monitor vital signs Monitor CBC Monitor CMP Continue telemetry monitoring Strict I's and O's, daily weights Continue IV Lasix 40 mg Q8 Continue aspirin, Lipitor Continue Eliquis Continue breathing treatments Continue IV Solu-Medrol Pulmonary following, appreciate their recommendations Cardiology following, appreciate their recommendation Labs and medication were reviewed.. Continue same treatment. Continue with symptomatic treatment. Resume home medication. Monitor labs and vitals. DVT and GI prophylaxis. Further recommendations as per clinical course of the patient Dictation was produced using [employer] dictation software. please excuse any grammatical, word or spelling errors. Objective - Vital Signs Vital signs: Vital Signs Temp 98.3 F 07/07/24 23:43 Pulse 102 H 07/08/24 03:56 Resp 16 07/08/24 03:56 BP 112/69 07/08/24 03:56 Pulse Ox 99 07/08/24 03:56 FiO2 Intake & Output 07/07/24 07/08/24 07/08/24 18:59 06:59 18:59 Intake Total 260 20 240 Output Total 2100 1200 550 Balance -1840 -1180 -310 Weight 97 kg Intake: IV 20 20 Invasive Line 1 20 20 Oral 240 240 Output: Urine 2100 1200 550 Other: Voiding Method External Catheter External Catheter # Bowel Movements 1 - Labs CBC & Chem 7: 07/08/24 05:37 07/08/24 05:37 Labs: Abnormal Lab Results - Last 24 Hours (Table) 07/07/24 07/07/24 07/07/24 Range/Units 11:09 11:24 16:31 RDW (11.5-15.5) % D-Dimer 1.15 H (<0.60) mg/L FEU Sodium (137-145) mmol/L Chloride (98-107) mmol/L BUN (7-17) mg/dL Glucose (74-99) mg/dL POC Glucose (mg/dL) 141 H 133 H (70-110) mg/dL Total Protein (6.3-8.2) g/dL Albumin (3.5-5.0) g/dL 07/07/24 07/08/24 07/08/24 Range/Units 20:13 05:37 05:37 RDW 17.0 H (11.5-15.5) % D-Dimer (<0.60) mg/L FEU Sodium 131 L (137-145) mmol/L Chloride 97 L (98-107) mmol/L BUN 29 H (7-17) mg/dL Glucose 102 H (74-99) mg/dL POC Glucose (mg/dL) 227 H (70-110) mg/dL Total Protein 5.1 L (6.3-8.2) g/dL Albumin 2.6 L (3.5-5.0) g/dL 07/08/24 Range/Units 06:06 RDW (11.5-15.5) % D-Dimer (<0.60) mg/L FEU Sodium (137-145) mmol/L Chloride (98-107) mmol/L BUN (7-17) mg/dL Glucose (74-99) mg/dL POC Glucose (mg/dL) 121 H (70-110) mg/dL Total Protein (6.3-8.2) g/dL Albumin (3.5-5.0) g/dL Microbiology - Last 24 Hours (Table) 07/06/24 17:31 Blood Culture - Preliminary Blood
--- NOTE | 2024-07-08 16:09 | P.PN ---
Subjective Progress Note Date: 07/08/24 This is a 73-year-old female patient, presented to the emergency department because of worsening shortness of breath. The patient is known to have valvular heart disease. She has moderate to severe aortic stenosis with a peak gradient of 57 and a preserved LV function with an ejection fraction of 55%. She has also history of paroxysmal atrial fibrillation. At the time of admission, the patient was having increased shortness of breath, in addition to atrial fibrillation with rapid ventricular response. The patient presented to the Emergency Department. No chest pain. No cough or sputum production. No aspiration. Chest x-ray is consistent with CHF and bilateral pleural effusions. The white cell count is at 4.2 with a hemoglobin of 11.5 and a platelet count of 242. Electrolytes are all within normal limits. K level is at 4.1. BUN is 26 with a creatinine of 1.05. LFTs are normal. proBNP level was 11,500. Troponin x 3 has been negative. The patient's lower extremity are also slightly swollen more than the usual. She is currently on Lasix 40 mg IV every 8 hours. She is producing adequate amount of urine output. She remains on anticoagulation with Eliquis. No antibiotic coverage for now. Rest of the home medication resumed. She is on Toprol 50 mg p.o. twice a day XL. The patient is seen today July 08, 2024 in follow-up on the selective care unit. She is currently sitting up in bed. Awake and alert in no acute distress. Maintaining O2 saturations in the 90s on 2 L/min per nasal cannula. Dynamically stable. Somewhat tachycardic. White count 4.5. Hemoglobin 11.8. Platelets 228. Sodium 131. Potassium 4.1. Bicarb 27. BUN 29. Creatinine 1.03. Glucose 102. AST 36. ALT 18. She remains on albuterol as needed. She is continued on IV diuretics. Anticoagulated with Eliquis. Remains on beta- blockers for rate control. She is currently in a -3028 mL balance. Objective - Vital Signs Vital signs: Vital Signs Temp 98.1 F 07/08/24 08:00 Pulse 118 H 07/08/24 08:00 Resp 18 07/08/24 08:00 BP 99/56 07/08/24 08:00 Pulse Ox 98 07/08/24 08:00 FiO2 Intake & Output 07/07/24 07/08/24 07/08/24 18:59 06:59 18:59 Intake Total 260 20 250 Output Total 2100 1200 550 Balance -1840 -1180 -300 Weight 97 kg Intake: IV 20 20 10 Invasive Line 1 20 20 10 Oral 240 240 Output: Urine 2100 1200 550 Other: Voiding Method External Catheter External Catheter External Catheter # Bowel Movements 1 - Exam GENERAL EXAM: Alert, 88-year-old female, on 2 L nasal cannula, comfortable in no apparent distress. HEAD: Normocephalic. EYES: Normal reaction of pupils, equal size. NOSE: Clear with pink turbinates. THROAT: No erythema or exudates. NECK: No masses, no JVD. CHEST: No chest wall deformity. LUNGS: Equal air entry with crackles in the bilateral bases s. CVS: S1 and S2 normal with no audible murmur, regular rhythm. ABDOMEN: No hepatosplenomegaly, normal bowel sounds, no guarding or rigidity. SPINE: No scoliosis or deformity SKIN: No rashes. Changes of chronic venous stasis of the lower extremities CENTRAL NERVOUS SYSTEM: No focal deficits, tone is normal in all 4 extremities. EXTREMITIES: There is 1-2+ peripheral edema. No clubbing, no cyanosis. Peripheral pulses are intact. - Labs CBC & Chem 7: 07/08/24 05:37 07/08/24 05:37 Labs: Abnormal Lab Results - Last 24 Hours (Table) 07/07/24 07/07/24 07/08/24 Range/Units 16:31 20:13 05:37 RDW 17.0 H (11.5-15.5) % Sodium (137-145) mmol/L Chloride (98-107) mmol/L BUN (7-17) mg/dL Glucose (74-99) mg/dL POC Glucose (mg/dL) 133 H 227 H (70-110) mg/dL Total Protein (6.3-8.2) g/dL Albumin (3.5-5.0) g/dL 07/08/24 07/08/24 07/08/24 Range/Units 05:37 06:06 11:43 RDW (11.5-15.5) % Sodium 131 L (137-145) mmol/L Chloride 97 L (98-107) mmol/L BUN 29 H (7-17) mg/dL Glucose 102 H (74-99) mg/dL POC Glucose (mg/dL) 121 H 194 H (70-110) mg/dL Total Protein 5.1 L (6.3-8.2) g/dL Albumin 2.6 L (3.5-5.0) g/dL Microbiology - Last 24 Hours (Table) 07/06/24 17:31 Blood Culture - Preliminary Blood Assessment and Plan Assessment: Acute hypoxic respiratory failure, currently on 2 liters/min secondary to an acute exacerbation of diastolic CHF with bilateral pleural pleural effusion. The patient has a moderate-sized bilateral pleural effusion probably due to CHF and valvular heart disease. Currently on IV Lasix Moderate to severe aortic stenosis, peak gradient is 57, mean 34, LV EF 55%, based on previous echocardiogram Atrial fibrillation with rapid ventricular response, rate is under better control and the patient is currently on Toprol-XL 50 mg p.o. twice a day and long-term anticoagulation with Eliquis Previous history of fall and L4 vertebral body fracture and loss in height in the order of 25% of the L4 spine. Degenerative arthritis with chronic arthritis involving the knees and the back Hypertension Diabetes mellitus type 2 Hypothyroidism Lifelong non-smoker Plan: The patient was seen and evaluated Labs and medications reviewed Heart rate better controlled with Toprol XL Anticoagulated with Eliquis Remains on IV diuretics Remains in a negative balance Continue to monitor intake and output Echocardiogram pending Titrate down the FiO2 as tolerated We will continue to follow I have personally seen and examined the patient, performed the documentation and the assessment and plan as written. Number of minutes spent on the visit: 10 Dictation was produced using [employer] dictation software. Please excuse any grammatical, word or spelling errors.
[2024-07-08 16:35] VITALS: BMI 35.6
[2024-07-08 16:48] LABS: Glucose,Whole Blood 170 mg/dL (70-110)
[2024-07-08 20:03] LABS: Glucose,Whole Blood 209 mg/dL (70-110)
[2024-07-09 06:19] LABS: Glucose,Whole Blood 122 mg/dL (70-110)
--- NOTE | 2024-07-09 07:27 | CA ---
Transthoracic Echo Report Name: Delicai Dhillon Age: 88 Gender: F : 1935 Exam Date: 07/08/2024 13:20 Exam Location: [facility] Ht (in): 65 Wt (lb): 213 Ordering Physician: Shama Ludwig Attending/Referring Phys: [id number], [facility] Medicine Assistant Ashley Diaz, URMILA Procedure CPT: Indications: LVF Cardiac Hx: Technical Quality: Fair Contrast 1: Total Dose (mL): Contrast 2: Total Dose (mL): MEASUREMENTS (Male / Female) Normal Values 2D ECHO LV Diastolic Diameter PLAX 5.1 cm 4.2 - 5.9 / 3.9 - 5.3 cm LV Systolic Diameter PLAX 3.4 cm IVS Diastolic Thickness 1.1 cm 0.6 - 1.0 / 0.6 - 0.9 cm LVPW Diastolic Thickness 1.2 cm 0.6 - 1.0 / 0.6 - 0.9 cm LV Relative Wall Thickness 0.4 RV Internal Dim ED PLAX 2.5 cm LVOT Diameter 1.9 cm LA Systolic Diameter LX 4.3 cm 3.0 - 4.0 / 2.7 - 3.8 cm LV Diastolic Volume MOD BP 49.3 cm??? 67 - 155 / 56 - 104 cm??? LV Systolic Volume MOD BP 18.8 cm??? 22 - 58 / 19 - 49 cm??? LV Ejection Fraction MOD BP 61.9 % >= 55 % LV Cardiac Index MOD BP 924.9 cm???/min???m??? LV Diastolic Volume MOD 4C 47.1 cm??? LV Systolic Volume MOD 4C 17.6 cm??? LV Ejection Fraction MOD 4C 62.8 % LV Cardiac Index MOD 4C 896.0 cm???/min???m??? LV Diastolic Length 4C 6.5 cm LV Systolic Length 4C 5.1 cm LV Diastolic Volume MOD 2C 50.9 cm??? LV Systolic Volume MOD 2C 20.5 cm??? LV Ejection Fraction MOD 2C 59.7 % LV Cardiac Index MOD 2C 920.0 cm???/min???m??? LV Diastolic Length 2C 6.6 cm LV Systolic Length 2C 5.2 cm LA Volume 82.4 cm??? 18 - 58 / 22 - 52 cm??? LA Volume Index 38.4 cm???/m??? 16 - 28 cm???/m??? M-MODE Aortic Root Diameter MM 3.2 cm LA Systolic Diameter MM 3.9 cm LA Ao Ratio MM 1.2 AV Cusp Separation MM 0.7 cm DOPPLER AV Peak Velocity 371.2 cm/s AV Peak Gradient 55.1 mmHg AV Mean Velocity 299.7 cm/s AV Mean Gradient 43.3 mmHg AV Velocity Time Integral 89.6 cm LVOT Peak Velocity 71.0 cm/s LVOT Peak Gradient 2.0 mmHg LVOT Velocity Time Integral 18.3 cm LVOT Stroke Volume 51.5 cm??? LVOT Stroke Volume Index 25.3 ml/m??? LVOT Cardiac Index 1558.4 cm???/min???m??? AV Area Cont Eq vti 0.6 cm??? AV Area Cont Eq pk 0.5 cm??? MV Peak Velocity 109.0 cm/s MV Peak Gradient 4.8 mmHg MV Mean Velocity 68.0 cm/s MV Mean Gradient 2.1 mmHg MV Velocity Time Integral 36.1 cm MV Area PHT 2.1 cm??? Mitral E Point Velocity 103.1 cm/s Mitral A Point Velocity 66.9 cm/s Mitral E to A Ratio 1.5 MV Deceleration Time 355.6 ms TR Peak Velocity 245.5 cm/s TR Peak Gradient 30.4 mmHg Right Ventricular Systolic Press 33.1 mmHg FINDINGS Left Ventricle Left ventricular ejection fraction is estimated at 55-60 %. Mildly increased septal wall thickness. Mildly increased posterior wall thickness. Normal left ventricular systolic function with no obvious regional wall motion abnormalities. Right Ventricle Mild right ventricular dilatation. Mild pulmonary hypertension. Right Atrium No right atrial thrombus or mass seen. Left Atrium Mildly increased left atrial diameter. Moderately increased left atrial volume. Mildly increased left atrial area. Mitral Valve Mitral valve thickened. Trace to mild mitral regurgitation. No mitral stenosis. Aortic Valve Severe aortic stenosis with a peak gradient of 55 mmHg and a mean gradient of 43 mmHg. No aortic regurgitation. Tricuspid Valve Structurally normal tricuspid valve. Mild tricuspid regurgitation. No tricuspid stenosis. Pulmonic Valve Structurally normal pulmonic valve. Trace pulmonic regurgitation. No pulmonic stenosis. Pericardium No pericardial effusion. Right and left pleural effusion. Aorta Normal size aortic root and proximal ascending aorta. CONCLUSIONS Technically difficult study for interpretation Normal LV systolic function Severe aortic stenosis with a mean gradient of 43 mmHg Previewed by: Dr. Alex Flores MD (Electronically Signed) Final Date: 09 July 2024 07:26
[2024-07-09 07:53] LABS: African American GFR (CKD) 49 (>60 ml/min/1.73 sqM); Anion Gap 4 mmol/L; Blood Urea Nitrogen 35 mg/dL (7-17); Calcium 8.5 mg/dL (8.4-10.2); Carbon Dioxide 31 mmol/L (22-30); Chloride 96 mmol/L (98-107); Glucose 103 mg/dL (74-99); Non-African American GFR(CKD) 42 (>60 ml/min/1.73 sqM); Sodium 131 mmol/L (137-145)
[2024-07-09 07:59] LABS: NT-Pro-B-Type Natriuretic Pept 7940 pg/mL
[2024-07-09 11:28] LABS: Glucose,Whole Blood 183 mg/dL (70-110)
--- NOTE | 2024-07-09 14:38 | P.PN ---
Subjective Progress Note Date: 07/09/24 This is a 73-year-old female patient, presented to the emergency department because of worsening shortness of breath. The patient is known to have valvular heart disease. She has moderate to severe aortic stenosis with a peak gradient of 57 and a preserved LV function with an ejection fraction of 55%. She has also history of paroxysmal atrial fibrillation. At the time of admission, the patient was having increased shortness of breath, in addition to atrial fibrillation with rapid ventricular response. The patient presented to the Emergency Department. No chest pain. No cough or sputum production. No aspiration. Chest x-ray is consistent with CHF and bilateral pleural effusions. The white cell count is at 4.2 with a hemoglobin of 11.5 and a platelet count of 242. Electrolytes are all within normal limits. K level is at 4.1. BUN is 26 with a creatinine of 1.05. LFTs are normal. proBNP level was 11,500. Troponin x 3 has been negative. The patient's lower extremity are also slightly swollen more than the usual. She is currently on Lasix 40 mg IV every 8 hours. She is producing adequate amount of urine output. She remains on anticoagulation with Eliquis. No antibiotic coverage for now. Rest of the home medication resumed. She is on Toprol 50 mg p.o. twice a day XL. The patient is seen today July 08, 2024 in follow-up on the selective care unit. She is currently sitting up in bed. Awake and alert in no acute distress. Maintaining O2 saturations in the 90s on 2 L/min per nasal cannula. Dynamically stable. Somewhat tachycardic. White count 4.5. Hemoglobin 11.8. Platelets 228. Sodium 131. Potassium 4.1. Bicarb 27. BUN 29. Creatinine 1.03. Glucose 102. AST 36. ALT 18. She remains on albuterol as needed. She is continued on IV diuretics. Anticoagulated with Eliquis. Remains on beta- blockers for rate control. She is currently in a -3028 mL balance. The patient is seen today July 09, 2024 in follow-up on the selective care unit. She is awake and alert in no acute distress. Maintaining O2 saturations in the 90s on room air. She has a dry nonproductive cough. She remains on Lasix 40 mg IV every 8 hours. Anticoagulated with Eliquis. Currently in a -1.0 L balance. She remains afebrile. Hemodynamically stable. Echocardiogram revealed a normal left ventricular systolic function. There is severe aortic stenosis with a mean gradient of 43 mmHg. Sodium 131. Potassium 4.0. Bicarb 31. BUN 35. Creatinine 1.13. Glucose 103. proBNP 7940 Objective - Vital Signs Vital signs: Vital Signs Temp 97.7 F 07/09/24 11:00 Pulse 60 07/09/24 11:00 Resp 18 07/09/24 11:00 BP 129/74 07/09/24 11:00 Pulse Ox 96 07/09/24 11:00 FiO2 Intake & Output 07/08/24 07/09/24 07/09/24 18:59 06:59 18:59 Intake Total 740 20 Output Total 1300 550 600 Balance -560 -530 -600 Weight 97 kg 98.5 kg Intake: IV 20 20 Invasive Line 1 20 20 Oral 720 Output: Urine 1300 550 600 Other: Voiding Method External Catheter External Catheter External Catheter # Bowel Movements 1 - Exam GENERAL EXAM: Alert, obese, pleasant 88-year-old female, on 2 L nasal cannula, in no apparent distress. HEAD: Normocephalic. EYES: Normal reaction of pupils, equal size. NOSE: Clear with pink turbinates. THROAT: No erythema or exudates. NECK: No masses, no JVD. CHEST: No chest wall deformity. LUNGS: Equal air entry with crackles in the bilateral bases s. CVS: S1 and S2 normal with an audible murmur, regular rhythm. ABDOMEN: No hepatosplenomegaly, normal bowel sounds, no guarding or rigidity. SPINE: No scoliosis or deformity SKIN: No rashes. Changes of chronic venous stasis of the lower extremities CENTRAL NERVOUS SYSTEM: No focal deficits, tone is normal in all 4 extremities. EXTREMITIES: There is 1-2+ peripheral edema. No clubbing, no cyanosis. Peripheral pulses are intact. - Labs CBC & Chem 7: 07/08/24 05:37 07/09/24 07:03 Labs: Abnormal Lab Results - Last 24 Hours (Table) 07/08/24 07/08/24 07/09/24 Range/Units 16:46 20:02 06:17 Sodium (137-145) mmol/L Chloride (98-107) mmol/L Carbon Dioxide (22-30) mmol/L BUN (7-17) mg/dL Creatinine (0.52-1.04) mg/dL Glucose (74-99) mg/dL POC Glucose (mg/dL) 170 H 209 H 122 H (70-110) mg/dL 07/09/24 07/09/24 Range/Units 07:03 11:27 Sodium 131 L (137-145) mmol/L Chloride 96 L (98-107) mmol/L Carbon Dioxide 31 H (22-30) mmol/L BUN 35 H (7-17) mg/dL Creatinine 1.16 H (0.52-1.04) mg/dL Glucose 103 H (74-99) mg/dL POC Glucose (mg/dL) 183 H (70-110) mg/dL Microbiology - Last 24 Hours (Table) 07/06/24 17:31 Blood Culture - Preliminary Blood Assessment and Plan Assessment: Acute hypoxic respiratory failure, currently on 2 liters/min secondary to an acute exacerbation of diastolic CHF with bilateral pleural pleural effusion. Preserved LV function with ejection fraction 55 to 60%. The patient has a moderate-sized bilateral pleural effusion probably due to CHF and valvular heart disease. Currently on IV Lasix Severe aortic stenosis, mean gradient of 43 mmHg. Atrial fibrillation with rapid ventricular response, rate is under better control and the patient is currently on Toprol-XL 50 mg p.o. twice a day and long-term anticoagulation with Eliquis Previous history of fall and L4 vertebral body fracture and loss in height in the order of 25% of the L4 spine. Degenerative arthritis with chronic arthritis involving the knees and the back Hypertension Diabetes mellitus type 2 Hypothyroidism Lifelong non-smoker Plan: The patient was seen and evaluated Echocardiogram, labs and medications reviewed Anticoagulated with Eliquis Remains on IV diuretics Remains in a negative balance Continue to monitor intake and output Currently stable and on room air Follow-up chest x-ray in a.m. Condition remains guarded DNR CODE STATUS Family was planning to meet with hospice We will continue to follow for now I have personally seen and examined the patient, performed the documentation and the assessment and plan as written. Number of minutes spent on the visit: 10 Dictation was produced using [employer] software. Please excuse any grammatical, word or spelling errors.
--- NOTE | 2024-07-09 15:18 | P.PN ---
Subjective Progress Note Date: 07/09/24 HISTORY OF PRESENTING ILLNESS: Patient is a 88-year-old with past medical history of hypertension, type 2 diabetes, GERD, moderate to severe aortic stenosis, presented to the hospital because of increased worsening shortness of breath. Patient reports that recently on outpatient basis she was diagnosed with pneumonia. On admission she was complaining of some wheezing. She denies any chest pain palpitation nausea, lightheaded and dizziness or syncopal episodes. Admission ECG shows sinus rhythm heart rate 74 beats minute, right bundle branch block, nonspecific ST changes, Chest x-ray shows pulmonary vascular congestion with small bilateral pleural effusion Last echocardiogram from September 2023 shows EF of 55 to 60%, moderate to severe aortic stenosis with mean gradient of 34 mmHg, moderate mitral regurgitation 07/08 Patient seen and examined. She denies having chest pain. She states her breath ing is better today. She does have lower extremity edema. Blood pressure 99/56, heart rate 118, pulse ox 98% on 2 L nasal cannula. Repeat blood work reveals hemoglobin 1.8, BUN 29 creatinine 1.03, potassium 4.1. Patient has a negative fluid balance and weight is down 1.5 kg. Telemetry is atrial fibrillation with controlled ventricular rate. 07/09 Patient seen and examined. She denies chest pain or chest pressure. She states her coughing is less frequent. She denies nausea. She states she slept all right last night. She has been maintained on IV Lasix 40 mg every 8 hours. Echocardiogram reveals technically difficult study. Severe aortic stenosis with mean gradient of 43 mmHg. Repeat blood work reveals sodium 131, potassium 4, BUN 35 creatinine 1.16 and proBNP 7940. PHYSICAL EXAMINATION: Neck: Brisk carotid upstroke, no jugular venous distention. Lungs: Clear to auscultation. Heart: Regular rate and rhythm, S1-S2, 3/6 systolic murmur. Abdomen: Soft nontender, positive bowel sounds. Extremities: 2+ bilateral lower extremity edema, intact distal pulses. Neuro: Alert, oritented, no focal deficits. Detailed neuro exam was not performed. ASSESSMENT: # Mild HFpEF exacerbation # Acute COPD exacerbation # Acute hypoxic respiratory failure, likely due to above # Moderate to severe aortic stenosis # Paroxysmal atrial fibrillation # Type 2 diabetes # Essential hypertension # Dyslipidemia # History of malignant melanoma # Obesity PLAN: Discontinue aspirin Continue patient on Lipitor, Eliquis, metoprolol succinate 50 mg twice daily Transition IV Lasix to oral 40 mg twice daily Monitor MARKELL, daily weights, electrolytes and renal function Continue telemetry monitoring Further recommendations to follow Patient will require follow-up with cardiology regarding aortic valve for development of a plan for either TAVR or conservative management. Nurse practitioner note has been reviewed, I agree with documented findings and plan of care. Patient was seen and examined. Objective - Vital Signs Vital signs: Vital Signs Temp 98.2 F 07/09/24 07:30 Pulse 64 07/09/24 08:00 Resp 17 07/09/24 08:00 BP 117/71 07/09/24 07:30 Pulse Ox 97 07/09/24 08:34 FiO2 Intake & Output 07/08/24 07/09/24 07/09/24 18:59 06:59 18:59 Intake Total 740 20 Output Total 1300 550 600 Balance -560 -530 -600 Weight 97 kg 98.5 kg Intake: IV 20 20 Invasive Line 1 20 20 Oral 720 Output: Urine 1300 550 600 Other: Voiding Method External Catheter External Catheter External Catheter # Bowel Movements 1 - Labs CBC & Chem 7: 07/08/24 05:37 07/09/24 07:03 Labs: Abnormal Lab Results - Last 24 Hours (Table) 07/08/24 07/08/24 07/08/24 Range/Units 11:43 16:46 20:02 Sodium (137-145) mmol/L Chloride (98-107) mmol/L Carbon Dioxide (22-30) mmol/L BUN (7-17) mg/dL Creatinine (0.52-1.04) mg/dL Glucose (74-99) mg/dL POC Glucose (mg/dL) 194 H 170 H 209 H (70-110) mg/dL 07/09/24 07/09/24 Range/Units 06:17 07:03 Sodium 131 L (137-145) mmol/L Chloride 96 L (98-107) mmol/L Carbon Dioxide 31 H (22-30) mmol/L BUN 35 H (7-17) mg/dL Creatinine 1.16 H (0.52-1.04) mg/dL Glucose 103 H (74-99) mg/dL POC Glucose (mg/dL) 122 H (70-110) mg/dL Microbiology - Last 24 Hours (Table) 07/06/24 17:31 Blood Culture - Preliminary Blood
[2024-07-09 17:09] LABS: Glucose,Whole Blood 211 mg/dL (70-110)
[2024-07-09] MEDS: FUROSEMIDE 40 MG TAB PO SCH (17:52)
[2024-07-09 20:10] LABS: Glucose,Whole Blood 230 mg/dL (70-110)
--- NOTE | 2024-07-09 23:31 | P.PN ---
Subjective patient is a 88-year-old lady with past medical he significant for hypertension, diabetes, GERD, moderate to severe aortic stenosis who presented the ER because of shortness of breath. Patient stated that she was recently diagnosed with pneumonia and has been having hard time breathing. Shortness of breath at rest as on exertion. Patient also complaining of wheezing. Denies any fever or chills. There is no complaint of chest pain. Patient denies any nausea or vomiting or abdominal pain. There is no complaint of orthopnea or PND. Because of her worsening shortness of breath, patient came to the ER Initial lab work done in the ER showed WBC 5.4, hemoglobin 12.5, platelet count 23, sodium 134, potassium 4.2, BUN 25, creatinine 0.98, glucose 158, magnesium 1.8, bilirubin 0.6, AST 33, ALT 19, proBNP 11,500 EKG done in the ER showed heart rate of 74, no ST segment elevation or depression seen, no T-wave inversions seen. Chest x-ray done in the ER showed cardiomegaly and pulmonary vascular congestion, bilateral small pleural effusion and lower lobe opacities Patient admitted to internal medicine service 07/08. Patient seen and examined. Blood work reviewed, WBC 4.5, hemoglobin 8, sodium 131, potassium 4.1, BUN 29, creatinine 1.03 continue 2 L of oxygen. States breathing is improved. Patient is extremely hard of hearing 07/09 Patient remains on IV Lasix 40 mg every 8 hours She is improving. She came off oxygen today currently she is saturating well on room air and high 90s however she gets short of breath when she started working also she has frequent coughing requesting NT cough medicine. No chest pain. Daughter at bedside with a plan to go to a long term upon discharge with hospice care. Currently she is not signed for hospice yet. Objective - Vital Signs Vital signs: Vital Signs Temp 97.7 F 07/09/24 11:00 Pulse 60 07/09/24 16:00 Resp 18 07/09/24 16:00 BP 142/86 07/09/24 16:00 Pulse Ox 94 L 07/09/24 16:00 FiO2 Intake & Output 07/08/24 07/09/24 07/09/24 18:59 06:59 18:59 Intake Total 740 20 Output Total 1300 550 600 Balance -560 -530 -600 Weight 97 kg 98.5 kg Intake: IV 20 20 Invasive Line 1 20 20 Oral 720 Output: Urine 1300 550 600 Other: Voiding Method External Catheter External Catheter External Catheter # Bowel Movements 1 - Exam GENERAL: The patient is alert and oriented x3, not in any acute distress. Well developed, well nourished. HEENT: Pupils are round and equally reacting to light. EOMI. No scleral icterus. No conjunctival pallor. Normocephalic, atraumatic. No pharyngeal erythema. No thyromegaly. CARDIOVASCULAR: S1 and S2 present. No murmurs, rubs, or gallops. -PULMONARY: Chest is clear to auscultation, no wheezing , bilateral basal crackles. ABDOMEN: Soft, nontender, nondistended, normoactive bowel sounds. No palpable organomegaly. MUSCULOSKELETAL: No joint swelling or deformity. EXTREMITIES: No cyanosis, clubbing, or pedal edema. NEUROLOGICAL: Gross neurological examination did not reveal any focal deficits. SKIN: No rashes. no petechiae. - Labs CBC & Chem 7: 07/08/24 05:37 07/09/24 07:03 Labs: Abnormal Lab Results - Last 24 Hours (Table) 07/08/24 07/09/24 07/09/24 Range/Units 20:02 06:17 07:03 Sodium 131 L (137-145) mmol/L Chloride 96 L (98-107) mmol/L Carbon Dioxide 31 H (22-30) mmol/L BUN 35 H (7-17) mg/dL Creatinine 1.16 H (0.52-1.04) mg/dL Glucose 103 H (74-99) mg/dL POC Glucose (mg/dL) 209 H 122 H (70-110) mg/dL 07/09/24 Range/Units 11:27 Sodium (137-145) mmol/L Chloride (98-107) mmol/L Carbon Dioxide (22-30) mmol/L BUN (7-17) mg/dL Creatinine (0.52-1.04) mg/dL Glucose (74-99) mg/dL POC Glucose (mg/dL) 183 H (70-110) mg/dL Microbiology - Last 24 Hours (Table) 07/06/24 17:31 Blood Culture - Preliminary Blood Assessment and Plan Assessment: Acute hypoxic respiratory failure Acute CHF with preserved EF Bilateral pleural effusions Moderate to severe aortic stenosis Paroxysmal atrial fibrillation Diabetes type 2 [id number] Hypertension Hyperlipidemia History of malignant melanoma Osteoarthritis and prior history of bilateral knee replacement Obesity with a BMI of 36.5 Plan: Continue with IV Solu-Medrol Continue with breathing treatment and bronchodilator Pulmonary team consult Cardiology team consult Patient currently on room air. Patient planned to go to ECF upon discharge with hospice care GI DVT prophylaxis Prognosis is guarded
[2024-07-10] MEDS: guaiFENesin-DM 100-10MG/5ML 10 ML CUP PO PRN (03:28)
[2024-07-10 06:10] LABS: Glucose,Whole Blood 137 mg/dL (70-110)
--- NOTE | 2024-07-10 08:21 | XR ---
EXAMINATION TYPE: XR chest 1V portable DATE OF EXAM: 07/10/2024 6:48 AM COMPARISON: 07/07/2024 CLINICAL INDICATION: Female, 88 years old with history of Pleural effusions, TECHNIQUE: XR chest 1V portable view(s) obtained. FINDINGS: The heart size is normal. The pulmonary vasculature is normal. Small bilateral pleural effusions are present. This may be improving on the left. IMPRESSION: 1. Small bilateral pleural effusions, improving on the left. [facility], , 07/10/2024 8:19 AM
[2024-07-10 11:15] LABS: Glucose,Whole Blood 154 mg/dL (70-110)
[2024-07-10 11:24] VITALS: BP 143/80; PULSE 54; RESP 17; TEMP 97.6
--- NOTE | 2024-07-10 12:50 | P.PN ---
Subjective Progress Note Date: 07/10/24 HISTORY OF PRESENTING ILLNESS: Patient is a 88-year-old with past medical history of hypertension, type 2 diabetes, GERD, moderate to severe aortic stenosis, presented to the hospital because of increased worsening shortness of breath. Patient reports that recently on outpatient basis she was diagnosed with pneumonia. On admission she was complaining of some wheezing. She denies any chest pain palpitation nausea, lightheaded and dizziness or syncopal episodes. Admission ECG shows sinus rhythm heart rate 74 beats minute, right bundle branch block, nonspecific ST changes, Chest x-ray shows pulmonary vascular congestion with small bilateral pleural effusion Last echocardiogram from September 2023 shows EF of 55 to 60%, moderate to severe aortic stenosis with mean gradient of 34 mmHg, moderate mitral regurgitation 07/08 Patient seen and examined. She denies having chest pain. She states her breath ing is better today. She does have lower extremity edema. Blood pressure 99/56, heart rate 118, pulse ox 98% on 2 L nasal cannula. Repeat blood work reveals hemoglobin 1.8, BUN 29 creatinine 1.03, potassium 4.1. Patient has a negative fluid balance and weight is down 1.5 kg. Telemetry is atrial fibrillation with controlled ventricular rate. 07/09 Patient seen and examined. She denies chest pain or chest pressure. She states her coughing is less frequent. She denies nausea. She states she slept all right last night. She has been maintained on IV Lasix 40 mg every 8 hours. Echocardiogram reveals technically difficult study. Severe aortic stenosis with mean gradient of 43 mmHg. Repeat blood work reveals sodium 131, potassium 4, BUN 35 creatinine 1.16 and proBNP 7940. 07/10 Patient seen and examined. Patient states she slept okay last night. No new concerns. Plan is for patient to be discharged back to her [facility] with hospice care. Dr. Reardon discussed with the patient's daughter the situation with the aortic stenosis and options that are available. Plan is for conservative management at this time. Blood pressure 143/80, heart rate in the 50s, pulse ox 98% on room air. PHYSICAL EXAMINATION: Neck: Brisk carotid upstroke, no jugular venous distention. Lungs: Clear to auscultation. Heart: Regular rate and rhythm, S1-S2, 3/6 systolic murmur. Abdomen: Soft nontender, positive bowel sounds. Extremities: 2+ bilateral lower extremity edema, intact distal pulses. Neuro: Alert, oritented, no focal deficits. Detailed neuro exam was not performed. ASSESSMENT: # Mild HFpEF exacerbation # Acute COPD exacerbation # Acute hypoxic respiratory failure, likely due to above # Moderate to severe aortic stenosis # Paroxysmal atrial fibrillation # Type 2 diabetes # Essential hypertension # Dyslipidemia # History of malignant melanoma # Obesity PLAN: Continue patient on Lipitor, Eliquis, metoprolol succinate 50 mg twice daily Continue Lasix oral 40 mg twice daily Monitor MARKELL, daily weights, electrolytes and renal function Continue telemetry monitoring Further recommendations to follow Discharge plan is to return home under hospice care. No cardiac follow-up is necessary at this time unless plan changes. Nurse practitioner note has been reviewed, I agree with documented findings and plan of care. Patient was seen and examined. Objective - Vital Signs Vital signs: Vital Signs Temp 97.6 F 07/10/24 11:05 Pulse 54 L 07/10/24 11:05 Resp 17 07/10/24 11:05 BP 143/80 07/10/24 11:05 Pulse Ox 98 07/10/24 11:05 FiO2 Intake & Output 07/09/24 07/10/24 07/10/24 18:59 06:59 18:59 Intake Total 200 240 Output Total 600 300 150 Balance -600 -100 90 Weight 95.5 kg Intake: Oral 200 240 Output: Urine 600 300 150 Other: Voiding Method External Catheter External Catheter External Catheter - Labs CBC & Chem 7: 07/08/24 05:37 07/09/24 07:03 Labs: Abnormal Lab Results - Last 24 Hours (Table) 07/09/24 07/09/24 07/10/24 Range/Units 17:07 20:09 06:09 POC Glucose (mg/dL) 211 H 230 H 137 H (70-110) mg/dL 07/10/24 Range/Units 11:14 POC Glucose (mg/dL) 154 H (70-110) mg/dL Microbiology - Last 24 Hours (Table) 07/06/24 17:31 Blood Culture - Preliminary Blood
--- NOTE | 2024-07-10 13:43 | P.DS ---
Providers Date of admission: 07/06/24 19:16 Attending physician: Jamey Field Consults: 07/06/24 19:16 Consult Physician Routine Consulting Provider: Ayo Posey Consult Reason/Comments: copd Do you want consulting provider notified?: Yes Consult Physician Routine Consulting Provider: Martin Reardon Consult Reason/Comments: chf Do you want consulting provider notified?: Yes Primary care physician: Srinivas Elizabeth Hospital Course: Diagnoses: Acute hypoxic respiratory failure Acute CHF with preserved EF Bilateral pleural effusions Moderate to severe aortic stenosis Paroxysmal atrial fibrillation Diabetes type 2 [id number] Hypertension Hyperlipidemia History of malignant melanoma Osteoarthritis and prior history of bilateral knee replacement Obesity with a BMI of 36.5 Hospital course: patient is a 88-year-old lady with past medical he significant for hypertension, diabetes, GERD, moderate to severe aortic stenosis who presented the ER because of shortness of breath. Patient stated that she was recently diagnosed with pneumonia and has been having hard time breathing. Shortness of breath at rest as on exertion. Patient also complaining of wheezing. Denies any fever or chills. There is no complaint of chest pain. Patient denies any nausea or vomiting or abdominal pain. There is no complaint of orthopnea or PND. Because of her worsening shortness of breath, patient came to the ER Patient was found to have acute CHF exacerbation with moderate bilateral pleural effusion with the top of her aortic stenosis and A-fib and RVR. Patient was evaluated by cardiology and pulmonary team She was treated with IV Lasix 40 mg every 8 hours. Her oxygen requirements improved and currently she is on room air. Her breathing difficulty improved and coughing improved. No chest pain. Patient denies any other new complaint agreed to be discharged to her ECF today Patient and daughter plan to sign for hospice upon discharge Patient was cleared for discharge by cardiology and pulmonary team Problems and management plan were discussed with the patient and he verbalized understanding and acceptance Patient was found stable and can be discharged home in guarded prognosis however he needs follow-up as an outpatient. 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 Generally weak CVS: S1-S2, RRR, no murmur Lungs: B/L CTA, no wheezing Abdomen: soft, no distention, no tenderness, positive bowel sounds Extremity: no leg edema or induration Time spent more than 35 minutes Patient Condition at Discharge: Serious Plan - Discharge Summary Discharge Rx Participant: No New Discharge Prescriptions: No Action Aspirin 81 mg PO DAILY@0800 Apixaban [Eliquis] 5 mg PO BID@08,1999 Furosemide [Lasix] 20 mg PO DAILY@0800 Vitamin B Complex 1 cap PO DAILY@0800 Cyclobenzaprine [Flexeril] 10 mg PO BID PRN tab PRN Reason: Muscle Spasm Mag Hydrox/Al Hydrox/Simeth [Maalox] 15 ml PO Q6HR PRN ml PRN Reason: Indigestion HYDROcodone/APAP 5-325MG [[place] 5-325] 0.5 tab PO Q6HR PRN PRN Reason: Pain Omeprazole 20 mg PO DAILY@0800 bisacodyL [Dulcolax] 10 mg RECTAL DAILY@0800 Topiramate [Topamax] 25 mg PO DAILY@0800 glipiZIDE [glipiZIDE ER] 10 mg PO DAILY@0800 Metoprolol Succinate (ER) [Toprol XL] 50 mg PO BID@0800,1999 Pioglitazone [Actos] 45 mg PO DAILY@0800 Sennosides [Senokot] 8.6 mg PO BID PRN tab PRN Reason: Constipation traMADol HCl [Ultram] 50 mg PO Q8H PRN PRN Reason: Pain Menthol-Zinc Oxide Oint [Calmoseptine Ointment] 1 applic TOPICAL BID PRN PRN Reason: SKIN BREAKDOWN Acetaminophen Tab [Tylenol] 650 mg PO Q8H PRN PRN Reason: Pain polyethylene glycoL 3350 [Miralax] 17 gm PO BID@08,1999 Calcium Carbonate [Tums] 1,000 mg PO Q4HR PRN PRN Reason: Gi Upset Nystatin 100,000 Unit/gm Powd [Mycostatin Powder] 1 applic TOPICAL BID@799,1999 Levothyroxine Sodium [Synthroid] 100 mcg PO HS@1999 Insulin Lispro [humaLOG Kwikpen] See Protocol SQ AC-TID Ferrous Sulfate [Iron] 325 mg PO DAILY@0800 Atorvastatin [Lipitor] 10 mg PO HS@1999 Sodium Chloride [Wound Wash Saline] 1 spray TOPICAL DIRECTED Discharge Medication List Aspirin 81 mg PO DAILY@0800 07/06/20 [History] Topiramate [Topamax] 25 mg PO DAILY@79907/06/20 [History] Apixaban [Eliquis] 5 mg PO BID@799,199902/04/24 [History] Furosemide [Lasix] 20 mg PO DAILY@79902/04/24 [History] Metoprolol Succinate (ER) [Toprol XL] 50 mg PO BID@799,199902/04/24 [History] Pioglitazone [Actos] 45 mg PO DAILY@79902/04/24 [History] Vitamin B Complex 1 cap PO DAILY@79902/04/24 [History] glipiZIDE [glipiZIDE ER] 10 mg PO DAILY@79902/04/24 [History] Cyclobenzaprine [Flexeril] 10 mg PO BID PRN tab 02/12/24 [Rx] Mag Hydrox/Al Hydrox/Simeth [Maalox] 15 ml PO Q6HR PRN ml 02/12/24 [Rx] Sennosides [Senokot] 8.6 mg PO BID PRN tab 02/12/24 [Rx] Acetaminophen Tab [Tylenol] 650 mg PO Q8H PRN 07/06/24 [History] Atorvastatin [Lipitor] 10 mg PO HS@199907/06/24 [History] Calcium Carbonate [Tums] 1,000 mg PO Q4HR PRN 07/06/24 [History] Ferrous Sulfate [Iron] 325 mg PO DAILY@79907/06/24 [History] HYDROcodone/APAP 5-325MG [[place] 5-325] 0.5 tab PO Q6HR PRN 07/06/24 [History] Insulin Lispro [humaLOG Kwikpen] See Protocol SQ AC-TID 07/06/24 [History] Levothyroxine Sodium [Synthroid] 100 mcg PO HS@199907/06/24 [History] Menthol-Zinc Oxide Oint [Calmoseptine Ointment] 1 applic TOPICAL BID PRN 07/06/24 [History] Nystatin 100,000 Unit/gm Powd [Mycostatin Powder] 1 applic TOPICAL BID@799,199907/06/24 [History] Omeprazole 20 mg PO DAILY@79907/06/24 [History] Sodium Chloride [Wound Wash Saline] 1 spray TOPICAL DIRECTED 07/06/24 [History] bisacodyL [Dulcolax] 10 mg RECTAL DAILY@0800 07/06/24 [History] polyethylene glycoL 3350 [Miralax] 17 gm PO BID@0800,199907/06/24 [History] traMADol HCl [Ultram] 50 mg PO Q8H PRN 07/06/24 [History] Follow up Appointment(s)/Referral(s): Son Nava DO [STAFF PHYSICIAN] - 1-2 days Activity/Diet/Wound Care/Special Instructions: [facility] may be able to transport home. [phone]
--- NOTE | 2024-07-10 14:50 | P.PN ---
Subjective Progress Note Date: 07/10/24 This is a 73-year-old female patient, presented to the emergency department because of worsening shortness of breath. The patient is known to have valvular heart disease. She has moderate to severe aortic stenosis with a peak gradient of 57 and a preserved LV function with an ejection fraction of 55%. She has also history of paroxysmal atrial fibrillation. At the time of admission, the patient was having increased shortness of breath, in addition to atrial fibrillation with rapid ventricular response. The patient presented to the Emergency Department. No chest pain. No cough or sputum production. No aspiration. Chest x-ray is consistent with CHF and bilateral pleural effusions. The white cell count is at 4.2 with a hemoglobin of 11.5 and a platelet count of 242. Electrolytes are all within normal limits. K level is at 4.1. BUN is 26 with a creatinine of 1.05. LFTs are normal. proBNP level was 11,500. Troponin x 3 has been negative. The patient's lower extremity are also slightly swollen more than the usual. She is currently on Lasix 40 mg IV every 8 hours. She is producing adequate amount of urine output. She remains on anticoagulation with Eliquis. No antibiotic coverage for now. Rest of the home medication resumed. She is on Toprol 50 mg p.o. twice a day XL. The patient is seen today July 08, 2024 in follow-up on the selective care unit. She is currently sitting up in bed. Awake and alert in no acute distress. Maintaining O2 saturations in the 90s on 2 L/min per nasal cannula. Dynamically stable. Somewhat tachycardic. White count 4.5. Hemoglobin 11.8. Platelets 228. Sodium 131. Potassium 4.1. Bicarb 27. BUN 29. Creatinine 1.03. Glucose 102. AST 36. ALT 18. She remains on albuterol as needed. She is continued on IV diuretics. Anticoagulated with Eliquis. Remains on beta- blockers for rate control. She is currently in a -3028 mL balance. The patient is seen today July 09, 2024 in follow-up on the selective care unit. She is awake and alert in no acute distress. Maintaining O2 saturations in the 90s on room air. She has a dry nonproductive cough. She remains on Lasix 40 mg IV every 8 hours. Anticoagulated with Eliquis. Currently in a -1.0 L balance. She remains afebrile. Hemodynamically stable. Echocardiogram revealed a normal left ventricular systolic function. There is severe aortic stenosis with a mean gradient of 43 mmHg. Sodium 131. Potassium 4.0. Bicarb 31. BUN 35. Creatinine 1.13. Glucose 103. proBNP 7940 The patient is seen today July 10, 2024 in follow-up on the selective care unit. She is awake and alert in no acute distress. Sitting up in bed having lunch. Maintaining good O2 saturations in the 90s on room air. Chest x-ray shows improved aeration bilaterally. Glucose 154. She remains anticoagulated with Eliquis. Continued on oral diuretics. Currently in a -700 mL balance. Objective - Vital Signs Vital signs: Vital Signs Temp 97.6 F 07/10/24 11:05 Pulse 54 L 07/10/24 11:05 Resp 17 07/10/24 11:05 BP 143/80 07/10/24 11:05 Pulse Ox 98 07/10/24 11:05 FiO2 Intake & Output 07/09/24 07/10/24 07/10/24 18:59 06:59 18:59 Intake Total 200 480 Output Total 600 300 150 Balance -600 -100 330 Weight 95.5 kg Intake: Oral 200 480 Output: Urine 600 300 150 Other: Voiding Method External Catheter External Catheter External Catheter - Exam GENERAL EXAM: Alert, obese, 88-year-old female, sitting up in bed, on room air, in no apparent distress. HEAD: Normocephalic. EYES: Normal reaction of pupils, equal size. NOSE: Clear with pink turbinates. THROAT: No erythema or exudates. NECK: No masses, no JVD. CHEST: No chest wall deformity. LUNGS: Equal air entry with crackles in the bilateral bases. CVS: S1 and S2 normal with an audible murmur, regular rhythm. ABDOMEN: No hepatosplenomegaly, normal bowel sounds, no guarding or rigidity. SPINE: No scoliosis or deformity SKIN: No rashes. Changes of chronic venous stasis of the lower extremities CENTRAL NERVOUS SYSTEM: No focal deficits, tone is normal in all 4 extremities. EXTREMITIES: There is 1-2+ peripheral edema. No clubbing, no cyanosis. Peripheral pulses are intact. - Labs CBC & Chem 7: 07/08/24 05:37 07/09/24 07:03 Labs: Abnormal Lab Results - Last 24 Hours (Table) 07/09/24 07/09/24 07/10/24 Range/Units 17:07 20:09 06:09 POC Glucose (mg/dL) 211 H 230 H 137 H (70-110) mg/dL 07/10/24 Range/Units 11:14 POC Glucose (mg/dL) 154 H (70-110) mg/dL Microbiology - Last 24 Hours (Table) 07/06/24 17:31 Blood Culture - Preliminary Blood Assessment and Plan Assessment: Acute hypoxic respiratory failure secondary to an acute exacerbation of diastolic CHF with bilateral pleural pleural effusion. Preserved LV function with ejection fraction 55 to 60%. The patient has a moderate-sized bilateral pleural effusion probably due to CHF and valvular heart disease. Improved with diuretics. Recovered and on room air Severe aortic stenosis, mean gradient of 43 mmHg. Atrial fibrillation with rapid ventricular response, rate is under better control and the patient is currently on Toprol-XL 50 mg p.o. twice a day and long-term anticoagulation with Eliquis Previous history of fall and L4 vertebral body fracture and loss in height in the order of 25% of the L4 spine. 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 Number of minutes spent on the visit: 10 Dictation was produced using [employer] dictation software. Please excuse any grammatical, word or spelling errors.
== END 2024-07-10 16:19 | DRG 291 ==
LOC: EC 17:10 → 3SCARD 19:16
PROVIDERS: ADMIT Hospitalist; ATTEND Hospitalist
DX: I11.0 Hypertensive heart disease with heart failure (principal); I50.33 Acute on chronic diastolic (congestive) heart failure; J96.01 Acute respiratory failure with hypoxia; Z51.5 Encounter for palliative care; J44.1 Chronic obstructive pulmonary disease with (acute) exacerbation; E11.9 Type 2 diabetes mellitus without complications; E66.9 Obesity, unspecified; E03.9 Hypothyroidism, unspecified; I08.0 Rheumatic disorders of both mitral and aortic valves; I48.0 Paroxysmal atrial fibrillation; Z11.52 Encounter for screening for COVID-19; Z79.01 Long term (current) use of anticoagulants; Z79.890 Hormone replacement therapy; E78.5 Hyperlipidemia, unspecified; H91.90 Unspecified hearing loss, unspecified ear; I45.10 Unspecified right bundle-branch block; K21.9 Gastro-esophageal reflux disease without esophagitis; M19.90 Unspecified osteoarthritis, unspecified site; Z66 Do not resuscitate; Z79.82 Long term (current) use of aspirin; Z79.84 Long term (current) use of oral hypoglycemic drugs; Z79.899 Other long term (current) drug therapy; Z82.49 Family history of ischemic heart disease and other diseases of the circulatory system; Z96.653 Presence of artificial knee joint, bilateral; Z68.35 Body mass index [BMI] 35.0-35.9, adult; Z71.6 Tobacco abuse counseling; Z85.820 Personal history of malignant melanoma of skin; Z90.49 Acquired absence of other specified parts of digestive tract
CPT/HCPCS: 36415; 71045; 80048; 80053; 83605; 83735; 83880; 84100; 84145; 84484; 85025; 85379; 85610; 85652; 85730; 86140; 87040; 87636; 93005; 93306; 94640; 94760; 96365; 96366; 96367; 96375; 99291